=== PATIENT | female | born 1935 | race Caucasian/White ===

== ENCOUNTER 2017-10-28 10:57 | Emergency (ER) | payer MEDICARE, OTHER ==
--- OUTSIDE RECORDS SUMMARY | 2017-10-28 11:30 | XMS REPORT ---
:1935 External Reference #:[id number] Author Organization [facility] Address [address] [place] [address] Phone [phone] Care Team Providers Name Role Phone David Abraham MD Care Team Information Equalizer Operator Unavailable David Abraham MD Primary Care Physician Unavailable Payers Type Date Identification Numbers Payment Provider Subscriber Medicare Primary Policy Number: [id number] [place]akat PayID: [id number] [address] [place] [address] Medigap Part B Effective: 2000 Policy Number: [id number] [facility] Group Number: [id number] 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 Active extremities Onset: 12/23/2016 Type II diabetes mellitus uncontrolled David Abraham M.D. Active Onset: 10/03/2014 Peripheral vascular disease David Abraham M.D. Active Onset: 11/21/2007 Osteoporosis David Abraham M.D. Active Onset: 11/21/2007 Hyperlipidemia David Abraham M.D. Active Onset: 11/21/2007 Type 2 diabetes mellitus David Abraham M.D. Active Onset: 11/21/2007 Essential hypertension David Abraham M.D. Active Family History Date Family Member(s) Problem(s) Comments Father Neoplasm Of Brain Mother Coronary Artery Disease (CAD) First Sister Hypertension First Sister Diabetes Mellitus, II First Sister Acromegaly Social History Type Date Description Comments Marital Status Patient is Cigarette Use Nonsmoker ETOH Use Rarely consumes alcohol Smoking Patient is a former smoker Daily Caffeine Does not consume caffeine Exercise Type/Frequency Current Exercises sporadically. Walks Allergies, Adverse Reactions, Alerts Date Description Reaction Status Severity Comments 07/18/1997 Sulfa Drugs active Medications Medication Date Status Form Strength Qnty SIG Indications Ordering Provider Lasix 09/28/ Active Tablets 40mg 1tabs Take one R60.0 Marilu Yuliana 2018 tablet by hali Jeffries as DELI MANAGER soon as you get home - take BP before bed and write it down, ED if not feeling well. Silvadene 06/16/ Active Cream 1% 20gm apply Alyx 2018 small Jeanette, amount TUBE LASER OPERATOR over left foot ulcer once daily Sertraline HCL 06/14/ Active Tablets 25mg 90tab take one F06.34 Dania 2018 s by mouth Magda in the Afnp-C morning Silver Calcium 06/14/ Active 1Box size: 2x2 David Boles Alginate Pads 2018 apply up Jarad to 3x day M.DObdulia dx: i70.203 Glipizide ER 09/24/ Active Tablets ER 5mg 180ta Take 2 E11.9 David Boles 2016 24HR bs Tablets By Hali AbrahamDObdulia Once A Day Janumet 01/14/ Active Tablets 50-500mg 180ta take 1 E11.9 David Boles 2011 bs tablet by hali Abraham M.D. twice a day Aspir-Low / Active Tablets DR 81mg 1 by mouth Unknown 0000 every day Atorvastatin / Active Tablets 80mg 90tab 1 by mouth David Boles Calcium 0000 s every day Louisa Abraham Carvedilol / Active Tablets 3.125mg 60tab take 1 Alyx 0000 s tablet by Jeanette mouth TUBE LASER OPERATOR twice a day Lisinopril / Active Tablets 2.5mg 30tab 1 by mouth Alyx 0000 s every day Jeanette, TUBE LASER OPERATOR Folic Acid / Active Tablets 1mg 30tab 1 by mouth Alyx 0000 s every day Jeanette, TUBE LASER OPERATOR Raloxifene HCL / Active Tablets 60mg 1 by mouth Unknown 0000 every day No Active 06/14/ Hx Unknown Medications 2018 - 2017 Zostavax 10/03/ Hx Solution [id number]/ 1unit pt july V04.89 David Boles 2014 - Rec 0.65ML s receive Jarad 10/04/ the M.D. 2014 zostavax injection Onetouch Ultra 05/16/ Hx Strips 200un test twice David Boles Blue 2014 - a day Jarad, 10/09/ dx:250.00 M.D. 2015 Cephalexin 11/10/ Hx Tablets 500mg 14tab 1 by mouth 703.0 Beltran Pham 2013 - s twice a M.D. 10/03/ day for 2014 7days Raloxifene 09/19/ Hx Tablets 60mg 90tab Take 1 David Boles Hydrochloride 2013 - s Tablet Jarad 05/09/ Daily M.D. 2014 Raloxifene HCL 09/19/ Hx Tablets 60mg 90tab take 1 M81.0 David Boles 2013 - s tablet by Jarad, 06/13/ mouth M.D. 2017 daily Atorvastatin 09/14/ Hx Tablets 10mg 90tab take 1 E78.4 David Boles Calcium 2012 - s tablet by Jarad, 06/13/ mouth at M.D. 2018 bedtime Ramipril 04/19/ Hx Capsules 2.5mg 90cap Take 1 Kavitha2012 - Capsule Sven, 09/13/ Daily Afnp-C 2013 Janumet 12/29/ Hx Tablets 50-1000mg 180ta 1 po bid Kavitha 2011 - Sven, 01/14/ Afnp-C 2012 Januvia 12/02/ Hx Tablets 50mg 60tab 1 po bid 250.00 Kavitha 2011 - s Sven, 12/29/ Afnp-C 2011 Metformin HCL 10/21/ Hx Tablets 1000mg 60tab take 1 Kavitha2011 - s tablet by Sven, 12/29/ mouth Afnp-C 2011 twice a day Fluconazole 10/21/ Hx Tablets 150mg 2tabs 1 po ; july 616.10 Kavitha 2011 - repeat in Sven, 09/14/ 5-7 days Afnp-C 2012 Glipizide XL 09/10/ Hx Tablets ER 5mg 180ta 2 by mouth E11.9 David Boles 2011 - 24HR bs every day Jarad, 09/24/ M.D. 2016 Glyburide 08/27/ Hx Tablets 5mg 30tab 1 po qd in 250.00 Kavitha 2011 - s Am Sven, Afnp-C 2011 Fluconazole 08/27/ Hx Tablets 150mg 1tabs 1 po prn 250.00 Kavitha 2011 - Sven, Afnp-C 2011 Metformin HCL 12/28/ Hx Tablets 500mg 90tab 2 in Am Kavitha 2010 - s and one Sven, 10/21/ tab in [facility] 2011 Zithromax Z-Isidro 03/18/ Hx Tablets 250mg 1Pack as 466.0 David Boles 2009 - directed Jarad, 03/23/ M.D. 2009 Tessalon Perles 03/18/ Hx Capsules 100mg 20cap 1 bid prn 466.0 David Boles 2009 - s cough Jarad, 03/28/ M.D. 2009 Breeze 2 Testing 11/14/ Hx 3Mont test blood David Boles Disc 2008 - hs sugar Jarad, 12/23/ twice a M.D. 2016 day dx: 250.00 Zithromax 10/22/ Hx Tablets 250mg 6tabs 2 po qd 786.2 David Boles 2008 - today , Jarad, 10/27/ then 1 po M.D. 2008 qd times 4 Tessalon Perles 10/22/ Hx Capsules 100mg 21cap take 1 786.2 David Boles 2008 - capsule by Jarad, 10/29/ mouth M.D. 2008 three times a day as needed for cough Peridex Oral 11/20/ Hx Solution 0.12% 1Bott 1 capful 250.00 Advid A. Rinse 2007 - le bid Jarad, 11/14/ M.D. 2009 Glyburide 08/04/ Hx Tablets 5mg 180ta 2 po qd David Boles 2005 - bs Jarad, 08/13/ M.D. 2012 Altace 08/04/ Hx Capsules 2.5mg 90cap 1 po qd David AObdulia 2005 - s Jarad, 09/14/ M.D. 2013 Lipitor 08/04/ Hx 90 10mg 90uni 1 po qhs David Boles 2005 - ts Jarad, 09/14/ M.D. 2012 Macrobid 11/21/ Hx 100mg 14Tab 1 Irasema 2002 - s Ricki, 12/11/ TUBE LASER OPERATOR 2005 PO bid With Meals Calcium With Vit 11/03/ Hx 600mg 1 po qd Andrea Lily Calderon 2002 - Jhonny, 10/03/ M.D. 2014 Keflex 06/09/ Hx 5Oomg 14uni 1 PO bid Dania 2000 - ts Hilwilliamorf, 06/16/ Afnp-C 2000 Hydrocortisone 11/28/ Hx 2.5% 30gm Apply bid Dania Cream 1999 - Or tid prn Magda, 12/12/ To Afnp-C 1999 Affected Areas Evista 07/26/ Hx Tablets 60mg 90tab Take 1 Kavitha 1997 - Tablet Sven, 09/19/ Daily Afnp-C 2013 Prempro 07/24/ Hx 0.625/2.5 28uni 1 PO qd Nehemias Sanderson 1997 - Harjit, 05/28/ M.D. 1999 Calcium + D / Hx Tablets 1 po qd Unknown - 2017 Vitamin D3 / Hx 1 po qd Unknown - 2017 Vitamin B-6 / Hx Tablets 1 po qd Unknown - 2017 Vitamin B-12 / Hx Tablets 1 by mouth Unknown 0000 - every day 2017 Fish Oil / Hx Capsules 1000mg 1 po qd Unknown - 2017 Ramipril / Hx Capsules 5mg 180ca take 1 I10 David A. 0000 - ps capsule by Jarad, 06/13/ mouth M.D. 2017 twice a day Bumetanide / Hx Tablets 1mg 90tab 1 by mouth David A. 0000 - s every day Jarad, 09/20/ as needed M.D. 2017 for fluid retention in addtion to 2mg for total of 3mg Bumetanide / Hx Tablets 2mg 180ta take 1 David A. 0000 - bs tablet by Jarad, 09/20/ mouth once M.D. 2017 daily for fluid retention Spironolactone / Hx Tablets 25mg 30tab 1 by mouth Alyx 0000 - s every day Jeanette, TUBE LASER OPERATOR 2017 Immunizations CPT Code Status Date Vaccine Lot # [id number] Given 08/16/2015 Tdap Tetanus, W Pertussis [id number] 85622 Given 10/03/2014 Pneumococcal Conjugate Vacc-13 [id number] Given 11/03/2002 Pneumococcal Immunization 36189 Given 11/03/2002 Td Immunization, For Use In Individuals 7 Years Or Older 70548 Given 11/03/2002 DT Immunization Vital Signs Date Vital Result Comment 09/28/2017 BP Systolic 98 mmHg BP Diastolic 60 mmHg Heart Rate 78 /min Body Temperature 98.1 F Respiratory Rate 18 /min Weight 129.00 lb 06/16/2017 BP Systolic 100 mmHg BP Diastolic 62 mmHg Heart Rate 74 /min Body Temperature 97.5 F Respiratory Rate 15 /min 06/14/2017 BP Systolic 82 mmHg BP Diastolic 54 mmHg Heart Rate 84 /min Body Temperature 97.9 F Respiratory Rate 16 /min Height 57.75 inches 4'9.75" Weight 115.00 lb BMI (Body Mass Index) 24.2 kg/m2 12/23/2016 BP Systolic 118 mmHg BP Diastolic 80 mmHg Heart Rate 88 /min Body Temperature 98.3 F Respiratory Rate 16 /min Height 57.75 inches 4'9.75" Weight 130.00 lb BMI (Body Mass Index) 27.4 kg/m2 10/10/2015 BP Systolic 120 mmHg BP Diastolic 70 mmHg Heart Rate 76 /min Body Temperature 97.9 F Respiratory Rate 16 /min Height 57.75 inches 4'9.75" Weight 135.00 lb BMI (Body Mass Index) 28.5 kg/m2 08/16/2015 BP Systolic 136 mmHg BP Diastolic 74 mmHg Heart Rate 80 /min Body Temperature 97.7 F Respiratory Rate 16 /min Height 58.5 inches 4'10.50" Weight 136.00 lb BMI (Body Mass Index) 27.9 kg/m2 10/03/2014 BP Systolic 140 mmHg BP Diastolic 70 mmHg Heart Rate 76 /min Body Temperature 96.9 F Respiratory Rate 16 /min Height 58.5 inches 4'10.50" Weight 136.00 lb BMI (Body Mass Index) 27.9 kg/m2 11/10/2013 BP Systolic 130 mmHg BP Diastolic 70 mmHg Heart Rate 80 /min Body Temperature 98.0 F Respiratory Rate 16 /min Height 58 inches 4'10" Weight 137.00 lb BMI (Body Mass Index) 28.6 kg/m2 09/13/2013 BP Systolic 136 mmHg BP Diastolic 80 mmHg Heart Rate 68 /min Body Temperature 96.7 F Respiratory Rate 16 /min Height 58 inches 4'10" Weight 134.00 lb BMI (Body Mass Index) 28.0 kg/m2 09/14/2012 BP Systolic 130 mmHg BP Diastolic 74 mmHg Heart Rate 72 /min Body Temperature 97.3 F Height 58.75 inches 4'10.75" Weight 136.00 lb BMI (Body Mass Index) 27.7 kg/m2 12/30/2011 BP Systolic 110 mmHg BP Diastolic 80 mmHg Heart Rate 72 /min Body Temperature 98.4 F Height 58.75 inches 4'10.75" Weight 136.00 lb BMI (Body Mass Index) 27.7 kg/m2 12/03/2011 BP Systolic 134 mmHg BP Diastolic 88 mmHg Heart Rate 76 /min Height 58.75 inches 4'10.75" Weight 139.00 lb BMI (Body Mass Index) 28.3 kg/m2 10/22/2011 BP Systolic 120 mmHg BP Diastolic 76 mmHg Heart Rate 64 /min Height 58.75 inches 4'10.75" Weight 137.00 lb BMI (Body Mass Index) 27.9 kg/m2 09/25/2011 BP Systolic 118 mmHg BP Diastolic 60 mmHg Heart Rate 62 /min Body Temperature 97.4 F Respiratory Rate 20 /min Height 58.75 inches 4'10.75" Weight 140.00 lb BMI (Body Mass Index) 28.5 kg/m2 09/11/2011 BP Systolic 150 mmHg BP Diastolic 80 mmHg Heart Rate 76 /min Height 58.75 inches 4'10.75" Weight 137.00 lb BMI (Body Mass Index) 27.9 kg/m2 08/28/2011 BP Systolic 140 mmHg BP Diastolic 82 mmHg Heart Rate 60 /min Body Temperature 97.1 F Height 58.75 inches 4'10.75" Weight 137.00 lb BMI (Body Mass Index) 27.9 kg/m2 08/14/2011 BP Systolic 148 mmHg BP Diastolic 84 mmHg Heart Rate 66 /min Height 58.75 inches 4'10.75" measured Weight 137.00 lb BMI (Body Mass Index) 27.9 kg/m2 12/24/2010 BP Systolic 130 mmHg BP Diastolic 72 mmHg Heart Rate 66 /min Body Temperature 97.5 F Respiratory Rate 16 /min Height 58.75 inches 4'10.75" measured Weight 150.00 lb BMI (Body Mass Index) 30.6 kg/m2 Right Visual Acuity Distance 20/25 corrected Left Visual Acuity Distance 20/25 corrected 03/18/2009 BP Systolic 130 mmHg BP Diastolic 80 mmHg Heart Rate 76 /min Body Temperature 97.6 F Respiratory Rate 16 /min O2 % BldC Oximetry 96 % Weight 150.00 lb 03/04/2009 BP Systolic 120 mmHg BP Diastolic 80 mmHg Heart Rate 72 /min Body Temperature 97.8 F Respiratory Rate 16 /min Weight 147.00 lb 11/14/2008 BP Systolic 138 mmHg BP Diastolic 68 mmHg Heart Rate 78 /min Body Temperature 98.0 F Respiratory Rate 18 /min Weight 151.00 lb 10/22/2008 BP Systolic 138 mmHg BP Diastolic 72 mmHg Heart Rate 84 /min Body Temperature 98.6 F Respiratory Rate 16 /min O2 % BldC Oximetry 96 % Weight 153.00 lb 11/21/2007 BP Systolic 132 mmHg BP Diastolic 80 mmHg Heart Rate 72 /min Body Temperature 98.1 F Respiratory Rate 16 /min Height 59.25 inches 4'11.25" Weight 145.00 lb BMI (Body Mass Index) 29.0 kg/m2 03/16/2007 BP Systolic 130 mmHg BP Diastolic 80 mmHg Heart Rate 74 /min Height 59.25 inches 4'11.25" Weight 157.00 lb BMI (Body Mass Index) 31.4 kg/m2 03/10/2006 BP Systolic 140 mmHg BP Diastolic 70 mmHg Heart Rate 76 /min Body Temperature 98.1 F Height 59.25 inches 4'11.25" Weight 150.00 lb BMI (Body Mass Index) 30.0 kg/m2 08/04/2005 BP Systolic 134 mmHg BP Diastolic 74 mmHg Heart Rate 66 /min Body Temperature 98.6 F Height 59.5 inches 4'11.50" Weight 148.00 lb BMI (Body Mass Index) 29.4 kg/m2 12/11/2004 BP Systolic 132 mmHg BP Diastolic 84 mmHg Heart Rate 60 /min Body Temperature 97.9 F Height 59.5 inches 4'11.50" Weight 147.00 lb BMI (Body Mass Index) 29.2 kg/m2 11/21/2002 BP Systolic 122 mmHg BP Diastolic 72 mmHg Heart Rate 74 /min Body Temperature 97.9 F Height 59.5 inches 4'11.50" Weight 147.00 lb BMI (Body Mass Index) 29.2 kg/m2 11/03/2002 BP Systolic 148 mmHg BP Diastolic 80 mmHg Heart Rate 68 /min Height 59.5 inches 4'11.50" Weight 143.00 lb BMI (Body Mass Index) 28.4 kg/m2 02/07/2002 BP Systolic 110 mmHg BP Diastolic 78 mmHg Heart Rate 88 /min Height 59.5 inches 4'11.50" Weight 145.00 lb BMI (Body Mass Index) 29.3 kg/m2 09/28/2000 BP Systolic 132 mmHg BP Diastolic 80 mmHg Heart Rate 60 /min Height 59.5 inches 4'11.50" Weight 156.00 lb BMI (Body Mass Index) 31.5 kg/m2 06/29/2000 BP Systolic 132 mmHg BP Diastolic 72 mmHg Heart Rate 74 /min Height 59.5 inches 4'11.50" Weight 167.00 lb BMI (Body Mass Index) 33.7 kg/m2 06/29/2000 Height 59.5 inches 4'11.50" 06/09/2000 BP Systolic 130 mmHg BP Diastolic 76 mmHg Heart Rate 72 /min Body Temperature 97.1 F Height 59.5 inches 4'11.50" Weight 168.00 lb BMI (Body Mass Index) 33.9 kg/m2 11/29/1999 BP Systolic 120 mmHg BP Diastolic 70 mmHg Body Temperature 96.8 F Height 59.5 inches 4'11.50" Weight 163.00 lb BMI (Body Mass Index) 32.9 kg/m2 05/29/1999 BP Systolic 136 mmHg LA LG Cuff BP Diastolic 94 mmHg LA LG Cuff Heart Rate 80 /min Reg Body Temperature 97.3 F Height 59.5 inches 4'11.50" Weight 161.00 lb BMI (Body Mass Index) 32.5 kg/m2 11/21/1998 BP Systolic 156 mmHg BP Diastolic 88 mmHg Height 60 inches 5'0" Weight 155.00 lb 07/18/1997 BP Systolic 130 mmHg BP Diastolic 80 mmHg Heart Rate 64 /min Body Temperature 96.3 F Height 60 inches 5'0" Weight 147.00 lb Results Test Date Test Result H/L Range Note Laboratory test finding 09/28/2017 Hemoglobin A1c (Fma) 6.1 % High 4.1- 5.7 Ua - Micro (Fma) 09/28/2017 Appearance CLEAR Color YELLOW Glucose, Urine (Fma/CMC/CTX) NEG Bilirubin NEG Ketones TRACE SP Grav >=1.030 Blood NEG PH 5.0 Protein SSA:TRACE Urobil 0.2 Nitrite NEG Leukocytes (Fma/CMC/Centrex) NEG Hyaline - /Lpf Granular - /Lpf WBC (Fma,Centrex) 2-3 RBC 0-2 Mucus MODERATE AMOUNT /Lpf Epith FEW /Lpf Bacteria TRACE /Hpf Amorphous - /Lpf Crystals, Fluid (Fma/CMC/CTX) - Z#Comments - Laboratory test finding 09/28/2017 Free T4 <pending> 0.75-1.54 TSH <pending> 0.5-5.0 Comprehensive Metabolic Prof 06/14/2017 Sodium 130 mEq/L Low 134-149 1 Potassium 4.3 mEq/L 3.6-5.5 Chloride 91 mEq/L Low 94-112 2 Carbon Dioxide 27 mEq/L 21-32 Glucose 513 mg/dL High 70-105 3 BUN 25 mg/dL 6-26 Creatinine 0.9 mg/dL 0.6-1.4 BUN/Creat Ratio 27.8 CALC 8.0-36.0 Calcium 9.2 mg/dL 8.6-10.2 Total Protein 6.6 g/dL 6.4-8.3 Albumin 3.9 g/dL 3.8-5.5 Globulin 2.7 g/dL 2.0-4.8 A/G Ratio 1.4 CALC 0.6-2.3 Alk. Phosphatase 101 U/L 30-110 Alt (SGPT) 30 U/L 7-35 Ast (Sgot) 23 U/L 5-34 Total Bilirubin 0.8 mg/dL 0.2-1.3 GFR Non- >60 ml/min/1.73m^ >=60 GFR >60 ml/min/1.73m^ >=60 CBC Electronic [facility] 06/14/2017 WBC 6.7 x10^3/UL 4.0-10.0 RBC 3.93 x10^6/UL 3.93-6.00 HGB 12.0 g/dL 12.0-17.0 HCT 33 % Low 35-50 MCV 93.5 fL 80.0-95.0 MCH 31.7 pg 25.6-32.2 MCHC 33.9 g/dL 32.2-36.0 RDW-CV 13.8 % 11.6-14.4 PLT 272 x10^3/UL 163-400 MPV 10.2 fL 9.4-12.4 Eduardo# 4.18 x10^3/UL 1.56-6.13 Lymph# 1.76 x10^3/UL 1.18-3.74 [place]# 0.54 x10^3/UL 0.24-0.82 Eos # 0.2 x10^3/UL 0.0-0.5 Baso # 0.06 x10^3/UL 0.01-0.08 Eduardo% 62.4 % 34.0-70.0 Lymph % 26.2 % 20.0-52.0 [place]% 8.0 % 5.0-12.0 Eos% 2.2 % 0.7-7.0 Baso% 0.9 % 0.1-1.2 Laboratory test finding 06/14/2017 Hemoglobin A1c (Fma) 9.0 % High 4.1- 5.7 Lipid Profile 12/23/2016 Cholesterol 141 mg/dL 120-200 Triglycerides 150 mg/dL 30-200 HDL Cholesterol 46 mg/dL 30-85 LDL (Calculated) 65 CALC 0-129 VLDL Cholesterol 30 mg/dL 0-50 HDL Risk Factor 3.1 CALC 0.0-4.4 Comprehensive Metabolic Prof 12/23/2016 Sodium 135 mEq/L 134-149 Potassium 4.1 mEq/L 3.6-5.5 Chloride 98 mEq/L 94-112 Carbon Dioxide 28 mEq/L 21-32 Glucose 210 mg/dL High 70-105 4 BUN 12 mg/dL 6-26 Creatinine 0.7 mg/dL 0.6-1.4 BUN/Creat Ratio 17.1 CALC 8.0-36.0 Calcium 9.6 mg/dL 8.6-10.2 Total Protein 6.3 g/dL Low 6.4-8.3 5 Albumin 4.0 g/dL 3.8-5.5 Globulin 2.3 g/dL 2.0-4.8 A/G Ratio 1.7 CALC 0.6-2.3 Alk. Phosphatase 57 U/L 30-110 Alt (SGPT) 30 U/L 7-35 Ast (Sgot) 28 U/L 5-34 Total Bilirubin 0.8 mg/dL 0.2-1.3 GFR Non- >60 ml/min/1.73m^ >=60 GFR >60 ml/min/1.73m^ >=60 Complete Blood Count 12/23/2016 WBC 5.9 x10^3/UL 3.6-9.6 RBC 4.17 x10^6/UL 3.90-5.70 HGB 12.0 g/dL Low 12.1-17.2 HCT 37 % 36-50 MCV 89.0 fL 82.2-97.4 MCH 28.8 pg 27.6-33.3 MCHC 33.0 g/dL 33.0-35.5 RDW 13.9 % High 11.6-13.7 PLT 194 x10^3/UL 150-400 MPV 7.4 fL 7.4-10.4 Gran # 4.4 x10^3/UL 1.5-7.2 Lymph# 1.2 x10^3/UL 0.7-4.9 [place]# 0.3 x10^3/UL 0.1-0.9 Gran % 72.1 % 42.2-75.2 Lymph % 21.9 % 20.5-51.1 [place]% 6.0 % 1.7-9.3 Laboratory test finding 12/23/2016 Hemoglobin A1c (Fma) 9.1 % High 4.1- 5.7 Microalb, Random (Fma/CMC/CTX) 34.7 mg/L 0.5-37 Microalbumin 24 HR (Fma) 11/22/2015 Microalbumin 24 HR (Fma) 5.7 mg/dL 0- 92.1 Volume, Total 1000mls Laboratory test finding 08/16/2015 Hemoglobin A1c (Fma) 7.5 % High 4.1- 5.7 Comprehensive Metabolic Prof 08/16/2015 Sodium 142 mEq/L 134-149 Potassium 4.0 mEq/L 3.6-5.5 Chloride 102 mEq/L 94-112 Carbon Dioxide 24 mEq/L 21-32 Glucose 217 mg/dL High 70-105 6 BUN 16 mg/dL 6-26 Creatinine 0.6 mg/dL 0.6-1.4 BUN/Creat Ratio 26.7 CALC 8.0-36.0 Calcium 8.6 mg/dL 8.6-10.2 Total Protein 6.3 g/dL Low 6.4-8.3 7 Albumin 4.0 g/dL 3.8-5.5 Globulin 2.3 g/dL 2.0-4.8 A/G Ratio 1.7 CALC 0.6-2.3 Alk. Phosphatase 61 U/L 30-110 Alt (SGPT) 19 U/L 7-35 Ast (Sgot) 21 U/L 5-34 Total Bilirubin 0.5 mg/dL 0.2-1.3 GFR Non- >60 ml/min/1.73m^ >=60 GFR >60 ml/min/1.73m^ >=60 Lipid Profile 08/16/2015 Cholesterol 173 mg/dL 120-200 Triglycerides 158 mg/dL 30-200 HDL Cholesterol 56 mg/dL 30-85 LDL (Calculated) 85 CALC 0-129 VLDL Cholesterol 32 mg/dL 0-50 HDL Risk Factor 3.1 CALC 0.0-4.4 Microalbumin 24 HR (Fma) 10/24/2014 Microalbumin 24 HR (Fma) 6.0 mg/dL 0- 92.1 Volume, Total 825 Laboratory test finding 10/03/2014 Hemoglobin A1c 6.9 % High 4.1-5.7 (Fma/CMC,CX) Lipid Profile 10/03/2014 Cholesterol 152 mg/dL 120-200 Triglycerides 119 mg/dL 30-200 HDL Cholesterol 60 mg/dL 30-85 LDL (Calculated) 68 CALC 0-129 VLDL Cholesterol 24 mg/dL 0-50 HDL Risk Factor 2.5 CALC 0.0-4.4 Comprehensive Metabolic Prof 10/03/2014 Sodium 139 mEq/L 134-149 Potassium 4.3 mEq/L 3.6-5.5 Chloride 107 mEq/L 94-112 Carbon Dioxide 24 mEq/L 21-32 Glucose 204 mg/dL High 70-105 8 BUN 16 mg/dL 6-26 Creatinine 0.7 mg/dL 0.6-1.4 BUN/Creat Ratio 22.9 CALC 8.0-36.0 Calcium 8.9 mg/dL 8.6-10.2 Total Protein 6.4 g/dL 6.4-8.3 Albumin 3.9 g/dL 3.8-5.5 Globulin 2.5 g/dL 2.0-4.8 A/G Ratio 1.6 CALC 0.6-2.3 Alk. Phosphatase 57 U/L 30-110 Alt (SGPT) 22 U/L 7-35 Ast (Sgot) 22 U/L 5-34 Total Bilirubin 0.4 mg/dL 0.2-1.3 Microalbumin 24 HR (Fma) 09/25/2013 Microalbumin 24 HR (Fma) <5.0 mg/dL 0 -92.1 Volume, Total 1000 mls Laboratory test finding 09/13/2013 Hemoglobin A1c 6.5 % High 4.1-5.7 (a/[facility] [place] [place],CX) Laboratory test finding 09/13/2013 Vitamin D25 74 30-100 Lipid Profile 09/13/2013 Cholesterol 246 mg/dL High 120-200 Triglycerides 188 mg/dL 30-200 HDL Cholesterol 57 mg/dL 30-85 LDL (Calculated) 151 CALC High 0-129 VLDL Cholesterol 38 mg/dL 0-50 HDL Risk Factor 4.3 CALC 0.0-4.4 Comprehensive Metabolic Prof 09/13/2013 Sodium 138 mEq/L 134-149 Potassium 4.1 mEq/L 3.6-5.5 Chloride 105 mEq/L 94-112 Carbon Dioxide 25 mEq/L 21-32 Glucose 148 mg/dL High 70-105 9 BUN 20 mg/dL 6-26 Creatinine 0.8 mg/dL 0.6-1.4 BUN/Creat Ratio 25.0 CALC 8.0-36.0 Calcium 9.5 mg/dL 8.6-10.2 Total Protein 6.7 g/dL 6.3-8.1 Albumin 4.3 g/dL 3.8-5.5 Globulin 2.4 g/dL 2.0-4.8 A/G Ratio 1.8 CALC 0.6-2.3 Alk. Phosphatase 57 U/L 30-110 Alt (SGPT) 23 U/L 7-35 Ast (Sgot) 19 U/L 5-34 Total Bilirubin 0.5 mg/dL 0.2-1.3 Laboratory test 09/14/2012 Hemoglobin A1c 6.5 % High 4.1-5.7 finding (a/[facility] [place] [place],CX) Laboratory test 02/10/2012 [facility] Lab Test chol,lipid finding panel Laboratory test 12/30/2011 Hemoglobin A1c 6.6 % High 4.1-5.7 finding (a/CMC,CX) Laboratory test 08/14/2011 Hemoglobin A1c 11.6 % High 4.1-5.7 finding (a/[facility] [place] [place],CX) Surgical Pathology 01/23/2011 Surgical Pathology 10 - <SEE NOTE> Ict-Hemoccult 01/01/2011 Ict Hemoccult (1) NEG (MCR)Fma Screening Ict Hemoccult-(2) POSITIVE Ict-Hemoccult (3) Microalbumin 24 HR (Fma) 12/26/2010 Microalbumin 24 HR (Fma) 7.3 mg/dL 0- 92.1 Volume, Total 700ML Ua - Non Micro (Fma) 12/24/2010 Appearance CLEAR Color YELLOW Glucose, Urine (a/[facility] [place] [place]/CTX) NEG Bilirubin ICTO:NEG Ketones 40mg/dL SP Grav >=1.030 Blood NEG PH 5.0 Protein NEG Urobil 0.2 Nitrite NEG Leukocytes (a/[facility] [place] [place]/[facility]rex) NEG Lipid Profile 12/24/2010 Cholesterol 158 mg/dL 120-200 HDL 48 mg/dL 30-85 Triglycerides 93 mg/dL 30-200 HDL Risk Factor 3.3 CALC 0.0-4.0 LDL (Calculated) 91 CALC 0-129 VLDL (Calculated) 19 mg/dL 0-50 Comprehensive Metabolic Prof 12/24/2010 Albumin 4.4 g/dL 3.8-5.5 Alk. Phos. 71 U/L 30-110 Alt (SGPT) 37 U/L High 7-35 Ast (Sgot) 37 U/L High 5-34 BUN 17 mg/dL 6-26 Calcium 9.1 mg/dL 8.6-10.2 Chloride 100 mEq/L 94-112 Creatinine 0.8 mg/dL 0.6-1.4 Carbon Dioxide 26 mEq/L 21-32 Glucose 192 mg/dL High 70-105 11 Sodium 138 mEq/L 134-149 Total Bilirubin 0.7 mg/dL 0.2-1.3 Total Protein 6.5 g/dL 6.3-8.1 Potassium 4.0 mEq/L 3.6-5.5 Globulin 2.1 g/dL 2.0-4.8 A/G Ratio 2.0 Calc 0.6-2.2 BUN/Creat Ratio 21.2 Calc 8.0-36.0 Laboratory test finding 12/24/2010 Hemoglobin A1c 9.1 % High 4.1-5.7 ([facility] [place], [place]) Microalbumin 24 HR (a) 03/06/2009 Microalbumin 24 HR (a) <5.0 mg/dL 0 -92.1 Volume, Total 1200ml Vitamin D 25 Hydroxy 03/04/2009 Vitamin D, 34.3 ng/mL 32.0-100.0 12 25-Hydroxy Laboratory test finding 03/04/2009 Hemoglobin A1c 7.2 % High 4.1-5.7 ([facility] [place], [place]) Comprehensive Metabolic 10/31/2008 Albumin 3.8 g/dL 3.8-5.5 13 Prof Alk. Phos. 74 U/L 30-110 13 Alt (SGPT) 28 U/L 7-35 13 Ast (Sgot) 30 U/L 5-34 13 BUN 17 mg/dL 6-26 13 Calcium 9.1 mg/dL 8.6-10.2 13 Chloride 100 mEq/L 94-112 13 Creatinine 0.8 mg/dL 0.6-1.4 13 Carbon Dioxide 25 mEq/L 21-32 13 Glucose 193 mg/dL High 70-105 13 Sodium 146 mEq/L 134-149 13 Total Bilirubin 0.7 mg/dL 0.2-1.3 13 Total Protein 6.6 g/dL 6.3-8.1 13 Potassium 5.1 mEq/L 3.6-5.5 13 Globulin 2.8 g/dL 2.0-4.8 13 A/G Ratio 1.4 Calc 0.6-2.2 13 BUN/Creat Ratio 20.6 Calc 8.0-36.0 13 Lipid Profile 10/31/2008 Cholesterol 179 mg/dL 120-200 13 HDL 51 mg/dL 30-85 13 Triglycerides 200 mg/dL 30-200 13 HDL Risk Factor 3.5 CALC Low 4.2-7.0 13 LDL (Calculated) 89 CALC 0-129 13 VLDL (Calculated) 40 mg/dL 0-50 13 Laboratory test finding 10/31/2008 Hemoglobin A1c ([facility] [place], [place]) 7.9 % High 4.1-5.7 Ict-Hemoccult (MCR)a 01/17/2008 Ict Hemoccult (1) NEG Screeni Ict Hemoccult-(2) NEG Ict-Hemoccult (3) NEG Microalbumin 24 HR (Fma) 11/28/2007 Microalbumin 24 HR (Fma) A<5.0 mg/dL Volume, Total 1,500ML Comprehensive Metabolic Prof 11/21/2007 Albumin 4.0 g/dL 3.8-5.5 13 Alk. Phos. 64 U/L 30-110 13 Alt (SGPT) 23 U/L 7-35 13 Ast (Sgot) 25 U/L 5-34 13 BUN 17 mg/dL 6-26 13 Calcium 9.3 mg/dL 8.6-10.2 13 Chloride 100 mEq/L 94-112 13 Creatinine 0.9 mg/dL 0.6-1.4 13 Carbon Dioxide 27 mEq/L 21-32 13 Glucose 174 mg/dL High 70-105 13 Sodium 139 mEq/L 134-149 13 Total Bilirubin 0.4 mg/dL 0.2-1.3 13 Total Protein 6.4 g/dL 6.3-8.1 13 Potassium 4.8 mEq/L 3.6-5.5 13 Globulin 2.4 g/dL 2.0-4.8 13 A/G Ratio 1.7 Calc 0.6-2.2 13 BUN/Creat Ratio 18.0 Calc 8.0-36.0 13 Laboratory test finding 11/21/2007 TSH 2.93 mIU/L 0.50-6.00 13 Complete Blood Count 11/21/2007 WBC 5.5 x10^3/u 3.6-9.6 13 Gran# 3.6 x10^3/u 1.5-7.2 13 Gran% 66.0 % 42.2-75.2 13 HCT 38 % 36-50 13 HGB 12.7 g/dL 12.1-17.2 13 Lymph# 1.6 x10^3/u 0.7-4.9 13 Lymph% 28.4 % 20.5-51.1 13 MCH 28.8 pg 27.6-33.3 13 MCV 86.3 fL 82.2-97.4 13 MCHC 33.4 g/dL 33.0-35.5 13 Mo# 0.3 x10^3/u 0.1-0.9 13 Mo% 5.6 % 1.7-9.3 13 MPV 8.1 fL 7.4-10.4 13 PLT 258 x10^3/u 150-400 13 RBC 4.41 x10^6/u 3.90-5.70 13 RDW 12.6 % 11.6-13.7 13 Lipid Profile 11/21/2007 Cholesterol 138 mg/dL 120-200 13 HDL 42 mg/dL 30-85 13 Triglycerides 151 mg/dL 30-200 13 HDL Risk Factor 3.3 CALC Low 4.2-7.0 13 LDL (Calculated) 66 CALC 0-129 13 VLDL (Calculated) 30 mg/dL 0-50 13 Laboratory test finding 11/21/2007 Hemoglobin A1c (Fma/CMC,CX) 6.7 % High 4.1-5.7 Laboratory test finding 03/19/2007 Hemoglobin A1c 7.3 % High <6.0 14 Comp Metabolic Panel 03/19/2007 One Over Creatinine 1.00 Anion Gap 3.0 mmol/L 2-11 15 Albumin/Globulin Ratio 1.3 1-3 Albumin 3.9 GM/DL 3.2-5.2 Alkaline Phosphatase 86 U/L 30-110 Alt (SGPT) 26 U/L 14-54 Ast (Sgot) 27 U/L 12-42 BUN 14 mg/dL 6-24 Calcium 8.6 mg/dL Low 8.7-10.2 Chloride 104 mmol/L 101-111 Co2 (Carbon Dioxide) 29.0 mmol/L 22-32 Globulin 3.0 GM/DL 2-4 Glucose 176 mg/dL High 70-105 Potassium 4.1 mmol/L 3.5-5.0 Sodium 136 mmol/L 135-145 Bilirubin Total 0.9 mg/dL 0.4-1.5 Total Protein 6.9 GM/DL 6.2-8.1 BUN/Creatinine Ratio 14.0 8-20 Creatinine 1.0 mg/dL 0.5-1.4 Lipid Profile 03/19/2007 Cholesterol/HDL Ratio 3.27 AVERAGE 1-4.44 (Trig/Chol/HDL) Cholesterol 170 mg/dL Less Than 200 16 Triglyceride 157 mg/dL 40-200 High Density Lipoprotein 52 mg/dL 40-60 Low Density Lipoprotein 87 mg/dL Less Than 100 17 CBC With Electronic Diff 03/19/2007 White Blood Count 8.5 CUMM 4.8-10.8 Abs Basophils 0 0-0.2 Abs Eosinophils 0.2 0-0.6 Absolute Neutrophil Count 6.4 1.5-7.7 Abs Lymphs 1.3 1.0-4.8 Abs Mononuclear 0.6 0-0.8 Basophil % 0.5 % 0-2 Hematocrit 40 % 35-47 Hemoglobin 13.5 g/dL 12.0-16.0 Eosinophil % 1.9 % 0-6 Gran % 74.9 % 38-83 Lymph % 15.5 % Low 20-45 Mean Corpuscular HGB Cone 34 g/dL 32-36 Mean Corpuscular Hemoglob 30 pg 27-31 Mean Corpuscular Volume 88 um3 79-97 Mean Platelet Volume 8.8 um3 7.4-10.4 Mononuclear % 7.2 % 1-9 Platelet Count 279 CUMM 150-450 Red Cell Count 4.53 CUMM 4.2-5.4 Redcell Distribution WDTH 14 % 10.5-15 Ua - Non Micro (Fma) 03/19/2007 Appearance CLEAR Color LT YELLOW Glucose, Urine (Fma/CMC/CTX) NEG Bilirubin NEG Ketones NEG SP Grav 1.015 Blood NEG PH 6.5 Protein NEG Urobil 0.2 Nitrite NEG Leukocytes (Fma/CMC/[facility]rex) NEG Laboratory test 03/10/2006 Thin Prep W/HPV SEE IMAGE finding (Lsil/CANDIDO/Asc) Comp Metabolic-ALL 03/10/2006 Glucose, Serum 61 RESULT DAVID'D Low 70-105 Lab Compani (Fma/CMC/CTX) mg/dL BUN (Fma/CMC/Centrex) 23 mg/dL 6-26 Creatinine (Fma/CMC/CTX) 0.8 mg/dL 0.6-1.4 Sodium 145 134-149 Potassium 3.9 3.6-5.5 Chloride 102 mEq/L 94-112 Co2 30 21-32 Albumin (Fma/CMCC/Centrex) 4.2 3.8-5.5 Total Protein 6.9 g/dL 6.3-8.1 Calcium (Fma/CMC/Centrex) 9.5 mg/dL 8.6-10.2 Alkaline Phosphatase (F/C/CTX) 76 U/L 30-110 Ast (Sgot) (Fma/CMC/Centrex) 19 U/mL 5-34 Alt (SGPT) (CMC/Centrex) 22 10-40 Bilirubin, Total 0.4 mg/dL 0.2-1.3 #GFR, Calculated (CTX) - CBC Electronic-ALL Lab Compani 03/10/2006 WBC 6.1 3.6-9.6 RBC 4.28 3.90-5.70 Hemoglobin (Fma/CMC/CTX) 12.9 g/dL 12.1 - 17.2 Hematocrit (Fma/CMC/CTX) 38 % 36.1 - 50.3 Mean Corpuscular Vol 88.8 82.2-97.4 Mean Corpuscular Hemaglobin 30.1 27.6-33.3 Mean Corpuscular Hemo Concen 33.9 33.0-36.0 RDW 12.4 11.6-13.7 Platelets 271 10^3/ul 150-400 Mean Platelet Volume 7.8 7.4-10.4 Neutrophils - Lymphocytes 34.5 % 20.5 - 51.1 Monocytes 2.5 % 1.7-9.3 Eosinophil - Basophil% - Abs Neutrophils - Abs Lymphs - Abs Mononuclear - Abs Eosinophils - Abs Basophils - Ua - Non Micro (a) 03/10/2006 Appearance CLEAR Color YELLOW Glucose NEG Bilirubin NEG Ketones TRACE SP Grav 1.015 Blood NEG PH 7.0 Protein NEG Urobil 0.2 Nitrite NEG Leukocytes (Fma/CMC/Centrex) NEG Laboratory test finding 03/10/2006 Free T4 (Fma/CMC/[facility]rex) 0.85 ng/dL 0.75-1.54 TSH (Fma/CMC/Centrex) 3.26 uIU/ml 0.5-6.0 Free T3 (Fma,CX) 2.41 pg/mL 2.0-4.9 Hemoglobin A1c (Fma/CMC/CTX) 6.1% % High 4.1-5.7 Laboratory test finding 12/11/2004 Hemoglobin A1c (F/C/CTX) 7.2 % High 4.1 -5.7 Basic Metabolic ([facility]) 12/11/2004 Glucose, Serum 118 mg/dL High 70-105 (Fma/CMC/CTX) BUN (Fma/CMC/Centrex) 17 mg/dL 6-26 Creatinine (Fma/CMC/CTX) 0.7 mg/dL 0.6-1.4 BUN/Creatinin Ratio 23.5 8.0-36 Sodium 141 134-149 Potassium 4.1 3.6-5.5 Chloride 101 mEq/L 94-112 Co2 27 21-32 Calcium (Fma/CMC/Centrex) 9.4 mg/dL 8.6-10.2 Occult Blood (3) 11/22/2002 Occult Blood #1 NEGATIVE 11-16-02 Occult Blood #2 NEGATIVE 11-17-02 Occult Blood #3 NEGATIVE 11-18-02 Ua - Micro ([facility]) 11/21/2002 Appearance CLOUDY LT YELLOW Glucose NEGATIVE Bilirubin NEGATIVE Ketones NEGATIVE SP Grav 1.015 Blood TRACE-INTACT PH 6.5 Protein NEGATIVE Urobil 0.2 Nitrite NEGATIVE Leukocytes 3+ Hyaline - /Lpf Granular - /Lpf WBC'S 10-15 RBC'S 3-5 Mucus GROSS AMT /Lpf Epith FEW Bacteria 2+ Amorphous SLT /Lpf Crystals - /Lpf Comments - Laboratory test finding 11/03/2002 Hemoglobin A1c (F/C/CTX) 6.5 % High 4.1 -5.7 CBC Electronic ([facility]) 11/03/2002 WBC 4.7 3.6-9.6 Lymphocytes 36.8 % 20.5 - 51.1 Monocytes 3.7 % 1.7-9.3 Granulocytes 59.5 % 42.2 - 75.2 Lymphocytes 1.7 10^3/uL 0.7 - 4.9 Monocytes 0.2 10^3/uL 0.1 - 0.9 Granulocytes 2.8 10^3/uL 1.5 - 7.2 RBC 4.58 3.90-5.70 Hemoglobin (Fma/CMC/CTX) 13.5 g/dL 12.1 - 17.2 Hematocrit (Fma/CMC/CTX) 40.1 % 36.1 - 50.3 Mean Corpuscular Vol 87.5 82.2-97.4 Mean Corpuscular Hemaglobin 29.5 27.6-33.3 Mean Corpuscular Hemo Concen 33.8 33.0-34.8 RDW 12.9 11.6-13.7 Platelets 285. 10^3/ul 150-400 Mean Platelet Volume 8.1 7.4-10.4 Basic Metabolic ([facility]) 11/03/2002 Glucose, Serum (Fma/CMC/CTX) 130 mg/dL High 70-118 BUN (a/[facility] [place] [place]/[facility]rex) 13 mg/dL 7-26 Creatinine ([facility] [place] [place]/CTX) 0.6 mg/dL 0.6-1.4 BUN/Creatinin Ratio 21.7 8.0-36 Sodium 144 134-149 Potassium 4.0 3.6-5.5 Chloride 107 mEq/L 94-112 Co2 25 21-32 Calcium (a/[facility] [place] [place]/[facility]) 9.7 mg/dL 8.6-10.0 Lipid Profile ([facility]) 11/03/2002 Cholesterol 242 mg/dL High 120-200 Triglyceride 200 mg/dL 30-200 HDL-Chol 44 30-85 LDL-Calculated ([facility] [place] [place]) 158 CALC High 0-129 VLDL 40 0-50 HDL Risk Factor ([facility]) 5.5 CALC 4.2-7.0 Ua - Micro ([facility]) 11/03/2002 Appearance CLEAR LT YELLOW Glucose NEGATIVE Bilirubin NEGATIVE Ketones NEGATIVE SP Grav 1.015 Blood NEGATIVE PH 5.5 Protein NEGATIVE Urobil 0.2 Nitrite NEGATIVE Leukocytes SMALL Hyaline - /Lpf Granular - /Lpf WBC'S 2-4 RBC'S 0-2 Mucus LG AMT /Lpf Epith FEW Bacteria TR Amorphous - /Lpf Crystals - /Lpf Comments - Laboratory test 11/03/2002 Thin Prep Papsmear see image 18 finding Laboratory test 09/15/2002 Urine C&S NO GROWTH DAY 2 Final finding ([facility] [place] [place]/[facility]) Lipid Profile (a) 09/28/2000 Cholesterol 232 mg/dL High 140-200 Triglyceride 247 mg/dL High 30-150 VLDL 49 0-50 LDL-Calculated 140 0-160 HDL-Chol 43 35-85 Laboratory test finding 09/28/2000 Glucometer Education 149 High 70-118 Laboratory test finding 08/13/2000 Glucose 151 mg/dL High 70 - 118 Hemoglobin A1c 6.4 % High 4.1-5.7 Occult Blood (3) 08/02/2000 Occult Blood #1 NEG Occult Blood #2 POSITIVE Occult Blood #3 NEG Basic Metabolic (a) 08/02/2000 BUN 13 7-26 Calcium 9.4 mg/dL 7.4-9.2 Creatinine 0.8 mg/dL 0.6-1.4 Glucose 169 mg/dL High 70 - 118 Sodium 142 134-149 Potassium 4.4 3.6-5.5 Chloride 105 mEq/L 94-112 Co2 25 21-32 Lipid Profile ([facility]) 08/02/2000 Cholesterol 260 mg/dL High 140-200 Triglyceride 305 mg/dL High 30-150 VLDL 61 High 0-50 LDL-Calculated INVALID 0-160 HDL-Chol 51 35-85 Laboratory test finding 08/02/2000 LDL, Direct 180.1 mg/dL High 0-130 TSH 4.22 High 0.4-4.2 CBC With Diff ([facility]) 08/02/2000 WBC 6.0 3.6-9.6 Lymphocytes 28.9 % 20.5 - 51.1 Monocytes 4.7 % 1.7 - 9.3 Granulocytes 66.4 % 42.2 - 75.2 Lymphocytes 1.7 10^3/uL 0.7 - 4.9 Monocytes 0.3 10^3/uL 0.1 - 0.9 Granulocytes 4.0 10^3/uL 1.5 - 7.2 RBC 4.60 3.90-5.70 Hemoglobin 13.8 g/dL 12.1 - 17.2 Hematocrit 41.3 % 36.1 - 50.3 Mean Corpuscular Vol 89.7 82.2-97.4 Mean Corpuscular Hemaglobin 30.0 27.6-33.3 Mean Corpuscular Hemo Concen 33.4 33.0-34.8 RDW 12.7 11.6-13.7 Platelets 305 10^3/ul 150-400 Mean Platelet Volume 8.5 7.4-10.4 Ua - Micro ([facility]) 06/29/2000 Appearance CLEAR/YELLOW Glucose NEG Bilirubin NEG Ketones TRACE SP Grav >1.030 Blood NEG PH 5.0 Protein NEG Urobil 0.2 Nitrite NEG Leukocytes NEG Hyaline - /Lpf Granular - /Lpf WBC'S 8-10 RBC'S 0-1 Mucus - /Lpf Epith OCC Bacteria 1+ Amorphous SLT /Lpf Crystals - /Lpf Comments - Laboratory test finding 06/10/2000 Urine Culture FINAL 19 Ua - Micro ([facility]) 06/09/2000 Appearance CLOUDY LT YELLOW Glucose - Bilirubin - Ketones - SP Grav 1.020 Blood - PH 5.5 Protein - Urobil 0.2 Nitrite - Leukocytes TRACE Hyaline - /Lpf Granular - /Lpf WBC'S 5-10 RBC'S 0-3 Mucus - /Lpf Epith +2 Bacteria +1 Amorphous - /Lpf Crystals - /Lpf Comp Metabolic ([facility]) 06/09/1999 Albumin 4.1 GM/DL 3.80 - 5.50 Alkaline Phosphatase 57 U/L 39-130 Bilirubin, Total 0.6 mg/dL 0.2-1.3 BUN 13 mg/dL 10-26 Calcium 8.4 mg/dL 7.4-9.2 Creatinine 0.7 mg/dL 0.6-1.4 Glucose 133 mg/dL High 70 - 118 Ast Sgot 22 U/L 9-44 Alt (SGPT) 21 U/L 0-28 Total Protein 6.6 g/dL 6.3-8.1 Sodium 147 mEq/L 134-149 Potassium 4.6 mEq/L 3.6-5.5 Chloride 110 mEq/L 94-112 Co2 30 21-32 Globulin 2.5 2.0-4.8 Albumin / Globulin Ratio 1.6 0.6-2.2 BUN/Creatinin Ratio 18.6 8.0-36 Lipid Profile ([facility]) 06/09/1999 Cholesterol 251 mg/dL High 140-200 Triglyceride 312 mg/dL High 30-150 HDL-Chol 52.0 mg/dL 30-70 VLDL 62 mg/dL High 0-50 LDL-Calculated 137 0-160 Laboratory test finding 06/09/1999 LDL, Direct 150 mg/dL High 0-130 CBC With Diff ([facility]) 06/09/1999 WBC 5.2 /Hpf 3.6 - 9.6 Lymphocytes 36.3 % 20.5 - 51.1 Monocytes 5.1 % 1.7 - 9.3 Granulocytes 58.6 % 42.2 - 75.2 Lymphocytes 1.9 10^3/uL 0.7 - 4.9 Monocytes 0.3 10^3/uL 0.1 - 0.9 Granulocytes 3.0 10^3/uL 1.5 - 7.2 RBC 4.64 /Hpf 3.90 - 5.70 Hemoglobin 14.0 g/dL 12.1 - 17.2 Hematocrit 41.1 % 36.1 - 50.3 Mean Corpuscular Vol 88.6 fl 82.2 - 97.4 Mean Corpuscular Hemaglobin 30.3 pg 27.6 - 33.3 Mean Corpuscular Hemo Concen 34.2 g/dL 33.0 - 34.8 RDW 12.9 % 11.6 - 13.7 Platelets 279 10^3/ul 150-400 Mean Platelet Volume 7.7 fl 7.4 - 10.4 Laboratory test finding 06/09/1999 TSH 2.91 uIU/ML 0.3-4.5 1 RESULTS VERIFIED BY REPEAT ANALYSIS 2 RESULTS VERIFIED BY REPEAT ANALYSIS 3 RESULTS VERIFIED BY REPEAT ANALYSIS 4 consistent w/ previous results 5 consistent w/ previous results 6 RESULTS VERIFIED BY REPEAT ANALYSIS 7 RESULTS VERIFIED BY REPEAT ANALYSIS 8 consistent w/ previous results 9 consistent w/ previous results 10 ---- RUN DATE: 01/26/11 [facility] NMI LIVE PAGE 1 RUN TIME: 1315 Specimen Inquiry RUN USER: INTERFACE -- Name: IRVIN BARAKAT#: [id number] Status: REG REF Re01/23/11 Age/Sex: 75/F Unit#: [id number] Location: END : 33 -- Specimen: [id number] SOUT Spec Date: 01/23/[address] [facility] [address]: Rick love MD Spec Type: SURGICAL P Received: 01/23/11-1145 Copies to: David rouse MD SPECIMEN 1) BIOPSY CECAL POLYP 2) BIOPSY TRANSVERSE COLON POLYP HISTORY POST-OP DIAGNOSIS: Colonoscopy to cecum. Two small polyps removed. CLINICAL INFORMATION: Blood in stool. GROSS DESCRIPTION 1) The specimen is received in formalin labelled Irvin Barakat, Biopsy Cecal Polyp, and consists of one fragment of yellow tissue measuring 0.3 x 0.3 x 0.1 cm. Submitted entirely, one cassette labelled 1. 2) The specimen is received in formalin labelled Irvin Barakat, Biopsy Transverse Colon, and consists of one fragment of yellow tissue measuring 0.4 x 0.3 x 0.2 cm. Submitted entirely, one cassette labelled 2. DIAGNOSIS 1) Colon, cecum, biopsy: A. Acute colitis with crypt abscesses and bacterial crypt overgrowth (see comment). B. Minimal regenerative change. C. No specific features of pseudomembranous colitis identified. 2) Colon, transverse, biopsy: Hyperplastic polyp. COMMENT The biopsy in part 1 demonstrates three relatively large crypt abscesses (up to 0.6 mm.), forming an inflammatory polypoid mass. The crypts demonstrate broad dilatation with acute inflammatory exudate populated by polymorphonuclear cells as well as eosinophils with central niduses composed largely of bacterial colonies. This is somewhat unusual and may represent acute bacterial overgrowth or acute crypt bacterial abscesses rather than chronic inflammatory bowel disease. Correlation with clinical and colonoscopic findings is suggested. -- DEPARTMENT OF PATHOLOGY, [address] [place] [address] [facility] Permit #[id number] Bebeto Bhatia M.D. Director Rome Reyes M.D. Glass Inserter Dir caron -- -- RUN DATE: 01/26/11 [facility] NMI LIVE PAGE 2 RUN TIME: 1315 Specimen Inquiry RUN USER: INTERFACE -- Name: IRVIN BARAKAT Status: REG REF Re01/23/11 Age/Sex: 75/F Unit#: [id number] Location: [facility]DAY Goff. : 33 -- -- CONTINUED -- Signed Electronically by: BEBETO BHATIA MD 01/26/11 1314 -- -- DEPARTMENT OF PATHOLOGY, [address] [place] [address] [facility] Permit #[id number] Bebeto Bhatia M.D. Director Rome Reyes M.D. Glass Inserter Dir caron -- 11 RESULT DAVID'Yumiko 12 Recent studies consider the lower limit of 32.0 ng/mL to be a threshold for optimal health. Terry WAITE. J Nutr. 2004;135(2):317-22. 13 FASTING 14 THERAPEUTIC TARGET FOR THE TREATMENT OF DIABETES MELLITUS PATIENTS IS <7% HBA1C, AND IN SELECTIVE PATIENTS <6.0%. PLEASE REFER TO [employer] DIABETIC CARE GUIDELINES FOR FURTHER INFORMATION. 15 Anion gap measurement may be of limited value in the presence of any alkalosis, especially in a combined acid base disorder. . 16 Classification: Desirable . 17 CALCULATED LDL APPROXIMATES THE VALUE OF A DIRECT LDL MEASUREMENT. Classification: Optimal Level . 18 19 Source: URINE,VOIDED No significant growth. Procedures Date CPT Code Description Status Comment 12/23/2016 Diabetic Retinal Eye Exam Completed 09/12/2016 Diabetic Foot Exam Completed Dr Hauser 11/10/2013 67963 Wedge Excision Of Skin Nail Fold Completed 09/14/2012 84692 Finger Or Heel Stick Completed 03/15/2012 Bone Mineral Density Test Completed 08/14/2011 41958 Finger Or Heel Stick Completed 01/23/2011 Colonoscopy Completed 01/01/2011 Mammogram Completed 12/24/2010 58647 Vision Test- screening test of visual Completed acuity, quantitative, bila 03/18/2009 25756 Pulse Oximetry Completed 10/22/2008 83293 Pulse Oximetry Completed 11/24/2007 Mammogram Completed 03/12/2006 Mammogram Completed 05/29/1999 38910 Electrocardiogram Complete Completed 11/21/1998 41280 Remove Impacted Cerumen Completed 07/18/1997 32166 Electrocardiogram Complete Completed Encounters Type Date Location Provider CPT E/M Dx Office Visit 06/16/2017 3:30p [facility] Office WHIT Khalil 56013 I70.203 E11.65 I10 Office Visit 06/14/2017 3:00p [facility] Office David Abraham M.D. 06312 I25.10 I70.203 E11.65 I10 F06.34 Office Visit 08/16/2015 8:45a Main Office Izabella SIMBA Torres 00987 E11.9 E78.4 I10 M81.0 I73.9 Z23 Office Visit 11/10/2013 11:30a [facility] Office Beltran Pham M.D. 71324 703.0 Office Visit 09/14/2012 11:00a [facility] Office Greg Francois-C 85236 250.00 272.4 401.9 Office Visit 12/30/2011 9:30a [facility] Greg Francois-C 80594 250.00 Office Visit 12/03/2011 9:15a [facility] Velasqueznp-C 44940 250.00 Office Visit 10/22/2011 9:00a [facility] Greg Francois-C 30184 250.00 616.10 Office Visit 09/25/2011 9:00a [facility] Office Greg Francois-C 99839 250.00 Office Visit 09/11/2011 9:30a [facility] Greg Francois-C 27051 250.00 616.10 Office Visit 08/28/2011 8:00a [facility] Kavitha Machuca Scott 52325 250.00 Office Visit 08/14/2011 11:15a [facility] Kavitha MachucaScott 57643 250.00 Office Visit 03/18/2009 9:30a [facility] David Abraham M.D. 11419 466.0 Office Visit 03/04/2009 11:00a [facility] David Abraham M.D. 39697 250.00 272.4 401.9 733.00 709.9 V76.10 Office Visit 11/14/2008 9:30a [facility] David Abraham M.D. 96568 250.00 272.4 401.9 Office Visit 10/22/2008 11:40a [facility] David Abraham M.D. 26770 786.2 Office Visit 11/21/2007 9:30a [facility] Office David Abraham M.D. 08274 401.9 250.00 272.4 733.00 V76.51 V76.10 V76.46 Office Visit 03/16/2007 1:00p [facility] Office Scott Dickerson 02433 250.00 272.4 401.9 Office Visit 03/10/2006 2:20p [facility] Andrea Barry M.D. 85890 250.00 V76.49 272.4 Office Visit 08/04/2005 1:00p [facility] Scott Dickerson 09409 272.4 250.00 Office Visit 12/11/2004 1:00p [facility] Office Andrea Barry M.D. 47002 250.00 733.00 Office Visit 11/21/2002 3:15p Main Office WHIT Mercer 65902 599.0 Office Visit 11/03/2002 10:20a [facility] Andrea Barry M.D. 46401 V03.82 V70.0 V76.2 250.00 Office Visit 02/07/2002 6:00p Main Office FRANTZ Garrett 75371 627.2 Office Visit 09/28/2000 9:00a Main Office Greg Dickerson-Celeste 30706 Office Visit 06/29/2000 4:30p [facility] Scott Dickerson 78847 Office Visit 06/09/2000 4:30p [facility] Office Greg Dickerson-Celeste 64478 Office Visit 11/29/1999 9:30a Main Office Greg Dickerson-Celeste 58758 Plan of Care 09/28/2017 - Marilu Jeffries, NPR60.0 Localized edemaNew Medication:Lasix 40 mgComments:Supportive Care:- Elevate legs- Increase protein in diet - Take frequent breaks while on your feet -Compression stockings ED Precautions reviewed Instructed to take Lasix once when she gets home fromthe office - this will cause her to urinate frequently and hopefully take some of the fluid off of the legs. If she feels bad (dizziness, chest pain, weak, falls, etc) she should go to the ER so they can take the fluid off while also maintaining her blood pressure. Please take BP before bed as long aseverything is good and call if < 80/60Follow up with MD Jarad tomorrow (has an existing appointment) to discuss potentially switching BP meds to include a mild diuretic to prevent reoccurrence.I70.203 Unsp athscl [place] arteries of extremities, bilateral legsE11.65 Type 2 diabetes mellitus with hyperglycemiaComments:Recommend yearly diabetic eye and foot exams, and check on blood pressure periodically. Goal blood sugar is less than 140 in the morning or A1c less than 7.I10 Essential ( primary) hypertensionComments:The patient will continue to monitor blood pressure and let me know the blood pressure results if there are readings persistently above 140/80. Goal blood pressure is less than 140/80. Recommend low salt/cardiac diet and routine exercise.I73.9 Peripheral vascular disease, unspecifiedAllComments:~B_~U_Medication Management~b_~u_ Patient Understands medications she's taking? Yes No Are there Barriers to Adherence? Yes No Has the patient been asked about herbal supplements and therapies, and OTC meds? Yes No ~B_~U_Care Plan~b_~u_1. Patient has been queried about patient's goals/preferences and functional/lifestyle goals at relevant visits. If relevant, describe: na2. Treatment goals as explained to the patient: above3. Are there barriers to meeting treatment goals? Yes No If Yes, please describe: has good supportive family at home 4. Self- Management goals as described to the patient: Yes NoFollow up:As always, we strongly encourage a healthy diet and making physical activity a part of your every day life. If you have questions about how or where to start, please contact the office.
--- NOTE | 2017-10-28 13:03 | RAD ---
INDICATION: Fall. Intracranial injury COMPARISON: None TECHNIQUE: Noncontrast axial source images were acquired from the skull base to the vertex. FINDINGS: Ventricles/sulci: The ventricles and cisterns are normal in size and configuration for age. There are cortical involutional changes. Brain parenchyma: There is no acute focal parenchymal finding, evidence of intracranial mass, or intracranial mass effect. There are chronic microvascular ischemic changes. Intracranial hemorrhage:None. Extra-axial spaces: There is no extra-axial fluid collection in the right frontal region with associated mild chronic pressure erosion of the inner table. This most consistent with an arachnoid cyst. Calvarium: There is no calvarial fracture or additional calvarial abnormality. Scalp: There is a small left frontal hematoma. Paranasal sinuses/mastoid: The paranasal sinuses and mastoid air cells are clear. Other: None. IMPRESSION: NO ACUTE INTRACRANIAL FINDINGS. LEFT FRONTAL HEMATOMA CORTICAL INVOLUTIONAL CHANGE WITH CHRONIC MICROVASCULAR ISCHEMIA. INCIDENTAL RIGHT FRONTAL ARACHNOID CYST
--- NOTE | 2017-10-28 13:07 | RAD ---
INDICATION: Facial injury. COMPARISON: CT brain same date TECHNIQUE: Axial source images were acquired from the vertex of the mandible through the orbits. Coronal and sagittal reconstructed images were acquired. FINDINGS: Bones: There is no acute facial bone fracture. Orbits: The globes and intraconal structures appear intact. The optic nerves are symmetric. Extraocular muscles appear normal. There is no intraconal inflammatory change or retrobulbar mass.. Paranasal sinuses: The paranasal sinuses are clear. Brain: There are no acute abnormalities of the visualized brain parenchyma. Soft tissues: There is mild soft tissue prominence and edema about the left maxilla with a skin laceration. Is a small left frontal hematoma Other: None The visualized soft tissue elements about the neck appear normal. IMPRESSION: LEFT MAXILLARY SOFT TISSUE INJURY WITH LACERATION. LEFT FRONTAL HEMATOMA. NO FACIAL BONE FRACTURE
--- NOTE | 2017-10-28 13:08 | RAD ---
INDICATION: Fall with head injury. COMPARISON: No relevant prior exams available on the [facility] [place] PACS for comparison. TECHNIQUE: Multidetector CT images foramen magnum to lung apices without contrast. Multiplanar reformation. REPORT: 3 mm degenerative C7-T1 anterolisthesis. 4 mm degenerative C6-C7 anterolisthesis. 2 mm C3-C4 anterolisthesis. Negative for facet subluxation at any level. Negative for cervical vertebral body or posterior element fracture. Negative for paravertebral hematoma. 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 Disc space narrowing is severe at C5-C6 and C6-C7. Associated reactive endplate sclerosis and cystic change. Additionally there is a degenerative cyst at the RIGHT anterior base of the dens. At C5-C6 uncinate process spurring and facet joint osteoarthritis results in mild LEFT unilateral foraminal stenosis. IMPRESSION: #. Negative for cervical spine fracture or facet subluxation. #. Negative for paravertebral hematoma. #. Multilevel advanced degenerative spondylosis and facet joint osteoarthritis. Negative for central canal stenosis. Mild LEFT unilateral foraminal stenosis at C5-C6.
--- NOTE | 2017-10-28 14:34 | ED ---
Head Injury - HPI Summary HPI Summary: Pt presents w/ daughter and granddaughter after mechanical fall prior to arrival. Pt reports she tripped (no dizzines, no CP, no SOB, no weakness or fatigue). Fell forward and landed on face while glasses were on - laceration to Lt cheek from glasses cutting into face. Denies LOC, change in vision, pain w/ eye movements, SHANKAR, neck pain, dizziness, syncope, chest pain, arm pain, ab pain , back pain, LE pain. She does have minor abrasions on LE's - no pain and is able to ambulate w/o difficulty. No anti-coagulant therapy other than ASA daily. No other areas of injury as a result of fall. - History Of Current Complaint Chief Complaint: EDLacSutureRecheck Stated Complaint: FACIAL LAC Time Seen by Provider: 10/28/17 11:29 Hx Obtained From: Patient, Family/Hydrology Professor - daughter, Pain Intensity: 1 - Allergies/Home Medications Allergies/Adverse Reactions: Allergies Allergy/AdvReac Type Severity Reaction Status Date / Time Sulfa (Sulfonamide Allergy Rash Verified 10/28/17 11:08 Antibiotics) Home Medications: Home Medications Aspirin EC TAB* [Ecotrin EC Low Dose 81 MG*] 81 mg PO DAILY 10/28/17 [History Confirmed 10/28/17] Atorvastatin* [Lipitor*] 80 mg PO DAILY 10/28/17 [History Confirmed 10/28/17] Carvedilol TAB* [Coreg TAB*] 3.125 mg PO BID 10/28/17 [History Confirmed ] Folic Acid TAB* [Folvite TAB*] 1 mg PO DAILY 10/28/17 [History Confirmed ] Furosemide TAB* [Lasix TAB*] 40 mg PO DAILY 10/28/17 [History Confirmed 10/28/17 ] Lisinopril TAB* [Prinivil TAB*] 2.5 mg PO DAILY 10/28/17 [History Confirmed ] Raloxifene (NF) [Evista(NF)] 60 mg PO DAILY 10/28/17 [History Confirmed 10/28/17 ] Sertraline* [Zoloft*] 25 mg PO QAM 10/28/17 [History Confirmed 10/28/17] Silver Sulfadiazine 1%* [SILVadine 1%*] 1 applic TOPICAL DAILY PRN 10/28/17 [ History Confirmed 10/28/17] Silver/Calcium Alginate [Restore Silver Dressing 2] 1 pad TOPICAL TID 10/28/17 [ History Confirmed 10/28/17] Sitaglip/Metform XR 50/500(NR) [Janumet XR 50/500 (NF)] 1 tab PO BID 10/28/17 [ History Confirmed 10/28/17] glipiZIDE [Glipizide ER] 10 mg PO DAILY 10/28/17 [History Confirmed 10/28/17] PMH/Surg Hx/FS Hx/Imm Hx Previously Healthy: Yes Endocrine/Hematology History: Reports: Hx Diabetes Denies: Hx Anticoagulant Therapy, Hx Blood Disorders Cardiovascular History: Reports: Hx Hypertension Denies: Hx Hypotension, Hx Pacemaker/ICD History: Denies: Hx Renal Disease Sensory History: Reports: Hx Contacts or Glasses Denies: Hx Hearing Aid Opthamlomology History: Reports: Hx Contacts or Glasses Psychiatric History: Denies: Hx Panic Disorder - Surgical History Surgery Procedure, Year, and Place: 2014 VASCULAR PROCEDURE - NO IMPLANTS - OP REPORT SCANNED IN;. 2018 [facility] 2018 LEG STENTS PLACED. INFORMATION SCANNED INTO [employer]. 4X COOK ZILVER DRUG ELUTING STENTS LEFT LEG (CONDITIONAL 8 - OVERPLAPPING). SUPERA PERIPHERAL STENTING SYSTEM LEFT LEG. (CONDITIONAL - PER DR. FARRELL: OKAY TO SCAN UNDER CONDITIONS. MUST BE DONE AT HOSPITAL. NEEDS TWO TIME SLOTS. WILL BE AN ATTEMPT HEATING MAY JUMP QUICKLY. LEGS CAN NOT BE TOUCHING. MATHIEU CAN NOT GO ABOVE 0.5 W/KG NORMAL MODE ONLY.) - Immunization History Immunizations Up to Date: Yes Infectious Disease History: No Infectious Disease History: Denies: Hx of Known/Suspected MRSA, Traveled Outside the [place] in Last 30 Days - Social History Occupation: Retired Alcohol Use: Rare Hx Substance Use: No Substance Use Type: Reports: None Hx Tobacco Use: No Smoking Status (MU): Never Smoked Tobacco Review of Systems Constitutional: Negative Negative: Fatigue Eyes: Negative Negative: Photophobia, Blurred Vision, Diplopia ENT: Negative Negative: Epistaxis, Dental Pain Cardiovascular: Negative Negative: Palpitations, Chest Pain Respiratory: Negative Negative: Shortness Of Breath Gastrointestinal: Negative Negative: Abdominal Pain, Vomiting, Nausea Positive: no symptoms reported Musculoskeletal: Negative Skin: Other - lac, abrasions Neurological: Negative Psychological: Normal All Other Systems Reviewed And Are Negative: Yes Physical Exam Triage Information Reviewed: Yes Vital Signs On Initial Exam: Initial Vitals Temp Pulse Resp BP Pulse Ox 97.3 F 62 18 115/58 98 10/28/17 11:02 10/28/17 11:02 10/28/17 11:02 10/28/17 11:02 10/28/17 11:02 Vital Signs Reviewed: Yes Appearance: Positive: Well-Appearing, No Pain Distress, Well-Nourished Skin: Positive: Warm - c-shaped lac over Lt maxillary region - was actively bleeding - dressing in place; no active bleeding w/ removal but is still moist; superficial abrasions over B/L knees - no bleeding, no scabbing (just skin), Skin Color Reflects Adequate Perfusion Head/Face: Positive: Normal Head/Face Inspection - other than cheek, atraumatic - no battlesign, no crepitus Eyes: Positive: Normal, EOMI, MAIDA, Conjunctiva Clear. Negative: Conjunctiva Inflammed, Discharge ENT: Positive: Normal ENT inspection, Hearing grossly normal, Pharynx normal, TMs normal - no hemotympanum Dental: Negative: Dental Fracture @ Neck: Positive: Supple, Nontender Respiratory/Lung Sounds: Positive: Clear to Auscultation, Breath Sounds Present Cardiovascular: Positive: Normal, Pulses are Symmetrical in both Upper and Lower Extremities Abdomen Description: Positive: Nontender, Soft Musculoskeletal: Positive: Normal, Strength/ROM Intact Neurological: Positive: Normal, Sensory/Motor Intact, Alert, Oriented to Person Place, Time, CN Intact II-III Psychiatric: Positive: Normal Procedures - Laceration/Wound Repair 1 Location: face - LT CHEEK Description: Linear - C-shaped - well approximated Length, Depth and Shape: 4cm Betadine Prep?: No - antiseptic Laceration/Wound Explored: clean Closure: Skin Adhesive, SteriStrips Layer Closure?: No Sterile Dressing Applied?: Yes - sterile strip adhesive Diagnostics - Vital Signs Vital Signs Temp Pulse Resp BP Pulse Ox 10/28/17 11:02 97.3 F 62 18 115/58 98 - Laboratory Lab Statement: Any lab studies that have been ordered have been reviewed, and results considered in the medical decision making process. Head Injury Course/Dx Course Of Treatment: Given pt's age, daily ASA use and mechanism of injury, CT' d brain, face and neck. Other than soft tissue swelling that correlates w/ clinical injury, no acute trauma. Wound repaired (offered sutures vs. steristrips - pt and granddaughter chose steristrips. Advised close f/u s/p fall (ie. monitor for neuro deficits) and wound care f/u. Danger s/sx of when to return to ED reviewed - pt and granddaughter and daughter agree w/ plan. - Diagnoses Provider Diagnoses: Fall from standing, Facial contusion, Facial laceration Discharge - Sign-Out/Discharge Documenting (check all that apply): Patient Departure - Discharge Plan Condition: Stable Disposition: HOME Patient Education Materials: Fall Prevention for Older Adults (ED), Skin Adhesive Care (ED), Steristrips (ED), Hematoma (ED), Facial Laceration (ED) Referrals: David Abraham MD [Primary Care Provider] - Additional Instructions: Keep Dressing clean and dry and in place for the next 5 days. Follow-up with PCP on the 5th day for assessment of wound. In the meantime, you may ice and take ibuprofen with food alternating with acetaminophen as needed for pain. * If you develop redness, swelling, streaking, purulent drainage, fevers or chills, seek medical attention sooner or return to the emergency department. Additionally, monitor for sign or symptoms of evolving head injury (ie. concussion, etc). *If you develop change in vision, vomiting, dizziness, numbness, weakness, syncope or slurred speech, return to ED - Billing Disposition and Condition Condition: STABLE Disposition: Home
[2017-10-28 15:17] VITALS: BP 97/48
== END 2017-10-28 15:16 | disposition home or self-care (01) ==
LOC: ED 10:57
DX: S01.412A Laceration without foreign body of left cheek and temporomandibular area, initial encounter (principal); S80.212A Abrasion, left knee, initial encounter; S80.211A Abrasion, right knee, initial encounter; W01.0XXA Fall on same level from slipping, tripping and stumbling without subsequent striking against object, initial encounter; Y93.9 Activity, unspecified; Y92.9 Unspecified place or not applicable; Z88.2 Allergy status to sulfonamides; E11.9 Type 2 diabetes mellitus without complications; Z79.84 Long term (current) use of oral hypoglycemic drugs; I10 Essential (primary) hypertension; Z79.82 Long term (current) use of aspirin
CPT/HCPCS: 12013; 70450; 70486; 72125; 99282

== ENCOUNTER 2018-09-15 10:26 | Inpatient (IN) | payer MEDICARE, OTHER ==
--- NOTE | 2018-09-15 10:50 | ED ---
Shortness of Breath - HPI Summary HPI Summary: The patient is an 83 y/o F arriving by ambulance to [facility] accompanied by family with a chief complaint of sudden onset SOB and CP starting at 0500 this morning. She reports that the CP woke her up this morning but has since resolved , and the SOB has persisted with dyspnea at rest, causing her to call EMS. When EMS arrived, she had O2 sat of 88%, and upon arrival to the ED, her sat decreased to 77% with improvement since arrival with O2 administration. She additionally c/o nonproductive cough and erythema of the LLE near the foot. She denies fever. Hx of DM, HTN, CHF, CAD, valvular heart disease, HLD. Medications include Lasix, Coreg, Lipitor, Janumet, Glipizide, Lisinopril, ASA (none taken today). No hx of COPD or asthma. Surgical hx of vascular procedures with stent placement in legs. Nonsmoker, no EtOH, no substance use. - History of Current Complaint Time Seen by Provider: 09/15/18 10:35 Hx Obtained From: Patient Onset/Duration: Sudden Onset, Lasting Hours - starting at 0500, Other - CP has resolved but SOB is still present Timing: Constant Current Severity: Moderate Dyspnea At: Rest Alleviating Factors: Oxygen Associated Signs & Symptoms: Cough (Nonproductive), Chest Pain Unrelated to Cough - resolved - Allergy/Home Medications Allergies/Adverse Reactions: Allergies Allergy/AdvReac Type Severity Reaction Status Date / Time Sulfa (Sulfonamide Allergy Rash Verified 10/28/17 11:08 Antibiotics) PMH/Surg Hx/FS Hx/Imm Hx Endocrine/Hematology History: Reports: Hx Diabetes Denies: Hx Anticoagulant Therapy, Hx Blood Disorders Cardiovascular History: Reports: Hx Congestive Heart Failure, Hx Coronary Artery Disease, Hx Hypercholesterolemia, Hx Hypertension, Hx Valvular Heart Disease Denies: Hx Hypotension, Hx Pacemaker/ICD Respiratory History: Denies: Hx Asthma, Hx Chronic Obstructive Pulmonary Disease (COPD) History: Denies: Hx Renal Disease Sensory History: Reports: Hx Contacts or Glasses Denies: Hx Hearing Aid Opthamlomology History: Reports: Hx Contacts or Glasses Psychiatric History: Denies: Hx Panic Disorder - Surgical History Surgery Procedure, Year, and Place: 2014 VASCULAR PROCEDURE - NO IMPLANTS - OP REPORT SCANNED IN;. 2018 [facility] 2018 LEG STENTS PLACED. INFORMATION SCANNED INTO [employer]. 4X COOK ZILVER DRUG ELUTING STENTS LEFT LEG (CONDITIONAL 8 - OVERPLAPPING). SUPERA PERIPHERAL STENTING SYSTEM LEFT LEG. (CONDITIONAL - PER DR. FARRELL: OKAY TO SCAN UNDER CONDITIONS. MUST BE DONE AT HOSPITAL. NEEDS TWO TIME SLOTS. WILL BE AN ATTEMPT HEATING MAY JUMP QUICKLY. LEGS CAN NOT BE TOUCHING. MATHIEU CAN NOT GO ABOVE 0.5 W/KG NORMAL MODE ONLY.) Infectious Disease History: Denies: Hx of Known/Suspected MRSA, Traveled Outside the [place] in Last 30 Days - Family History Known Family History: Positive: Hypertension - Social History Alcohol Use: Rare Hx Substance Use: No Substance Use Type: Reports: None Hx Tobacco Use: No Smoking Status (MU): Never Smoked Tobacco Do You Chew or Dip Tobacco: No Have You Chewed or Dipped Tobacco in the LAST YEAR: No Have You Smoked in the Last Year: No Review of Systems Negative: Fever Positive: Chest Pain - resolved Positive: Shortness Of Breath, Cough - nonproductive Positive: Other - erythema on LLE near foot All Other Systems Reviewed And Are Negative: Yes Physical Exam - Summary Physical Exam Summary: VITAL SIGNS: Reviewed. GENERAL: Patient is a well-developed and nourished female who is lying comfortable in the stretcher. Patient is not in any acute respiratory distress. HEAD AND FACE: No signs of trauma. No ecchymosis, hematomas or skull depressions. No sinus tenderness. EYES: PERRLA, EOMI x 2, No injected conjunctiva, no nystagmus. EARS: Hearing grossly intact. Ear canals and tympanic membranes are within normal limits. MOUTH: Oropharynx within normal limits. NECK: Supple, trachea is midline, no adenopathy, no JVD, no carotid bruit, no c- spine tenderness, neck with full ROM. CHEST: Symmetric, no tenderness at palpation LUNGS: Decreased breath sounds bilaterally. Crackles in both lungs. No wheezing. CVS: Regular rate and rhythm, S1 and S2 present, no murmurs or gallops appreciated. ABDOMEN: Soft, non-tender. No signs of distention. No rebound, no guarding, and no masses palpated. Bowel sounds are normal. EXTREMITIES: FROM in all major joints, no edema, no cyanosis or clubbing. NEURO: Alert and oriented x 3. No acute neurological deficits. Speech is normal and follows commands. SKIN: Clammy and warm. Triage Information Reviewed: Yes Vital Signs Reviewed: Yes Diagnostics - Laboratory Result Diagrams: 09/16/18 05:30 09/16/18 12:50 Lab Statement: Any lab studies that have been ordered have been reviewed, and results considered in the medical decision making process. - Radiology CXR Radiology Interpretation Completed By: Radiologist Summary of Radiographic Findings: Pulmonary interstitial edema with multifocal consolidation. ED physician has reviewed this report. - EKG 1053 Cardiac Rate: NL - 99 BPM EKG Rhythm: Sinus Rhythm EKG Comparison: Other - No previous EKG for comparison. Summary of EKG Findings: LVH and LBBB. Re-Evaluation - Re-Evaluation First Eval Re-Evaluation Time: 12:20 Change: Improved Comment: The patient's breathing has improved. I discussed lab and imaging results and the need for admission with the patient and her family. Course/Dx - Course Assessment/Plan: The patient is an 83 y/o F arriving by ambulance to [facility] accompanied by family with a chief complaint of sudden onset SOB and CP starting at 0500 this morning. She reports that the CP woke her up this morning but has since resolved, and the SOB has persisted with dyspnea at rest, causing her to call EMS. When EMS arrived, she had O2 sat of 88%, and upon arrival to the ED, her sat decreased to 77% with improvement since arrival with O2 administration. She additionally c/o nonproductive cough and erythema of the LLE near the foot. She denies fever. Hx of DM, HTN, CHF, CAD, valvular heart disease, HLD. Medications include Lasix, Coreg, Lipitor, Janumet, Glipizide, Lisinopril, ASA (none taken today). No hx of COPD or asthma. Surgical hx of vascular procedures with stent placement in legs. Nonsmoker, no EtOH, no substance use. PMH: Insulin-dependent diabetes, Hypertension, CHF, and dyslipidemia. In the ED course, the patient was placed on a electronic device monitor and IV access was obtained. Blood work and chest x-ray were ordered. EKG shows a normal sinus rhythm with positive LVH and left bundle branch block. I discussed the findings with Dr. Wright from cardiology and he thinks that the patient has LVH and left bundle branch block but no STEMI. Therefore, he recommends a workup for this patient. Chest x-ray impression: Pulmonary interstitial edema with multifocal consolidation. The patient seems to be in CHF exacerbation, therefore she was given Lasix, and she was placed on a BiPAP machine. The patient should be non-ambulatory, therefore well place a Paul catheter for this patient. ABG shows a pH of 7.37, PCO2 of 35, PO2 of 76, and O2 sat of 96.8 on 3 liters of oxygen. Blood work without any significant abnormality except for WBCs of 11.3, creatinine of 1.06, glucose of 361, lactic acid of 2.7, CK-MB of 7.7, troponin of 0.18, and BNP of 727. The patient had received aspirin by EMS, she was given insulin for hyperglycemia, and I did give heparin since the troponin is elevated so the patient may be having a NSTEMI. At this point, I discussed my physical exam and findings with Dr. Scales from the hospitalist services, and she accepted the patient for admission. Patient and her family are agreeable with this plan. Critical Care Time of 90 minutes. - Diagnoses Provider Diagnoses: CHF exacerbation, NSTEMI (non-ST elevated myocardial infarction), Hyperglycemia - Physician Notifications Discussed Care of Patient With: Ramiro Wright - cardiology Time Discussed With Above Provider: 10:58 Instructed by Provider To: Other - I discussed the patient's EKG with Dr. Wright because there is not a previous EKG for comparison; he reports that the EKG does not show an acute KS, but rather LVH and LBBB. At 1210, I discussed the patient's case with Dr. Scales, hospitalist, and she accepts the patient for admission. - Critical Care Time Critical Care Time: 75-104 min Discharge - Sign-Out/Discharge Documenting (check all that apply): Patient Departure - Patient is accepted for admission by Dr. Scales. Patient Received Moderate/Deep Sedation with Procedure: No - Discharge Plan Condition: Stable Disposition: ADMITTED TO [facility] - Billing Disposition and Condition Condition: STABLE Disposition: Admitted to [facility] - Attestation Statements Document Initiated by Scribe: Yes Documenting Scribe: Donna Johnson Provider For Whom Scribe is Documenting (Include Credential): Dr. Gibson Asif MD Scribe Attestation: IDonna, scribed for Dr. Gibson Asif MD on 09/16/18 at 2050. Scribe Documentation Reviewed: Yes Provider Attestation: The documentation as recorded by the scribe, Donna Johnson accurately reflects the service I personally performed and the decisions made by me, Dr. Gibson Asif MD Status of Scribe Document: Viewed
[2018-09-15] MEDS ORDERED: Furosemide IV* 10 MG/ML VIAL (40 MG) IV ONE (10:54)
[2018-09-15 11:24] LABS: ABS Basophils 0.1 10^3/ul (0-0.2); ABS Lymphocytes 1.2 10^3/ul (1.0-4.8); ABS Monocytes 0.4 10^3/ul (0-0.8); ABS Neutrophils 9.7 10^3/ul (1.5-7.7); Eosinophil % 0.3 %; Hematocrit 42 % (35-47); Hemoglobin 13.5 g/dL (12.0-16.0); Lymphocyte % 10.5 %; Mean Corpuscular HGB Conc 33 g/dL (31-36); Mean Corpuscular Hemoglobin 30 pg (27-31); Mean Corpuscular Volume 94 fL (80-97); Mean Platelet Volume 8.9 fL (7.4-10.4); Platelet Count 229 10^3/uL (150-450); Red Blood Count 4.45 10^6 /uL (3.70-4.87); Red Cell Distribution Width 14 % (10-15); White Blood Count 11.3 10^3/uL (3.5-10.8)
[2018-09-15 11:39] LABS: ALT 39 U/L (7-52); AST 39 U/L (13-39); Albumin/Globulin Ratio 1.3 (1-3); Alkaline Phosphatase 90 U/L (34-104); Anion Gap 10 mmol/L (2-11); BUN/Creatinine Ratio 18.9 (8-20); Blood Urea Nitrogen 20 mg/dL (6-24); C Reactive Protein < 1.00 mg/L (<8.01); CO2 Carbon Dioxide 25 mmol/L (22-32); Calcium 9.4 mg/dL (8.6-10.3); Chloride 105 mmol/L (101-111); Creatine Kinase 83 U/L (10-223); EGFR African American 59.6 (>60); EGFR Non-African American 49.3 (>60); Glucose 361 mg/dL (70-100); Potassium 4.6 mmol/L (3.5-5.0); Sodium 140 mmol/L (135-145)
[2018-09-15 11:44] LABS: CKMB ng/mL 7.7 ng/mL (0.6-6.3)
[2018-09-15 11:46] LABS: Urine Appearance Clear; Urine Bilirubin Negative (Negative); Urine Blood Negative (Negative); Urine Color Yellow; Urine Glucose 1+(50 mg/dL) (Negative); Urine Ketones Trace (Negative); Urine Nitrite Negative (Negative); Urine Protein Negative (Negative); Urine Urobilinogen Negative (Negative)
[2018-09-15 11:55] LABS: Troponin I 0.18 ng/mL (<0.04)
[2018-09-15] MEDS ORDERED: Insulin REGULAR(*) 1 UNITS UNIT IV PUSH ONE (12:08)
[2018-09-15] MEDS ORDERED: Heparin for STEMI(*) 5,000 UNITS/ML 1 ML VIAL IV ONE (12:12)
[2018-09-15] MEDS ORDERED: Furosemide IV* 10 MG/ML 2 ML VIAL (20 MG) IV SLOW PU ONE (13:25)
[2018-09-15] MEDS ORDERED: Dextrose 50% Syringe 50 ML* 25 GM/50 ML SYRINGE IV PUSH PRN (13:49)
[2018-09-15 14:15] LABS: Cholesterol 149 mg/dL; LDL Cholesterol 71 mg/dL; Magnesium 1.8 mg/dL (1.9-2.7); Triglycerides 87 mg/dL
[2018-09-15] MEDS ORDERED: Magnesium Sulfate 2 GM IV* 2 GM/50 ML BAG IVPB ONE (15:02)
--- NOTE | 2018-09-15 15:23 | CONSULT ---
Subjective Date of Service: 09/15/18 Interval History: Admission Date: 09/15/18 Consult date 09/15/18 Provider: Tawanna Guerra MONUMENT MASON PCP Dr. David Abraham CC: CP, dyspnea Reason for consult: CHF, NSTEMI HISTORY OF PRESENT ILLNESS: Ms. Cornejo is an 83-year-old woman with a PMhx as below. She does have memory loss with good days and bad days. Her daughter and granddaughter helped with the history. Daughter helps with ADL's at home, some days can do a lot on own. Was living in [place] until increasing health and memory issues up until 2 years ago. The patients hairdresser contacted her daughter and that is when patient moved in permanently with her daughter who is a caregiver. Patient has had 1 week edema, abdominal distension. Had been taking daily lasix PRN but daughter started giving it daily for this a week ago. She had been having episodes of orthopnea and PND over the last week but no real BAL. This AM she was awoken with chest pain, left arm pain, sweating, nausea that resolved She had severe dyspnea after this. She was found with hypoxia to 77% and pulmonary edema. She was gven BIPAP and IV lasix. She is having good UOP, on high flow nasal canula and is currently asymptomatic. Spironolactone stopped about 1 year ago PAST MEDICAL HISTORY: Includes: 1. Hypertension. 2. Type 2 diabetes. 3. Hypercholesterolemia. 4. Peripheral arterial disease with stent placement in both legs with more stents in the left leg compared to the right. About 2 years ago at time presented with left foot wound 5. Congestive heart failure. 6. Coronary artery disease. Radial cath complicated by severe right arm edema/ complication. Transferred to [place], declined for CABG due to risk, details uncertain 7. Mitral regurgitation. PAST SURGICAL HISTORY: Includes stent placement bilaterally to lower extremities for peripheral arterial disease. ALLERGIES: SULFA DRUGS, tolerates lasix wwell FAMILY HISTORY: Her grandmother [place], AFib, angina . One daughter sees Dr. Regalado, another just started seeing Dr. Longoria had seen Dr. To. SOCIAL HISTORY: + secondhand tobacco exposure, rare alcohol, no drugs Lives in her daughter's apartment, which is attached to the house. Her daughter, Jeannette Rajput, is her surrogate decision maker in the event of emergency. Secondary contact and decision maker is Александр Cornejo, who can be reached at [phone] Medications Active Medications: Aspirin (Aspirin Ec Tab*) 81 mg PO DAILY [facility] Atorvastatin Calcium (Lipitor*) 80 mg PO 1700 [facility] Carvedilol (Coreg Tab*) 3.125 mg PO BID [facility] Dextrose (D50w Syringe 50 Ml*) 12.5 gm IV PUSH .FOR FS < 60 - SS PRN PRN Reason: FS < 60 Folic Acid (Folvite Tab*) 1 mg PO DAILY [facility] Heparin Sodium (Porcine) (Heparin Vial(*)) 0 - 3,250 units IV .PER PROTOCOL PRN PRN Reason: SEE COMMENTS Heparin Sodium/Dextrose (Heparin Drip 25,000 Units(*)) 25,000 units in 500 mls @ 0 mls/hr IV PER RATE [facility]; Protocol Magnesium Sulfate (Magnesium Sulfate 2 Gm Iv*) 2 gm in 50 mls @ 50 mls/hr IVPB ONCE ONE Stop: 09/15/18 16:01 Insulin Human Lispro (Humalog*) 0 units SUBCUT AC [facility]; Protocol Lisinopril (Prinivil Tab*) 2.5 mg PO DAILY [facility] Sertraline HCl (Zoloft*) 25 mg PO QAM [facility] Spironolactone (Aldactone Tab*) 25 mg PO DAILY [facility] Torsemide (Demadex*) 20 mg PO DAILY [facility] Home Medications: Aspirin EC TAB* [Ecotrin EC Low Dose 81 MG*] 81 mg PO DAILY 10/28/17 [History Confirmed 09/15/18] Atorvastatin* [Lipitor*] 80 mg PO DAILY 10/28/17 [History Confirmed 09/15/18] Carvedilol TAB* [Coreg TAB*] 3.125 mg PO BID 10/28/17 [History Confirmed ] Folic Acid TAB* [Folvite TAB*] 1 mg PO DAILY 10/28/17 [History Confirmed ] Furosemide TAB* [Lasix TAB*] 40 mg PO prn DAILY 10/28/17 [History Confirmed 07/01] Lisinopril TAB* [Prinivil TAB*] 2.5 mg PO DAILY 10/28/17 [History Confirmed 07/01] Raloxifene (NF) [Evista(NF)] 60 mg PO DAILY 10/28/17 [History Confirmed 09/15/18 ] Sertraline* [Zoloft*] 25 mg PO QAM 10/28/17 [History Confirmed 09/15/18] Sitaglip/Metform XR 50/500(NR) [Janumet XR 50/500 (NF)] 1 tab PO BID 10/28/17 [ History Confirmed 09/15/18] glipiZIDE [Glipizide ER] 10 mg PO DAILY 10/28/17 [History Confirmed 09/15/18] Review of Systems - Measurements Intake and Output: Intake and Output Last 24 Hours 09/13/18 09/14/18 09/15/18 09/16/18 06:59 06:59 06:59 06:59 Weight 120 lb - Review of Systems Constitutional Symptoms: Negative: Weight Gain, Weight Loss Dermatology: Negative: Rash, Skin Lesions HEENT: Negative: Change in Hearing, Vertigo Eyes: Negative: Change in Vision, Double Vision Thyroid: Negative: Cold Intolerance, Heat Intolerance, Palpitations, Weight Loss, Weight Gain Pulmonary: Positive: Respiratory Distress, Shortness of Breath Cardiology: Positive: Chest Pain, Shortness of Breath, Swelling of Ankles, Peripheral Vascular Dis, Edema, Paroxysmal Nocturnal Dyspnea, Orthopnea Negative: Palpitations, Syncope, Other Gastroenterology: Negative: Abdominal Pain, Vomiting, Constipation, Diarrhea, Haematemesis, Melena Genital - Urinary: Negative: Dysuria, Hematuria, Polyuria Musculoskeletal: Negative: Joint Deformities, Kyphoscoliosis Endocrinology: Positive: Diabetes Negative: Obesity, Polydipsia, Polyuria Hematologic/Lymphatic: Positive: Use of Antiplatelet Drugs Negative: Hx Leukemia, Hx Lymphoma, Use of Anticoagulant Neurology: Negative: Diplopia, Dizziness, Change in Speech, Hx of Stroke\TIA, Hx Seizures Psychiatry: Negative: Unusual Anxiety, Suicidal Ideation Allergic/Immunologic: Negative: Hx HIV, Immunocompromise Review of Systems Statement: All other review of systems negative, unless stated above. Objective Vital Signs: Temp Pulse Resp BP Pulse Ox 98.5 F 77 21 112/70 97 09/15/18 13:46 09/15/18 14:30 09/15/18 14:30 09/15/18 14:30 09/15/18 14:30 Oxygen Devices in Use Now: High Flow Heated Nasal Cannula Appearance: pleasant, not distressed at time of examination, conversant Ears/Nose/Mouth/Throat: Clear Oropharnyx Neck: Trachea Midline, - - uncertain jvp Respiratory: Symmetrical Chest Expansion and Respiratory Effort, - - diffuse rales lower to mid lung zones Cardiovascular: - - mild edema, RRR, no significant murmur Abdominal: NL Sounds; No Tenderness; No Distention Extremities: No Clubbing, Cyanosis, - - pedal pulses by RN not able to be well obtained Skin: No Rash or Ulcers Neurological: Alert and Oriented x 3 Laboratory Results: 09/15/18 11:13 09/15/18 11:13 APTT 136.3 seconds (26.0-38.0) H* 09/15/18 14:20 Total Bilirubin 0.80 mg/dL (0.2-1.0) 09/15/18 11:13 AST 39 U/L (13-39) 09/15/18 11:13 ALT 39 U/L (7-52) 09/15/18 11:13 Alkaline Phosphatase 90 U/L (34-104) 09/15/18 11:13 CK-MB (CK-2) 7.7 ng/mL (0.6-6.3) H 09/15/18 11:13 B-Natriuretic Peptide 727 pg/mL (<=100) H 09/15/18 11:13 Total Protein 7.0 g/dL (6.4-8.9) 09/15/18 11:13 Albumin 4.0 g/dL (3.2-5.2) 09/15/18 11:13 Globulin 3.0 g/dL (2-4) 09/15/18 11:13 Albumin/Globulin Ratio 1.3 (1-3) 09/15/18 11:13 Triglycerides 87 mg/dL 09/15/18 11:13 Cholesterol 149 mg/dL 09/15/18 11:13 LDL Cholesterol 71 mg/dL 09/15/18 11:13 HDL Cholesterol 61.0 mg/dL 09/15/18 11:13 mg 1.8 replacing iv 09/15/18 09/15/18 11:13 14:50 Troponin I 0.18 H* 12.27 H* Diagnostic Imaging: Exam Date: 09/15/18 CXR: Bilateral pulmonary edema EKG Data: ekg on admission: NSR, IVCD/LBBB-morphology QRS ~ 150 ms Assessment/Plan 1. Acute on chronic congestive heart failure 2. NSTEMI - Uncertain mechanism, suspect type 2 by history from CHF related hypoxia. - By history, details uncertain, known severe obstructive CAD? - Currently asymptomatic 3. DM 4. PAD 5. Memory loss, intermittent Agree with another dose of IV lasix today as ordered Start spironolactone 25 mg po daily (ordered) Start torsemide 20 mg po daily tomorrow to evaluate effectiveness, suspect with abdominal distension she was not absorbing lasix over last week, adjust dose as needed. trend i/o, weights, bmp/g Continue rfp writer aspirin and statin Continue rfp writer coreg 3.25 mg po bid Continue lisinopril 2.5 mg po daily Heparin gtt x 48 hours trend cTnI to peak Please try to obtain cardiac catheterization report from [place] or Dr. Abraham' s office, hold off on medical DAPT/clopidogrel treatment until then. Check echo Repeat EKG tomorrow Long conversation with patient and family regarding code status. She is DNR, MOLST signed and order placed She would be ok for NIV/BIPAP, no intubation Thank you for allowing me to participate in the cardiovascular care of this patient. Please do not hesitate to contact me with questions or concerns.
[2018-09-15 15:54] LABS: Troponin I 12.27 ng/mL (<0.04)
--- NOTE | 2018-09-15 16:02 | HP ---
CC: Dr. David Abraham * MEDICINE HISTORY AND PHYSICAL: DATE OF ADMISSION: 09/15/18 PROVIDER: Caroline Maxwell NP. ATTENDING PHYSICIAN: Dr. Tamy Scales * (dictated by Caroline Maxwell NP). PRIMARY CARE PROVIDER: Dr. David Abraham. CONSULTING MANAGER OF PROJECT MANAGEMENT: Dr. Ramiro Wright. CHIEF COMPLAINT: Chest pain with shortness of breath. HISTORY OF PRESENT ILLNESS: Ms. Cornejo is an 83-year-old female who was brought in by EMS services this morning due to chest pain with accompanying dyspnea. Ms. Cornejo reports that she woke up this morning around 5 a.m. and had left- sided chest pain. There was accompanying diaphoresis and nausea. She lives in her daughter's apartment and reportedly had the chest pain, but did not tell anyone. She did not notify her family until around 9 a.m. and at that point, they recommended calling 911, which was done. At that time, the family said that they noted that she was dyspneic with both exertion and while at rest and with speech. This progressively worsened even after EMS arrived. She was given aspirin 324 mg by EMS and taken to the hospital. The chest pain resolved, but she persists with shortness of breath. Reportedly, in the ER, she was on oxygen and continued to desaturate from the 80s down into the 70s. She was placed on BiPAP and given diuresis, which did improve her respiratory status. An EKG was done and showed concern for acute WI with inferior changes in leads II, III, and aVF. The EKG was apparently reviewed with the intake clerk, who felt that this represented a left bundle-branch block. Ms. Cornejo recently moved back to the [facility] approximately 2 years ago. She had previously lived in [place] and had followed with cardiology down there. Her family reports that she has a known history of mitral regurgitation as well as coronary artery disease and CHF, although they do not know what type. They do state that she had stents placed last year to the bilateral lower extremities for peripheral arterial disease. She also had an attempt at cardiac catheterization while she was in [place] with a radial access on the right arm, but during the procedure, her right arm swelled tremendously, and the procecdure was aborted without full catheterization being completed. They state that she was also told by her intake clerk in [place] that she had concern for blockage and bypass was discussed, but it was felt that she was not optimized for surgery. Both family and the patient declined to pursue any surgical intervention, and she has been treated medically. PAST MEDICAL HISTORY: Includes: 1. Hypertension. 2. Type 2 diabetes. 3. Hypercholesterolemia. 4. Peripheral arterial disease with stent placement in both legs with more stents in the left leg compared to the right. 5. Congestive heart failure. 6. Coronary artery disease. 7. Mitral regurgitation. PAST SURGICAL HISTORY: Includes stent placement bilaterally to lower extremities for peripheral arterial disease. ALLERGIES: SULFA DRUGS. FAMILY HISTORY: She reports strong family history of cardiac disease. Her grandmother had an WI and also had history of atrial fibrillation and angina. Diabetes runs on both sides of her family and also in her daughter. She reports a history of brain tumor in her father, but he of a ruptured ulcer. SOCIAL HISTORY: She reports smoking for a short period of time when she was 15 years old, was also exposed to a lot of secondhand smoke from her . She is a rare alcohol drinker. She does not use illicit drugs. She lives in her daughter's apartment, which is attached to the house. Her daughter, Jeannette Rajput, is her surrogate decision maker in the event of emergency. Secondary contact and decision maker is Александр Cornejo, who can be reached at [phone]. REVIEW OF SYSTEMS: Constitutional: Denies fevers, chills, malaise until this morning. HEENT: Denies visual changes. Reports chronic decrease in hearing. Denies sore throat, sinus congestion, oral abnormalities, tooth pain. Cardiac: Chest pain this morning. Endorses history of hypertension and congestive heart failure with occasional leg swelling and abdominal swelling and did take Lasix for this, this week. Does not daily weigh herself. Denies orthopnea or paroxysmal nocturnal dyspnea. No known history of sleep apnea. Respiratory: No history of cough, hemoptysis, or shortness of breath prior to today. GI: Denies abdominal pain, nausea, vomiting, or diarrhea. : Denies hematuria, dysuria, increased frequency, or urgency. Neuro: Denies any focal weakness or sensory loss. Has neuropathy at baseline to bilateral lower extremities. Musculoskeletal: No new joint or muscle pains. She is ambulatory. Skin: Within normal limits. Denies any rashes, lesions. Psych: Denies history of anxiety, depression. She does report sleep disturbances where she goes a couple of nights without sleeping well and then will have other nights where she sleeps fine. She was told that this is a side effect from her peripheral arterial disease. PHYSICAL EXAMINATION GENERAL: This is a well-developed and well-nourished elderly female who is sitting up on the ED stretcher with BiPAP mask on. She is not in any acute respiratory distress. VITAL SIGNS: Temperature 98.2, heart rate 89, respiratory rate 24, blood pressure 118/64, and O2 saturation is 97% on BiPAP. HEENT: Head is atraumatic, normocephalic. Face is symmetrical. Pupils are equal and round. Extraocular movements are intact. Oral mucosa is moist. No oropharyngeal erythema or exudates. NECK: Supple. No lymphadenopathy appreciated. No JVD appreciated. No carotid bruits noted. Neck with full range of motion. LUNGS: Mildly decreased throughout with expiratory rales bilaterally in the middle and lower lobes. No wheezing appreciated. CHEST AND CARDIAC: Normal S1, S2 heart sounds with regular rate and rhythm. No murmurs, rubs, or gallops. ABDOMEN: Soft, nontender, nondistended with normoactive bowel sounds. EXTREMITIES: With full range of motion. No edema noted to bilateral lower extremities. There is no clubbing or cyanosis, though the left lower extremity is emily in appearance. Distal pulses palpated at the posterior tibialis site at 1+. MUSCULOSKELETAL: Again with full range of motion. No clubbing or cyanosis. She is kyphotic. NEURO: Alert and oriented x3. Answers appropriately. Speech is clear. No focal deficits. She follows commands. PSYCH: Affect is appropriate with no displayed anxiety or depression. SKIN: Warm, dry. Appears grossly intact. DIAGNOSTIC STUDIES/LAB DATA: CBC: WBC 11.3, hemoglobin 13.5, hematocrit 42, platelet count 229. PTT 27.3. ABG shows a pO2 of 76 with a pH of 7.37, pCO2 of 35, bicarb 21.4. CMP: Sodium 140, potassium 4.6, chloride 105, carbon dioxide 25, BUN 20, creatinine 1.06, glucose 361, lactic acid 2.7, calcium 9.4. Total bilirubin 0.8, AST 39, ALT 39, alk phos 90. Troponin 0.18, CRP less than 1, BNP 727. Albumin 4.0. Urinalysis shows trace ketones and positive glucose. Chest x-ray shows pulmonary interstitial edema with multifocal consolidation. EKG with concern for ST changes in the inferior leads and left bundle-branch block. I did attempt to review old medical records. There are no EKGs here on file. Also, there is no echocardiogram here on file. ASSESSMENT AND PLAN: This is an 83-year-old female who presents today with concern for chest pain and shortness of breath. She will be admitted as an inpatient to the ICU. Plan is as follows: 1. [id number] myocardial infarction with decompensated heart failure. The ER did run the EKG by Dr. Wright from cardiology and put a note that he feels that the patient has left ventricular hypertrophy with left bundle-branch block, but no ST-elevation myocardial infarction. Presentation is consistent with NSTEMI and we have initiated heparin drip, which we will continue given that she had a sudden onset of chest pain with evidence of decompensated heart failure upon arrival. Additionally, she has received aspirin already and we will continue her home dose of 81 mg. She has been given 40 mg of furosemide and there was evidence for diuresis in the catheter bag. We will give her additional 20 mg of Lasix and continue to monitor her output. She is on BiPAP support and improving her respiratory status. We will try to wean her down to high-flow oxygen via Vapotherm and she will be monitored in the ICU. We will continue to trend her troponins to peak, with the first troponin being at 0.18 and her BNP of 727. Continue home medications of carvedilol, maximum dose atorvastatin and lisinopril, and we appreciate any further cardiology recommendations. We will also try to obtain records from her previous intake clerk in [place] as well as Dr. Abraham's office, who apparently has all records on file. We will check a transthoracic echocardiogram. 2. Lactic acidosis. I suspect that this may be due to decreased tissue perfusion and lack of oxygenation secondary to decompensated heart failure. We will repeat lactic acid per protocol 4 hours from the initial draw and continue to trend this. Should the lactic acid remain elevated, we will continue to evaluate this and treat appropriately. 3. Type 2 diabetes. She is hyperglycemic at this point in time. She has not taken her medications yet today and in order to treat her acute stress, she will be started on fingersticks with lispro sliding scale insulin. She is normally on glipizide and Janumet at home, which will be held. Doses will be adjusted as indicated. 4. Acute kidney injury. Previous creatinine 0.94 from 2018. We will recheck tomorrow. This is likely secondary to acute heart failure and [id number] myocardial infarction. 5. Hypertension. She is currently normotensive. Continue home regimen. 6. Hypercholesterolemia. Continue atorvastatin. 7. Peripheral arterial disease. Continue aspirin. She is not anticoagulated. I have asked that the nursing staff ivone pulses and check the pedal pulses with Doppler as they are weak and this is likely secondary to her chronic peripheral arterial disease. There is warmth to the extremities and evidence of blood flow, but we will continue to check this to ensure that we do not have worsening decompensation secondary to her heart failure. 8. FEN. She is ordered a heart-healthy diet with consistent carbohydrate. 9. DVT prophylaxis. She is on heparin drip. 10. Code status. I did discuss this with the patient and her family. At this time, she would like to remain a full code. Her family will continue discussions about this with her in the future, but feel that she is active and in good health prior to this and would like to continue respecting her wishes to be a full code. 11. Disposition. Anticipate that she may be able to be discharged to home as she does have supportive family members who live very nearby. TIME SPENT: Approximately 75 minutes were spent on this admission with greater than half that time spent [id number] with the patient and family obtaining history and physical, performing physical examination, and reviewing the plan of care. Plan of care was also reviewed with my attending, Dr. Scales, who is in agreement. CAROLINE MAXWELL, SWIM INSTRUCTOR [id number]/CPS #: [id number] JOSÉ ANTONIO
[2018-09-15] MEDS: Atorvastatin* 80 MG TAB PO SCH (16:53)
[2018-09-15] MEDS: Spironolactone TAB* 25 MG PO SCH (16:53)
[2018-09-15] MEDS: Heparin DRIP 25,000 UNITS(*) 25,000 UNITS/500 ML BAG IV SCH ×2 (16:54→23:56)
[2018-09-15] MEDS: Insulin LISPRO* 1 UNITS UNIT SUBCUT SCH (17:20)
[2018-09-15 18:17] LABS: Troponin I 18.53 ng/mL (<0.04)
[2018-09-15] MEDS ORDERED: Heparin VIAL(*) 5000 UNITS/ML VIAL (FIVE THOUSAND) IV PRN (18:30)
[2018-09-15] MEDS: Carvedilol TAB* 3.125 MG PO SCH (21:25)
[2018-09-15] MEDS ORDERED: Insulin LISPRO* 1 UNITS UNIT SUBCUT ONE (22:00)
[2018-09-15 23:52] LABS: Troponin I 15.24 ng/mL (<0.04)
[2018-09-16 06:18] LABS: ABS Eosinophils 0.1 10^3/ul (0-0.6); ABS Lymphocytes 1.6 10^3/ul (1.0-4.8); ABS Monocytes 0.7 10^3/ul (0-0.8); ABS Neutrophils 6.9 10^3/ul (1.5-7.7); Eosinophil % 0.6 %; Hematocrit 31 % (35-47); Lymphocyte % 17.4 %; Mean Corpuscular HGB Conc 36 g/dL (31-36); Mean Corpuscular Hemoglobin 32 pg (27-31); Mean Corpuscular Volume 90 fL (80-97); Platelet Count 181 10^3/uL (150-450); Red Blood Count 3.43 10^6 /uL (3.70-4.87); Red Cell Distribution Width 14 % (10-15); White Blood Count 9.2 10^3/uL (3.5-10.8)
[2018-09-16 06:35] LABS: BUN/Creatinine Ratio 20.2 (8-20); Calcium 8.5 mg/dL (8.6-10.3); EGFR Non-African American 64.4 (>60); Potassium 3.5 mmol/L (3.5-5.0)
[2018-09-16] MEDS: Lisinopril TAB* 5 MG PO SCH (07:30)
[2018-09-16] MEDS: Aspirin EC TAB* 81 MG TAB.EC PO SCH (07:30)
[2018-09-16] MEDS: Folic Acid TAB* 1 MG PO SCH (07:30)
[2018-09-16] MEDS: Insulin LISPRO* 1 UNITS UNIT SUBCUT SCH ×3 (07:30→18:25)
[2018-09-16] MEDS: Spironolactone TAB* 25 MG PO SCH (07:30)
[2018-09-16] MEDS: Carvedilol TAB* 3.125 MG PO SCH ×2 (07:30→20:39)
[2018-09-16] MEDS: Sertraline* 25 MG TAB PO SCH (07:30)
[2018-09-16] MEDS ORDERED: Furosemide IV* 10 MG/ML VIAL (40 MG) IV SLOW PU ONE (08:00)
[2018-09-16] MEDS ORDERED: Clopidogrel TAB* 300 MG PO ONE (08:41)
--- NOTE | 2018-09-16 08:47 | PN ---
Subjective Date of Service: 09/16/18 Interval History: f/u chf, mi patient resting comfortably no chest pain or dyspnea Medications Active Medications: Aspirin (Aspirin Ec Tab*) 81 mg PO DAILY [facility] Atorvastatin Calcium (Lipitor*) 80 mg PO 1700 [facility] Last Admin: 09/15/18 16:53 Dose: 80 mg Carvedilol (Coreg Tab*) 3.125 mg PO BID [facility] Last Admin: 09/15/18 21:25 Dose: 3.125 mg Clopidogrel Bisulfate (Plavix Tab*) 300 mg PO ONCE ONE Stop: 09/16/18 08:42 Clopidogrel Bisulfate (Plavix Tab*) 75 mg PO DAILY [facility] Dextrose (D50w Syringe 50 Ml*) 12.5 gm IV PUSH .FOR FS < 60 - SS PRN PRN Reason: FS < 60 Folic Acid (Folvite Tab*) 1 mg PO DAILY [facility] Heparin Sodium (Porcine) (Heparin Vial(*)) 0 - 3,250 units IV .PER PROTOCOL PRN PRN Reason: SEE COMMENTS Heparin Sodium/Dextrose (Heparin Drip 25,000 Units(*)) 25,000 units in 500 mls @ 0 mls/hr IV PER RATE [facility]; Protocol Last Admin: 09/15/18 23:56 Dose: 13 mls/hr Insulin Human Lispro (Humalog*) 0 units SUBCUT AC [facility]; Protocol Last Admin: 09/15/18 17:20 Dose: 3 units Lisinopril (Prinivil Tab*) 2.5 mg PO DAILY [facility] Sertraline HCl (Zoloft*) 25 mg PO QAM [facility] Spironolactone (Aldactone Tab*) 25 mg PO DAILY [facility] Last Admin: 09/15/18 16:53 Dose: 25 mg Torsemide (Torsemide) 20 mg PO DAILY [facility] Objective Vital Signs: Temp Pulse Resp BP Pulse Ox 99 F 65 13 97/45 99 09/16/18 05:00 09/16/18 07:00 09/16/18 07:00 09/16/18 07:00 09/16/18 07:00 Oxygen Devices in Use Now: Nasal Cannula Appearance: nad, very pleasant Ears/Nose/Mouth/Throat: Clear Oropharnyx Neck: Trachea Midline, - - uncertain jvp Respiratory: Symmetrical Chest Expansion and Respiratory Effort, - - mild rales right base Cardiovascular: - - RRR, more than than 1/6 systolic murmur Abdominal: NL Sounds; No Tenderness; No Distention Extremities: No Clubbing, Cyanosis, - - no edema Skin: No Rash or Ulcers Neurological: - - awake and alert Laboratory Results: 09/16/18 05:30 09/16/18 05:30 APTT 71.4 seconds (26.0-38.0) H 09/16/18 05:30 Total Bilirubin 0.80 mg/dL (0.2-1.0) 09/15/18 11:13 AST 39 U/L (13-39) 09/15/18 11:13 ALT 39 U/L (7-52) 09/15/18 11:13 Alkaline Phosphatase 90 U/L (34-104) 09/15/18 11:13 CK-MB (CK-2) 7.7 ng/mL (0.6-6.3) H 09/15/18 11:13 B-Natriuretic Peptide 727 pg/mL (<=100) H 09/15/18 11:13 Total Protein 7.0 g/dL (6.4-8.9) 09/15/18 11:13 Albumin 4.0 g/dL (3.2-5.2) 09/15/18 11:13 Globulin 3.0 g/dL (2-4) 09/15/18 11:13 Albumin/Globulin Ratio 1.3 (1-3) 09/15/18 11:13 Triglycerides 87 mg/dL 09/15/18 11:13 Cholesterol 149 mg/dL 09/15/18 11:13 LDL Cholesterol 71 mg/dL 09/15/18 11:13 HDL Cholesterol 61.0 mg/dL 09/15/18 11:13 09/15/18 09/15/18 09/15/18 11:13 14:50 17:32 Troponin I 0.18 H* 12.27 H* 18.53 H* 09/15/18 23:15 Troponin I 15.24 H* Diagnostic Imaging: Exam Date: 09/15/18 CXR: Bilateral pulmonary edema Cardiac catheterization 04/26/2017 Dr. 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 Left ventricle: The cavity size is normal. Wall thickness is mildly increased. Systolic function is moderately to severely reduced. The estimated ejection fraction is 30-35% with wall motion abnormalities as described within report 2. Right ventricle: The cavity size is normal. Systolic function is normal. 3. Left atrium: The atrium is moderately dilated. 4. Mitral valve: There is moderate to severe mitral regurgitation best appreciated on image 100 that is posteriorly directed. Mechanism not well appreciated. 5. Aortic valve: The findings are consistent with mild stenosis. 6. Tricuspid valve: There is mild regurgitation. mild-moderate pulmonary hypertension EKG Data: ekg on admission: NSR, IVCD/LBBB-morphology QRS ~ 150 ms ekg repeat NSR, old inferior/posterior, diffuse non-specific st/t changes, minimal IVCD significantly improved from admission Assessment/Plan 1. Acute on chronic congestive heart failure - LVEF 30% - Significant MR 2. NSTEMI - Uncertain mechanism, suspect type 2 by history from CHF related hypoxia with secondary "flash" pulmonary edema - Peak cTnI 18 - Known very severe unrevascularized CAD as above 3. DM 4. PAD 5. Memory loss, intermittent Continue captain fishing vessel aspirin 81 mg po daily Continue lipitor 80 mg po daily Given heparin gtt x 48 hours Give plavix 300 mg po x 1 now then 75 mg po daily (ordered) Continue captain fishing vessel coreg 3.25 mg po bid Continue captain fishing vessel lisinopril 2.5 mg po daily Continue spironolactone 25 mg po daily Decrease torsemide to 10 mg po daily (ordered), would use this instead of lasix standing at discharge Ok to give medications as long as asymptomatic and sbp >90 mmHg Would repeat a CXR tomorrow 09/17/18 Patient is DNR, would be ok for NIV/BIPAP, no intubation I discussed with daughter and patient her prior cardiac catheterization report. They place strong emphasis on quality of life and avoid invasive procedures/ surgeries. Will adjust medical therapy as above. Prognosis poor although she has survived (against odds) unrevascularized with relatively ok quality of life for the past 18 months. Tentative plan for discharge late Wednesday or more likely Wednesday. Needs d/c SIGRID chavez Thank you for allowing me to participate in the cardiovascular care of this patient. Please do not hesitate to contact me with questions or concerns.
[2018-09-16] MEDS ORDERED: Torsemide TAB 10 MG PO SCH (09:00)
--- NOTE | 2018-09-16 10:35 | ECHO ---
*[facility]* [place] [address] Fax #: [phone] Transthoracic Echocardiogram Patient: Mercedes Cornejo : 1935 Study Date: 09/16/2018 Age: 83 Gender: F HR: 69 bpm Height: 60 in /152.4 cm BSA: 1.5 m^2 Weight: 119.8 lb /54.4 kg BMI: 23.4 kg/m^2 *Asbestos Microscopist: * Talisha Amos RDCS RN *Referring Physician: * Tawanna Guerra *Reading Physician: * Ramiro Wright MD Indications: Congestive Heart Failure. History: Coronary artery disease. Congestive heart failure. Mitral regurgitation. PAD. Risk factors: Hypertension. Diabetes mellitus. Dyslipidemia. Conclusions Summary: 1. Left ventricle: The cavity size is normal. Wall thickness is mildly increased. Systolic function is moderately to severely reduced. The estimated ejection fraction is 30-35% with wall motion abnormalities as described within report 2. Right ventricle: The cavity size is normal. Systolic function is normal. 3. Left atrium: The atrium is moderately dilated. 4. Mitral valve: There is moderate to severe mitral regurgitation best appreciated on image 100 that is posteriorly directed. Mechanism not well appreciated. 5. Aortic valve: The findings are consistent with mild stenosis. 6. Tricuspid valve: There is mild regurgitation. Recommendations: None prior for comparison at time of interpretation Study data: Transthoracic echocardiogram. Procedure: Transthoracic echocardiography was performed. Image quality was fair. Complete 2D, spectral Doppler, and color flow Doppler. Patient status: Inpatient. Patient room number: ICU 5. Rhythm: Normal sinus rhythm. Findings Left ventricle: The cavity size is normal. Wall thickness is mildly increased. Systolic function is moderately to severely reduced. The estimated ejection fraction is 30-35% with wall motion abnormalities as described within report Regional wall motion abnormalities: Akinesis of the inferolateral myocardium. Severe hypokinesis and scarring of the basal inferolateral myocardium; moderate hypokinesis and scarring of the mid inferior myocardium; scarring of the mid inferolateral myocardium; akinesis of the basal inferior myocardium; severe hypokinesis of the apical inferior myocardium; moderate hypokinesis of the basal-mid anterolateral and apical lateral myocardium; mild hypokinesis of the entire anterior myocardium. Doppler parameters are consistent with abnormal left ventricular relaxation (grade 1 diastolic dysfunction). Right ventricle: The cavity size is normal. Systolic function is normal. Left atrium: The atrium is moderately dilated. Right atrium: The atrium is normal in size. Mitral valve: The annulus is moderately calcified. The leaflets are mildly thickened. There is no evidence of stenosis. There is moderate to severe mitral regurgitation best appreciated on image 100 that is posteriorly directed. Mechanism not well appreciated. Aortic valve: The leaflets are moderately thickened. The findings are consistent with mild stenosis. There is mild regurgitation. Tricuspid valve: The valve is structurally normal. There is no evidence of stenosis. There is mild regurgitation. Pulmonic valve: The valve is structurally normal. There is no evidence of stenosis. There is no regurgitation. Aorta: Aortic root: The aortic root is not dilated. Ascending aorta: The ascending aorta is not dilated. Aortic arch: The aortic arch is not visualized. Pericardium: There is no pericardial effusion. Pulmonary arteries: Not well visualized. Systolic pressure is mildly to moderately increased, estimated to be 49 mm Hg. Systemic veins: Inferior vena cava: The vessel is normal in size. The respirophasic diameter changes are blunted (< 50%). Measurements Left ventricle Value Ref Aortic valve Value Ref JUNIOR, LAX 5.1 cm 3.8 - 5.2 Juan Miguel diam, ED 1.8 cm ---- ESD, LAX (H) 4.4 cm 2.2 - 3.5 Peak v, S 1.7 m/sec ---- FS, LAX (L) 15 % 27 - 45 VTI, S 29.2 cm ---- Mid-wall FS 9 % Mean grad, S 6.0 mm Hg ---- PW, ED 0.6 cm 0.6 - 0.9 Peak grad, S 11.0 mm Hg ---- PW/ID, ED 0.12 LVOT/AV, VTI ratio 0.5 ---- E', lat juan miguel, TDI (L) 7.7 cm/sec >=10.0 BLAIRE, VTI 1.60 cm^2 --- - E/e', lat juan miguel, 8 BLAIRE, Vmax 1.60 cm^2 ---- TDI AR peak v 3.02 m/sec ---- E', med juan miguel, TDI (L) 2.9 cm/sec >=7.0 AR PHT 530 ms --- - E/e', med juan miguel, 22 AR peak grad 36 mm Hg ---- TDI E', avg, TDI 5.3 cm/sec Mitral valve Value Ref E/e', avg, TDI 12 <=14 Peak E 0.65 m/sec --- - Peak A 0.91 m/sec ---- LVOT Value Ref Decel time 208 ms ---- Diam, S 2.00 cm Peak E/A ratio 0.7 ---- Area 3.1 cm^2 MR PISA radius 0.9 cm ---- Peak hoda, S 0.84 m/sec Max MR v 4.9 m/sec ---- VTI, S 14.5 cm Regurg VTI 149.0 cm ---- Mean grad, S 2 mm Hg ERO, PISA 0.31 cm^2 ---- SV 47 ml Pulmonic valve Value Ref Ventricular septum Value Ref Peak v, S 0.74 m/sec ---- IVS, ED (H) 1.0 cm 0.6 - 0.9 Peak grad, S 2.0 mm Hg ---- Right ventricle Value Ref Tricuspid valve Value Ref JUNIOR, LAX 2.3 cm Peak RV-RA grad, S 41 mm Hg ---- JUNIOR minor ax, A4C 2.9 cm 1.9 - 3.5 Max TR hoda 3.2 m/sec ---- mid Pressure, S 49 mm Hg Aortic root Value Ref Root diam 2.9 cm <3.8 Left atrium Value Ref AP dim, ES 3.70 cm 2.70 - Ascending aorta Value Ref 3.80 AAo AP diam, S 3.3 cm ---- ML dim, A4C 4.3 cm SI dim, A4C 5.5 cm Pulmonary artery Value Ref Vol/bsa, ES, 1-p 38 ml/m^2 11 - 40 Pressure, S 47.0 mm Hg ---- A4C Vol/bsa, ES, A/L (H) 43 ml/m^2 16 - 34 Inferior vena cava Value Ref Diam 1.2 cm ---- Right atrium Value Ref ML dim, ES, A4C 4.0 cm 2.6 - 4.4 SI dim, ES, A4C 3.8 cm 3.4 - 5.3 Estimated RAP 8 mm Hg Legend: (L) and (H) ivone values outside specified reference range. Prepared and electronically signed by Ramiro Wright MD 09/16/2018 10:34
--- NOTE | 2018-09-16 12:17 | PN ---
Subjective Date of Service: 09/16/18 Interval History: Pt feels well, denies CP, still requiring 02 at 2l Objective Active Medications: Aspirin (Aspirin Ec Tab*) 81 mg PO DAILY [facility] Last Admin: 09/16/18 07:30 Dose: 81 mg Atorvastatin Calcium (Lipitor*) 80 mg PO 1700 [facility] Last Admin: 09/15/18 16:53 Dose: 80 mg Carvedilol (Coreg Tab*) 3.125 mg PO BID [facility] Last Admin: 09/16/18 07:30 Dose: 3.125 mg Clopidogrel Bisulfate (Plavix Tab*) 75 mg PO DAILY [facility] Dextrose (D50w Syringe 50 Ml*) 12.5 gm IV PUSH .FOR FS < 60 - SS PRN PRN Reason: FS < 60 Folic Acid (Folvite Tab*) 1 mg PO DAILY [facility] Last Admin: 09/16/18 07:30 Dose: 1 mg Heparin Sodium (Porcine) (Heparin Vial(*)) 0 - 3,250 units IV .PER PROTOCOL PRN PRN Reason: SEE COMMENTS Heparin Sodium/Dextrose (Heparin Drip 25,000 Units(*)) 25,000 units in 500 mls @ 0 mls/hr IV PER RATE [facility]; Protocol Last Admin: 09/15/18 23:56 Dose: 13 mls/hr Insulin Human Lispro (Humalog*) 0 units SUBCUT [facility]; Protocol Last Admin: 09/16/18 07:30 Dose: 1 units Lisinopril (Prinivil Tab*) 2.5 mg PO DAILY [facility] Last Admin: 09/16/18 07:30 Dose: 2.5 mg Sertraline HCl (Zoloft*) 25 mg PO QAM [facility] Last Admin: 09/16/18 07:30 Dose: 25 mg Spironolactone (Aldactone Tab*) 25 mg PO DAILY [facility] Last Admin: 09/16/18 07:30 Dose: 25 mg Torsemide (Torsemide) 10 mg PO DAILY [facility] Vital Signs - 8 hr 09/16/18 09/16/18 09/16/18 04:30 05:00 05:31 Temperature 99 F Pulse Rate 64 65 68 Respiratory 21 19 16 Rate Blood Pressure 98/56 100/55 111/68 (mmHg) O2 Sat by Pulse 99 100 100 Oximetry 09/16/18 09/16/18 09/16/18 06:00 06:30 07:00 Temperature Pulse Rate 71 65 65 Respiratory 26 21 25 Rate Blood Pressure 111/62 96/52 97/45 (mmHg) O2 Sat by Pulse 100 100 99 Oximetry 09/16/18 09/16/18 09/16/18 07:30 08:00 08:01 Temperature 98.5 F Pulse Rate 66 68 70 Respiratory 17 16 25 Rate Blood Pressure 102/54 109/60 (mmHg) O2 Sat by Pulse 100 99 100 Oximetry 09/16/18 09/16/18 09/16/18 08:30 09:00 09:31 Temperature Pulse Rate 67 74 71 Respiratory 24 26 16 Rate Blood Pressure 102/55 108/74 118/54 (mmHg) O2 Sat by Pulse 100 99 98 Oximetry 09/16/18 09/16/18 09/16/18 10:00 10:01 10:30 Temperature Pulse Rate 69 77 67 Respiratory 16 19 16 Rate Blood Pressure 94/53 86/56 (mmHg) O2 Sat by Pulse 97 97 99 Oximetry 09/16/18 09/16/18 09/16/18 11:00 11:30 11:32 Temperature Pulse Rate 59 53 55 Respiratory 20 16 28 Rate Blood Pressure 87/42 72/40 80/44 (mmHg) O2 Sat by Pulse 97 99 98 Oximetry 09/16/18 11:34 Temperature Pulse Rate 59 Respiratory 22 Rate Blood Pressure 82/37 (mmHg) O2 Sat by Pulse 97 Oximetry Oxygen Devices in Use Now: Nasal Cannula Appearance: 83 yo F in nAD, AAOx3, poor historian Eyes: No Scleral Icterus, PERRLA Ears/Nose/Mouth/Throat: NL Teeth, Lips, Gums, Mucous Membranes Moist Neck: NL Appearance and Movements; NL JVP, Trachea Midline Respiratory: Symmetrical Chest Expansion and Respiratory Effort, - - crackles at b/l bases Cardiovascular: NL Sounds; No Murmurs; No JVD, RRR Abdominal: NL Sounds; No Tenderness; No Distention, No Hepatosplenomegaly Lymphatic: No Cervical Adenopathy Extremities: No Edema, - - unable to palpate left pedal pulses, no clubbing or cyanosis Skin: No Rash or Ulcers, No Nodules or Sclerosis Neurological: Alert and Oriented x 3, NL Muscle Strength and Tone Result Diagrams: 09/16/18 05:30 09/16/18 05:30 Microbiology and Other Data: Microbiology 09/15/18 11:12 Aerobic Blood Culture - Preliminary Blood Venous No Growth Day 1 Anaerobic Blood Culture - Preliminary No Growth Day 1 09/15/18 11:02 Aerobic Blood Culture - Preliminary Blood Venous No Growth Day 1 Anaerobic Blood Culture - Preliminary No Growth Day 1 09/15/18 14:15 Nasal Screen MRSA (PCR) - Final Nasal Mrsa Not Detected Assess/Plan/Problems-Billing Assessment: 83 yo F with h/o dementia, CAD, PAD, chronic systolic CHF Cardiac catheterization 04/26/2017 Dr. 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 Family agreed with medical management (2) Acute on chronic systolic (congestive) heart failure Comment: EF approx 30% CHF resulted in acute ypoxemic rep failure -improving cont aldactone, torsemide-dose lowered as per DR. Wright (3) DM2 (diabetes mellitus, type 2) Comment: holding Janumet Cont ISS HbA1C 7.7 (4) DVT prophylaxis Comment: heparin gtt Status and Disposition: inpatient
[2018-09-16 13:15] LABS: BUN/Creatinine Ratio 21.8 (8-20); Calcium 8.4 mg/dL (8.6-10.3); EGFR African American 84.9 (>60); EGFR Non-African American 70.2 (>60); Potassium 3.7 mmol/L (3.5-5.0)
[2018-09-16] MEDS ORDERED: Temazepam CAP* 15 MG PO PRN (15:35)
[2018-09-16] MEDS: Atorvastatin* 80 MG TAB PO SCH (18:26)
[2018-09-16] MEDS: Melatonin 3 MG TAB PO SCH (20:39)
[2018-09-16] MEDS ORDERED: Insulin LISPRO* 1 UNITS UNIT SUBCUT ONE (23:00)
[2018-09-17 05:30] LABS: ABS Basophils 0.1 10^3/ul (0-0.2); ABS Eosinophils 0.2 10^3/ul (0-0.6); ABS Lymphocytes 1.6 10^3/ul (1.0-4.8); ABS Monocytes 0.8 10^3/ul (0-0.8); ABS Neutrophils 5.5 10^3/ul (1.5-7.7); Eosinophil % 1.9 %; Hematocrit 30 % (35-47); Hemoglobin 10.4 g/dL (12.0-16.0); Lymphocyte % 19.2 %; Mean Corpuscular HGB Conc 34 g/dL (31-36); Mean Corpuscular Hemoglobin 31 pg (27-31); Mean Corpuscular Volume 91 fL (80-97); Mean Platelet Volume 8.9 fL (7.4-10.4); Platelet Count 180 10^3/uL (150-450); Red Blood Count 3.33 10^6 /uL (3.70-4.87); Red Cell Distribution Width 13 % (10-15); White Blood Count 8.1 10^3/uL (3.5-10.8)
[2018-09-17 05:46] LABS: BUN/Creatinine Ratio 23.9 (8-20); Calcium 8.5 mg/dL (8.6-10.3); EGFR African American 73.9 (>60); EGFR Non-African American 61.1 (>60); Magnesium 1.8 mg/dL (1.9-2.7); Phosphorus 3.9 mg/dL (2.5-5.0); Potassium 3.9 mmol/L (3.5-5.0)
[2018-09-17] MEDS ORDERED: Phenazopyridine TAB* 100 MG PO PRN (06:19)
[2018-09-17] MEDS: Heparin DRIP 25,000 UNITS(*) 25,000 UNITS/500 ML BAG IV SCH (06:32)
[2018-09-17 08:16] LABS: Urine Appearance Turbid
[2018-09-17 08:17] LABS: Urine Color Red
[2018-09-17 08:35] LABS: Urine Red Blood Cell 3+(>10/hpf) (Absent)
[2018-09-17 08:36] LABS: Urine White Blood Cell 1+(6-10/hpf) (Absent)
[2018-09-17] MEDS: Clopidogrel TAB* 75 MG PO SCH (08:40)
[2018-09-17] MEDS: Folic Acid TAB* 1 MG PO SCH (08:40)
[2018-09-17] MEDS: Spironolactone TAB* 25 MG PO SCH (08:40)
[2018-09-17] MEDS: Carvedilol TAB* 3.125 MG PO SCH ×2 (08:40→22:56)
[2018-09-17] MEDS: Aspirin EC TAB* 81 MG TAB.EC PO SCH (08:40)
[2018-09-17] MEDS: Sertraline* 25 MG TAB PO SCH (08:41)
[2018-09-17] MEDS: Insulin LISPRO* 1 UNITS UNIT SUBCUT SCH ×3 (08:41→18:17)
[2018-09-17] MEDS: Torsemide TAB 10 MG PO SCH (08:41)
[2018-09-17] MEDS: Lisinopril TAB* 5 MG PO SCH (12:30)
--- NOTE | 2018-09-17 16:41 | PN ---
Subjective Date of Service: 09/17/18 Interval History: Sleepy during exam but oriented,answering all questions appropriately. reports feeling tired.didnt sleep much last night Objective Active Medications: Aspirin (Aspirin Ec Tab*) 81 mg PO DAILY [facility] Last Admin: 09/17/18 08:40 Dose: 81 mg Atorvastatin Calcium (Lipitor*) 80 mg PO 1700 [facility] Last Admin: 09/16/18 18:26 Dose: 80 mg Carvedilol (Coreg Tab*) 3.125 mg PO BID [facility] Last Admin: 09/17/18 08:40 Dose: 3.125 mg Clopidogrel Bisulfate (Plavix Tab*) 75 mg PO DAILY [facility] Last Admin: 09/17/18 08:40 Dose: 75 mg Dextrose (D50w Syringe 50 Ml*) 12.5 gm IV PUSH .FOR FS < 60 - SS PRN PRN Reason: FS < 60 Folic Acid (Folvite Tab*) 1 mg PO DAILY [facility] Last Admin: 09/17/18 08:40 Dose: 1 mg Heparin Sodium (Porcine) (Heparin Vial(*)) 0 - 3,250 units IV .PER PROTOCOL PRN PRN Reason: SEE COMMENTS Heparin Sodium/Dextrose (Heparin Drip 25,000 Units(*)) 25,000 units in 500 mls @ 0 mls/hr IV PER RATE [facility]; Protocol Stop: 09/17/18 23:00 Last Admin: 09/17/18 06:32 Dose: 13 mls/hr Insulin Human Lispro (Humalog*) 0 units SUBCUT AC [facility]; Protocol Last Admin: 09/17/18 12:48 Dose: 2 units Lisinopril (Prinivil Tab*) 2.5 mg PO DAILY [facility] Last Admin: 09/17/18 12:30 Dose: Not Given Melatonin (Melatonin) 3 mg PO BEDTIME [facility] Last Admin: 09/16/18 20:39 Dose: 3 mg Phenazopyridine HCl (Pyridium Tab*) 200 mg PO TID PRN PRN Reason: PAIN Last Admin: 09/17/18 06:32 Dose: 200 mg Sertraline HCl (Zoloft*) 25 mg PO QAM [facility] Last Admin: 09/17/18 08:41 Dose: 25 mg Spironolactone (Aldactone Tab*) 25 mg PO DAILY [facility] Last Admin: 09/17/18 08:40 Dose: 25 mg Temazepam (Restoril Cap*) 15 mg PO BEDTIME PRN PRN Reason: INSOMNIA Torsemide (Torsemide) 10 mg PO DAILY [facility] Last Admin: 09/17/18 08:41 Dose: 10 mg Vital Signs - 8 hr 09/17/18 09/17/18 09/17/18 09:00 10:00 10:32 Pulse Rate 97 72 75 Respiratory 20 23 24 Rate Blood Pressure 112/71 85/46 100/55 (mmHg) O2 Sat by Pulse 94 90 95 Oximetry 09/17/18 09/17/18 09/17/18 11:00 12:00 13:00 Pulse Rate 66 64 96 Respiratory 20 23 20 Rate Blood Pressure 103/55 (mmHg) O2 Sat by Pulse 97 95 94 Oximetry 09/17/18 09/17/18 13:01 14:00 Pulse Rate 95 66 Respiratory 27 35 Rate Blood Pressure 107/68 (mmHg) O2 Sat by Pulse 95 96 Oximetry Oxygen Devices in Use Now: Nasal Cannula Ears/Nose/Mouth/Throat: NL Teeth, Lips, Gums Neck: NL Appearance and Movements; NL JVP Respiratory: Symmetrical Chest Expansion and Respiratory Effort, Clear to Auscultation Cardiovascular: NL Sounds; No Murmurs; No JVD Abdominal: NL Sounds; No Tenderness; No Distention Extremities: No Edema Neurological: Alert and Oriented x 3 Result Diagrams: 09/17/18 05:15 09/17/18 05:15 Microbiology and Other Data: Microbiology 09/15/18 11:12 Aerobic Blood Culture - Preliminary Blood Venous No Growth Day 1 Anaerobic Blood Culture - Preliminary No Growth Day 1 09/15/18 11:02 Aerobic Blood Culture - Preliminary Blood Venous No Growth Day 1 Anaerobic Blood Culture - Preliminary No Growth Day 1 09/15/18 14:15 Nasal Screen MRSA (PCR) - Final Nasal Mrsa Not Detected Assess/Plan/Problems-Billing Assessment: 83 yo F with h/o dementia, CAD, PAD, chronic systolic CHF Cardiac catheterization 04/26/2017 Dr. 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 To be held later tonight ASA/Plavix/Lipitor/coreg,hiwot Cardiology following Pt was a poor candidate for CABG and was noted to have severe, diffuse CAD(see cath report above). Family agreed with medical management (2) Acute on chronic systolic (congestive) heart failure Current Visit: Yes Status: Acute Code(s): I50.23 - ACUTE ON CHRONIC SYSTOLIC (CONGESTIVE) HEART FAILURE SNOMED Code(s): 534784885 Comment: EF approx 30% CHF resulted in acute ypoxemic rep failure -improving cont aldactone, torsemide-dose lowered as per DR. Wright (3) DM2 (diabetes mellitus, type 2) Current Visit: Yes Status: Acute Comment: holding Janumet Cont ISS HbA1C 7.7 (4) DVT prophylaxis Current Visit: Yes Status: Acute Code(s): Z29.9 - ENCOUNTER FOR PROPHYLACTIC MEASURES, UNSPECIFIED SNOMED Code(s): 987153365 Comment: heparin gtt Status and Disposition: inpatient.will transfer to [facility] floor
[2018-09-17] MEDS: Atorvastatin* 80 MG TAB PO SCH (18:16)
[2018-09-17] MEDS: Melatonin 3 MG TAB PO SCH (22:56)
[2018-09-18 05:51] LABS: ABS Eosinophils 0.1 10^3/ul (0-0.6); ABS Lymphocytes 1.4 10^3/ul (1.0-4.8); ABS Monocytes 0.5 10^3/ul (0-0.8); Hematocrit 27 % (35-47); Hemoglobin 9.4 g/dL (12.0-16.0); Lymphocyte % 23.4 %; Mean Corpuscular HGB Conc 34 g/dL (31-36); Mean Corpuscular Hemoglobin 31 pg (27-31); Mean Corpuscular Volume 91 fL (80-97); Mean Platelet Volume 9.1 fL (7.4-10.4); Platelet Count 162 10^3/uL (150-450); Red Blood Count 2.99 10^6 /uL (3.70-4.87); Red Cell Distribution Width 14 % (10-15); White Blood Count 6.1 10^3/uL (3.5-10.8)
[2018-09-18 06:00] LABS: BUN/Creatinine Ratio 21.3 (8-20); Calcium 8.3 mg/dL (8.6-10.3); EGFR African American 82.5 (>60); EGFR Non-African American 68.2 (>60); Potassium 3.6 mmol/L (3.5-5.0)
[2018-09-18] MEDS: Insulin LISPRO* 1 UNITS UNIT SUBCUT SCH ×3 (09:37→17:25)
[2018-09-18] MEDS: Lisinopril TAB* 5 MG PO SCH (09:38)
[2018-09-18] MEDS: Spironolactone TAB* 25 MG PO SCH (09:39)
[2018-09-18] MEDS: Aspirin EC TAB* 81 MG TAB.EC PO SCH (09:39)
[2018-09-18] MEDS: Torsemide TAB 10 MG PO SCH (09:39)
[2018-09-18] MEDS: Clopidogrel TAB* 75 MG PO SCH (09:40)
[2018-09-18] MEDS: Folic Acid TAB* 1 MG PO SCH (09:40)
[2018-09-18] MEDS: Sertraline* 25 MG TAB PO SCH (09:40)
[2018-09-18] MEDS: Carvedilol TAB* 3.125 MG PO SCH ×3 (09:40→20:38)
--- NOTE | 2018-09-18 14:53 | PN ---
Subjective Date of Service: 09/18/18 Interval History: Denies any complaints.More awake today.Denies CP,SOB.Reports feeling well. Objective Active Medications: Aspirin (Aspirin Ec Tab*) 81 mg PO DAILY [facility] Last Admin: 09/18/18 09:39 Dose: 81 mg Atorvastatin Calcium (Lipitor*) 80 mg PO 1700 [facility] Last Admin: 09/17/18 18:16 Dose: 80 mg Carvedilol (Coreg Tab*) 3.125 mg PO BID [facility] Last Admin: 09/18/18 09:40 Dose: 3.125 mg Clopidogrel Bisulfate (Plavix Tab*) 75 mg PO DAILY [facility] Last Admin: 09/18/18 09:40 Dose: 75 mg Dextrose (D50w Syringe 50 Ml*) 12.5 gm IV PUSH .FOR FS < 60 - SS PRN PRN Reason: FS < 60 Folic Acid (Folvite Tab*) 1 mg PO DAILY [facility] Last Admin: 09/18/18 09:40 Dose: 1 mg Heparin Sodium (Porcine) (Heparin Vial(*)) 0 - 3,250 units IV .PER PROTOCOL PRN PRN Reason: SEE COMMENTS Insulin Human Lispro (Humalog*) 0 units SUBCUT [facility]; Protocol Last Admin: 09/18/18 12:20 Dose: 4 units Lisinopril (Prinivil Tab*) 2.5 mg PO DAILY [facility] Last Admin: 09/18/18 09:38 Dose: 2.5 mg Melatonin (Melatonin) 3 mg PO BEDTIME [facility] Last Admin: 09/17/18 22:56 Dose: 3 mg Phenazopyridine HCl (Pyridium Tab*) 200 mg PO TID PRN PRN Reason: PAIN Last Admin: 09/17/18 06:32 Dose: 200 mg Sertraline HCl (Zoloft*) 25 mg PO QAM [facility] Last Admin: 09/18/18 09:40 Dose: 25 mg Spironolactone (Aldactone Tab*) 25 mg PO DAILY [facility] Last Admin: 09/18/18 09:39 Dose: 25 mg Temazepam (Restoril Cap*) 15 mg PO BEDTIME PRN PRN Reason: INSOMNIA Torsemide (Torsemide) 10 mg PO DAILY [facility] Last Admin: 09/18/18 09:39 Dose: 10 mg Vital Signs - 8 hr 09/18/18 09/18/18 09/18/18 07:40 08:00 11:20 Temperature 97.6 F 97.7 F Pulse Rate 62 78 Respiratory 14 18 18 Rate Blood Pressure 97/47 96/59 (mmHg) O2 Sat by Pulse 100 93 Oximetry Oxygen Devices in Use Now: Nasal Cannula Eyes: No Scleral Icterus Ears/Nose/Mouth/Throat: NL Teeth, Lips, Gums Respiratory: Symmetrical Chest Expansion and Respiratory Effort, Clear to Auscultation Cardiovascular: NL Sounds; No Murmurs; No JVD, RRR Abdominal: NL Sounds; No Tenderness; No Distention Extremities: No Edema Neurological: Alert and Oriented x 3 Result Diagrams: 09/18/18 05:21 09/18/18 05:21 Microbiology and Other Data: Microbiology 09/15/18 11:12 Aerobic Blood Culture - Preliminary Blood Venous No Growth Day 1 Anaerobic Blood Culture - Preliminary No Growth Day 1 09/15/18 11:02 Aerobic Blood Culture - Preliminary Blood Venous No Growth Day 1 Anaerobic Blood Culture - Preliminary No Growth Day 1 09/15/18 14:15 Nasal Screen MRSA (PCR) - Final Nasal Mrsa Not Detected Assess/Plan/Problems-Billing Assessment: 83 yo F with h/o dementia, CAD, PAD, chronic systolic CHF Cardiac catheterization 04/26/2017 Dr. 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 Family agreed with medical management (2) Acute on chronic systolic (congestive) heart failure Current Visit: Yes Status: Acute Code(s): I50.23 - ACUTE ON CHRONIC SYSTOLIC (CONGESTIVE) HEART FAILURE SNOMED Code(s): 738287219 Comment: EF approx 30% CHF resulted in acute hypoxemic rep failure -improving cont aldactone, torsemide-dose lowered as per DR. Wright (3) DM2 (diabetes mellitus, type 2) Current Visit: Yes Status: Acute Comment: holding Janumet Cont ISS HbA1C 7.7 (4) DVT prophylaxis Current Visit: Yes Status: Acute Code(s): Z29.9 - ENCOUNTER FOR PROPHYLACTIC MEASURES, UNSPECIFIED SNOMED Code(s): 771932007 Comment: heparin sq Status and Disposition: inpatient.pt/ot. rehab vs home
[2018-09-18] MEDS: Atorvastatin* 80 MG TAB PO SCH (17:26)
[2018-09-18 18:49] LABS: ABS Eosinophils 0.2 10^3/ul (0-0.6); ABS Lymphocytes 0.9 10^3/ul (1.0-4.8); ABS Monocytes 0.5 10^3/ul (0-0.8); ABS Neutrophils 3.6 10^3/ul (1.5-7.7); Eosinophil % 3.7 %; Hematocrit 27 % (35-47); Hemoglobin 9.2 g/dL (12.0-16.0); Lymphocyte % 17.6 %; Mean Corpuscular HGB Conc 34 g/dL (31-36); Mean Corpuscular Hemoglobin 31 pg (27-31); Mean Corpuscular Volume 92 fL (80-97); Mean Platelet Volume 8.7 fL (7.4-10.4); Nucleated Red Blood Cells % 0.1; Platelet Count 163 10^3/uL (150-450); Red Blood Count 2.97 10^6 /uL (3.70-4.87); Red Cell Distribution Width 14 % (10-15); White Blood Count 5.3 10^3/uL (3.5-10.8)
[2018-09-18 19:03] LABS: Activated Partial Thrombo Time 28.5 seconds (26.0-38.0); INR 0.96 (0.82-1.09)
[2018-09-18 19:05] LABS: EGFR African American 74.9 (>60); EGFR Non-African American 61.9 (>60)
[2018-09-18] MEDS: Heparin VIAL(*) 5000 UNITS/ML VIAL (FIVE THOUSAND) SUBCUT SCH (20:35)
[2018-09-18] MEDS: Melatonin 3 MG TAB PO SCH (20:36)
[2018-09-18] MEDS ORDERED: Insulin LISPRO* 1 UNITS UNIT SUBCUT ONE (23:00)
[2018-09-19 06:34] LABS: ABS Eosinophils 0.2 10^3/ul (0-0.6); ABS Lymphocytes 1.3 10^3/ul (1.0-4.8); ABS Monocytes 0.5 10^3/ul (0-0.8); ABS Neutrophils 3.4 10^3/ul (1.5-7.7); Eosinophil % 4.4 %; Hematocrit 27 % (35-47); Hemoglobin 9.4 g/dL (12.0-16.0); Lymphocyte % 23.4 %; Mean Corpuscular HGB Conc 35 g/dL (31-36); Mean Corpuscular Hemoglobin 32 pg (27-31); Mean Corpuscular Volume 92 fL (80-97); Mean Platelet Volume 9.4 fL (7.4-10.4); Platelet Count 167 10^3/uL (150-450); Red Blood Count 2.96 10^6 /uL (3.70-4.87); Red Cell Distribution Width 14 % (10-15); White Blood Count 5.4 10^3/uL (3.5-10.8)
[2018-09-19 06:49] LABS: BUN/Creatinine Ratio 23.1 (8-20); Calcium 8.3 mg/dL (8.6-10.3); EGFR African American 84.9 (>60); EGFR Non-African American 70.2 (>60)
--- NOTE | 2018-09-19 09:36 | PN ---
Subjective Date of Service: 09/19/18 Interval History: No acute issues overnight, no chest pain currently, no shortness of breath, currently on 2 Liters Nasal canula, at home not on oxygen. Objective Active Medications: Aspirin (Aspirin Ec Tab*) 81 mg PO DAILY [facility] Last Admin: 09/18/18 09:39 Dose: 81 mg Atorvastatin Calcium (Lipitor*) 80 mg PO 1700 [facility] Last Admin: 09/18/18 17:26 Dose: 80 mg Carvedilol (Coreg Tab*) 3.125 mg PO BID [facility] Last Admin: 09/18/18 20:38 Dose: Not Given Clopidogrel Bisulfate (Plavix Tab*) 75 mg PO DAILY [facility] Last Admin: 09/18/18 09:40 Dose: 75 mg Dextrose (D50w Syringe 50 Ml*) 12.5 gm IV PUSH .FOR FS < 60 - SS PRN PRN Reason: FS < 60 Folic Acid (Folvite Tab*) 1 mg PO DAILY [facility] Last Admin: 09/18/18 09:40 Dose: 1 mg Heparin Sodium (Porcine) (Heparin Vial(*)) 5,000 units SUBCUT Q12HR [facility] Last Admin: 09/18/18 20:35 Dose: 5,000 units Insulin Human Lispro (Humalog*) 0 units SUBCUT AC [facility]; Protocol Last Admin: 09/18/18 17:25 Dose: 2 units Lisinopril (Prinivil Tab*) 2.5 mg PO DAILY [facility] Last Admin: 09/18/18 09:38 Dose: 2.5 mg Melatonin (Melatonin) 3 mg PO BEDTIME [facility] Last Admin: 09/18/18 20:36 Dose: 3 mg Phenazopyridine HCl (Pyridium Tab*) 200 mg PO TID PRN PRN Reason: PAIN Last Admin: 09/17/18 06:32 Dose: 200 mg Sertraline HCl (Zoloft*) 25 mg PO QAM [facility] Last Admin: 09/18/18 09:40 Dose: 25 mg Spironolactone (Aldactone Tab*) 25 mg PO DAILY [facility] Last Admin: 09/18/18 09:39 Dose: 25 mg Temazepam (Restoril Cap*) 15 mg PO BEDTIME PRN PRN Reason: INSOMNIA Torsemide (Torsemide) 10 mg PO DAILY [facility] Last Admin: 09/18/18 09:39 Dose: 10 mg Vital Signs - 8 hr 09/19/18 09/19/18 09/19/18 03:52 03:55 06:50 Temperature 97.8 F Pulse Rate 65 Respiratory 16 14 Rate Blood Pressure 86/40 97/48 (mmHg) O2 Sat by Pulse 100 Oximetry 09/19/18 07:53 Temperature Pulse Rate Respiratory Rate Blood Pressure (mmHg) O2 Sat by Pulse 96 Oximetry Oxygen Devices in Use Now: Nasal Cannula Appearance: Elderly female in bed, not in distress Neck: No Thyroid Enlargement, Masses Respiratory: - - no tahcypnea, no use of accessory mucles, minimal crackles at lung base Cardiovascular: RRR, - - soft systolic murmur at apex Abdominal: No Hepatosplenomegaly Skin: No Rash or Ulcers Neurological: Alert and Oriented x 3 Result Diagrams: 09/19/18 05:19 09/19/18 05:19 Microbiology and Other Data: Microbiology 09/15/18 11:12 Aerobic Blood Culture - Preliminary Blood Venous No Growth Day 1 Anaerobic Blood Culture - Preliminary No Growth Day 1 09/15/18 11:02 Aerobic Blood Culture - Preliminary Blood Venous No Growth Day 1 Anaerobic Blood Culture - Preliminary No Growth Day 1 09/15/18 14:15 Nasal Screen MRSA (PCR) - Final Nasal Mrsa Not Detected Assess/Plan/Problems-Billing Assessment: 83 yo F with h/o dementia, CAD, PAD, chronic systolic CHF Cardiac catheterization 04/26/2017 Dr. 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 from LAD collaterals Extensive aortic arch calcification, left subclavian artery origin not really identified "Known severe valvular heart disease" Extensive PAD - Patient Problems (1) Acute on chronic systolic (congestive) heart failure Current Visit: Yes Status: Acute Code(s): I50.23 - ACUTE ON CHRONIC SYSTOLIC (CONGESTIVE) HEART FAILURE SNOMED Code(s): 805349796 Comment: EF approx 30% cont aldactone, torsemide (2) DM2 (diabetes mellitus, type 2) Current Visit: Yes Status: Acute Comment: holding Janumet Continue sliding scale insulin HbA1C 7.7 (3) DVT prophylaxis Current Visit: Yes Status: Acute Code(s): Z29.9 - ENCOUNTER FOR PROPHYLACTIC MEASURES, UNSPECIFIED SNOMED Code(s): 095666826 Comment: heparin sq (4) NSTEMI (non-ST elevated myocardial infarction) Current Visit: Yes Status: Acute Code(s): I21.4 - NON-ST ELEVATION (NSTEMI) MYOCARDIAL INFARCTION SNOMED Code(s): 21145975 Comment: no more CP, LBBB at admission, now back to narrow QRS completed heparin gtt x 48H ASA/Plavix/Lipitor/coreg,hiwot Cardiology following Pt was a poor candidate for CABG and was noted to have severe, diffuse CAD(see cath report above). Family agreed with medical management (5) Acute respiratory failure with hypoxia Current Visit: Yes Status: Acute Code(s): J96.01 - ACUTE RESPIRATORY FAILURE WITH HYPOXIA SNOMED Code(s): 25656306 Comment: improved, was due to CHF exacerbation Status and Disposition: Will attempt to wean of oxygen, physical therapy, and anticipate discharge in 1- 2 days.
[2018-09-19] MEDS: Insulin LISPRO* 1 UNITS UNIT SUBCUT SCH ×4 (09:56→23:15)
[2018-09-19] MEDS: Spironolactone TAB* 25 MG PO SCH (09:57)
[2018-09-19] MEDS: Torsemide TAB 10 MG PO SCH (09:58)
[2018-09-19] MEDS: Lisinopril TAB* 5 MG PO SCH (09:58)
[2018-09-19] MEDS: Clopidogrel TAB* 75 MG PO SCH (09:58)
[2018-09-19] MEDS: Folic Acid TAB* 1 MG PO SCH (09:58)
[2018-09-19] MEDS: Sertraline* 25 MG TAB PO SCH (09:59)
[2018-09-19] MEDS: Aspirin EC TAB* 81 MG TAB.EC PO SCH (09:59)
[2018-09-19] MEDS: Carvedilol TAB* 3.125 MG PO SCH ×2 (09:59→22:39)
[2018-09-19] MEDS: Heparin VIAL(*) 5000 UNITS/ML VIAL (FIVE THOUSAND) SUBCUT SCH ×2 (10:00→22:41)
[2018-09-19] MEDS: Atorvastatin* 80 MG TAB PO SCH (16:59)
[2018-09-19] MEDS ORDERED: Senna TAB PO PRN (21:58)
[2018-09-19] MEDS ORDERED: Magnesium Hydroxide LIQ* 30 ML UDC PO PRN (21:58)
[2018-09-19] MEDS: Melatonin 3 MG TAB PO SCH (22:40)
[2018-09-20 06:17] LABS: ABS Eosinophils 0.2 10^3/ul (0-0.6); ABS Lymphocytes 1.2 10^3/ul (1.0-4.8); ABS Monocytes 0.6 10^3/ul (0-0.8); ABS Neutrophils 3.5 10^3/ul (1.5-7.7); Eosinophil % 3.1 %; Hematocrit 28 % (35-47); Hemoglobin 9.7 g/dL (12.0-16.0); Lymphocyte % 22.1 %; Mean Corpuscular HGB Conc 34 g/dL (31-36); Mean Corpuscular Hemoglobin 31 pg (27-31); Mean Corpuscular Volume 92 fL (80-97); Mean Platelet Volume 8.8 fL (7.4-10.4); Platelet Count 178 10^3/uL (150-450); Red Cell Distribution Width 14 % (10-15); White Blood Count 5.6 10^3/uL (3.5-10.8)
[2018-09-20] MEDS: Insulin LISPRO* 1 UNITS UNIT SUBCUT SCH ×2 (09:11→13:02)
[2018-09-20] MEDS: Folic Acid TAB* 1 MG PO SCH (09:12)
[2018-09-20] MEDS: Lisinopril TAB* 5 MG PO SCH (09:13)
[2018-09-20] MEDS: Carvedilol TAB* 3.125 MG PO SCH (09:13)
[2018-09-20] MEDS: Sertraline* 25 MG TAB PO SCH (09:14)
[2018-09-20] MEDS: Aspirin EC TAB* 81 MG TAB.EC PO SCH (09:14)
[2018-09-20] MEDS: Torsemide TAB 10 MG PO SCH (09:14)
[2018-09-20] MEDS: Clopidogrel TAB* 75 MG PO SCH (09:14)
[2018-09-20] MEDS: Heparin VIAL(*) 5000 UNITS/ML VIAL (FIVE THOUSAND) SUBCUT SCH (09:15)
[2018-09-20] MEDS: Spironolactone TAB* 25 MG PO SCH (09:15)
--- NOTE | 2018-09-20 10:50 | PN ---
Subjective Date of Service: 09/20/18 Interval History: Developed hematuria, no abdominal pain, no urinary urgency. No fever, no chills. Objective Active Medications: Aspirin (Aspirin Ec Tab*) 81 mg PO DAILY [facility] Last Admin: 09/20/18 09:14 Dose: 81 mg Atorvastatin Calcium (Lipitor*) 80 mg PO 1700 [facility] Last Admin: 09/19/18 16:59 Dose: 80 mg Carvedilol (Coreg Tab*) 3.125 mg PO BID [facility] Last Admin: 09/20/18 09:13 Dose: 3.125 mg Cefdinir (Cefdinir Cap*) 300 mg PO BID [facility] Clopidogrel Bisulfate (Plavix Tab*) 75 mg PO DAILY [facility] Last Admin: 09/20/18 09:14 Dose: 75 mg Dextrose (D50w Syringe 50 Ml*) 12.5 gm IV PUSH .FOR FS < 60 - SS PRN PRN Reason: FS < 60 Folic Acid (Folvite Tab*) 1 mg PO DAILY [facility] Last Admin: 09/20/18 09:12 Dose: 1 mg Insulin Human Lispro (Humalog*) 0 units SUBCUT [facility]; Protocol Last Admin: 09/20/18 09:11 Dose: 2 units Lisinopril (Prinivil Tab*) 2.5 mg PO DAILY [facility] Last Admin: 09/20/18 09:13 Dose: 2.5 mg Magnesium Hydroxide (Milk Of Magnesia Liq*) 30 ml PO Q4H PRN PRN Reason: CONSTIPATION Melatonin (Melatonin) 3 mg PO BEDTIME [facility] Last Admin: 09/19/18 22:40 Dose: 3 mg Phenazopyridine HCl (Pyridium Tab*) 200 mg PO TID PRN PRN Reason: PAIN Last Admin: 09/17/18 06:32 Dose: 200 mg Senna (Senokot Tab*) 1 tab PO DAILY PRN PRN Reason: CONSTIPATION Last Admin: 09/19/18 22:40 Dose: 1 tab Sertraline HCl (Zoloft*) 25 mg PO QAM [facility] Last Admin: 09/20/18 09:14 Dose: 25 mg Spironolactone (Aldactone Tab*) 25 mg PO DAILY [facility] Last Admin: 09/20/18 09:15 Dose: 25 mg Temazepam (Restoril Cap*) 15 mg PO BEDTIME PRN PRN Reason: INSOMNIA Torsemide (Torsemide) 10 mg PO DAILY [facility] Last Admin: 09/20/18 09:14 Dose: 10 mg Vital Signs - 8 hr 09/20/18 09/20/18 09/20/18 03:21 08:00 08:17 Temperature 97.9 F 99.3 F Pulse Rate 72 89 Respiratory 16 16 Rate Blood Pressure 103/63 117/71 (mmHg) O2 Sat by Pulse 97 96 95 Oximetry Appearance: Lying in bed, not in distress. Respiratory: Symmetrical Chest Expansion and Respiratory Effort, Clear to Auscultation Cardiovascular: NL Sounds; No Murmurs; No JVD, RRR Abdominal: No Hepatosplenomegaly Extremities: No Edema Neurological: Alert and Oriented x 3 Result Diagrams: 09/20/18 05:29 09/19/18 05:19 Microbiology and Other Data: Microbiology Microbiology 09/15/18 11:02 Aerobic Blood Culture - Preliminary Blood Venous No Growth Day 4 Anaerobic Blood Culture - Preliminary No Growth Day 4 09/15/18 11:12 Aerobic Blood Culture - Preliminary Blood Venous No Growth Day 4 Anaerobic Blood Culture - Preliminary No Growth Day 4 09/17/18 05:45 Urine Culture - Final Urine Citrobacter Braakii 09/15/18 14:15 Nasal Screen MRSA (PCR) - Final Nasal Mrsa Not Detected Assess/Plan/Problems-Billing Assessment: 83 yo F with h/o dementia, CAD, PAD, chronic systolic CHF Cardiac catheterization 04/26/2017 Dr. 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 Family agreed with medical management (2) Acute on chronic systolic (congestive) heart failure Current Visit: Yes Status: Acute Code(s): I50.23 - ACUTE ON CHRONIC SYSTOLIC (CONGESTIVE) HEART FAILURE SNOMED Code(s): 517631421 Comment: EF approx 30% cont aldactone, torsemide (3) DM2 (diabetes mellitus, type 2) Current Visit: Yes Status: Acute Comment: holding Janumet Continue sliding scale insulin HbA1C 7.7 (4) DVT prophylaxis Current Visit: Yes Status: Acute Code(s): Z29.9 - ENCOUNTER FOR PROPHYLACTIC MEASURES, UNSPECIFIED SNOMED Code(s): 120773032 Comment: heparin sq (5) Acute respiratory failure with hypoxia Current Visit: Yes Status: Acute Code(s): J96.01 - ACUTE RESPIRATORY FAILURE WITH HYPOXIA SNOMED Code(s): 90737876 Comment: improved, was due to CHF exacerbation (6) Hematuria Current Visit: Yes Status: Acute Code(s): R31.9 - HEMATURIA, UNSPECIFIED SNOMED Code(s): 81853950 Comment: could be due to UTI- hemorrhagic cystitis. start cefdinir discussed with urology- Dr. Allan, regarding the case, at this point d/c heparin subQ. c/w aspirin, plavix given NSTEMI. Urology recommendations: kidney u/s, post void residuals. at this point cystocopy will need to be held due to infection. carlos outpatient work up in the coming week.
[2018-09-20] MEDS ORDERED: Cefdinir cap* 300 MG CAP PO SCH (11:00)
[2018-09-20 14:40] VITALS: BP 99/55
--- NOTE | 2018-09-20 16:03 | DS ---
CC: Dr. Ramiro Wright; Dr. New King; Dr. David Abraham DATE OF ADMISSION: 09/15/2018. DATE OF DISCHARGE: 09/20/2018. REASON FOR ADMISSION: Chest pain and shortness of breath. ADMISSION DIAGNOSES: 1. [id number] MO. 2. Acute on chronic congestive heart failure. DISCHARGE DIAGNOSES: 1. Zjr-BS-ryysibuff MO. 2. Acute on chronic congestive heart failure, diastolic. 3. Lactic acidosis. 4. Type 2 diabetes. 5. Hematuria.- with Urinary Tract infection: hemorrhagic cystitis. 6. Acute kidney injury. 7. Hypertension. 8. Hypercholesterolemia. 9. Peripheral artery disease. HOSPITAL CONSULTANTS: Dr. Ramiro Wright, [employer] Police Officer. HOSPITAL COURSE: This is an 83-year-old female with a past medical history of congestive heart failure and hypertension who was admitted to the hospital because of shortness of breath. The patient was found to have [id number]-rillkdjzz MO, as well as an acute on chronic congestive heart failure episode. The patient was started on diuresis and BiPAP support. The patient was evaluated by the repairer engine production. The patient was started on a Heparin drip for 48 hours. An echocardiogram was obtained. The echocardiogram revealed an ejection fraction of 30 to 35 percent. Also found mild aortic stenosis, mitral valve regurgitation, and left atrium dilated. Was eventually transitioned from a Heparin drip to an aspirin and Plavix combination. Her home statins were continued. Her diuretic regimen was optimized. Spironolactone was added. Through the course, the patient had a Paul catheter and when removed the patient developed hematuria. That eventually resolved on its own; however, a urine culture and urine analysis were sent at time. Urine culture grew urinary tract infection with Citrobacter braakii. Today, on September 20, the patient developed hematuria. At this point, I discussed the case with Dr. King, urologist. He recommended getting a renal ultrasound as well as postvoid bladder scan. Renal ultrasound was done which found a complex cystic mass with a solid mass about 5.5 x 4.6 x 5.2 cm complex lesion at the left kidney for which a CAT scan was recommended. Postvoid residual was zero. The patient subsequently was able to urinate without having any hematuria. I discussed the findings of the ultrasound with the family members, as well as the patient. They would like to take the patient home and try and arrange for a CAT scan as an outpatient. I discussed with the family members that despite the fact that she is having hematuria, we are continuing her on aspirin and Plavix as she needs it for her recent myocardial infarction. This was also discussed with the urologist. Additional discharge diagnosis includes a urinary tract infection and hemorrhagic cystitis. This morning, the patient did not have any complaints. She was eager to go home , however was having hematuria as informed by the nurse. For my physical exam, please see my progress note from today. DISPOSITION: To home. CONDITION ON DISCHARGE: Fair/stable. DIET: Heart-healthy diet. DISCHARGE MEDICATIONS: 1. Aspirin 81 mg daily. 2. Atorvastatin 80 mg daily. 3. Carvedilol 3.125 mg daily. 4. Cefdinir 300 mg twice a day for the next 9 days. 5. Plavix 75 mg daily. 6. Folic acid 1 mg daily. 7. Carvedilol 3.125 mg twice a day. 8. Lisinopril 2.5 mg daily. 9. Sertraline 25 mg in the morning. 10. Spironolactone 25 mg daily. 11. Glipizide 10 mg daily. 12. Raloxifene 60 mg daily. 13. Furosemide 40 mg daily. DISCHARGE INSTRUCTIONS: 1. To get a CT of the abdomen and pelvis without contrast within a week with results being forwarded to Dr. Abraham. The order has been given to the patient. 2. The patient is to follow-up with Dr. Ramiro Wright, repairer engine production, on October 06 at 10:00 a.m. 3. Follow-up with Dr. David Abraham, primary care provider, on September 29 at 6: 40 p.m. 4. Follow-up with Dr. New King on October 10. ACTIVITY: As tolerated. The patient was advised to return to the emergency room should she have any chest pain, shortness of breath, palpitations, bleeding or if new issues arrive. [id number]/CPS #: [id number] MTDD
== END 2018-09-20 16:00 | disposition home or self-care (01) | DRG 280 ==
LOC: ED 10:26 → ICU 13:05 → MEDTELE 09-17 16:43
PROVIDERS: ADMIT Internal Medicine; ATTEND Internal Medicine
DX: I21.4 Non-ST elevation (NSTEMI) myocardial infarction (principal); J96.01 Acute respiratory failure with hypoxia; I50.23 Acute on chronic systolic (congestive) heart failure; E87.2 Acidosis; N17.9 Acute kidney failure, unspecified; I11.0 Hypertensive heart disease with heart failure; E11.65 Type 2 diabetes mellitus with hyperglycemia; N30.91 Cystitis, unspecified with hematuria; B96.89 Other specified bacterial agents as the cause of diseases classified elsewhere; Z66 Do not resuscitate; E78.00 Pure hypercholesterolemia, unspecified; I73.9 Peripheral vascular disease, unspecified; N28.89 Other specified disorders of kidney and ureter; N32.9 Bladder disorder, unspecified; R41.3 Other amnesia; I44.7 Left bundle-branch block, unspecified; I25.10 Atherosclerotic heart disease of native coronary artery without angina pectoris; I34.0 Nonrheumatic mitral (valve) insufficiency; Z95.820 Peripheral vascular angioplasty status with implants and grafts; Z88.2 Allergy status to sulfonamides; Z82.49 Family history of ischemic heart disease and other diseases of the circulatory system; Z83.3 Family history of diabetes mellitus; Z57.31 Occupational exposure to environmental tobacco smoke; Z79.02 Long term (current) use of antithrombotics/antiplatelets
CPT/HCPCS: 36415; 71045; 76770; 80048; 80053; 80061; 81003; 82550; 82553; 82565; 82803; 82947; 83036; 83605; 83735; 83880; 84100; 84484; 84520; 85025; 85610; 85730; 86140; 87040; 87077; 87086; 87186; 87641; 93005; 93306; 99285; A9270-GY; G8978-GP-CI; G8978-GP-CJ; G8979-GP-CH; G8979-GP-CI; G8980-GP-CI; G8987-GO-CI; G8988-GO-CI; G8989-GO-CI; J1644; J1940; J3475

== ENCOUNTER 2018-10-20 11:53 | Inpatient (IN) | payer MEDICARE, OTHER ==
--- OUTSIDE RECORDS SUMMARY | 2018-10-20 12:13 | XMS REPORT | Continuity of Care Document ---
:1935 External Reference #:[id number] Author Name Cindy Lopes Care Team Providers Name Role Phone David Abraham MD Primary Care Physician Unavailable Payers Date Identification Numbers Payment Provider Subscriber Policy Number: [id number] Medicare Mercedes Cornejo PayID: [id number] [address] [place] [address] Policy Number: [id number] [employer] Insurance Mercedes Cornejo Group Number: [id number] [address] Group Name: [place] [address] PayID: [id number] Social History Type Date Description Comments Sex Unknown Marital Status Lives With Daughter Occupation Retired ETOH Use Denies alcohol use Tobacco Use Start: Unknown Patient has never smoked Recreational Drug Use Denies Drug Use Smoking Status Reviewed: 10/06/18 Patient has never smoked Exercise Type/Frequency Exercises regularly Exercise Type/Frequency Home PT 2 x week Allergies, Adverse Reactions, Alerts Active Allergies Reaction Severity Comments Date Sulfa Antibiotics Hives 10/06/2018 Medications Active Medications SIG Qnty Indications Ordering Provider Date Aspirin 1 by mouth Unknown 81mg Tablets DR every day Atorvastatin Calcium 1 by mouth Unknown 80mg every day Tablets Carvedilol 1 by mouth bid Unknown 3.125mg Tablets Plavix 1 by mouth Unknown 75mg Tablets every day Folic Acid 1 po daily Unknown 1mg Tablets Lisinopril 1 by mouth Unknown 2.5mg Tablets every day Sertraline HCL 1 by mouth Unknown 25mg Tablets every day Spironolactone 1 by mouth Unknown 25mg Tablets every day Glipizide 1 by mouth Unknown 10mg Tablets every day Raloxifene HCL 1 by mouth Unknown 60mg Tablets every day Furosemide 1 by mouth Unknown 40mg Tablets every day Janumet 1 pill twice Unknown 50-500mg Tablets daily History Medications Cefdinir twice daily for the Unknown - 10/05/2018 300mg Capsules next 9 days Vital Signs Date Vital Result Comment 10/06/2018 10:08am Height 60 inches 5'0" Weight 124.00 lb Clothes/shoes Heart Rate 58 /min Radial BP Systolic Sitting 108 mmHg Rue reg cuff BP Diastolic Sitting 60 mmHg Rue reg cuff BMI (Body Mass Index) 24.2 kg/m2 Results Test Date Facility Test Result H/L Range Note Laboratory test 09/15/2018 [facility] Point of Care 279 mg/dL High 70-100 [address] [place] [address] [phone] CBC Auto Diff 06/30/2017 [facility] White Blood 5.7 10^3/uL N 3.5-10.[address] [place] [address] [phone] Red Blood Count 3.92 10^6/uL Low 4.0-5.4 Hemoglobin 12.5 g/dL N 12.0-16.0 Hematocrit 36 % N 35-47 Mean Corpuscular Volume 92 fL N 80-97 Mean Corpuscular Hemoglobin 32 pg High 27-31 Mean Corpuscular HGB Conc 34 g/dL N 31-36 Red Cell Distribution Width 14 % N 10.5-15 Platelet Count 238 10^3/uL N 150-450 Mean Platelet Volume 8.6 um3 N 7.4-10.4 Abs Neutrophils 3.3 10^3/uL N 1.5-7.7 Abs Lymphocytes 1.8 10^3/uL N 1.0-4.8 Abs Monocytes 0.4 10^3/uL N 0-0.8 Abs Eosinophils 0.1 10^3/uL N 0-0.6 Abs Basophils 0.1 10^3/uL N 0-0.2 Abs Nucleated RBC 0 10^3/uL Granulocyte % 58.3 % N 38-83 Lymphocyte % 31.7 % N 25-47 Monocyte % 6.9 % N 0-7 Eosinophil % 2.0 % N 0-6 Basophil % 1.1 % N 0-2 Nucleated Red Blood Cells % 0.1 Comp Metabolic Panel 06/30/2017 [facility] Sodium 133 mmol/L Low 139-145 [address] [place] [address] [phone] Potassium 4.5 mmol/L N 3.5-5.0 Chloride 94 mmol/L Low 101-111 Co2 Carbon Dioxide 28 mmol/L N 22-32 Anion Gap 11 mmol/L N 2-11 Glucose 270 mg/dL High 70-100 Blood Urea Nitrogen 22 mg/dL N 6-24 Creatinine 0.94 mg/dL N 0.51-0.95 BUN/Creatinine Ratio 23.4 High 8-20 Calcium 9.5 mg/dL N 8.6-10.3 Total Protein 6.7 g/dL N 6.4-8.9 Albumin 4.1 g/dL N 3.2-5.2 Globulin 2.6 g/dL N 2-4 Albumin/Globulin Ratio 1.6 N 1-3 Total Bilirubin 0.80 mg/dL N 0.2-1.0 Alkaline Phosphatase 64 U/L N 34-104 Alt 26 U/L N 7-52 Ast 27 U/L N 13-39 Egfr Non- 56.7 >60 Egfr 73.0 >60 2 Laboratory test 06/30/2017 [facility] Prealbumin 26 mg/dL N 18 -38 finding [address] [place] [address] [phone] C Reactive Protein < 1.00 mg/L N < 5.00 3 Hemoglobin A1c (Glyco HGB) 9.5 % High 4.0-5.6 4 Erythrocyte Sed Rate 18 mm/Hr N 0-40 1 Advertising Vice President: [id number] 2 Because ethnic data is not always readily available, this report includes an eGFR for both -Americans and non- Americans. The National Kidney Disease Education Program (NKDEP) does not endorse the use of the MDRD equation for patients that are not between the ages of 18 and 70, are , have extremes of body size, muscle mass, or nutritional status, or are non- or non-. According to the National Kidney Foundation, irrespective of diagnosis, the stage of the disease is based on the level of kidney function: Stage Description GFR(mL/min/1.73 m(2)) 1 Kidney damage with normal or decreased GFR 90 2 Kidney damage with mild decrease in GFR 60-89 3 Moderate decrease in GFR 30-59 4 Severe decrease in GFR 15-29 5 Kidney failure <15 (or dialysis) 3 Acute inflammation: >10.00 4 Therapeutic target for the treatment of diabetes mellitus patients is <7% HBA1C, and in selective patients <6.0%. Please refer to [place] Diabetes Association diabetic care guidelines for further information. Procedures Date Code Description Status 10/06/2018 30732 EKG Tracing & Interpretation Completed 09/16/2018 62671 ECHO Transthorasic Realtime 2D W Doppler & Color Flow Hosp Completed Encounters Type Date Location Provider Dx Diagnosis Office Visit 09/20/2018 [facility] Anselmo, I21.4 Non-St elevation 9:48a spencer Garcia MD ([facility]) Hospitalists myocardial infarction I50.23 Acute on chronic systolic (congestive) heart failure E87.2 Acidosis E11.9 Type 2 diabetes mellitus without complications R31.9 Hematuria, unspecified N17.9 Acute kidney failure, unspecified I10 Essential (primary) hypertension E78.00 Pure hypercholesterolemia, unspecified I73.9 Peripheral vascular disease, unspecified Office Visit 09/19/2018 [facility] I50.23 Acute on chronic 9:48a spencer Garcia MD systolic Hospitalists (congestive) heart failure E11.9 Type 2 diabetes mellitus without complications I21.4 Non-St elevation ([facility]) myocardial infarction J96.01 Acute respiratory failure with hypoxia Office Visit 09/18/2018 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 I50.9 Heart failure, Of [facility] Wright, DO unspecified FACC I21.4 Non-St elevation ([facility]) myocardial infarction E11.9 Type 2 diabetes mellitus without complications I73.9 Peripheral vascular disease, unspecified Office Visit 09/16/2018 9:47a [facility] Effie Montiel, I21.4 Non- St elevation Assspencer gutierrez M.D. ([facility]) Hospitalists myocardial infarction I50.23 Acute on chronic systolic (congestive) heart failure E11.9 Type 2 diabetes mellitus without complications Office Visit 09/15/2018 9:46a [facility] Tawanna I21.4 Non-St elevation Assspencer gutierrez NP ([facility]) Hospitalists myocardial infarction E87.2 Acidosis E11.9 Type 2 diabetes mellitus without complications N17.9 Acute kidney failure, unspecified I10 Essential (primary) hypertension E78.00 Pure hypercholesterolemia, unspecified I73.9 Peripheral vascular disease, unspecified Office Visit 09/15/2018 2:08p [facility] Ramiro SObdulia I50.9 Heart failure, Of [facility] Wright, DO unspecified FACC I21.4 Non-St elevation ([facility]) myocardial infarction E11.9 Type 2 diabetes mellitus without complications I73.9 Peripheral vascular disease, unspecified Office Visit 09/29/2017 2:45p [facility] Kailyn Cooper I70.245 [facility] [place] [facility] Wells MD arteries of left leg w ulceration oth prt foot E11.621 Type 2 diabetes mellitus with foot ulcer Office Visit 09/22/2017 12:45p Wound Care Kailyn Cooper E11.621 Type 2 diabetes Center AT [facility] Wells MD mellitus with foot ulcer Office Visit 09/01/2017 12:45p Wound Care Kailyn Cooper I70.245 [facility] [place] [facility] Wells MD arteries of left leg w ulceration oth prt foot E11.621 Type 2 diabetes mellitus with foot ulcer Office Visit 08/18/2017 1:00p Wound Care Kailyn Gamboa E11.621 Type 2 diabetes Center AT [facility] MD Russell mellitus with foot ulcer I70.245 Ath[facility]cl [place] arteries of left leg w ulceration oth prt foot Office Visit 08/04/2017 1:30p Wound Care Kailyn Gamboa E11.621 Type 2 diabetes Center AT [facility] MD Russell mellitus with foot ulcer Office Visit 07/21/2017 11:00a Wound Care Oc Sanderson E11.621 Type 2 diabetes Center AT [facility] MD Shari mellitus with foot ulcer Office Visit 07/07/2017 2:45p Wound Care Kailyn Gamboa I70.245 [facility] [place] [facility] AT [facility] MD Russell arteries of left leg w ulceration oth prt foot E11.621 Type 2 diabetes mellitus with foot ulcer Office Visit 06/30/2017 1:00p Wound Care Kailyn Gamboa I70.245 [place] Center AT [facility] MD Russell arteries of left leg w ulceration oth prt foot E11.621 Type 2 diabetes mellitus with foot ulcer Plan of Treatment 10/06/2018 - Ramiro Wright DO FACCI50.22 Chronic systolic (congestive) heart failureFollow up:6 mkewcvB08.2 Old myocardial liapbfkdjeX31.0 Nonrheumatic mitral (valve) qolepydpdvczuE61.10 Atherosclerotic heart disease of [place] coronary artery with
--- OUTSIDE RECORDS SUMMARY | 2018-10-20 12:13 | XMS REPORT | Continuity of Care Document ---
:1935 External Reference #:[id number] Author Name Cynthia Navarrete Care Team Providers Name Role Phone Kailyn Wells MD Care Team Information [employer] Unavailable Payers Date Identification Numbers Payment Provider Subscriber Policy Number: [id number] Medicare Mercedes Cornejo PayID: [id number] [address] [place] [address] Policy Number: [id number] [employer] Insurance Mercedes Cornejo Group Number: [id number] [address] Group [place]: [place] [address] PayID: [id number] Social History Type Date Description Comments Sex Unknown Medications Active Medications SIG Qnty Indications Ordering Provider Date Aspirin 1 by mouth every Unknown 81mg Tablets DR day Atorvastatin Calcium 1 by mouth every Unknown 80mg day Tablets Carvedilol 1 by mouth daily Unknown 3.125mg Tablets or 1 tablet bid ??? Cefdinir twice daily for Unknown 300mg Capsules the next 9 days Plavix 1 by mouth every Unknown 75mg Tablets day Folic Acid 1 po daily Unknown 1mg Tablets Lisinopril 1 by mouth every Unknown 2.5mg Tablets day Sertraline HCL 1 by mouth every Unknown 25mg Tablets day Spironolactone 1 by mouth every Unknown 25mg Tablets day Glipizide 1 by mouth every Unknown 10mg Tablets day Raloxifene HCL 1 by mouth every Unknown 60mg Tablets day Furosemide 1 by mouth every Unknown 40mg Tablets day Results Test Date Facility Test Result H/L Range Note Laboratory test 09/15/2018 [facility] Point of Care 279 mg/dL High 70-100 [address] [place] [address] [phone] CBC Auto Diff 06/30/2017 [facility] White Blood 5.7 10^3/uL N 3.5-10.[address] [place] [address] [phone] Red Blood Count 3.92 10^6/uL Low 4.0-5.4 [...] Cells % 0.1 Comp Metabolic Panel 06/30/2017 [facility] Sodium 133 mmol/L Low 139-[address] [place] [address] [phone] Potassium 4.5 mmol/L N 3.5-5.0 Chloride 94 [...] Egfr 73.0 >60 2 Laboratory test 06/30/2017 [facility] Prealbumin 26 mg/dL N 18 -[address] [place] [address] [phone] C Reactive Protein < 1.00 mg/L N < 5.00 3 Hemoglobin A1c (Glyco HGB) 9.5 % High 4.0-5.6 4 Erythrocyte Sed Rate 18 mm/Hr N 0-40 1 Area Field Person: [id number] 2 Because ethnic data is not always [...] in selective patients <6.0%. Please refer to [place] [employer] diabetic care guidelines for further information. Procedures Date Code Description Status 09/16/2018 28164 ECHO Transthorasic Realtime 2D W Doppler & Color Flow Hosp Completed Encounters Type Date Location Provider Dx Diagnosis Office Visit 09/20/2018 [facility] Seda Movva, I21.4 Non-St elevation 9:48a spencer Garcia MD ([facility]) Hospitalists myocardial infarction I50.23 Acute on chronic systolic (congestive) heart failure E87.2 Acidosis E11.9 Type 2 diabetes mellitus without complications R31.9 Hematuria, unspecified N17.9 Acute kidney failure, unspecified I10 Essential (primary) hypertension E78.00 Pure hypercholesterolemia, unspecified I73.9 Peripheral vascular disease, unspecified [facility] Acute on chronic 9:48a spencer Garcia MD systolic Hospitalists (congestive) heart failure E11.9 Type 2 diabetes mellitus without complications I21.4 Non-St elevation (Nstemi) myocardial infarction J96.01 Acute respiratory failure with hypoxia Office Visit 09/18/2018 [facility] I21.4 Non-St elevation 9:48a spencer Garcia MD ([facility]) Hospitalists myocardial infarction I50.23 Acute on chronic systolic (congestive) heart failure E11.9 Type 2 diabetes mellitus without complications Office Visit 09/17/2018 4:22p [facility] Franklin Hobson 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 I21.4 Non-St elevation ([facility]) myocardial infarction I50.9 Heart failure, unspecified Office Visit 09/17/2018 [facility] I21.4 Non-St elevation 9:47a spencer Garcia MD ([facility]) Hospitalists myocardial infarction I50.23 Acute on chronic systolic (congestive) heart failure E11.9 Type 2 diabetes mellitus without complications Office Visit 09/16/2018 2:17p [facility] Ramiro Sanderson I50.9 Heart failure, Of [facility] DO Kyle unspecified FACC I21.4 Non-St elevation ([facility]stemi) myocardial infarction E11.9 Type 2 diabetes mellitus without complications I73.9 Peripheral vascular disease, unspecified Office Visit 09/16/2018 9:47a [facility] Effie Montiel I21.4 Non- St elevation spencer Garcia M.D. ([facility]) Hospitalists myocardial infarction I50.23 Acute on chronic systolic (congestive) heart failure E11.9 Type 2 diabetes mellitus without complications [facility] Assoc,pc Mari, FILING OR REGISTRY CLERK ([facility]) Hospitalists myocardial infarction E87.2 Acidosis E11.9 Type 2 diabetes mellitus without complications N17.9 Acute kidney failure, unspecified I10 Essential (primary) hypertension E78.00 Pure hypercholesterolemia, unspecified I73.9 Peripheral vascular disease, unspecified Office Visit 09/15/2018 2:08p [facility] Ramiro SObdulia I50.9 Heart failure, Of [facility] Wright, DO unspecified FACC I21.4 Non-St elevation ([facility]stem[facility]) myocardial infarction E11.9 Type 2 diabetes mellitus without complications I73.9 Peripheral vascular disease, unspecified Office Visit 09/29/2017 2:45p [facility]ound [facility] Kailyn Gamboa I70.245 [facility] [facility] Wells MD arteries of left leg w ulceration oth prt foot E11.621 Type 2 diabetes mellitus with foot ulcer Office Visit 09/22/2017 12:45p Wound [facility] Kailyn Gamboa E11.621 Type 2 diabetes Center AT [facility] Wells MD mellitus with foot ulcer Office Visit 09/01/2017 12:45p [facility]ound [facility] Kailyn Gamboa I70.245 [facility] [place] [facility] Wells MD arteries of left leg w ulceration oth prt foot E11.621 Type 2 diabetes mellitus with foot ulcer Office Visit 08/18/2017 1:00p Wound Care Kailyn Gamboa E11.621 Type 2 diabetes Center AT [facility] Wells MD mellitus with foot ulcer I70.245 [place] arteries of left leg w ulceration oth prt foot Office Visit 08/04/2017 1:30p Wound Care Kailyn Gamboa E11.621 Type 2 diabetes Center AT [facility] Wells MD mellitus with foot ulcer Office Visit 07/21/2017 11:00a Wound [facility] Oc Sanderson E11.621 Type 2 diabetes [facility] [place] Shari mellitus with foot ulcer Office Visit 07/07/2017 2:45p [facility]ound [facility] Kailyn Gamboa I70.245 [place] [facility] Wells MD arteries of left leg w ulceration oth prt foot E11.621 Type 2 diabetes mellitus with foot ulcer Office Visit 06/30/2017 1:00p Wound [facility] Kailyn Gamboa I70.245 [place] [facility] Wells MD arteries of left leg w ulceration oth prt foot E11.621 Type 2 diabetes mellitus with foot ulcer Plan of Treatment Future Appointment(s):10/06/2018 10:20 am - Ramiro Wright DO FACC at [facility]
[2018-10-20 12:20] LABS: ABS Basophils 0.1 10^3/ul (0-0.2); ABS Eosinophils 0.2 10^3/ul (0-0.6); ABS Lymphocytes 1.8 10^3/ul (1.0-4.8); ABS Monocytes 0.7 10^3/ul (0-0.8); ABS Neutrophils 11.8 10^3/ul (1.5-7.7); Eosinophil % 1.6 %; Hematocrit 34 % (35-47); Hemoglobin 11.4 g/dL (12.0-16.0); Lymphocyte % 12.6 %; Mean Corpuscular HGB Conc 34 g/dL (31-36); Mean Corpuscular Hemoglobin 31 pg (27-31); Mean Corpuscular Volume 93 fL (80-97); Mean Platelet Volume 8.3 fL (7.4-10.4); Platelet Count 237 10^3/uL (150-450); Red Blood Count 3.68 10^6 /uL (3.70-4.87); Red Cell Distribution Width 14 % (10-15); White Blood Count 14.6 10^3/uL (3.5-10.8)
[2018-10-20 12:25] LABS: INR 0.96 (0.82-1.09)
[2018-10-20 12:40] LABS: Albumin 4.3 g/dL (3.2-5.2); Albumin/Globulin Ratio 1.7 (1-3); BUN/Creatinine Ratio 19.5 (8-20); EGFR Non-African American 39.6 (>60); Globulin 2.6 g/dL (2-4); Total Bilirubin 0.8 mg/dL (0.2-1.0); Total Protein 6.9 g/dL (6.4-8.9)
[2018-10-20 12:45] LABS: Troponin I 0.2 ng/mL (<0.04)
[2018-10-20 12:59] LABS: Urine Appearance Clear; Urine Bilirubin Negative (Negative); Urine Blood Negative (Negative); Urine Color Straw; Urine Glucose Negative (Negative); Urine Ketones Negative (Negative); Urine Nitrite Negative (Negative); Urine Protein Negative (Negative); Urine Specific Gravity 1.008 (1.010-1.030); Urine Urobilinogen Negative (Negative)
--- NOTE | 2018-10-20 13:24 | ED ---
Complex/Multi-Sys Presentation - HPI Summary HPI Summary: 83 year old F patient presenting to [facility] accompanied by sister, daughter, and son with a chief complaint of altered mental status with sudden onset since yesterday afternoon, 10/19/18, per triage. Daughter reports patient has been out of it and not acting right and this morning has had shortness of breath, high blood pressure which for the patient is usually low, and a pulse of 93 which is very high for her. Patient reports the year is [birth year] which is actually when she was born which patient realizes later. Daughter reports patient does not complain but has been diaphoretic, burping, short of breath, and generally uncomfortable. Per triage, patient is wincing in pain, discomfort to left leg with history of PAD, unknown last BM, confusion. Patient reports chest and breathing are normal. Daughter reports this morning patient was sitting in her chair very uncomfortable when the shortness of breath occurred and she later was in the bathroom trying to urinate but could not do so. Daughter reports patient is eating normally but drinking less than usual. Patient denies back pain, abdominal pain, chest pain, fever, chills, erythema of eyes, sore throat, cough, N/V, dysuria, hematuria, myalgia, edema, rash, or dizziness. Patient was in ED a month ago for a urinary tract infection. Daughter is concerned of cardiac issues and urinary tract infection. Daughter reports a mass on patient s left kidney. Symptoms aggravated by nothing. Symptoms alleviated by nothing. FHx kidney stone. - History Of Current Complaint Chief Complaint: EDAltMentalStatus Time Seen by Provider: 10/20/18 12:20 Hx Obtained From: Patient, Family/Pressroom Supervisor - daughter Hx From Patient Unobtainable Due To: Altered Mental Status Onset/Duration: Still Present Aggravating Factor(s): nothing Alleviating Factor(s): nothing Associated Signs And Symptoms: Positive: Confusion, SOB, Diaphoresis, Other - reports burping, generally uncomfortable, discomfort to left leg, drinking less than usual. Patient denies chills, erythema of eyes, sore throat, hematuria, myalgia, or rash.. Negative: Dizziness, Cough, Chest Pain, Edema, Nausea, Vomiting, Abdominal Pain, Back Pain, Dysuria, Fever - Allergies/Home Medications Allergies/Adverse Reactions: Allergies Allergy/AdvReac Type Severity Reaction Status Date / Time Sulfa (Sulfonamide Allergy Rash Verified 10/20/18 12:44 Antibiotics) PMH/Surg Hx/FS Hx/Imm Hx Endocrine/Hematology History: Reports: Hx Diabetes, Hx Anemia Denies: Hx Anticoagulant Therapy, Hx Blood Disorders, Hx Blood Transfusions, Hx Bone Marrow Disease, Hx Systemic Lupus Erythematosus, Hx Sickle Cell Disease , Hx Thyroid Disease, Hx Unexplained Bleeding, Other Endocrine/Hematological Disorders Cardiovascular History: Reports: Hx Angina, Hx Angioplasty, Hx Congestive Heart Failure, Hx Coronary Artery Disease, Hx Hypercholesterolemia, Hx Hypertension, Hx Peripheral Vascular Disease, Hx Valvular Heart Disease Denies: Hx Aneurysm, Hx Auto Implanted Cardiovert Defib, Hx Cardiac Arrest, Hx Cardiomegaly, Hx Congenital Heart Disease, Hx Deep Vein Thrombosis, Hx Embolism, Hx Hypotension, Hx Pacemaker/ICD, Hx Rheumatic Fever, Hx Syncope, Other Cardiovascular Problems/Disorders Respiratory History: Denies: Hx Asthma, Hx Chronic Bronchitis, Hx Chronic Obstructive Pulmonary Disease (COPD), Hx Cystic Fibrosis, Hx Lung Cancer, Hx Pleural Effusion, Hx Pneumonia, Hx Pulmonary Edema, Hx Pulmonary Embolism, Hx Seasonal Allergies, Hx Sleep Apnea, Other Respiratory Problems/Disorders GI History: Denies: Hx Cirrhosis, Hx Crohn's Disease, Hx Diverticulosis, Hx Gall Bladder Disease, Hx Gastroesophageal Reflux Disease, Hx Gastrointestinal Bleed, Hx Hiatal Hernia, Hx Irritable Bowel, Hx Jaundice, Hx Obstructive Bowel, Hx Ileostomy, Hx Pyloric Stenosis, Hx Ulcer, Other GI Disorders History: Denies: Hx Acute Renal Failure, Hx Benign Prostatic Hyperplasia, Hx Chronic Renal Failure, Hx Dialysis, Hx Kidney Infection, Hx Kidney Stones, Hx Renal Disease, Other Problems/Disorders Musculoskeletal History: Reports: Hx Arthritis, Hx Osteoporosis Denies: Hx Back Problems, Hx Bursitis, Hx Congenital Bone Abnormalities, Hx Fibromyalgia, Hx Gout, Hx Orthopedic Injury, Hx Scoliosis, Hx Tendonitis, Other Musculoskeletal History Sensory History: Reports: Hx Contacts or Glasses Denies: Hx Cataracts, Hx Eye Injury, Hx Eye Prosthesis, Hx Glaucoma, Hx Legally Blind, Hx Macular Degeneration, Hx Vision Problem, Hx Deafness, Hx Hearing Aid, Hx Hearing Problem, Other Sensory Impairments Opthamlomology History: Reports: Hx Contacts or Glasses Denies: Hx Cataracts, Hx Eye Injury, Hx Eye Prosthesis, Hx Glaucoma, Hx Legally Blind, Hx Macular Degeneration, Hx Vision Problem, Other Sensory Impairments Neurological History: Reports: Hx Dementia Denies: Hx Developmental Delay, Hx Headaches, Hx Migraine, Hx Nerve Disease, Hx Seizures, Hx Spinal Cord Injury, Hx Transient Ischemic Attacks (TIA), Other Neuro Impairments/Disorders Psychiatric History: Reports: Hx Depression Denies: Hx Anxiety, Hx Attention Deficit Hyperactivity Disorder, Hx Eating Disorder, Hx Panic Disorder, Hx Post Traumatic Stress Disorder, Hx Inpatient Treatment, Hx Community Mental Health Tx, Hx Schizophrenia, Hx Bipolar Disorder , Hx Suicide Attempt, Hx of Violent Episodes Against Others, Hx Substance Abuse , Other Psychiatric Issues/Disorders - Cancer History Hx Chemotherapy: No Hx Radiation Therapy: No Hx Palliative Cancer Treatment: No - Surgical History Surgery Procedure, Year, and Place: 2014 VASCULAR PROCEDURE - NO IMPLANTS - OP REPORT SCANNED IN;. 2018 MULTIPLE VASCULAR LEG SURGERIES [facility] 2018 LEG STENTS PLACED. INFORMATION SCANNED INTO [employer]. 4X COOK ZILVER DRUG ELUTING STENTS LEFT LEG (CONDITIONAL 8 - OVERPLAPPING). SUPERA PERIPHERAL STENTING SYSTEM LEFT LEG. (CONDITIONAL - PER DR. FARRELL: OKAY TO SCAN UNDER CONDITIONS. MUST BE DONE AT HOSPITAL. NEEDS TWO TIME SLOTS. WILL BE AN ATTEMPT HEATING MAY JUMP QUICKLY. LEGS CAN NOT BE TOUCHING. MATHIEU CAN NOT GO ABOVE 0.5 W/KG NORMAL MODE ONLY.) Hx Anesthesia Reactions: No Infectious Disease History: No Infectious Disease History: Denies: Hx Clostridium Difficile, Hx Hepatitis, Hx of Known/Suspected MRSA, Hx Shingles, Hx Tuberculosis, History Other Infectious Disease, Traveled Outside the [place] in Last 30 Days - Family History Known Family History: Positive: Hypertension - Social History Alcohol Use: Rare Hx Substance Use: No Substance Use Type: Reports: None Hx Tobacco Use: No Smoking Status (MU): Never Smoked Tobacco Have You Smoked in the Last Year: No Review of Systems Positive: Skin Diaphoresis, Other - eating normal, drinking less. Negative: Fever, Chills Negative: Erythema Negative: Sore Throat Negative: Chest Pain Positive: Shortness Of Breath. Negative: Cough Negative: Abdominal Pain, Vomiting, Nausea Negative: dysuria, hematuria Positive: Other - denies back pain, . Negative: Myalgia, Edema Negative: Rash Neurological: Other - lizbet dizziness Positive: Other - altered mental status, confusion All Other Systems Reviewed And Are Negative: Yes Physical Exam - Summary Physical Exam Summary: Constitutional: Well-developed, Well-nourished, Alert. (-) Distressed Skin: Warm, Dry HENT: Normocephalic; Atraumatic Eyes: Conjunctiva normal Neck: Musculoskeletal ROM normal neck. (-) JVD, (-) Stridor, (-) Tracheal deviation Cardio: Rhythm regular, rate normal, Heart sounds normal; Intact distal pulses; The pedal pulses are 2+ and symmetric. Radial pulses are 2+ and symmetric. (-) Murmur Pulmonary/Chest wall: Crackles in lung bases Abd: Soft, (-) tenderness, (-) Distension, (-) Guarding, (-) Rebound Musculoskeletal: (-) Edema Lymph: (-) Cervical adenopathy Neuro: Alert, Oriented x3 Psych: Mood and affect Normal Triage Information Reviewed: Yes Vital Signs On Initial Exam: Initial Vitals Temp Pulse Resp BP Pulse Ox 97.1 F 103 20 116/64 100 10/20/18 12:08 10/20/18 12:08 10/20/18 12:08 10/20/18 12:08 10/20/18 12:08 Vital Signs Reviewed: Yes Diagnostics - Vital Signs Vital Signs Temp Pulse Resp BP Pulse Ox 10/20/18 12:08 97.1 F 103 20 116/64 100 - Laboratory Lab Results: Lab Results 10/20/18 10/20/18 10/20/18 Range/Units 12:12 12:12 12:12 WBC 14.6 H (3.5-10.8) 10^3/uL RBC 3.68 L (3.70-4.87) 10^6 /uL Hgb 11.4 L (12.0-16.0) g/dL Hct 34 L (35-47) % MCV 93 (80-97) fL MCH 31 (27-31) pg MCHC 34 (31-36) g/dL RDW 14 (10-15) % Plt Count 237 (150-450) 10^3/uL MPV 8.3 (7.4-10.4) fL Neut % (Auto) 80.7 % Lymph % (Auto) 12.6 % [place] % (Auto) 4.5 % Eos % (Auto) 1.6 % Baso % (Auto) 0.6 % Absolute Neuts (auto) 11.8 H (1.5-7.7) 10^3/ul Absolute Lymphs (auto) 1.8 (1.0-4.8) 10^3/ul Absolute Monos (auto) 0.7 (0-0.8) 10^3/ul Absolute Eos (auto) 0.2 (0-0.6) 10^3/ul Absolute Basos (auto) 0.1 (0-0.2) 10^3/ul Absolute Nucleated RBC 0.0 10^3/ul Nucleated RBC % 0.0 INR (Anticoag Therapy) 0.96 (0.82-1.09) Sodium 136 (135-145) mmol/L Potassium 5.0 (3.5-5.0) mmol/L Chloride 101 (101-111) mmol/L Carbon Dioxide 24 (22-32) mmol/L Anion Gap 11 (2-11) mmol/L BUN 25 H (6-24) mg/dL Creatinine 1.28 H (0.51-0.95) mg/dL Est GFR ( Amer) 48.0 (>60) Est GFR (Non-Af Amer) 39.6 (>60) BUN/Creatinine Ratio 19.5 (8-20) Glucose 313 H (70-100) mg/dL Calcium 10.0 (8.6-10.3) mg/dL Total Bilirubin 0.80 (0.2-1.0) mg/dL AST 39 (13-39) U/L ALT 38 (7-52) U/L Alkaline Phosphatase 76 (34-104) U/L Troponin I Pending Total Protein 6.9 (6.4-8.9) g/dL Albumin 4.3 (3.2-5.2) g/dL Globulin 2.6 (2-4) g/dL Albumin/Globulin Ratio 1.7 (1-3) Result Diagrams: 10/20/18 17:36 10/20/18 17:36 Lab Statement: Any lab studies that have been ordered have been reviewed, and results considered in the medical decision making process. - Radiology Chest X-Ray Radiology Interpretation Completed By: Radiologist Summary of Radiographic Findings: Per radiologist,. NO EVIDENCE FOR ACTIVE CARDIOPULMONARY DISEASE. ED physician has reviewed this imaging report. - CT Abdomen/Pelvis CT CT Interpretation Completed By: Radiologist Summary of CT Findings: Per radiologist,. Again noted is a large likely minimally complex cystic mass with chunky. calcifications in the left renal cystic lesion. This is unchanged from previous exam. No. hydronephrosis is noted. Hepatic lesions are unchanged. No hydronephrosis or hydroureter is noted. ED physician has reviewed this imaging report. - EKG 1727 Cardiac Rate: NL - 60 BPM EKG Rhythm: Sinus Rhythm Summary of EKG Findings: Sinus rhythm at 60 BPM. No STEMI. Re-Evaluation - Re-Evaluation First Eval Re-Evaluation Time: 13:54 Comment: Physician checking up on patient and discusses results of tests. Second Eval Re-Evaluation Time: 15:20 Comment: Physician discusses results of urine tests with patient. BP is 84 systolic, fluids are infusing. Complex Multi-Symp Course/Dx Course Of Treatment: 83 year old F patient presenting to [facility] accompanied by sister, daughter, and son with a chief complaint of altered mental status with sudden onset since yesterday afternoon, 10/19/18, per triage. Daughter reports patient has been out of it and not acting right and this morning has had shortness of breath, high blood pressure which for the patient is usually low, and a pulse of 93 which is very high for her. Daughter reports patient has been diaphoretic, burping, short of breath, and generally uncomfortable. Per triage, patient is wincing in pain, discomfort to left leg with history of PAD, unknown last BM, confusion. Patient reports chest and breathing are normal. Daughter reports this morning patient was sitting in her chair very uncomfortable when the shortness of breath occurred and she later was in the bathroom trying to urinate but could not do so. Daughter reports patient is eating normally but drinking less than usual. Patient denies back pain, abdominal pain, chest pain, fever, chills, erythema of eyes, sore throat, cough , N/V, dysuria, hematuria, myalgia, edema, rash, or dizziness. Patient was in ED a month ago for a urinary tract infection. FHx kidney stone. Physical exam reveals no abnormalities except for crackles in lung bases. Blood work reveals no abnormalities except for RBC 3.08 L, Hgb 9.8 L, Hct 28 L, MCH 32 H, APTT > 240.0H, Creatinine 1.04 H, POC Glucose 101 H, and Troponin I 1.40 H (at 1517), 2.78 H (at 1736), 3.44 H (2100). Urinalysis shows no abnormalities except for Ur Specific [place] 1.008 L. Patient was given 3250 units heparin sodium IV, saline, and 13 mls/hr heparin sodium/dextrose in the ED. Total 2200 ml and post residual 150 ml drawn out of bladder with another 40 ml later. Abdomen/ Pelvis CT reveals Again noted is a large likely minimally complex cystic mass with chunky calcifications in the left renal cystic lesion. This is unchanged from previous exam. No hydronephrosis is noted. Hepatic lesions are unchanged. No hydronephrosis or hydroureter is noted. Chest X-Ray reveals no evidence for active cardiopulmonary disease. EKG reveals Sinus rhythm at 60 BPM and no STEMI. Physician discusses admission with hospitalist, Dr. Bean, who accepts patient for admission. Patient is admitted. - Diagnoses Provider Diagnoses: NSTEMI (non-ST elevated myocardial infarction) - Physician Notifications Discussed Care Of Patient With: Jayson Lucas - cardiology Time Discussed With Above Provider: 16:21 Instructed by Provider To: Other - Dr. Lucas recommends heparin drip. Physician talked to Dr. Bean, hospitalist, at 1518. - Critical Care Time Critical Care Time: 30-74 min - 60 min Discharge - Sign-Out/Discharge Documenting (check all that apply): Patient Departure - admit Patient Received Moderate/Deep Sedation with Procedure: No - Discharge Plan Disposition: ADMITTED TO [facility] - Attestation Statements Document Initiated by Scribe: Yes Documenting Scribe: Summer Mcneal Provider For Whom Scribe is Documenting (Include Credential): Dr. Guillermo Tran MD Scribe Attestation: Summer Pratt, scribed for Dr. Guillermo Tran MD on 10/20/18 at 2325. Status of Scribe Document: Ready
[2018-10-20] MEDS: NS 0.9% 500 ML* 500 ML IV ONE ×2 (15:16→16:49)
[2018-10-20] MEDS ORDERED: Heparin DRIP 25,000 UNITS(*) 25,000 UNITS/500 ML BAG IV SCH (16:30)
[2018-10-20] MEDS: Heparin VIAL(*) 5000 UNITS/ML VIAL (FIVE THOUSAND) IV SCH (17:07)
[2018-10-20] MEDS ORDERED: Acetaminophen TAB* 325 MG PO PRN (17:25)
[2018-10-20] MEDS ORDERED: Ondansetron INJ* 2 MG/ML VIAL IV PRN (17:25)
[2018-10-20] MEDS ORDERED: Nitroglycerin TAB 0.4 MG* 0.4 MG TAB SL PRN (17:25)
[2018-10-20] MEDS ORDERED: Dextrose 50% Syringe 50 ML* 25 GM/50 ML SYRINGE IV PUSH PRN (17:34)
[2018-10-20 17:57] LABS: ABS Basophils 0.1 10^3/ul (0-0.2); ABS Eosinophils 0.1 10^3/ul (0-0.6); ABS Lymphocytes 1.1 10^3/ul (1.0-4.8); ABS Monocytes 0.5 10^3/ul (0-0.8); ABS Neutrophils 5.8 10^3/ul (1.5-7.7); Eosinophil % 0.7 %; Hematocrit 28 % (35-47); Hemoglobin 9.8 g/dL (12.0-16.0); Lymphocyte % 14.5 %; Mean Corpuscular HGB Conc 35 g/dL (31-36); Mean Corpuscular Hemoglobin 32 pg (27-31); Mean Corpuscular Volume 92 fL (80-97); Mean Platelet Volume 8.4 fL (7.4-10.4); Platelet Count 199 10^3/uL (150-450); Red Blood Count 3.08 10^6 /uL (3.70-4.87); Red Cell Distribution Width 14 % (10-15); White Blood Count 7.4 10^3/uL (3.5-10.8)
[2018-10-20 18:14] LABS: EGFR African American 60.9 (>60); EGFR Non-African American 50.4 (>60)
[2018-10-20 18:35] LABS: Troponin I 2.78 ng/mL (<0.04)
--- NOTE | 2018-10-20 18:46 | CONS ---
CC: Dr. Wright; Dr. Abraham; Dr. Jayson Lucas CARDIOLOGY CONSULTATION: DATE OF CONSULT: 10/20/18 PATIENT OF: Dr. Wright's and Dr. Abraham's. REASON FOR EVALUATION: Shortness of breath, troponin elevation. HISTORY OF PRESENT ILLNESS: This is a very pleasant 83-year-old woman. The history is obtained from the chart for September admission 09/15/18, as well as the daughter and son who are at the bedside and the patient. She is 83 and has a history of coronary disease, MR, cardiomyopathy, heart failure, and peripheral vascular disease. She is limited by dyspnea on exertion after climbing a flight of steps. She was here in early September with shortness of breath, arm pain , and had non- ST-elevation MT. Her peak troponin was 18.53 on 09/15/18. It was decided that she did not want any aggressive interventions and was treated medically. She has been at home and her daughter says she has had somewhat more shortness of breath with exertion, but no chest pain. This morning, she found her sitting in a chair more short of breath. The patient denied any complaints, but the daughter was concerned about her change in status. She also was noted to have a blood pressure of 118/69 with heart rates in the 90s. Usually, she is in the low 100s/50s with heart rate in the 60s. Because of those symptoms, she came to the emergency room. Here, she was found to have an elevated troponin of 0.20 initially at noon and then climbing to 1.4 at 1517. She also had a heart rate of 103 initially and an EKG that showed what is read as a sinus tachycardia with left bundle, but I cannot exclude an atrial arrhythmia. She subsequently converted to sinus rhythm in the 60s with a more narrow QRS. The daughter says that her shortness of breath resolved about an hour after being in the emergency room. She denies any chest pain. No diaphoresis. No orthopnea. No peripheral edema. Last admission, she was noted to have a cystic mass of her kidney, which is being followed by Dr. King. PAST MEDICAL HISTORY: Includes hypertension, diabetes type 2, hyperlipidemia, peripheral vascular disease. She had stents placed in the left leg about 2 years ago. She has also had stenting in the right leg. She has moderate-to- severe MR and has LV dysfunction of a moderate degree. She has a history of coronary disease. According to 09/15/18 record, she apparently had a cardiac catheterization complicated by severe right arm edema and was found to have mitral regurgitation, coronary disease, but was felt to be too high risk for surgery and it was decided to manage her medically. She also has memory impairment, which waxes and wanes according to the patient. She says it can be clear for a few days and then have more confusion, fatigue, and sleepiness. She has a history of hyperlipidemia. PAST SURGICAL HISTORY: Includes the peripheral vascular disease and stenting of both legs. MEDICATIONS: Include: 1. Raloxifene 60 mg daily. 2. Folic acid 1 mg daily. 3. Cefdinir 300 mg b.i.d. 4. Lisinopril 2.5 mg daily. 5. Carvedilol 3.125 b.i.d. 6. Atorvastatin 80 mg a day. 7. Janumet 1 tab p.o. b.i.d. 8. Aspirin 81 mg a day. 9. Glipizide 10 mg a day. 10. Spironolactone 25 mg a day. 11. Sertraline 25 mg a day. 12. Furosemide 40 mg daily. 13. Clopidogrel 75 mg a day. ALLERGIES: Include SULFA. FAMILY HISTORY: Her grandmother had an MT, AFib, and angina. SOCIAL HISTORY: She has a history of remote tobacco use when she was a teenager. She smoked a pack at age 15. She is and has 3 children. Son and daughter are accompanying her. They both had coronary artery stenting at age 53. She denies alcohol use. She drinks an occasional cola. She has 3 children, 2 of whom are at the bedside. She had 2 sisters and a brother. PHYSICAL EXAM: She is a well-developed, well-nourished female, in no apparent distress. Pulse of 62, blood pressure 98/60. No significant JVD. Carotids 2+ and no bruits. No cervical adenopathy. No thyromegaly. Extraocular movements intact. Sclerae anicteric. Atraumatic, normocephalic. Cardiac Exam: S1, S2 with a 3/6 holosystolic murmur at the apex radiating to the left axilla and the left lower sternal border. PMI displaced laterally. Chest: Soft rales at the extreme bases. Kyphosis. No CVAT. Abdomen: Bowel sounds present. Nontender. Femoral pulses intact. No bruits. Distal pulses were not palpable. No edema. Negative Homans sign. Motor strength 5/5 bilaterally. Deep tendon reflexes 2/4. Alert and oriented to year, to place and to person. She hesitates to answer questions and looks to her children for help with the questions. DIAGNOSTIC STUDIES/LAB DATA: Her labs include sodium 136, potassium of 5, BUN of 25, creatinine of 1.28, GFR of 40. Troponin 0.2 and 1.4. BNP 539. Lactic acid elevated at 3.1. White count elevated at 14.6; hematocrit of 34, up from 28 last visit, but down from 42 on 09/15/18. Abdominal CT: Complex cystic mass with chunky calcification and left renal cystic lesion, unchanged from the prior exam. Her EKG from 11:55 this date reveals what appears to be sinus tachycardia with left bundle-branch block. Her EKG from 09/16/18 revealed sinus rhythm with minor nonspecific IVCD, an old inferoposterior MT, nonspecific ST-T changes. Her EKG from 09/15/18 at 10:53 again revealed sinus tach at 99 with a left bundle branch block. IMPRESSION AND PLAN: My impression is that Ms. Cornejo has a history of coronary artery disease, mitral regurgitation, probable ischemic cardiomyopathy, hypertension, hyperlipidemia, peripheral vascular disease, mild memory impairment, and now presents with episode of shortness of breath associated with tachycardia. Her prognosis is guarded given her advanced age, recent myocardial infarction, and congestive heart failure. The etiology of her current exacerbation is unclear, could be due to ischemia or to tachyarrhythmia or infection given her leukocytosis. She also has worsening anemia. For the time being, I would recommend the followin. We would continue her heart failure medicines as you are doing. 2. We would consider adding a low dose of nitrates perhaps 0.1 mg an hour, on in the morning, off in the evening nitroglycerin. 3. We would consider transfusing her to correct her anemia given her heart failure. 4. We would follow her serial EKGs and troponins. 5. We would consider stopping her spironolactone given her elevated potassium of 5. 6. If she is documented to have paroxysmal atrial arrhythmias, we could consider a trial of amiodarone, although so far we have not documented an atrial arrhythmia. 7. Her prognosis is guarded, and the family and the patient do not want any aggressive interventions including resuscitation or consideration of catheterization. We would rule out a concurrent infection given her leukocytosis. 8. We would consider using supplemental oxygen given the fact that daughter documented an O2 of 90% at the time of her shortness of breath. Currently, she is 95%. [id number]/[facility] #: [id number] [facility]ALTH[facility]umiko
--- NOTE | 2018-10-20 19:52 | HP ---
CC: Dr. David Abraham, Dr. Thelma Bean; Dr. Jayson Lucas* ADMISSION HISTORY AND PHYSICAL: DATE OF ADMISSION: 10/20/18 PRIMARY CARE PROVIDER: Dr. David Abraham. MY ATTENDING WHILE IN THE HOSPITAL: Dr. Thelma Bean* (dictated by JUANCHO Rawls). CONSULTING BULLET ASSEMBLY PRESS SETTER OPERATOR: Dr. Jayson Lucas. CHIEF COMPLAINT: Shortness of breath starting at 10:30 this morning. HISTORY OF PRESENT ILLNESS: Ms. Cornejo is an 83-year-old female with past medical history significant for CHF, EF most recently 30% to 35%; hypertension; coronary artery disease; peripheral arterial disease; mitral regurgitation; diabetes mellitus type 2, who was recently admitted to this hospital for an NSTEMI in early September 2018. The patient was discharged on 09/20/18. During that hospitalization, the patient was medically managed and was not interested in catheterization. The patient was discharged on diuretics and optimal management for her heart failure with preserved ejection fraction. The patient since then has been feeling well. Her family feels like she has decreased exercise tolerance since then, but has had no other changes to her medications, no other illnesses. No one around her has been sick. She has had no changes in her appetite. No increase or decrease in her weight greater than 2 pounds up or down. The patient has appetite at her baseline. No difficulty swallowing. No rashes. No pain with urination. No fevers or chills. The patient this morning at 10:30 had sudden onset of difficulty breathing when her daughter discovered her. It was unknown what duration this had been. The patient has mild cognitive impairment and does not remember how long it had been going on. The patient denied chest pain with this and states she did have chest pain with her last episode of NSTEMI. EMS was activated. The patient came to the emergency department and was found to be tachycardic, unclear rhythm. The patient then converted to normal sinus rhythm. She is unclear whether the decrease in her heart rate corresponded to the decrease in her shortness of breath. In the emergency department, the patient was found to have initially elevated troponin that then elevated significantly more. The patient had a chest x-ray, which was not consistent with CHF exacerbation. The patient was started on a heparin drip. The patient was given no nitroglycerin. The patient was seen in consultation by Dr. Jayson Lucas of Cardiology who recommended admission. Family opted again for medical management of the patient 's possible acute coronary syndrome. In the emergency department, the patient continued to be afebrile, had no hypoxia. Her blood pressure was slightly low, though the patient is asymptomatic from this. The patient denies orthopnea, increased swelling in her legs. The patient has not gone on any recent long car trips, long plane rides. The patient is generally relatively inactive, but has not had any significant recent decrease in her activity. The patient has not had any low salt meals. No blood in her urine, no blood in her stool. No dizziness on standing, no presyncope. Due to concern for acute coronary syndrome versus tachyarrhythmia, we were asked to evaluate the patient for admission to the hospital. PAST MEDICAL HISTORY: CHF, most recent EF 30% to 35%; hypertension; PAD; coronary artery disease, status post NSTEMI in September 2018; mitral regurgitation; diabetes mellitus type 2, [id number]; hyperlipidemia; mild cognitive impairment. PAST SURGICAL HISTORY: Multiple leg stents. MEDICATIONS: Per the patient's family not having changed since most recent discharge: 1. Lisinopril 2.5 mg p.o. daily. 2. Folic acid 1 mg p.o. daily. 3. Carvedilol 3.125 mg p.o. b.i.d. 4. Lipitor 80 mg p.o. daily. 5. Aspirin 81 mg p.o. daily. 6. Glipizide 10 mg p.o. daily. 7. Janumet 50/500 one tab p.o. b.i.d. 8. Sertraline 25 mg p.o. daily. 9. Furosemide 40 mg p.o. daily. 10. Raloxifene 60 mg p.o. daily. 11. Clopidogrel 75 mg p.o. daily. 12. Spironolactone 25 mg p.o. daily. ALLERGIES: SULFA medications. FAMILY HISTORY: The patient's mother had heart attack and atrial fibrillation. The patient's father had brain tumor and of a bleeding ulcer. The patient' s daughter has diabetes. She has a strong family history of diabetes on both sides of her family. SOCIAL HISTORY: The patient remotely smoked for a short period of time. The patient drinks alcohol rarely and she cannot remember the last time. The patient denies illicit drug use. 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 The patient lives with her daughter. The patient is and has 3 children. The patient's surrogate decision maker will be her daughter, Aysha Brower. The patient would like to be a DNR and would like no heroic measures done. REVIEW OF SYSTEMS: A 14-point review of systems was reviewed with the patient and is negative except as above in the HPI. PHYSICAL EXAMINATION GENERAL: The patient is an 83-year-old female, who is pale, appears stated age and is sitting comfortably in bed, in no acute distress. VITAL SIGNS: At the time of evaluation, temperature 97.1, pulse rate 77, respiratory rate 33, oxygen saturation 99% on room air, blood pressure 95/68. HEENT: Head: Normocephalic, atraumatic. Sclerae anicteric. No conjunctival injection. Nasal mucosa moist. Oral mucosa moist. No pharyngeal erythema, discharge, or exudate. NECK: Supple, nontender. No lymphadenopathy. No carotid bruits auscultated. No JVD. RESPIRATORY: Clear to auscultation bilaterally. No wheezes, rales, or rhonchi. Good air exchange bilaterally. CARDIAC: Regular rate and rhythm. No clicks, murmurs, gallops, or rubs. Pulses are 2+ in the bilateral dorsalis pedis, posterior tibialis, and radial areas. ABDOMEN: Soft, nontender, nondistended. Bowel sounds present and normoactive in all 4 quadrants. No hepatosplenomegaly. No abdominal bruits auscultated. No hepatojugular reflux. GENITOURINARY: No suprapubic or CVA tenderness. NEURO: Cranial nerves II through XII intact. No focal deficits. Alert and oriented x3. PSYCHIATRIC: Pleasant and cooperative. SKIN: Clean, dry, and intact. No rash. DIAGNOSTIC STUDIES/LAB DATA: White blood cell count 14.6, hemoglobin 11.4, platelet count 237. INR of 0.96. Sodium 136, potassium 5.0, chloride 101, carbon dioxide 24, anion gap 11, BUN 25, creatinine 1.28, glucose 313, lactic acid 3.1, calcium 10.0. Bilirubin 0.8, AST 39, ALT 38, alkaline phosphatase 76. Troponin I initially 0.20, repeat 1.40. BNP 539. Protein 6.9, albumin 4.3 , globulin 2.6. Urine: Clear, low specific gravity, otherwise unremarkable. Studies: EKG shows tachycardia, P waves present, type 1 AV block, ST segment depression and T-wave inversion in V6, worsened left bundle-branch block from previous exam, rate of 103, QTc of 482. Repeat EKG shows left bundle-branch block, resolution of ST segment depression in V6, T-wave flattening in V5 and V6. Since exam from last hospitalization, the patient's left bundle-branch block is approximately the same and no other significant changes. Chest x-ray read as no acute cardiopulmonary disease. Abdomen and pelvis CT read as large, mainly complex cystic mass with chunky calcifications and left renal cystic lesion. This is unchanged from previous exam. Hepatic lesions are unchanged. No hydronephrosis or hydroureter. ASSESSMENT AND PLAN: Impression: Ms. Cornejo is an 83-year-old female with past medical history significant for heart failure with reduced ejection fraction and recent rwy-HN-bptikkagm myocardial infarction, diabetes mellitus type 2, hypertension, and coronary artery disease, who presents to the emergency department with a sudden onset of shortness of breath this morning in association with tachycardia and elevated troponin. The patient will be admitted to the hospital with concern for acute coronary syndrome versus tachyarrhythmia. 1. Shortness of breath, elevated troponin. There is concern that the patient had recurrent acute coronary syndrome, though this is unclear. The patient does not have diagnostic ST segment changes on EKG. The patient does have nonspecific changes. The patient's troponin is elevated, but she is currently chest pain-free and generally asymptomatic. The patient per recommendations from Cardiology was started on a heparin drip. The patient will also be started on nitro patch to see if this can aid in cardiac perfusion. The blood pressure is borderline low. The patient appears dehydrated. The patient was received 500 mL of fluids while in the emergency department. We will recheck her lactic acid and give more fluids if needed to allow for blood pressure management. Fluids will be used judiciously due to the patient's heart failure. The patient will be continued on aspirin and Plavix per her home dosing. The patient is on high-intensity statin therapy and this will be continued. The patient will be monitored on telemetry for the consideration of tachyarrhythmia causing her elevated troponin from type 2 myocardial infarction. The patient has no obvious provoking factor for her shortness of breath or chest pain. The patient is not overtly in congestive heart failure. 2. Chronic heart failure with reduced ejection fraction, EF 30% to 35%. We will repeat the patient's echocardiogram for signs of worsening ischemia or worsening valvular disease and EF. This could also give a clue to us if the patient had a pulmonary embolism, though this is less likely. The patient will be continued on her optimized medical regimen, which includes lisinopril, carvedilol, spironolactone. She is on 40 mg of Lasix, she appears dehydrated, this is likely too much. Given her poor oral intake, the patient's Lasix will be decreased at this time and her fluid status will be monitored with strict I' s and O's and daily weights. The patient has not gained weight recently per her family. 3. Diabetes mellitus type 2. The patient is currently hyperglycemic. She states that her blood sugar is usually very well controlled at home, though she was hyperglycemic frequently while she was in the hospital last time. The patient's Janumet will be continued. The patient will be treated with insulin via sliding scale while in the hospital. The patient's increased glucose could be related to the stress of being in the hospital. An A1c will be checked. 4. Hypertension. The patient is hypotensive as above. Continue the patient's blood pressure medications for her heart failure as above. 5. Leukocytosis, elevated lactic acid. This appears to be respectively reactive and related to the patient's dehydration. Lactic acid will be rechecked. White blood cell count will be checked in the morning. The patient has no other signs of infection. The patient is not in septic shock. The patient will not be started on antibiotics at this time and will not be given fluids given her heart failure status. 6. Acute kidney injury. The patient has an elevated creatinine from her baseline. This is again likely due to dehydration. Further urine studies will be undertaken if the patient's creatinine continues to be elevated despite the fluids she was given and decreasing her Lasix. 7. DVT prophylaxis: The patient will be on a heparin drip at least until troponin peak. 8. Hyperlipidemia. Continue statin. 9. FEN: The patient will have a heart-healthy diet without caffeine. No fluids are indicated. 10. Code status: The patient would like to be a DNR. TIME SPENT: Approximately 60 minutes was spent on the admission of this patient , 30 of which was spent [id number] with the patient obtaining history and physical and discussing treatment plan. This plan was discussed with my attending, Dr. Thelma Bean, and she is in agreement. JUANCHO RAWLS [id number]/[facility] #: [id number] JOSÉ ANTONIO
[2018-10-20] MEDS ORDERED: Nitroglycerin 0.1 mg/Hr PATCH* (2.5 MG) TRANSDERM SCH (20:00)
[2018-10-20] MEDS: Carvedilol TAB* 3.125 MG PO SCH (21:13)
[2018-10-20] MEDS: SITAGLIP PO SCH (21:18)
[2018-10-20] MEDS: METFORM PO SCH (21:18)
[2018-10-20] MEDS: Insulin LISPRO* 1 UNITS UNIT SUBCUT SCH (21:19)
[2018-10-20 21:44] LABS: Troponin I 3.44 ng/mL (<0.04)
[2018-10-21 01:02] LABS: Troponin I 3.06 ng/mL (<0.04)
[2018-10-21 04:01] LABS: Anion Gap 9 mmol/L (2-11); Blood Urea Nitrogen 23 mg/dL (6-24); CO2 Carbon Dioxide 24 mmol/L (22-32); Calcium 8.9 mg/dL (8.6-10.3); Chloride 102 mmol/L (101-111); Cholesterol 89 mg/dL; EGFR African American 66.8 (>60); EGFR Non-African American 55.2 (>60); Glucose 132 mg/dL (70-100); HDL Cholesterol 35.3 mg/dL; LDL Cholesterol 42 mg/dL; Magnesium 1.5 mg/dL (1.9-2.7); Potassium 3.8 mmol/L (3.5-5.0); Sodium 135 mmol/L (135-145); Triglycerides 60 mg/dL
[2018-10-21 05:52] LABS: ABS Eosinophils 0.1 10^3/ul (0-0.6); ABS Lymphocytes 1.7 10^3/ul (1.0-4.8); ABS Monocytes 0.6 10^3/ul (0-0.8); ABS Neutrophils 3.6 10^3/ul (1.5-7.7); Eosinophil % 2.2 %; Hematocrit 28 % (35-47); Hemoglobin 9.5 g/dL (12.0-16.0); Lymphocyte % 27.7 %; Mean Corpuscular HGB Conc 34 g/dL (31-36); Mean Corpuscular Hemoglobin 31 pg (27-31); Mean Corpuscular Volume 92 fL (80-97); Mean Platelet Volume 8.8 fL (7.4-10.4); Platelet Count 196 10^3/uL (150-450); Red Blood Count 3.01 10^6 /uL (3.70-4.87); Red Cell Distribution Width 14 % (10-15)
[2018-10-21 06:09] LABS: Troponin I 3.12 ng/mL (<0.04)
[2018-10-21 07:26] LABS: Troponin I 2.35 ng/mL (<0.04)
[2018-10-21] MEDS: Insulin LISPRO* 1 UNITS UNIT SUBCUT SCH ×2 (07:43→12:07)
[2018-10-21] MEDS ORDERED: Nitro Patch/OINT Remove PATCH OFF SCH (08:00)
[2018-10-21] MEDS ORDERED: Perflutren Lipid Microsphere* 3 ML VIAL ONE (08:25)
[2018-10-21] MEDS ORDERED: Furosemide TAB* 20 MG PO SCH (09:00)
[2018-10-21] MEDS ORDERED: Spironolactone TAB* 25 MG PO SCH (09:00)
[2018-10-21] MEDS ORDERED: Aspirin EC TAB* 81 MG TAB.EC PO SCH (09:00)
[2018-10-21] MEDS ORDERED: RALOXIFENE 60 MG PO SCH (09:00)
[2018-10-21] MEDS ORDERED: Folic Acid TAB* 1 MG PO SCH (09:00)
[2018-10-21] MEDS ORDERED: Atorvastatin* 80 MG TAB PO SCH (09:00)
[2018-10-21] MEDS ORDERED: Clopidogrel TAB* 75 MG PO SCH (09:00)
[2018-10-21] MEDS ORDERED: Sertraline* 25 MG TAB PO SCH (09:00)
[2018-10-21] MEDS ORDERED: Lisinopril TAB* 5 MG PO SCH (09:00)
[2018-10-21] MEDS: SITAGLIP PO SCH (09:07)
[2018-10-21] MEDS: METFORM PO SCH (09:07)
[2018-10-21] MEDS: Carvedilol TAB* 3.125 MG PO SCH (09:19)
[2018-10-21 10:03] LABS: Potassium Redraw 4.2 mmol/L (3.5-5.0)
[2018-10-21 10:14] LABS: Troponin I 1.82 ng/mL (<0.04)
[2018-10-21] MEDS ORDERED: Magnesium Sulfate IV* 3 GM in NS 0.9% 100 ML* 100 ML IVPB ONE (10:31)
[2018-10-21] MEDS: Heparin VIAL(*) 5000 UNITS/ML VIAL (FIVE THOUSAND) IV SCH (11:58)
--- NOTE | 2018-10-21 14:52 | ECHO ---
*[facility]* [place] [address] Fax #: [phone] Transthoracic Echocardiogram Patient: Mercedes Cornejo : 1935 Study Date: 10/21/2018 Age: 83 Gender: F HR: 79 bpm Height: 59 in /149.9 cm BSA: 1.48 m^2 Weight: 119.8 lb /54.4 kg BMI: 24.2 kg/m^2 *Glass Forming Engineer: * Talisha Amos RDCS RN *Referring Physician: * Wesly Rosales *Reading Physician: * Jayson Lucas MD Indications: Congestive Heart Failure. History: Coronary artery disease. Congestive heart failure. Mitral regurgitation. PAD. Risk factors: Hypertension. Diabetes mellitus. Dyslipidemia. Conclusions Summary: - Study data: Comparison is made to the study of September 2018. The left ventricle function is similar perhaps slightly better. The is similar but graded as moderate this time. - Left ventricle: Systolic function is moderately reduced. The estimated ejection fraction is 30-35%. - Left atrium: The atrium is moderately to severely dilated. - Mitral valve: There is moderate to severe regurgitation, with multiple jets, directed eccentrically, toward the septum, toward the free wall, and along the left atrial wall. - Aortic valve: The findings are consistent with moderate stenosis. The peak systolic velocity is 1.78 m/sec. The mean systolic gradient is 8.0 mm Hg. The peak systolic gradient is 13.0 mm Hg. The LVOT to aortic valve VTI ratio is 0.42. The valve area by the velocity-time integral method is 1.18 cm^2. The valve area by the peak velocity method is 1.21 cm^2. - Tricuspid valve: There is moderate regurgitation. - Pulmonary arteries: Systolic pressure is moderately increased, estimated to be 55 mm Hg. Study data: Transthoracic echocardiogram. Procedure: Transthoracic echocardiography was performed. Image quality was fair. Intravenous Definity 3 ml was administered for image enhancement. Complete 2D, spectral Doppler, and color flow Doppler. Location: Bedside. Patient status: Inpatient. Patient room number: 442-01. Comparison is made to the study of September 2018. The left ventricle function is similar perhaps slightly better. The is similar but graded as moderate this time. Rhythm: Normal sinus rhythm with PAC's. Findings Left ventricle: The cavity size is normal. The septal wall thickness is mildly increased. Systolic function is moderately reduced. The estimated ejection fraction is 30-35%. Regional wall motion abnormalities: Dyskinesis of the basal inferoseptal myocardium; akinesis of the basal-mid inferior and basal inferolateral myocardium; hypokinesis of the mid inferoseptal, apical inferior, basal anterolateral, apical lateral, and apical myocardium; moderate hypokinesis of the mid anteroseptal, mid inferolateral, and mid anterolateral myocardium. Doppler parameters are consistent with abnormal left ventricular relaxation (grade 1 diastolic dysfunction). Right ventricle: The cavity size is normal. Systolic function is normal. Left atrium: The atrium is moderately to severely dilated. Right atrium: The atrium is normal in size. Mitral valve: The Mitral valve annulus appears calcified. The leaflets are mildly thickened. The Chordae and Papillary muscle tips are calcified. Mobility is restricted. There is no evidence of stenosis. There is moderate to severe regurgitation, with multiple jets, directed eccentrically, toward the septum, toward the free wall, and along the left atrial wall. Aortic valve: The leaflets are moderately thickened. The findings are consistent with moderate stenosis. There is trace to mild regurgitation. Tricuspid valve: The valve is structurally normal. There is no evidence of stenosis. There is moderate regurgitation. Pulmonic valve: Not well visualized. There is no evidence of stenosis. There is no significant regurgitation. Aorta: Aortic root: The aortic root is not dilated. Ascending aorta: The ascending aorta is not dilated. Aortic arch: The aortic arch is not dilated. Pericardium: There is no pericardial effusion. Pulmonary arteries: Not well visualized. Systolic pressure is moderately increased, estimated to be 55 mm Hg. Systemic veins: Inferior vena cava: The vessel is normal in size. There is (>= 50%) respiratory change in the IVC dimension. Measurements Left ventricle Value Ref Aortic valve continued Value Ref JUNIOR, LAX 4.4 cm 3.8 - Peak v, S 1.78 m/sec ---- 5.2 VTI, S 40.0 cm ---- ESD, LAX (H) 4.0 cm 2.2 - Mean grad, S 8.0 mm Hg ---- 3.5 Peak grad, S 13.0 mm Hg ---- FS, LAX (L) 10 % 27 - 45 LVOT/AV, VTI ratio 0.42 ---- PW, ED 0.8 cm 0.6 - BLAIRE, VTI 1.18 cm^2 ---- 0.9 BLAIRE, Vmax 1.21 cm^2 ---- IVS/PW, ED 1.45 -------- E', lat juan miguel, TDI (L) 7.7 cm/sec >=10.0 Mitral valve Value R ef E/e', lat juan miguel, TDI 10 -------- Peak E 0.75 m/sec ---- E', med juan miguel, TDI (L) 2.9 cm/sec >=7.0 Peak A 0.96 m/sec - --- E/e', med juan miguel, TDI 26 -------- Decel time 254 ms ---- E', avg, TDI 5.3 cm/sec -------- Peak grad, D 2.3 mm Hg ---- E/e', avg, TDI 14 <=14 Peak E/A ratio 0.8 - --- ERO, PISA 0.26 cm^2 ---- LVOT Value Ref MR vol, PISA 41 ml ---- Diam, S 1.90 cm -------- MR fraction, PISA 47 % ---- Area 2.8 cm^2 -------- Peak hoda, S 0.76 m/sec -------- Pulmonic valve Value Ref VTI, S 16.6 cm -------- Peak v, S 0.41 m/sec ---- Mean grad, S 1 mm Hg -------- Peak grad, S 1.0 mm Hg ---- SV 47 ml -------- SV/bsa 32 ml/m^2 -------- Tricuspid valve Value Ref Peak RV-RA grad, S 52 mm Hg ---- Ventricular septum Value Ref Max TR hoda 3.6 m/sec ---- IVS, ED (H) 1.2 cm 0.6 - 0.9 Aortic root Value Ref Root diam 3.1 cm <3.8 Right ventricle Value Ref JUNIOR minor ax, A4C 3.1 cm 1.9 - Ascending aorta Value Ref mid 3.5 AAo AP diam, S 3.1 cm ---- Pressure, S 55 mm Hg -------- Aortic arch Value Ref Left atrium Value Ref Arch diam 2.8 cm ---- ML dim, A4C 4.9 cm -------- SI dim, A4C 6.1 cm -------- Decending aorta Value Ref Vol/bsa, ES, 1-p (H) 50 ml/m^2 11 - 40 Bernie peak hoda 0.35 m/sec ---- A4C Vol/bsa, ES, A/L (H) 57 ml/m^2 16 - 34 Pulmonary artery Value Ref Pressure, S 54.0 mm Hg ---- Right atrium Value Ref SI dim, ES 4.7 cm 3.4 - Inferior vena cava Value Ref 5.3 Diam 1.0 cm ---- ML dim, ES, A4C 3.9 cm 2.6 - 4.4 SI dim, ES, A4C 4.7 cm 3.4 - 5.3 Estimated RAP 3 mm Hg -------- Aortic valve Value Ref Juan Miguel diam, ED 2.0 cm -------- Juan Miguel diam/bsa, ED 1.3 cm/m^2 -------- Legend: (L) and (H) ivone values outside specified reference range. Prepared and electronically signed by Jayson Lucas MD 10/21/2018 14:49
[2018-10-21 15:45] VITALS: BP 111/58
--- NOTE | 2018-10-21 23:40 | DS ---
CC: Dr. David Abraham; Dr. Ramiro Wright * DISCHARGE SUMMARY: DATE OF ADMISSION: 10/20/18 DATE OF DISCHARGE: 10/21/18 PRIMARY CARE PROVIDER: Dr. David Abraham. MY ATTENDING WHILE IN THE HOSPITAL: Dr. Tamy Scales.* (DICTATED BY JUANCHO RAWLS) OUTPATIENT WAX COATING MACHINE TENDER: Dr. Ramiro Wright. PRIMARY DISCHARGE DIAGNOSES: 1. Elevated troponin. 2. Possible non-ST elevation myocardial infarction. 3. Possible tachyarrhythmia. 4. Dehydration. SECONDARY DISCHARGE DIAGNOSES: 1. Heart failure with reduced ejection fraction with EF 30% to 35%. 2. Hypertension. 3. Coronary artery disease. 4. Peripheral arterial disease. 5. Mitral regurgitation. 6. Diabetes mellitus, type 2. 7. Hyperlipidemia. 8. Mild cognitive impairment. STUDIES DONE WHILE IN THE HOSPITAL: EKG from 10/20/18 shows left bundle branch block pattern, poor R-wave progression, rate of 103, QTc of 482, ST segment depression in I, V6, aVL, possibly left bundle branch block related. Repeat EKG shows ST segment depression and T-wave flattening in I, aVL and V6. Repeat EKG shows improvement in ST segment depression and T-wave flattening. Repeat EKG from 10/21/18 shows no significant changes from previous exam. Chest x-ray from 10/20/18 read as no evidence of active cardiopulmonary disease. Abdomen and pelvis CT from 10/20/18 read as, again there is large, minimally complex cystic mass with chunky calcification and the right renal cystic lesion , unchanged from previous exam. Hepatic lesions are unchanged. No hydronephrosis or hydroureter. Transthoracic echocardiogram from 10/20/18 read as the systolic function moderately reduced, estimated ejection fraction 30% to 35%, left atrium is moderately to severely dilated, aortic valve consistent with moderate stenosis. Compared to previous exam, left ventricular function is possibly slightly better, similar. MEDICATIONS AT DISCHARGE: 1. Lisinopril 2.5 mg p.o. daily. 2. Folic acid 1 mg p.o. daily. 3. Carvedilol 3.125 mg p.o. b.i.d. 4. Lipitor 80 mg p.o. daily. 5. Aspirin 81 mg p.o. daily. 6. Glipizide 10 mg p.o. daily. 7. Janumet 50/500 one tab p.o. b.i.d. 8. Sertraline 25 mg p.o. daily. 9. Furosemide 20 mg p.o. daily. 10. Raloxifene 60 mg p.o. daily. 11. Clopidogrel 75 mg p.o. daily. 12. Spironolactone 25 mg p.o. daily. 13. Tylenol 650 mg p.o. q.6 hours as needed. 14. Nitroglycerin patch 1 mg per hour patch daily. Medication discontinued at discharge: 1. Furosemide 40 mg p.o. daily. HOSPITAL COURSE: This is a brief summary of the patient's presentation. For more details, please see the history and physical from this author on 10/20/18. In brief, the patient is an 83-year-old female with a past medical history significant for above, who presented to the emergency department at approximately 10:30 this morning. The patient was found to be suddenly dyspneic without chest pain, but with sweating and nausea. The patient was found to be tachycardic at that time. There is no known history of tachyarrhythmia. The patient came into the emergency department. The patient was tachycardic, but her heart rate decreased slowly throughout her time in the ED. The patient was found to be borderline hypotensive. She had an elevated lactic acid, increased creatinine. Her initial troponin was 0.20 and then increased to 1.4 on recheck. The patient's EKG was nondiagnostic for ischemia. The patient's BNP was less than when she was previously in the hospital. The patient had an elevated white blood cell count. The patient's shortness of breath resolved entirely while she was in the emergency department. The patient was seen in consultation by Dr. Jayson Lucas of Cardiology, who recommended admission to the hospital, heparin drip. The patient was previously admitted for an NSTEMI in September of this year and was medically managed and discharged. Dr. Lucas also recommended nitro patch daily. The patient in the hospital continued to be asymptomatic. The patient's potassium was initially 5, improved to 3.8. The patient's troponin peaked at 3.44. The patient had a HDL of 42, hemoglobin A1c of 7.3. The patient's white blood cell count quickly normalized without intervention. The patient was not started on antibiotics. The patient's heparin drip was able to be stopped as she had been chest pain free and the patient was able to ambulate around the unit without significant shortness of breath nor any provoked chest pain. The patient's case was discussed with Dr. Lucas and he agreed the patient was stable enough to discharge on 10/21/18. PHYSICAL EXAM ON THE DAY OF DISCHARGE: General: The patient is an 83-year-old female who appears stated age and sitting comfortably in bed, in no acute distress. Vital Signs: At the time of evaluation, temperature 98.3, pulse rate 75, respiratory rate 16, oxygen saturation 99% on room air, blood pressure 111/ 58. HEENT: Head: Normocephalic, atraumatic. Sclerae anicteric. No conjunctival injection. Nasal mucosa moist. Oral mucosa moist. No pharyngeal erythema, discharge, or exudate. Neck: Supple, nontender. No lymphadenopathy. No carotid bruits auscultated. No JVD. Cardiac: Regular rate and rhythm. No clicks, murmurs, gallops, or rubs. Pulses are 2+ in the bilateral dorsalis pedis, posterior tibialis, and radial areas. Trace bilateral lower extremity edema noted. Respiratory: Clear to auscultation bilaterally. No wheezes, rales, or rhonchi. Good air exchange bilaterally. Abdomen: Soft, nontender, nondistended. Bowel sounds present and normoactive in all 4 quadrants. No hepatosplenomegaly. No abdominal bruits auscultated. No hepatojugular reflux. Genitourinary: No suprapubic or CVA tenderness. Skin : Clean, dry, and intact. No rash. Neuro: Cranial nerves II through XII grossly intact. No focal deficits. Alert and oriented x3, somewhat forgetful. Psychiatric: Very pleasant and cooperative. DISCHARGE PLAN: The patient will be discharged to home. The patient's only change in her medication was a decrease in furosemide and the addition of a low dose nitro patch to help with coronary ischemia. It is still unclear what caused the patient's troponin rise. The differential includes NSTEMI or tachyarrhythmia, which is most consistent with the patient's presentation, PE is less likely at this time. There is no evidence of right ventricular strain on echo. The patient had no clinical signs of DVT. The patient again refused catheterization. The patient is on optimal medical therapy for both her heart for secondary prevention of HI as well as for treatment of her heart failure. The patient should be considered for Entresto, but her blood pressure would likely not tolerate it. The patient should follow up with her primary care provider within 1 week for general medical management and for repeat chemistry profile. The patient should follow up with her demurrage clerk within 1 month and at that time discuss the possible benefits versus risks of a long-term monitor to assess for tachyarrhythmia. The patient should be monitored for low blood pressure, weight gain, or dehydration. The patient should return to hospital for alarming symptoms such recurrent chest pain, severe shortness of breath, passing out. The patient should have a heart healthy diet without caffeine and engage in activity as tolerated. The patient's hemoglobin A1c was 7.3, which is acceptable for her age and is improving since recent hospitalization. TIME SPENT: Approximately 60 minutes was spent on the discharge of this patient , 30 of which was spent [id number] with the patient obtaining history and physical and discussing treatment plan. JUANCHO RAWLS [id number]/[facility] #: [id number] JOSÉ ANTONIO
== END 2018-10-21 16:47 | disposition home health service (06) | DRG 281 ==
LOC: ED 11:53 → MEDTELE 17:25
PROVIDERS: ADMIT Internal Medicine; ATTEND Internal Medicine
DX: I21.4 Non-ST elevation (NSTEMI) myocardial infarction (principal); I50.22 Chronic systolic (congestive) heart failure; N17.9 Acute kidney failure, unspecified; I42.9 Cardiomyopathy, unspecified; Q61.9 Cystic kidney disease, unspecified; E11.51 Type 2 diabetes mellitus with diabetic peripheral angiopathy without gangrene; I25.10 Atherosclerotic heart disease of native coronary artery without angina pectoris; I11.0 Hypertensive heart disease with heart failure; E78.00 Pure hypercholesterolemia, unspecified; M19.90 Unspecified osteoarthritis, unspecified site; M81.0 Age-related osteoporosis without current pathological fracture; F03.90 Unspecified dementia, unspecified severity, without behavioral disturbance, psychotic disturbance, mood disturbance, and anxiety; F32.9 Major depressive disorder, single episode, unspecified; Z66 Do not resuscitate; I44.7 Left bundle-branch block, unspecified; E11.65 Type 2 diabetes mellitus with hyperglycemia; I08.0 Rheumatic disorders of both mitral and aortic valves; E86.0 Dehydration; D72.829 Elevated white blood cell count, unspecified; E78.5 Hyperlipidemia, unspecified; I95.9 Hypotension, unspecified; Z88.2 Allergy status to sulfonamides; Z82.49 Family history of ischemic heart disease and other diseases of the circulatory system; Z83.3 Family history of diabetes mellitus; Z95.828 Presence of other vascular implants and grafts; Z87.891 Personal history of nicotine dependence; Z79.82 Long term (current) use of aspirin; Z79.02 Long term (current) use of antithrombotics/antiplatelets; Z79.84 Long term (current) use of oral hypoglycemic drugs
CPT/HCPCS: 36415; 71045; 74176; 80048; 80053; 80061; 81003; 82565; 83036; 83605; 83735; 83880; 84484; 85025; 85610; 85730; 87040; 93005; 93306; 99284; A9270-GY; C8929; J1644; J3475

== ENCOUNTER 2018-11-08 20:47 | Inpatient (IN) | payer MEDICARE, OTHER ==
--- OUTSIDE RECORDS SUMMARY | 2018-11-08 20:55 | XMS REPORT | Continuity of Care Document ---
:1935 External Reference #:[id number] Author Name JUANCHO Olvera Address [address] [place] [address] Problems Active Problems Provider Date Essential hypertension David Abraham M.D. Onset: 11/21/2007 Type 2 diabetes mellitus David Abraham M.D. Onset: 11/21/2007 Hyperlipidemia David Abraham M.D. Onset: 11/21/2007 Osteoporosis David Abraham M.D. Onset: 11/21/2007 Peripheral vascular disease David Abraham M.D. Onset: 10/03/2014 Type II diabetes mellitus uncontrolled David Abraham M.D. Onset: 2016 Atherosclerosis of arteries of the David Abraham M.D. 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 75mg Tablets Spironolactone 1 by mouth 90tabs David Abraham, 09/29/2018 25mg every day M.D. Tablets Freestyle System test blood 1units David Abraham, 05/12/2018 Kit sugar twice a M.D. day Freestyle Test test blood 100units David Abraham, 05/12/2018 Strips glucose twice M.D. daily dx: e11.9 last office visit 11/03/17 Lancets Ultra Thin 30G test twice a 100units David ReynaldoObdulia Abraham, 05/12/2018 day dx: e11.9 M.D. Thin 30G Misc last Ov 11/03/17 Sertraline HCL take one by 30tabs F06.34 David Abraham, 06/14/2017 25mg mouth in the M.D. Tablets morning Glipizide ER Take 2 Tablets 180tabs E11.9 David Abraham, 09/24/2016 5mg Tablets By Mouth Once M.D. ER 24HR A Day Janumet Take 1 Tablet 180tabs E11.9 David Abraham, 01/15/2012 50-500mg Tablets By Mouth Twice M.D. A Day Furosemide 1 by mouth Unknown 20mg Tablets every day Nitroglycerin Patch 1 mg per hour Unknown 1MG patch daily Tylenol 8 Hour Q6H as needed Unknown 650mg Tablets ER Raloxifene HCL take 1 tablet 90tabs David Abraham, 60mg by mouth daily M.D. Tablets Folic Acid Take 1 Tablet 90tabs Ponce F. 1mg Tablets By Mouth Every Shallish, M.D. Day Lisinopril Take 1 Tablet 90tabs Ponce F. 2.5mg Tablets By Mouth Every Shallish, M.D. Day Carvedilol Take 1 Tablet 180tabs Ponce F. 3.125mg By Mouth Twice Shallish, M.D. Tablets A Day Atorvastatin Calcium Take 1 Tablet 90tabs David Abraham, 80mg By Mouth Every M.D. Tablets Day Aspir-Low 1 by mouth Unknown 81mg Tablets DR every day History Medications Clopidogrel Bisulfate 1 by mouth every 30tabs David Abraham, 2018 - day M.D. 11/01/2018 75mg Tablets Immunizations CPT Code Status Date Vaccine Lot # [id number] Given 08/16/2015 Tdap Tetanus, W Pertussis [id number] Given 10/03/2014 Pneumococcal Conjugate Vacc-13 [id number] Given 11/03/2002 Pneumococcal Immunization 03129 Given 11/03/2002 Td Immunization, For Use In Individuals 7 Years Or Older 95084 Given 11/03/2002 DT Immunization Vital Signs Date Vital Result Comment 11/01/2018 1:28pm BP Systolic 72 mmHg 76/44 left arm BP Diastolic 42 mmHg 76/44 left arm BP Systolic Recheck 86 mmHg BP Diastolic Recheck 66 mmHg Heart Rate 72 /min Body Temperature 97.7 F Respiratory Rate 12 /min Height 57.5 inches 4'9.50" Weight 120.00 lb BMI (Body Mass Index) 25.5 kg/m2 09/29/2018 6:58pm BP Systolic 90 mmHg 84/48 right arm BP Diastolic 52 mmHg 84/48 right arm Heart Rate 53 /min Body Temperature 97.5 F Respiratory Rate 12 /min O2 % BldC Oximetry 98 % Height 57.5 inches 4'9.50" Weight 122.00 lb BMI (Body Mass Index) 25.9 kg/m2 Results Test Date Facility Test Result H/L Range Note CBC Electronic [facility] 11/01/2018 [facility] WBC 5.5 x10^3/UL 4.0- 10.0 RBC 3.63 x10^6/UL Low 3.93-6.00 HGB 11.5 g/dL Low 12.0-17.0 HCT 35 % 35-50 MCV 95.0 fL 80.0-95.0 MCH 31.7 pg 25.6-32.2 MCHC 33.3 g/dL 32.2-36.0 RDW-CV 13.5 % 11.6-14.4 PLT 294 x10^3/UL 163-400 MPV 9.7 fL 9.4-12.4 Eduardo# 3.32 x10^3/UL 1.56-6.13 Lymph# 1.38 x10^3/UL 1.18-3.74 Desoto# 0.55 x10^3/UL 0.24-0.82 Eos # 0.1 x10^3/UL 0.0-0.5 Baso # 0.03 x10^3/UL 0.01-0.08 Eduardo% 60.9 % 34.0-70.0 Lymph % 25.3 % 20.0-52.0 [place]% 10.1 % 5.0-12.0 Eos% 2.4 % 0.7-7.0 Baso% 0.6 % 0.1-1.2 Comprehensive Metabolic 11/01/2018 [facility]) Sodium 136 mEq/L 134-149 Prof Potassium 4.1 mEq/L 3.6-5.5 Chloride 101 mEq/L 94-112 Carbon Dioxide 25 mEq/L 21-32 Glucose 154 mg/dL High 70-105 BUN 28 mg/dL High 6-26 Creatinine 1.0 mg/dL 0.6-1.4 BUN/Creat Ratio 28.0 CALC 8.0-36.0 Calcium 9.4 mg/dL 8.6-10.2 Total Protein 7.0 g/dL 6.4-8.3 Albumin 4.5 g/dL 3.8-5.5 Globulin 2.5 g/dL 2.0-4.8 A/G Ratio 1.8 CALC 0.6-2.3 Alk. Phosphatase 68 U/L 30-110 Alt (SGPT) 40 U/L High 7-35 Ast (Sgot) 37 U/L High 5-34 Total Bilirubin 1.0 mg/dL 0.2-1.3 GFR Non- 56 ml/min/1.73m^ Low >=60 GFR >60 ml/min/1.73m^ >=60 CBC Auto Diff 10/20/2018 [facility] [facility] White Blood Count 7.4 10^3/uL Normal 3.5- 10.8 Red Blood Count 3.08 10^6/uL Low 3.70-4.87 Hemoglobin 9.8 g/dL Low 12.0-16.0 Hematocrit 28 % Low 35-47 Mean Corpuscular Volume 92 fL Normal 80-97 Mean Corpuscular Hemoglobin 32 pg High 27-31 Mean Corpuscular HGB Conc 35 g/dL Normal 31-36 Red Cell Distribution Width 14 % Normal 10-15 Platelet Count 199 10^3/uL Normal 150-450 Mean Platelet Volume 8.4 fL Normal 7.4-10.4 Abs Neutrophils 5.8 10^3/uL Normal 1.5-7.7 Abs Lymphocytes 1.1 10^3/uL Normal 1.0-4.8 Abs Monocytes 0.5 10^3/uL Normal 0-0.8 Abs Eosinophils 0.1 10^3/uL Normal 0-0.6 Abs Basophils 0.1 10^3/uL Normal 0-0.2 Abs Nucleated RBC 0.0 10^3/uL Granulocyte % 77.6 % Lymphocyte % 14.5 % Monocyte % 6.2 % Eosinophil % 0.7 % Basophil % 1.0 % Nucleated Red Blood Cells % 0.0 Creatinine 10/20/2018 [facility] Creatinine 1.04 mg/dL High 0.51-0.95 Egfr Non- 50.4 >60 Egfr 60.9 >60 1 Laboratory test finding 10/20/2018 [facility] Troponin I 2.78 ng/mL Critical high <0.04 2 Laboratory test finding 10/20/2018 [facility] Troponin I 1.40 ng/mL Critical high <0.04 3 Urinalysis Profile 10/20/2018 [facility] [place] Urine Color Straw Urine Appearance Clear Urine Specific Dearing 1.008 Low 1.010-1.030 Urine pH 6.0 Normal 5-9 Urine Urobilinogen Negative Negative Urine Ketones Negative Negative Urine Protein Negative Negative Urine Leukocytes Negative Negative Urine Blood Negative Negative Urine Nitrite Negative Negative Urine Bilirubin Negative Negative Urine Glucose Negative Negative Laboratory test 10/20/2018 [facility] Blood Culture SEE RESULT BELOW 4 finding CBC Auto Diff 10/20/2018 [facility] White Blood Count 14.6 10^3/uL High 3.5- 10.8 Red Blood Count 3.68 10^6/uL Low 3.70-4.87 Hemoglobin 11.4 g/dL Low 12.0-16.0 Hematocrit 34 % Low 35-47 Mean Corpuscular Volume 93 fL Normal 80-97 Mean Corpuscular Hemoglobin 31 pg Normal 27-31 Mean Corpuscular HGB Conc 34 g/dL Normal 31-36 Red Cell Distribution Width 14 % Normal 10-15 Platelet Count 237 10^3/uL Normal 150-450 Mean Platelet Volume 8.3 fL Normal 7.4-10.4 Abs Neutrophils 11.8 10^3/uL High 1.5-7.7 Abs Lymphocytes 1.8 10^3/uL Normal 1.0-4.8 Abs Monocytes 0.7 10^3/uL Normal 0-0.8 Abs Eosinophils 0.2 10^3/uL Normal 0-0.6 Abs Basophils 0.1 10^3/uL Normal 0-0.2 Abs Nucleated RBC 0.0 10^3/uL Granulocyte % 80.7 % Lymphocyte % 12.6 % Monocyte % 4.5 % Eosinophil % 1.6 % Basophil % 0.6 % Nucleated Red Blood Cells % 0.0 Inr/Protime 10/20/2018 [facility] Inr 0.96 Normal 0.82-1.09 5 Comp Metabolic Panel 10/20/2018 [facility] [place] Sodium 136 mmol/L Normal 135-145 Potassium 5.0 mmol/L Normal 3.5-5.0 Chloride 101 mmol/L Normal 101-111 Co2 Carbon Dioxide 24 mmol/L Normal 22-32 Anion Gap 11 mmol/L Normal 2-11 Glucose 313 mg/dL High 70-100 Blood Urea Nitrogen 25 mg/dL High 6-24 Creatinine 1.28 mg/dL High 0.51-0.95 BUN/Creatinine Ratio 19.5 Normal 8-20 Calcium 10.0 mg/dL Normal 8.6-10.3 Total Protein 6.9 g/dL Normal 6.4-8.9 Albumin 4.3 g/dL Normal 3.2-5.2 Globulin 2.6 g/dL Normal 2-4 Albumin/Globulin Ratio 1.7 Normal 1-3 Total Bilirubin 0.80 mg/dL Normal 0.2-1.0 Alkaline Phosphatase 76 U/L Normal 34-104 Alt 38 U/L Normal 7-52 Ast 39 U/L Normal 13-39 Egfr Non- 39.6 >60 Egfr 48.0 >60 6 Laboratory test finding 10/20/2018 [facility] [place] Troponin I 0.20 ng/mL Critical high <0.04 7 B-Type Natriuretic Peptide BNP 539 pg/mL High <=100 Lactic Acid 3.1 mmol/L Critical high 0.5-2.0 8 CBC Auto Diff 09/15/2018 [facility] White Blood Count 11.3 10^3/uL High 3.5- 10.8 Red Blood Count 4.45 10^6/uL Normal 3.70-4.87 Hemoglobin 13.5 g/dL Normal 12.0-16.0 Hematocrit 42 % Normal 35-47 Mean Corpuscular Volume 94 fL Normal 80-97 Mean Corpuscular Hemoglobin 30 pg Normal 27-31 Mean Corpuscular HGB Conc 33 g/dL Normal 31-36 Red Cell Distribution Width 14 % Normal 10-15 Platelet Count 229 10^3/uL Normal 150-450 Mean Platelet Volume 8.9 fL Normal 7.4-10.4 Abs Neutrophils 9.7 10^3/uL High 1.5-7.7 Abs Lymphocytes 1.2 10^3/uL Normal 1.0-4.8 Abs Monocytes 0.4 10^3/uL Normal 0-0.8 Abs Eosinophils 0.0 10^3/uL Normal 0-0.6 Abs Basophils 0.1 10^3/uL Normal 0-0.2 Abs Nucleated RBC 0.0 10^3/uL Granulocyte % 85.3 % Lymphocyte % 10.5 % Monocyte % 3.5 % Eosinophil % 0.3 % Basophil % 0.4 % Nucleated Red Blood Cells % 0.0 Comp Metabolic Panel 09/15/2018 [facility] [place] Sodium 140 mmol/L Normal 135-145 Potassium 4.6 mmol/L Normal 3.5-5.0 Chloride 105 mmol/L Normal 101-111 Co2 Carbon Dioxide 25 mmol/L Normal 22-32 Anion Gap 10 mmol/L Normal 2-11 Glucose 361 mg/dL High 70-100 Blood Urea Nitrogen 20 mg/dL Normal 6-24 Creatinine 1.06 mg/dL High 0.51-0.95 BUN/Creatinine Ratio 18.9 Normal 8-20 Calcium 9.4 mg/dL Normal 8.6-10.3 Total Protein 7.0 g/dL Normal 6.4-8.9 Albumin 4.0 g/dL Normal 3.2-5.2 Globulin 3.0 g/dL Normal 2-4 Albumin/Globulin Ratio 1.3 Normal 1-3 Total Bilirubin 0.80 mg/dL Normal 0.2-1.0 Alkaline Phosphatase 90 U/L Normal 34-104 Alt 39 U/L Normal 7-52 Ast 39 U/L Normal 13-39 Egfr Non- 49.3 >60 Egfr 59.6 >60 9 Laboratory test finding 09/15/2018 [facility] Creatine Kinase(CK) 83 U/L Normal 10-223 C Reactive Protein < 1.00 mg/L Normal <8.01 CKMB 09/15/2018 [facility] CKMB ng/mL 7.7 ng/mL High 0.6-6.3 Laboratory test 09/15/2018 [facility] Troponin I 0.18 ng/mL Critical high <0.04 10 finding Lactic Acid 2.7 mmol/L Critical high 0.5-2.0 11 Lipid Profile (Trig/Chol/HDL) 09/15/2018 [facility] Triglycerides 87 mg/dL 12 Cholesterol 149 mg/dL 13 HDL Cholesterol 61.0 mg/dL 14 LDL Cholesterol 71 mg/dL 15 Laboratory test finding 09/15/2018 [facility] Magnesium 1.8 mg/dL Low 1.9-2.7 Hemoglobin A1c (Glyco HGB) 7.7 % High 4.0-5.6 16 Blood Culture SEE RESULT BELOW 17 Laboratory test 09/15/2018 [facility] Partial Thrombo 27.3 seconds Normal 26.0- 38.0 finding Time PTT B-Type Natriuretic Peptide BNP 727 pg/mL High <=100 Arterial Blood Gas 09/15/2018 [facility] PH Arterial 7.37 Normal 7.35-7.45 Pco2 Arterial 35 mmHg Normal 35-45 Po2 Arterial 76 mmHg Low 80-100 O2 Saturation Arterial 96.8 % Normal 94.0-98.0 Base Excess Arterial -4.4 mmol/L Low -2.0-2.0 18 Hco3 Arterial 21.4 mmol/L Normal 19-31 Urinalysis Profile 09/15/2018 [facility] Urine Color Yellow Urine Appearance Clear Urine Specific Dearing 1.020 Normal 1.010-1.030 Urine pH 5.0 Normal 5-9 Urine Urobilinogen Negative Negative Urine Ketones Trace Abnormal Negative Urine Protein Negative Negative Urine Leukocytes Negative Negative Urine Blood Negative Negative Urine Nitrite Negative Negative Urine Bilirubin Negative Negative Urine Glucose 1+(50 mg/dL) Abnormal Negative Laboratory test finding 09/15/2018 [facility] Point of Care Glucose 279 mg/dL High 70-100 19 1 Because ethnic data is not always readily [...] 15-29 5 Kidney failure <15 (or dialysis) 2 Result TnIDx:2.78 Called to [id number] at: 18:17:51 by:[id number] Read back by: [id number] Troponin-I testing on Plasma Separator Tubes (PST) has a known false positive rate of 0.20-0.40%. All positive troponins reflex immediately to secondary confirmatory testing. Using the [employer] DxI 800 Access Immunoassay systems, the 99th percentile upper reference limit was demonstrated to be < 0.03 ng/mL. 3 Result TnIDx:1.40 Called to [id number] at: 15:49:41 by:[id number] Read back by: [id number] Troponin-I testing on Plasma Separator Tubes (PST) has a known false positive rate of 0.20-0.40%. All positive troponins reflex immediately to secondary confirmatory testing. Using the [employer] DxI 800 Access Immunoassay systems, the 99th percentile upper reference limit was demonstrated to be < 0.03 ng/mL. 4 SEE RESULT BELOW Name: MERCEDES CORNEJO : [address]: Tamy Scales DO Acct: [id number] Unit: [id number] AGE: 83 Location: [place] [address] Re10/20/18 Dis: 10/21/18 SEX: F Status: DIS IN SPEC: [id number] VERA: 10/20/18-[address] [facility] [address]: Guillermo Tran MD REQ: [id number] RECD: 10/20/18 STATUS: DON WHITT DR: David Abraham MD _ SOURCE: BLOOD,VENO [facility]: ORDERED: Blood Cult Procedure Result Reported Site Aerobic Culture Bottle Final 10/25/18- 1301 ML No Growth Day 5 Anaerobic Culture Bottle Final 10/25/18- 1301 ML No Growth Day 5 * ML - Main Lab . END OF REPORT DEPARTMENT OF PATHOLOGY, [address] [place] [address] Bebeto Bhatia M.D. Director [facility] # [id number] 5 Standard intensity warfarin therapeutic range: 2.0-3.0 High intensity warfarin therapeutic range: 2.5-3.5 6 Because ethnic data is not always readily [...] 15-29 5 Kidney failure <15 (or dialysis) 7 Result TnIDx:0.20 Called to [id number] at: 12:44:04 by:[id number] Read back by: [id number] Troponin-I testing on Plasma Separator Tubes (PST) has a known false positive rate of 0.20-0.40%. All positive troponins reflex immediately to secondary confirmatory testing. Using the [employer] DxI 800 Access Immunoassay systems, the 99th percentile upper reference limit was demonstrated to be < 0.03 ng/mL. 8 Critical Result LACT:3.1 Called to [id number] at: 13:02:25 by:[id number] Read back by:[id number] [place] Severe Sepsis and Septic Shock Management Bundle Measure requires all lactic acids initially measuring >2.0 mmol/L be repeated. 9 Because ethnic data is not always readily [...] 15-29 5 Kidney failure <15 (or dialysis) 10 Result TnIDx:0.18 Called to [id number] at: 11:55:07 by:[id number] Read back by: [id number] Troponin-I testing on Plasma Separator Tubes (PST) has a known false positive rate of 0.20-0.40%. All positive troponins reflex immediately to secondary confirmatory testing. Using the Sp[employer] DxI 800 Access Immunoassay systems, the 99th percentile upper reference limit was demonstrated to be < 0.03 ng/mL. 11 Critical Result LACT:2.7 Called to [id number] at: 11:56:25 by:[id number] Read back by:[id number] [facility] Severe Sepsis and Septic Shock Management Bundle Measure requires all lactic acids initially measuring >2.0 mmol/L be repeated. 12 Desirable: <150 Borderline High: 150-199 High: 200-499 Very High: >500 13 Desirable: <200 Borderline High: 200-239 High: >239 14 Low: <40 Desirable: 40-60 High: >60 15 Desirable: <100 Near Optimal: 100-129 Borderline High: 130-159 High: 160-189 Very High: >189 16 Therapeutic target for the treatment of diabetes mellitus patients is <7% HBA1C, and in selective patients <6.0%. Please refer to [place] [employer] diabetic care guidelines for further information. 17 SEE RESULT BELOW Name: MERCEDES CORNEJO : [address]: Geeta Sinha MD Acct: [id number] Unit: [id number] AGE: 83 Location: [place] [address] Re09/15/18 SEX: F Status: ADM IN SPEC: [id number] VERA: 09/15/[address] [facility] [address]: Gibson Asif MD REQ: [id number] RECD: 09/15/18 STATUS: DON WHITT DR: David Abraham MD _ SOURCE: BLOOD,VENO [facility]: ORDERED: Blood Cult Procedure Result Reported Site Aerobic Culture Bottle Final 09/20/18- 1 ML No Growth Day 5 Anaerobic Culture Bottle Final 09/20/18- 1121 ML No Growth Day 5 * ML - Main Lab . END OF REPORT DEPARTMENT OF PATHOLOGY, [address] [place] [address] Bebeto Bhatia M.D. Director [facility] # [id number] 18 Reference ranges based on room air. 19 Radiographer Mammographer: [id number] Procedures Date Code Description Status 12/23/2016 [id number] Diabetic Retinal Eye Exam Completed 09/12/2016 [id number] Diabetic Foot Exam Completed 03/16/2012 [id number] Bone Mineral Density Test Completed 01/23/2011 [id number] Colonoscopy Completed 01/01/2011 [id number] Mammogram Completed 11/24/2007 [id number] Mammogram Completed 03/12/2006 [id number] Mammogram Completed Medical Devices Description No Information Available Encounters Type Date Location Provider Dx Diagnosis Office Visit 09/29/2018 Main Office David Abraham, I21.4 Non-St elevation 6:40p M.D. ([facility]) myocardial infarction I50.23 Acute on chronic systolic (congestive) heart failure E11.65 Type 2 diabetes mellitus with hyperglycemia N28.89 Other specified disorders of kidney and ureter Assessments Date Code Description Provider 11/01/2018 I21.4 Non-St elevation ([facility]) myocardial JUANCHO Olvera infarction 11/01/2018 I50.23 Acute on chronic systolic (congestive) heart JUANCHO Olvera failure 11/01/2018 E86.0 Dehydration JUANCHO Olvera 09/29/2018 I21.4 Non-St elevation ([facility]) myocardial David Abraham M.D. infarction 09/29/2018 I50.23 Acute on chronic systolic (congestive) heart David Abraham M.D. failure 09/29/2018 E11.65 Type 2 diabetes mellitus with hyperglycemia David Abraham M.D. 09/29/2018 N28.89 Other specified disorders of kidney and David Abraham M.D. ureter Plan of Treatment Future Appointment(s):01/04/2019 4:30 pm - David Abraham M.D. at [facility]11/01/2018 - Roxana Mistry, PAI21.4 Non-St elevation ([facility]stem[facility]) myocardial infarctionComments:Continue all medications. See Dr. Wright as scheduled in early November. Call with any concerns or questions. Emergency Room for any chest pain, SOB, altered mental status.I50.23 Acute on chronic systolic ( congestive) heart srehcjdJ31.0 DehydrationComments:Continue to drink water and eat regular meals. receives meals on wheels.AllComments:PCMHMedication Management Patient Understands medications he's taking? Yes Are there Barriers to Adherence? No Has the patient been asked about herbal supplements and therapies, and OTC meds? Yes Care Plan1. Patient has been queried about patient's goals/preferences and functional/lifestyle goals at relevant visits. Yes If relevant, describe: N/A2. Treatment goals as explained to the patient: above3. Are there barriers to meeting treatment goals ? No If Yes, please describe:4. Self-Management goals as described to the patient: Yes As always, we strongly encourage a healthy diet and making physical activity a part of your every day life. If you have questions about how or where to start, please contact the office. Functional Status Description No Information Available Mental Status Description No Information Available Referrals Description No Information Available
--- OUTSIDE RECORDS SUMMARY | 2018-11-08 20:55 | XMS REPORT | Continuity of Care Document ---
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 [phone] Medicine Problems Description No Information Available Social History Type Date Description Comments Sex Unknown ETOH Use Denies alcohol use Tobacco Use [...] 1 pill twice Unknown 50-500mg Tablets daily Immunizations Description No Information Available Vital Signs Date Vital Result Comment 10/06/2018 10:08am Height 60 inches 5'0" Weight 124.00 lb Clothes/shoes Heart Rate 58 /min Radial BP Systolic Sitting 108 mmHg Rue reg cuff BP Diastolic Sitting 60 mmHg Rue reg cuff BMI (Body Mass Index) 24.2 kg/m2 Results Test Date Facility Test Result H/L Range Note Laboratory test 09/15/2018 [facility] Point of Care 279 mg/dL High 70-100 [address] [place] [address] [phone] Branch Sales And Service Representative: [id number] Procedures Date Code Description Status 10/06/2018 50693 EKG Tracing & Interpretation Completed 09/16/2018 06328 ECHO Transthorasic Realtime 2D W Doppler & Color Flow Hosp Completed Medical Devices Description No Information Available Encounters Type Date Location Provider Dx Diagnosis Office Visit 10/06/2018 [facility] Ramiro Wright, I50.22 Chronic systolic 10:20a Of 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 DO FACC (congestive) heart failure I25.2 Old myocardial infarction I34.0 Nonrheumatic mitral (valve) insufficiency I25.10 Athscl heart disease of [place] coronary artery w/o ang pctrs I73.9 Peripheral vascular disease, unspecified E11.69 Type 2 diabetes mellitus with other specified complication 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 D64.9 Anemia, unspecified Office Visit 09/20/2018 9:48a [facility] I21.4 Non-St elevation spencer Garcia MD (Nstemi) Hospitalists myocardial infarction I50.23 Acute on chronic systolic (congestive) heart failure E87.2 Acidosis E11.9 Type 2 diabetes mellitus without complications R31.9 Hematuria, unspecified N17.9 Acute kidney failure, unspecified I10 Essential (primary) hypertension E78.00 Pure hypercholesterolemia, unspecified I73.9 Peripheral vascular disease, unspecified Office Visit 09/19/2018 [facility] I50.23 Acute on chronic 9:48a spencer Garcia MD systolic Hospitalists (congestive) heart failure E11.9 Type 2 diabetes mellitus without complications I21.4 Non-St elevation (Nstemi) myocardial infarction J96.01 Acute respiratory failure with hypoxia Office Visit 09/18/2018 [facility] I21.4 Non-St elevation 9:48a spencer Garcia MD (Nstemi) Hospitalists myocardial infarction I50.23 Acute on chronic systolic (congestive) heart failure E11.9 Type 2 diabetes mellitus without complications Office Visit 09/17/2018 4:22p [facility] Franklin Hobson I25.10 Athscl heart Of Claire Almanza M.D. disease of [place] coronary artery w/o ang pctrs I21.4 Non-St elevation (Nstemi) myocardial infarction I50.9 Heart failure, unspecified Office Visit 09/17/2018 [facility] I21.4 Non-St elevation 9:47a spencer Garcia MD (Nstemi) Hospitalists myocardial infarction I50.23 Acute on chronic systolic (congestive) heart failure E11.9 Type 2 diabetes mellitus without complications Office Visit 09/16/2018 2:17p [facility] Ramiro Sanderson I50.9 Heart failure, Of [facility] Kyle, DO unspecified FACC I21.4 Non-St elevation (Nstemi) myocardial infarction E11.9 Type 2 diabetes mellitus without complications I73.9 Peripheral vascular disease, unspecified Office Visit 09/16/2018 9:47a [facility] Effie Montiel I21.4 Non- St elevation spencer Garcia M.D. (Nstemi) Hospitalists myocardial infarction I50.23 Acute on chronic systolic (congestive) heart failure E11.9 Type 2 diabetes mellitus without complications Office Visit 09/15/2018 2:08p [facility] Ramiro Sanderson I50.9 Heart failure, Of [facility] Wright, DO unspecified FACC I21.4 Non-St elevation (Nstemi) myocardial infarction E11.9 Type 2 diabetes mellitus without complications I73.9 Peripheral vascular disease, unspecified Office Visit 09/15/2018 9:46a [facility] Tawanna I21.4 Non-St elevation Assspencer gutierrez NP (Nstemi) Hospitalists myocardial infarction E87.2 Acidosis E11.9 Type 2 diabetes mellitus without complications N17.9 Acute kidney failure, unspecified I10 Essential (primary) hypertension E78.00 Pure hypercholesterolemia, unspecified I73.9 Peripheral vascular disease, unspecified Assessments Date Code Description Provider 10/06/2018 I50.22 Chronic systolic (congestive) heart Ramiro Wright, DO [facility] failure 10/06/2018 I25.2 Old myocardial infarction Ramiro Wright, DO [facility] 10/06/2018 I34.0 Nonrheumatic mitral (valve) insufficiency Ramiro Wright, DO FAC 10/06/2018 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, 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 with 10/06/2018 I73.9 Peripheral vascular disease, unspecified Ramiro Wright, DO FAC 10/06/2018 E11.69 Type 2 diabetes mellitus with other Ramiro Wright, DO [facility] specified complication 10/06/2018 F02.80 Dementia in other diseases classified Ramiro Wright DO [facility] elsewhere without beha 10/06/2018 D64.9 Anemia, unspecified Ramiro SObdulia Wright, DO [facility] 09/20/2018 I21.4 Non-St elevation (Nstemi) myocardial Seda Briones MD infarction 09/20/2018 I50.23 Acute on chronic systolic (congestive) Seda Briones MD heart failure 09/20/2018 E87.2 Acidosis Seda Briones MD 09/20/2018 E11.9 Type 2 diabetes mellitus without Seda Briones MD complications 09/20/2018 R31.9 Hematuria, gretaified Seda Briones MD 09/20/2018 N17.9 Acute kidney failure, unspecified Seda Briones MD 09/20/2018 I10 Essential (primary) hypertension Seda Briones MD 09/20/2018 E78.00 Pure hypercholesterolemia, unspecified Seda Briones MD 09/20/2018 I73.9 Peripheral vascular disease, unspecified Seda Briones MD 09/19/2018 I50.23 Acute on chronic systolic (congestive) Seda Briones MD heart failure 09/19/2018 E11.9 Type 2 diabetes mellitus without Seda Briones MD complications 09/19/2018 I21.4 Non-St elevation (Nstemi) myocardial Seda Briones MD infarction 09/19/2018 J96.01 Acute respiratory failure with hypoxia Seda Briones MD 09/18/2018 I21.4 Non-St elevation (Nstemi) myocardial Geeta Sinha MD infarction 09/18/2018 I50.23 Acute on chronic systolic (congestive) Geeta Sinha MD heart failure 09/18/2018 E11.9 Type 2 diabetes mellitus without Geeta Sinha MD complications 09/17/2018 I25.10 Atherosclerotic heart disease [place] Franklin Almanza M.D. coronary artery with 09/17/2018 I21.4 Non-St elevation (Nstemi) myocardial Franklin Almanza M.D. infarction 09/17/2018 I50.9 Heart failure, unspecified Franklin Almanza M.D. 09/17/2018 I21.4 Non-St elevation (Nstemi) myocardial Geeta Sinha MD infarction 09/17/2018 I50.23 Acute on chronic systolic (congestive) Geeta Sinha MD heart failure 09/17/2018 E11.9 Type 2 diabetes mellitus without Geeta Sinha MD complications 09/16/2018 I50.9 Heart failure, unspecified Ramiro Wright, DO FACC 09/16/2018 I21.4 Non-St elevation (Nstemi) myocardial Ramiro Wright, DO FACC infarction 09/16/2018 E11.9 Type 2 diabetes mellitus without Ramiro Wright, DO FACC complications 09/16/2018 I73.9 Peripheral vascular disease, unspecified Ramiro Wright, DO FACC 09/16/2018 I21.4 Non-St elevation (Nstemi) myocardial Effie Montiel M.D. infarction 09/16/2018 I50.23 Acute on chronic systolic (congestive) Effie Montiel M.D. heart failure 09/16/2018 E11.9 Type 2 diabetes mellitus without Effie Montiel M.D. complications 09/15/2018 I50.9 Heart failure, unspecified Ramiro Wright, DO FACC 09/15/2018 I21.4 Non-St elevation (Nstemi) myocardial Ramiro Wright, DO FACC infarction 09/15/2018 E11.9 Type 2 diabetes mellitus without Ramiro Wright, DO FACC complications 09/15/2018 I73.9 Peripheral vascular disease, unspecified Ramiro Wright, DO FACC 09/15/2018 I21.4 Non-St elevation (Nstemi) myocardial Tawanna Guerra NP infarction 09/15/2018 E87.2 Acidosis Tawanna Guerra, LICENSE ISSUER 09/15/2018 E11.9 Type 2 diabetes mellitus without Tawanna Guerra NP complications 09/15/2018 N17.9 Acute kidney failure, unspecified Tawanna Guerra, LICENSE ISSUER 09/15/2018 I10 Essential (primary) hypertension Tawanna Guerra, LICENSE ISSUER 09/15/2018 E78.00 Pure hypercholesterolemia, unspecified Tawanna Guerra, LICENSE ISSUER 09/15/2018 I73.9 Peripheral vascular disease, unspecified Tawanna Guerra NP Plan of Treatment 10/06/2018 - Ramiro Wright DO FACCI50.22 Chronic systolic (congestive) heart failureFollow up:6 algkeyP74.2 Old myocardial lytkxkyazyG85.0 Nonrheumatic mitral (valve) fynvdinmvpyfqI10.10 Atherosclerotic heart disease of [place] coronary artery withI73.9 Peripheral vascular disease, adhpeyuqewqL93.69 Type 2 diabetes mellitus with other specified ocwrpfmjyhtzJ54.80 Dementia in other diseases classified elsewhere without behaD64.9 Anemia, unspecified Functional Status Description No Information Available Mental Status Description No Information Available Referrals Description No Information Available
--- OUTSIDE RECORDS SUMMARY | 2018-11-08 20:55 | XMS REPORT | Continuity of Care Document ---
:1935 External Reference #:[id number] Author Name Corina Garza MD, [facility], [facility] (transmitted by agent of provider Cynthia Navarrete) Address [address] [place] [id number] Care Team Providers Name Role Phone aDvid Abraham MD - Family Care Team Information Pad Hand [phone] Medicine Problems Description No Information Available Social [...] Result H/L Range Note Laboratory test 09/15/2018 [facility] Point of Care 279 mg/dL High 70-100 [address] [place] [address] [phone] Hat And Cap Opener: [id number] Procedures Date Code Description Status 10/06/2018 67814 EKG Tracing & Interpretation Completed 09/16/2018 96307 ECHO Transthorasic Realtime 2D W Doppler & Color Flow Hosp Completed Medical Devices Description No Information Available Encounters Type Date Location Provider Dx Diagnosis Office Visit 10/06/2018 [facility] Ramiro Wright, I50.22 Chronic systolic 10:20a Of 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 Director DO FACC (congestive) heart failure I25.2 Old myocardial infarction I34.0 Nonrheumatic mitral (valve) insufficiency I25.10 Athscl heart disease of [place] coronary artery w/o ang pctrs I73.9 Peripheral vascular disease, unspecified E11.69 Type 2 diabetes mellitus with other specified complication 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 D64.9 Anemia, unspecified Office Visit 09/20/2018 9:48a [facility] I21.4 Non-St elevation spencer Garcia MD (Nstemi) Hospitalists myocardial infarction I50.23 Acute on chronic systolic (congestive) heart failure E87.2 Acidosis E11.9 Type 2 diabetes mellitus without complications R31.9 Hematuria, unspecified N17.9 Acute kidney failure, unspecified I10 Essential (primary) hypertension E78.00 Pure hypercholesterolemia, unspecified I73.9 Peripheral vascular disease, unspecified Office Visit 09/19/2018 [facility] I50.23 Acute on chronic 9:48a spnecer Garcia MD systolic Hospitalists (congestive) heart failure E11.9 Type 2 diabetes mellitus without complications I21.4 Non-St elevation (Nstemi) myocardial infarction J96.01 Acute respiratory failure with hypoxia Office Visit 09/18/2018 [facility] I21.4 Non-St elevation 9:48a spencer Garcia MD (Nstemi) Hospitalists myocardial infarction I50.23 Acute on chronic systolic (congestive) heart failure E11.9 Type 2 diabetes mellitus without complications Office Visit 09/17/2018 4:22p [facility] Franklin Hobson I25.10 Athscl heart Of Claire Almanza M.D. disease of [place] coronary artery w/o ang pctrs I21.4 Non-St elevation (Nstemi) myocardial infarction I50.9 Heart failure, unspecified Office Visit 09/17/2018 [facility] I21.4 Non-St elevation 9:47a spencer Garcia MD (Nstemi) Hospitalists myocardial infarction I50.23 Acute on chronic systolic (congestive) heart failure E11.9 Type 2 diabetes mellitus without complications Office Visit 09/16/2018 2:17p [facility] Ramiro Sanderson I50.9 Heart failure, Of [facility] Kyle, DO unspecified FACC I21.4 Non-St elevation (Nstemi) myocardial infarction E11.9 Type 2 diabetes mellitus without complications I73.9 Peripheral vascular disease, unspecified Office Visit 09/16/2018 9:47a [facility] Effie Montiel I21.4 Non- St elevation spencer Garcia M.D. (Nstemi) Hospitalists myocardial infarction I50.23 Acute on chronic systolic (congestive) heart failure E11.9 Type 2 diabetes mellitus without complications Office Visit 09/15/2018 2:08p [facility] Ramiro Sanderson I50.9 Heart failure, Of [facility] Wright, DO unspecified FACC I21.4 Non-St elevation (Nstemi) myocardial infarction E11.9 Type 2 diabetes mellitus without complications I73.9 Peripheral vascular disease, unspecified Office Visit 09/15/2018 9:46a [facility] Tawanna I21.4 Non-St elevation Assspencer gutierrez NP (Nstemi) Hospitalists myocardial infarction E87.2 Acidosis E11.9 Type 2 diabetes mellitus without complications N17.9 Acute kidney failure, unspecified I10 Essential (primary) hypertension E78.00 Pure hypercholesterolemia, unspecified I73.9 Peripheral vascular disease, unspecified Assessments Date Code Description Provider 10/06/2018 I50.22 Chronic systolic (congestive) heart Ramiro Wright, DO [facility] failure 10/06/2018 I25.2 Old myocardial infarction Ramiro Wright, DO [facility] 10/06/2018 I34.0 Nonrheumatic mitral (valve) insufficiency Ramiro Wright, DO FAC 10/06/2018 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, DO [facility]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 coronary artery with 09/17/2018 [...] 09/16/2018 I50.23 Acute on chronic systolic (congestive) fEfie Montiel M.D. heart failure 09/16/2018 E11.9 Type [...] NP infarction 09/15/2018 E87.2 Acidosis Tawanna Guerra, [employer]UCK [employer]OOK 09/15/2018 E11.9 Type 2 diabetes mellitus without Tawanna Guerra NP complications 09/15/2018 N17.9 Acute kidney failure, unspecified Tawanna Guerra, [employer]UCK [employer]OOK 09/15/2018 I10 Essential (primary) hypertension Tawanna Guerra, CHUCK [employer]AG[employer]OOK 09/15/2018 E78.00 Pure hypercholesterolemia, unspecified Tawanna Guerra, CHUCK WAGON COOK 09/15/2018 I73.9 Peripheral vascular disease, unspecified Tawanna Guerra NP Plan of Treatment 10/06/2018 - Ramiro Wright DO FACCI50.22 Chronic systolic (congestive) heart failureFollow up:6 bkgcgaD49.2 Old myocardial gjseoqoofnC03.0 Nonrheumatic mitral (valve) qfyolqwbvtjqcI68.10 Atherosclerotic heart disease of [place] coronary artery withI73.9 Peripheral vascular disease, yoytqnxeiosI38.69 Type 2 diabetes mellitus with other specified vgfwjiwdprpzI10.80 Dementia in other diseases classified elsewhere without behaD64.9 Anemia, unspecified Functional Status Description No Information Available Mental Status Description No Information Available Referrals Description No Information Available
[2018-11-08 21:22] LABS: ABS Basophils 0.1 10^3/ul (0-0.2); ABS Eosinophils 0.1 10^3/ul (0-0.6); ABS Lymphocytes 1.2 10^3/ul (1.0-4.8); ABS Monocytes 0.5 10^3/ul (0-0.8); ABS Neutrophils 5.1 10^3/ul (1.5-7.7); Eosinophil % 1.6 %; Hematocrit 32 % (35-47); Hemoglobin 10.8 g/dL (12.0-16.0); Lymphocyte % 17.8 %; Mean Corpuscular HGB Conc 34 g/dL (31-36); Mean Corpuscular Hemoglobin 32 pg (27-31); Mean Corpuscular Volume 93 fL (80-97); Mean Platelet Volume 8.2 fL (7.4-10.4); Platelet Count 231 10^3/uL (150-450); Red Cell Distribution Width 14 % (10-15)
[2018-11-08 21:29] LABS: INR 0.9 (0.82-1.09)
[2018-11-08 21:41] LABS: ALT 36 U/L (7-52); AST 34 U/L (13-39); Albumin 3.9 g/dL (3.2-5.2); Albumin/Globulin Ratio 1.7 (1-3); Alkaline Phosphatase 97 U/L (34-104); Anion Gap 6 mmol/L (2-11); BUN/Creatinine Ratio 22.9 (8-20); Blood Urea Nitrogen 24 mg/dL (6-24); CO2 Carbon Dioxide 26 mmol/L (22-32); Calcium 9.1 mg/dL (8.6-10.3); Chloride 102 mmol/L (101-111); EGFR African American 60.3 (>60); EGFR Non-African American 49.8 (>60); Globulin 2.3 g/dL (2-4); Glucose 240 mg/dL (70-100); Potassium 4.6 mmol/L (3.5-5.0); Sodium 134 mmol/L (135-145); Total Protein 6.2 g/dL (6.4-8.9)
[2018-11-08 21:52] LABS: Troponin I 0.08 ng/mL (<0.04)
--- NOTE | 2018-11-08 21:55 | ED ---
Upper Extremity Pain - HPI Summary HPI Summary: This pt is an 83 Y/O F presenting to [facility] with a CC of L sided arm pain that is currently rated a 3/10 in severity. Her jwaruhdu-vf-eoa stated that she was sitting in her chair at home leaning to one side and began sweating at 1830 11/08. Her pjhnivap-el-uin stated that she had 98 % oxygen on room air and her blood pressure was at 120, which is high for her. THIS PT IS A LEVEL 5 CAVEAT DUE TO HER BASELINE MENTAL STATUS A RESULT OF DEMENTIA. She has a pertinent PMHx of CHF, CAD, hypercholesterolemia, HTN, and anemia. - History of Current Complaint Chief Complaint: EDChestPainROMI Stated Complaint: POSSIBLE HEART ATTACK PER DAUGHTER Time Seen by Provider: 11/08/18 21:39 Hx Obtained From: Family/Private Branch Exchange Service Advisor - [email or web address], Medical Records Hx From Patient Unobtainable Due To: Dementia - level 5 caveat Mechanism Of Injury: Unknown Onset/Duration: Started Hours Ago - 1829, Still Present, Resolved Timing: Constant Severity Initially: Moderate Severity Currently: Mild Pain Location: Arm - L - Allergies/Home Medications Allergies/Adverse Reactions: Allergies Allergy/AdvReac Type Severity Reaction Status Date / Time Sulfa (Sulfonamide Allergy Rash Verified 10/20/18 12:44 Antibiotics) PMH/Surg Hx/FS Hx/Imm Hx Previously Healthy: Yes Endocrine/Hematology History: Reports: Hx Diabetes, Hx Anemia Denies: Hx Anticoagulant Therapy, Hx Blood Disorders, Hx Blood Transfusions, Hx Bone Marrow Disease, Hx Systemic Lupus Erythematosus, Hx Sickle Cell Disease , Hx Thyroid Disease, Hx Unexplained Bleeding, Other Endocrine/Hematological Disorders Cardiovascular History: Reports: Hx Angina, Hx Angioplasty, Hx Congestive Heart Failure, Hx Coronary Artery Disease, Hx Hypercholesterolemia, Hx Hypertension, Hx Peripheral Vascular Disease, Hx Valvular Heart Disease Denies: Hx Aneurysm, Hx Auto Implanted Cardiovert Defib, Hx Cardiac Arrest, Hx Cardiomegaly, Hx Congenital Heart Disease, Hx Deep Vein Thrombosis, Hx Embolism, Hx Hypotension, Hx Pacemaker/ICD, Hx Rheumatic Fever, Hx Syncope, Other Cardiovascular Problems/Disorders Respiratory History: Denies: Hx Asthma, Hx Chronic Bronchitis, Hx Chronic Obstructive Pulmonary Disease (COPD), Hx Cystic Fibrosis, Hx Lung Cancer, Hx Pleural Effusion, Hx Pneumonia, Hx Pulmonary Edema, Hx Pulmonary Embolism, Hx Seasonal Allergies, Hx Sleep Apnea, Other Respiratory Problems/Disorders GI History: Denies: Hx Cirrhosis, Hx Crohn's Disease, Hx Diverticulosis, Hx Gall Bladder Disease, Hx Gastroesophageal Reflux Disease, Hx Gastrointestinal Bleed, Hx Hiatal Hernia, Hx Irritable Bowel, Hx Jaundice, Hx Obstructive Bowel, Hx Ileostomy, Hx Pyloric Stenosis, Hx Ulcer, Other GI Disorders History: Denies: Hx Acute Renal Failure, Hx Benign Prostatic Hyperplasia, Hx Chronic Renal Failure, Hx Dialysis, Hx Kidney Infection, Hx Kidney Stones, Hx Renal Disease, Other Problems/Disorders Musculoskeletal History: Reports: Hx Arthritis, Hx Osteoporosis Denies: Hx Back Problems, Hx Bursitis, Hx Congenital Bone Abnormalities, Hx Fibromyalgia, Hx Gout, Hx Orthopedic Injury, Hx Scoliosis, Hx Tendonitis, Other Musculoskeletal History Sensory History: Reports: Hx Contacts or Glasses Denies: Hx Cataracts, Hx Eye Injury, Hx Eye Prosthesis, Hx Glaucoma, Hx Legally Blind, Hx Macular Degeneration, Hx Vision Problem, Hx Deafness, Hx Hearing Aid, Hx Hearing Problem, Other Sensory Impairments Opthamlomology History: Reports: Hx Contacts or Glasses Denies: Hx Cataracts, Hx Eye Injury, Hx Eye Prosthesis, Hx Glaucoma, Hx Legally Blind, Hx Macular Degeneration, Hx Vision Problem, Other Sensory Impairments Neurological History: Reports: Hx Dementia Denies: Hx Developmental Delay, Hx Headaches, Hx Migraine, Hx Nerve Disease, Hx Seizures, Hx Spinal Cord Injury, Hx Transient Ischemic Attacks (TIA), Other Neuro Impairments/Disorders Psychiatric History: Reports: Hx Depression Denies: Hx Anxiety, Hx Attention Deficit Hyperactivity Disorder, Hx Eating Disorder, Hx Panic Disorder, Hx Post Traumatic Stress Disorder, Hx Inpatient Treatment, Hx Community Mental Health Tx, Hx Schizophrenia, Hx Bipolar Disorder , Hx Suicide Attempt, Hx of Violent Episodes Against Others, Hx Substance Abuse , Other Psychiatric Issues/Disorders - Cancer History Hx Chemotherapy: No Hx Radiation Therapy: No Hx Palliative Cancer Treatment: No - Surgical History Surgery Procedure, Year, and Place: 2014 VASCULAR PROCEDURE - NO IMPLANTS - OP REPORT SCANNED IN;. 2018 MULTIPLE VASCULAR LEG SURGERIES AT [facility] 2018 LEG STENTS PLACED. INFORMATION SCANNED INTO [place]. 4X COOK ZILVER DRUG ELUTING STENTS LEFT LEG (CONDITIONAL 8 - OVERPLAPPING). SUPERA PERIPHERAL STENTING SYSTEM LEFT LEG. (CONDITIONAL - PER DR. FARRELL: OKAY TO SCAN UNDER CONDITIONS. MUST BE DONE AT HOSPITAL. NEEDS TWO TIME SLOTS. WILL BE AN ATTEMPT HEATING MAY JUMP QUICKLY. LEGS CAN NOT BE TOUCHING. MATHIEU CAN NOT GO ABOVE 0.5 W/KG NORMAL MODE ONLY.) Hx Anesthesia Reactions: No Infectious Disease History: No Infectious Disease History: Denies: Hx Clostridium Difficile, Hx Hepatitis, Hx of Known/Suspected MRSA, Hx Shingles, Hx Tuberculosis, History Other Infectious Disease, Traveled Outside the [place] in Last 30 Days - Family History Known Family History: Positive: Hypertension - Social History Alcohol Use: Rare Hx Substance Use: No Substance Use Type: Reports: None Hx Tobacco Use: No Smoking Status (MU): Never Smoked Tobacco Have You Smoked in the Last Year: No Review of Systems - ROS Summary Review of Systems Summary: A FULL ROS IS UNOBTAINABLE DUE TO THE PT BEING A LEVEL 5 CAVEAT BECAUSE OF HER BASELINE MENTAL STATUS A RESULT OF HER DEMENTIA. Positive: Other - L sided arm pain All Other Systems Reviewed And Are Negative: No Physical Exam - Summary Physical Exam Summary: VITAL SIGNS: Reviewed. GENERAL: Patient is a well-developed and elderly FEMALE who is lying comfortable in the stretcher. Patient is not in any acute respiratory distress. HEAD AND FACE: No signs of trauma. No ecchymosis, hematomas or skull depressions. No sinus tenderness. EYES: PERRLA, EOMI x 2, No injected conjunctiva, no nystagmus. EARS: Hearing grossly intact. Ear canals and tympanic membranes are within normal limits. MOUTH: Oropharynx within normal limits. NECK: Supple, trachea is midline, no adenopathy, no JVD, no carotid bruit, no c- spine tenderness, neck with full ROM CHEST: Symmetric, no tenderness at palpation LUNGS: Clear to auscultation bilaterally. No wheezing or crackles. CVS: Regular rate and rhythm, S1 and S2 present, no murmurs or gallops appreciated. ABDOMEN: Soft, non-tender. No signs of distention. No rebound no guarding, and no masses palpated. Bowel sounds are normal. EXTREMITIES: FROM in all major joints, no edema, no cyanosis or clubbing. NEURO: Alert and oriented x 3. No acute neurological deficits. Speech is normal and follows commands. SKIN: Dry and warm Triage Information Reviewed: Yes Vital Signs On Initial Exam: Initial Vitals Temp Pulse Resp BP Pulse Ox 97.8 F 71 16 104/56 93 11/08/18 20:51 11/08/18 20:51 11/08/18 20:51 11/08/18 20:51 11/08/18 20:51 Vital Signs Reviewed: Yes Diagnostics - Vital Signs Vital Signs Temp Pulse Resp BP Pulse Ox 11/08/18 21:20 64 26 96/50 95 11/08/18 21:11 74 25 95 11/08/18 20:51 97.8 F 71 16 104/56 93 - Laboratory Lab Results: Lab Results 11/08/18 11/08/18 11/08/18 Range/Units 21:14 21:14 21:14 WBC 7.0 (3.5-10.8) 10^3/uL RBC 3.40 L (3.70-4.87) 10^6 /uL Hgb 10.8 L (12.0-16.0) g/dL Hct 32 L (35-47) % MCV 93 (80-97) fL MCH 32 H (27-31) pg MCHC 34 (31-36) g/dL RDW 14 (10-15) % Plt Count 231 (150-450) 10^3/uL MPV 8.2 (7.4-10.4) fL Neut % (Auto) 72.8 % Lymph % (Auto) 17.8 % Beadle % (Auto) 6.7 % Eos % (Auto) 1.6 % Baso % (Auto) 1.1 % Absolute Neuts (auto) 5.1 (1.5-7.7) 10^3/ul Absolute Lymphs (auto) 1.2 (1.0-4.8) 10^3/ul Absolute Monos (auto) 0.5 (0-0.8) 10^3/ul Absolute Eos (auto) 0.1 (0-0.6) 10^3/ul Absolute Basos (auto) 0.1 (0-0.2) 10^3/ul Absolute Nucleated RBC 0.0 10^3/ul Nucleated RBC % 0.0 INR (Anticoag Therapy) 0.90 (0.82-1.09) Sodium 134 L (135-145) mmol/L Potassium 4.6 (3.5-5.0) mmol/L Chloride 102 (101-111) mmol/L Carbon Dioxide 26 (22-32) mmol/L Anion Gap 6 (2-11) mmol/L BUN 24 (6-24) mg/dL Creatinine 1.05 H (0.51-0.95) mg/dL Est GFR ( Amer) 60.3 (>60) Est GFR (Non-Af Amer) 49.8 (>60) BUN/Creatinine Ratio 22.9 H (8-20) Glucose 240 H (70-100) mg/dL Calcium 9.1 (8.6-10.3) mg/dL Total Bilirubin 0.50 (0.2-1.0) mg/dL AST 34 (13-39) U/L ALT 36 (7-52) U/L Alkaline Phosphatase 97 (34-104) U/L Troponin I Pending Total Protein 6.2 L (6.4-8.9) g/dL Albumin 3.9 (3.2-5.2) g/dL Globulin 2.3 (2-4) g/dL Albumin/Globulin Ratio 1.7 (1-3) Result Diagrams: 11/08/18 21:14 11/08/18 21:14 Lab Statement: Any lab studies that have been ordered have been reviewed, and results considered in the medical decision making process. - Radiology CXR Radiology Interpretation Completed By: ED Physician Summary of Radiographic Findings: No acute processes. Pending offical review. - EKG 2144 Cardiac Rate: NL - 91 BPM EKG Rhythm: Sinus Rhythm Summary of EKG Findings: NSR at 91 BPM and Q waves in the inferior leads. Normal axis, No STEMI. Interpreted by Dr. Mancuso at 214411/08/18. 2049 Cardiac Rate: NL - 66 BPM EKG Rhythm: Sinus Rhythm Summary of EKG Findings: NSR at 66 BPM with nonspecific IVCD with LAD. Interpreted by Dr. Bella at 205211/08/18. Course/Dx - Course Course Of Treatment: This pt is an 83 Y/O F presenting to [facility] with a CC of L sided arm pain that is currently rated a 3/10 in severity. Her afthvyev-gr-pki stated that she was sitting in her chair at home leaning to one side and began sweating at 1830 11/08/18. THIS PT IS A LEVEL 5 CAVEAT DUE TO HER BASELINE MENTAL STATUS A RESULT OF DEMENTIA. She has a pertinent PMHx of CHF, CAD, hypercholesterolemia, HTN, and anemia. Her PE found that she is elderly but no other acute abnormalities. Her laboratory results have abnormal values in RBC 3.40, Hgb 10.8, Hct 32, MCH 32, Sodium 134, Creatinine 1.05, BUN/Creatinine Ratio 22.9, Glucose 240, Troponin .08, and Total [place] at 6.2. Her EKG taken at 2049 shows that she has a NSR at 66 BPM with nonspecific IVCD with LAD. Her CXR found no acute processes. Dr. Dickson was consulted at 0123 and agreed to admit the pt for further investigation with a Dx of acute coronary syndrome. - Diagnoses Provider Diagnoses: Acute coronary syndrome - Physician Notifications Discussed Care of Patient With: Marissa Dickson Time Discussed With Above Provider: 01:24 Instructed by Provider To: Admit As Inpatient Admit/Transition Orders Completed By ED Provider: Yes Discharge ED - Sign-Out/Discharge Documenting (check all that apply): Patient Departure - admitted Patient Received Moderate/Deep Sedation with Procedure: No - Discharge Plan Condition: Stable Disposition: ADMITTED TO [facility] Referrals: David Abraham MD [Primary Care Provider] - - Attestation Statements Document Initiated by Scribe: Yes Documenting Scribe: Reinaldo Padgett Provider For Whom Scribe is Documenting (Include Credential): Ada Mancuso MD Scribe Attestation: Reinaldo Pratt, scribed for Ada Mancuso MD on 11/09/18 at 0123. Status of Scribe Document: Ready
[2018-11-08 22:16] LABS: Activated Partial Thrombo Time 28.2 seconds (26.0-38.0)
[2018-11-09 00:42] LABS: Troponin I 0.11 ng/mL (<0.04)
[2018-11-09] MEDS ORDERED: Enoxaparin(*) 60 MG/0.6 ML SYR SUBCUT ONE (01:21)
[2018-11-09] MEDS ORDERED: Acetaminophen TAB* 325 MG PO PRN (03:22)
[2018-11-09 03:26] LABS: Troponin I 0.13 ng/mL (<0.04)
[2018-11-09 06:02] LABS: Troponin I 0.11 ng/mL (<0.04)
[2018-11-09 06:29] LABS: Troponin I 0.1 ng/mL (<0.04)
[2018-11-09] MEDS: Nitroglycerin 0.1 mg/Hr PATCH* (2.5 MG) TRANSDERM SCH (08:29)
[2018-11-09] MEDS: Furosemide TAB* 20 MG PO SCH (08:30)
[2018-11-09] MEDS: Atorvastatin* 80 MG TAB PO SCH (08:30)
[2018-11-09] MEDS: Aspirin EC TAB* 81 MG TAB.EC PO SCH (08:30)
[2018-11-09] MEDS: Folic Acid TAB* 1 MG PO SCH (08:30)
[2018-11-09] MEDS: Clopidogrel TAB* 75 MG PO SCH (08:30)
[2018-11-09] MEDS: Sertraline* 25 MG TAB PO SCH (08:31)
[2018-11-09] MEDS: Lisinopril TAB* 5 MG PO SCH (08:31)
[2018-11-09] MEDS ORDERED: SITAGLIPTIN PO SCH (09:00)
[2018-11-09] MEDS ORDERED: METFORMIN PO SCH (09:00)
[2018-11-09] MEDS ORDERED: Carvedilol TAB* 3.125 MG PO SCH (09:00)
[2018-11-09] MEDS ORDERED: Dextrose 50% VIAL 50 ml IV PUSH PRN (09:09)
[2018-11-09 09:32] LABS: Troponin I 0.12 ng/mL (<0.04)
--- NOTE | 2018-11-09 10:12 | CONSULT ---
Subjective Date of Service: 11/09/18 - CC: LA pain, diaphoresis, elevated troponins. Interval History: The patient states she feels fine now. She ambulates to the BR w/o trouble here. Pt states her daughter brought her in, she can't relate presenting c/o. The patient's daughter states her mother was sitting, color didn't look good. On questioning her mother said she felt sweaty and later c/o L. arm aching/pain. The patient and her daughter deny associated SOB. The recent medication changes included lowering her lasix on September admission and adding NTG patch (days). No missed medications. Family History: Unchanged from Admission - Mother angina age 80 yo. Social History: Unchanged from Admission - Distanst smoking age 15, no EtOH or recreational drug abuse, retired [email or web address]. Past Medical History: Unchanged from Admission - CAD, deemed high interventional or sx risk in the past, PVD, stents to both LE, DM II, HTN, Lipids, Dementia, MR, , TR, pulmonary HTN. Anemia since September 2018. Medications Active Medications: Acetaminophen (Tylenol Tab*) 650 mg PO Q6H PRN PRN Reason: MILD PAIN or TEMP > 100.4 Aspirin (Aspirin Ec Tab*) 81 mg PO DAILY [facility] Last Admin: 11/09/18 08:30 Dose: 81 mg Atorvastatin Calcium (Lipitor*) 80 mg PO DAILY [facility] Last Admin: 11/09/18 08:30 Dose: 80 mg Carvedilol (Coreg Tab*) 3.125 mg PO BID [facility] Last Admin: 11/09/18 08:32 Dose: 3.125 mg Clopidogrel Bisulfate (Plavix Tab*) 75 mg PO DAILY [facility] Last Admin: 11/09/18 08:30 Dose: 75 mg Dextrose (Dextrose 50% Vial 50 Ml*) 25 ml IV PUSH .FOR FS < 60 - SS PRN PRN Reason: FS < 60 Folic Acid (Folvite Tab*) 1 mg PO DAILY [facility] Last Admin: 11/09/18 08:30 Dose: 1 mg Furosemide (Lasix Tab*) 20 mg PO DAILY [facility] Last Admin: 11/09/18 08:30 Dose: 20 mg Insulin Human Lispro (Humalog*) 0 units [facility]BC[facility]; Protocol Lisinopril (Prinivil Tab*) 2.5 mg PO DAILY [facility] Last Admin: 11/09/18 08:31 Dose: 2.5 mg Nitroglycerin (Nitroglycerin 2.5 Mg Patch*) 1 patch TRANSDERM DAILY [facility] Last Admin: 11/09/18 08:29 Dose: 1 patch Pharmacy Profile Note (Nitro Patch/Oint Remove*) 1 note PATCH OFF 2100 [facility] Sertraline HCl (Zoloft*) 25 mg PO QAM [facility] Last Admin: 11/09/18 08:31 Dose: 25 mg Home Medications: Aspirin EC TAB* [Ecotrin EC Low Dose 81 MG*] 81 mg PO DAILY 10/28/17 [History Confirmed 11/08/18] Atorvastatin* [Lipitor 80 MG*] 80 mg PO DAILY 10/28/17 [History Confirmed ] Carvedilol TAB* [Coreg TAB*] 3.125 mg PO BID 10/28/17 [History Confirmed ] Folic Acid TAB* [Folvite TAB*] 1 mg PO DAILY 10/28/17 [History Confirmed ] Lisinopril TAB* [Prinivil TAB 5 MG*] 2.5 mg PO DAILY 10/28/17 [History Confirmed 11/08/18] Raloxifene (NF) [Evista(NF)] 60 mg PO DAILY 10/28/17 [History Confirmed 11/08/18 ] Sertraline* [Zoloft*] 25 mg PO QAM 10/28/17 [History Confirmed 11/08/18] Sitaglip/Metform XR 50/500(NR) [Janumet Xr 50/500 (NF)] 1 tab PO BID 10/28/17 [ History Confirmed 11/08/18] glipiZIDE [Glipizide ER] 10 mg PO DAILY 10/28/17 [History Confirmed 11/08/18] Clopidogrel TAB* [Plavix TAB*] 75 mg PO DAILY #30 tab 09/20/18 [Rx Confirmed ] Spironolactone TAB* [Aldactone TAB 25 MG*] 25 mg PO DAILY #30 tab 09/20/18 [Rx Confirmed 11/08/18] Acetaminophen TAB* [Tylenol TAB*] 650 mg PO Q6H PRN tab 10/21/18 [Rx Confirmed 11/08/18] Furosemide TAB* [Lasix TAB*] 20 mg PO DAILY #30 tab 10/21/18 [Rx Confirmed 11/08] Nitroglycerin 0.1 mg/Hr PATCH* [Nitroglycerin 2.5 MG PATCH*] 1 patch TRANSDERM DAILY #30 patch 10/21/18 [Rx Confirmed 11/08/18] Review of Systems - Measurements Intake and Output: Intake and Output Last 24 Hours 11/07/18 11/08/18 11/09/18 11/10/18 04:59 04:59 04:59 04:59 Intake Total 120 Balance 120 Weight 124 lb 12.8 oz Intake: Oral 120 Other: Estimated Void Medium # Voids 1 - Review of Systems General Comments: Denies fever, chills, coughing, SOB, dysuria, change in appetite. Denies orthopnea or PND. Review of Systems Statement: All other review of systems negative, unless stated above. Objective Vital Signs: Temp Pulse Resp BP Pulse Ox 97.3 F 54 20 103/51 100 11/09/18 07:53 11/09/18 07:53 11/09/18 07:53 11/09/18 07:53 11/09/18 07:53 Oxygen Devices in Use Now: None Appearance: Petite elderly female, NAD, lying in bed 30 degrees. Eyes: No Scleral Icterus, PERRLA Ears/Nose/Mouth/Throat: Clear Oropharnyx, Mucous Membranes Moist Neck: NL Appearance and Movements; NL JVP, Trachea Midline, No Thyroid Enlargement, Masses Respiratory: Symmetrical Chest Expansion and Respiratory Effort - Mildly diminished R base, no wheezes, rales, rhonchi. Cardiovascular: RRR - Trace murmur LLSB. Abdominal: NL Sounds; No Tenderness; No Distention, No Hepatosplenomegaly Lymphatic: No Cervical Adenopathy Extremities: No Edema, No Clubbing, Cyanosis Skin: No Rash or Ulcers Neurological: - - vague, oriented to person and place. Lines/Tubes/Other Access: Clean, Dry and Intact Peripheral IV Laboratory Results: 11/08/18 21:14 11/08/18 21:14 INR (Anticoag Therapy) 0.90 (0.82-1.09) 11/08/18 21:14 APTT 28.2 seconds (26.0-38.0) 11/08/18 21:14 Total Bilirubin 0.50 mg/dL (0.2-1.0) 11/08/18 21:14 AST 34 U/L (13-39) 11/08/18 21:14 ALT 36 U/L (7-52) 11/08/18 21:14 Alkaline Phosphatase 97 U/L (34-104) 11/08/18 21:14 Total Protein 6.2 g/dL (6.4-8.9) L 11/08/18 21:14 Albumin 3.9 g/dL (3.2-5.2) 11/08/18 21:14 Globulin 2.3 g/dL (2-4) 11/08/18 21:14 Albumin/Globulin Ratio 1.7 (1-3) 11/08/18 21:14 11/08/18 11/09/18 11/09/18 21:14 00:09 02:47 Troponin I 0.08 H* 0.11 H* 0.13 H* 11/09/18 11/09/18 11/09/18 05:08 05:46 08:07 Troponin I 0.11 H* 0.10 H* 0.12 H* Diagnostic Imaging: *[facility]* Transthoracic Echocardiogram 10/21/18 Patient: Mercedes Cornejo *Reading Physician: * Jayson Lucas MD Indications: Congestive Heart Failure. Conclusions Summary: - Study data: Comparison is made to the study of September 2018. The left ventricle function is similar perhaps slightly better. The is similar but graded as moderate this time. - Left ventricle: Systolic function is moderately reduced. The estimated ejection fraction is 30-35%. - Left atrium: The atrium is moderately to severely dilated. - Mitral valve: There is moderate to severe regurgitation, with multiple jets, directed eccentrically, toward the septum, toward the free wall, and along the left atrial wall. - Aortic valve: The findings are consistent with moderate stenosis. The peak systolic velocity is 1.78 m/sec. The mean systolic gradient is 8.0 mm Hg. The peak systolic gradient is 13.0 mm Hg. The LVOT to aortic valve VTI ratio is 0.42. - Moderate tricuspid insufficiency - PA pressure 55 mmHg. CXR 11/08/18: No infiltrates. EKG Data: NSR, NS IVD, no significant/acute ST changes. Assessment/Plan 83 yo with CAD, PVD, DM, HTN, Chol as well as , MR, TR and pulmonay HTN admitted with anginal symptoms at rest and small bump in troponins. Anemia is new Starting September 2018. ANGINA/ISCHEMIA and medications: On Coreg. On NTG patch Low BP limits additional managment. CM+ valvular heart disease are factors as well with medications. Ischemia appears to be the patients most acute problem, not CHF. Recommend: -STOP COREG, REPLACE with Toprol xl 25 mg for ischemia/CM and higher BP. -ADD amlodipine 2.5 mg for ischemia/vasodilation. -Consider adding Ranaxa as an outpatient. -Look into anemia-on Plavix. HCT > 40 September 15, 2018. Anemia can contribute to demand ischemia/large vessel CAD.
--- NOTE | 2018-11-09 10:26 | HP ---
HISTORY AND PHYSICAL: DATE OF ADMISSION: 11/09/18 PRIMARY CARE PROVIDER: David Abraham MD. OUTPATIENT SYSTEMS SUPPORT OFFICER: Ramiro Wright DO. ACTIVITIES OFFICER: Emilee Brower, the patient's ymxfxtem-nb-sef. CODE STATUS: DNR. CHIEF COMPLAINT: Acute shortness of breath. REASON FOR ADMISSION: Elevated troponin. SOURCE OF INFORMATION: HPI is obtained from review of chart and interview with the patient. She is a poor historian secondary to her underlying cognitive impairment. HISTORY OF PRESENT ILLNESS: An 83-year-old female with past medical history of cognitive impairment, heart failure with reduced ejection fraction of 30% to 35 % with last echo on 10/20/18, hypertension, hyperlipidemia, CAD, PAD status post stenting peripherally, qhd-fsykwhz-arzyaojrt diabetes well controlled, hyperlipidemia, with 2 recent admissions for cardiac complaints in the last 2 months, the first in September with a presumed NSTEMI, treated medically without intervention or cath at that time and optimized with dual-antiplatelet therapy and enhanced secondary prevention in the setting of heart failure, and the second admission recently in October with again presumed elevated troponin from possible NSTEMI versus underlying tachyarrhythmia not captured during her 24- hour stay from 10/20/18 to 10/21/18. Medication changes on last hospitalization included the addition of low-dose nitro patch and increasing the patient's diuretic. She returned to home where she lives with her daughter- in-law and jkkdhruz-vy-mxl reports that at acutely 6:30 p.m. this evening, the patient leaned over in chair, became acutely dyspneic for several minutes with sweating, diaphoretic, and complained of nausea and thus she decided to present to the emergency room. She was otherwise in her usual state of health, although they declined subacutely in the last 3 months with a decrease in the patient's functional status. Of note, the patient on interview herself is a poor historian oriented to herself only and unable to provide details to the event. Her cqioubpt-hv-kib gave report to the emergency room physician, although she is not present during my history. Adequate review of systems is not able to be obtained secondary to the patient's status. Nonetheless, the patient is without complaints at the time of my interview and has had no chest pain, shortness of breath, or dyspnea on exertion while here in the ER. EMERGENCY ROOM COURSE: Blood pressure is 104/56, heart rate is 71 on admission , respiratory rate is 28, satting 96% on room air. A chest x-ray was done, which showed cardiomegaly but no other acute process. An EKG was done, which showed normal sinus rhythm with nonspecific intraventricular conduction delay, which was similar to prior EKGs. Troponin was elevated at 0.08 and subsequent troponin was elevated at 0.11. Because of this elevation in troponin, she was therapeutically anticoagulated with Lovenox, and hospitalist team was asked to admit for troponinemia. PAST MEDICAL HISTORY: Cognitive impairment/dementia, heart failure with reduced ejection fraction 30% to 35% with last echocardiogram on 10/20/18 showing also aortic stenosis, mfju-ij-oxghhrdd at that time; hypertension; hyperlipidemia; CAD with no known interventions; PAD, status post peripheral stenting; non-insulin- dependent diabetes, well controlled with A1c less than 8. PAST SURGICAL HISTORY: Peripheral stenting. MEDICATIONS: 1. Glipizide 10 mg p.o. daily. 2. Raloxifene 60 mg p.o. daily. 3. Spironolactone 25 mg p.o. daily. 4. Acetaminophen 650 mg p.o. q.6 hours p.r.n. 5. Aspirin 81 mg p.o. daily. 6. Atorvastatin 80 mg p.o. daily. 7. Carvedilol 3.125 mg p.o. b.i.d. 8. Clopidogrel 75 mg p.o. daily. 9. Folic acid 1 mg p.o. daily. 10. Furosemide 20 mg p.o. daily. 11. Lisinopril 2.5 mg p.o. daily. 12. Nitroglycerin patch 2.5 mg apply once daily. 13. Sertraline 25 mg p.o. q.a.m. 14. Sitagliptin/metformin 50/500 one tab p.o. b.i.d. ALLERGIES: SULFA medications. 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 She currently lives with her lrbuxuqh-dc-kbn and son. She has a 5- pack-year tobacco history, quit greater than 20 years ago. She is a very scant social drinker, 1 to 2 drinks per year. Lifetime non-illicit user. At baseline , she is independent in her ADLs, although it seems she needs assistance in all IADLs. She reports that she walks unassisted at baseline. REVIEW OF SYSTEMS: Unable to be obtained secondary to cognitive impairment of the patient. PHYSICAL EXAMINATION GENERAL: This is a very pleasant well-appearing woman, in no acute distress, forgetful and oriented to herself at baseline. VITAL SIGNS: At the time of physical exam, blood pressure is 97/44, heart rate is 59, respiratory rate is 20, oxygen saturation is 97% on room air. HEENT: Pupils are equal and reactive. Extraocular muscles are intact. Sclerae are anicteric. Oropharynx is clear. Moist mucous membranes. NECK: Supple with no supraclavicular or cervical lymphadenopathy. RESPIRATORY: Lungs are clear to auscultation bilaterally. CARDIAC: She has regular rate and rhythm. She has 2/6 systolic ejection murmur. ABDOMEN: Belly is soft, nontender, and nondistended with normoactive bowel sounds. EXTREMITIES: Without edema. Warm and well-perfused. 2+ pulses bilaterally. NEUROLOGIC: Cranial nerves II through XII are intact. No focal neurologic deficits. She is A and O x1, and pleasant and cooperative with the exam. SKIN: Without rashes or lesions. DIAGNOSTIC STUDIES/LAB DATA: White blood cell count 7, hemoglobin 10.8, hematocrit 32, platelets 231. Sodium 134, potassium 4.6, chloride 102, carbon dioxide 26, anion gap 6, BUN 24, creatinine 1.05, glucose 240. Troponin 0.08. AST 34, ALT 36, alk phos 97. Chest x-ray shows cardiomegaly with no acute cardiopulmonary process. An EKG shows normal sinus rhythm with nonspecific intraventricular conduction delay but no signs of acute ischemia. Imaging and labs reviewed by myself. ASSESSMENT AND PLAN: This is an 83-year-old female with past medical history of cognitive impairment, heart failure with reduced ejection fraction of 30% to 35% with no catheterization on file but last echo from 10/20/18 also showing mild valvular disease, hypertension, hyperlipidemia, coronary artery disease with no prior interventions noted, peripheral artery disease status post peripheral stenting, eor-pabolnq-jgbayolpr diabetes, and hyperlipidemia with admission in September 2018 for egy-ET-ayqexvpqi myocardial infarction and the second admission in October for tef-NO-ekhvldueg myocardial infarction versus possible tachyarrhythmia. She is presenting tonight with episodic shortness of breath, nausea that has since resolved and was found to have elevated troponin. This presentation is very similar with her 10/20/18 presentation and differential includes underlying acute coronary syndrome. Of note, in the past , the patient and her family have declined catheterization, although I think it is worth discussing pros and cons if there is truly underlying acute coronary syndrome driving these presentations, otherwise exploring tachyarrhythmias considering this episodic shortness of breath accompanied with nausea that resolved quickly that is not captured, also noncardiac causes of shortness of breath and diaphoresis including hypoglycemia although the patient is hyperglycemic, so this is less likely, could also consider pulmonary embolism, though no persistent tachycardia, so this makes this much less likely. Again, I think consultation with Cardiology and discussion of pros and cons of further advanced cardiologic diagnostics may be warranted given her third presentation in 2 months for similar symptoms. Alternatively, goals of care and discussion with the patient and her family about expectant management could be helpful in this case. She will be admitted to cardiac unit for management of the following : 1. Episodic shortness of breath with diaphoresis. Differential as above. Consult Cardiology in the morning, who can look at her data from the last 2 months. Monitor on telemetry. Trend troponins. 2. Heart failure with reduced ejection fraction, last echocardiogram on , already on secondary prevention and volume management with furosemide, which is continued. 3. Cau-spsqhhf-pkmcswhpg diabetes. Continue home medications. Last A1c was in goal. Start point of care glucose monitoring a.c. and h.s. to rule out hypoglycemic events. Continue home medications for now. We will hold on sliding scale lispro until demonstrated need. 4. Cognitive impairment at baseline. We need to involve sjvdantx-qm-mtw with cares. The patient at baseline oriented to herself. Home sertraline continued. 5. Hypertension. Her baseline systolic blood pressure is actually in the 90s, and she is on medical management secondary to her . 6. Coronary artery disease. No known interventions that I can discern from limited review of her medical chart. On aspirin, Plavix, nitroglycerin patch, statin, and beta-alicia. 7. Peripheral artery disease. Stent in the past. Continue already optimized and secondary prevention. 8. Osteoporosis. Hold the patient's home medications. 9. Anemia. The patient has a stable normocytic anemia that is unchanged from prior hospitalizations and most likely associated with anemia of chronic disease. Continue to monitor. 10. Hyperlipidemia. Continue statin. 11. DVT prophylaxis: The patient received therapeutic anticoagulation with Lovenox treatment dose in the ER. We will need to make decision on DVT prophylaxis 11/09/18 in the afternoon to determine if further therapeutic anticoagulation in the setting of non-ST elevation myocardial infarction is warranted or can move to prophylaxis if she is high risk based on need alone. 12. Code status is DNR. Reviewed MOLST form at bedside. 13. Disposition: . 14. FEN: The patient is stable for consistent carbohydrate diet, can be made n.p.o. if interventions are planned, although significant discussions with family will need to be held given their prior declining of intervention in the past. TIME SPENT: Forty five minutes was spent in the planning of this admission, over half of that spent directly at the bedside of the patient providing direct patient care. Plan of care was discussed with the patient who agrees. The nkxjutwd-lp-ruy should be contacted in the morning with further update to plan of care. [id number]/[facility] #: [id number] JOSÉ ANTONIO
[2018-11-09] MEDS: Insulin LISPRO* 1 UNITS UNIT SUBCUT SCH ×2 (12:41→17:26)
--- NOTE | 2018-11-09 15:03 | PN ---
Subjective Date of Service: 11/09/18 Interval History: patient seen, denies any chest or arm pain during my assessment. Appreciate Cardiology input. no acute events. medications adjustment implemented as recommended by cardiology Past Medical History: Unchanged from Admission Objective Active Medications: Acetaminophen (Tylenol Tab*) 650 mg PO Q6H PRN PRN Reason: MILD PAIN or TEMP > 100.4 Amlodipine Besylate (Norvasc Tab*) 2.5 mg PO 2000 [facility] Aspirin (Aspirin Ec Tab*) 81 mg PO DAILY [facility] Last Admin: 11/09/18 08:30 Dose: 81 mg Atorvastatin Calcium (Lipitor*) 80 mg PO DAILY [facility] Last Admin: 11/09/18 08:30 Dose: 80 mg Clopidogrel Bisulfate (Plavix Tab*) 75 mg PO DAILY [facility] Last Admin: 11/09/18 08:30 Dose: 75 mg Dextrose (Dextrose 50% Vial 50 Ml*) 25 ml IV PUSH .FOR FS < 60 - SS PRN PRN Reason: FS < 60 Folic Acid (Folvite Tab*) 1 mg PO DAILY [facility] Last Admin: 11/09/18 08:30 Dose: 1 mg Furosemide (Lasix Tab*) 20 mg PO DAILY [facility] Last Admin: 11/09/18 08:30 Dose: 20 mg Insulin Human Lispro (Humalog*) 0 units [facility]BC[facility]; Protocol Last Admin: 11/09/18 12:41 Dose: 6 units Lisinopril (Prinivil Tab*) 2.5 mg PO DAILY [facility] Last Admin: 11/09/18 08:31 Dose: 2.5 mg Metoprolol Succinate (Toprol Xl Tab*) 25 mg PO DAILY [facility] Nitroglycerin (Nitroglycerin 2.5 Mg Patch*) 1 patch TRANSDERM DAILY [facility] Last Admin: 11/09/18 08:29 Dose: 1 patch Pharmacy Profile Note (Nitro Patch/Oint Remove*) 1 note PATCH OFF 2100 [facility] Sertraline HCl (Zoloft*) 25 mg PO QAM [facility] Last Admin: 11/09/18 08:31 Dose: 25 mg Vital Signs - 8 hr 11/09/18 11/09/18 11/09/18 07:53 08:00 12:46 Temperature 97.3 F 97.1 F Pulse Rate 54 80 Respiratory 20 18 20 Rate Blood Pressure 103/51 121/70 (mmHg) O2 Sat by Pulse 100 98 Oximetry Oxygen Devices in Use Now: None Appearance: awake, alert. no distress Eyes: No Scleral Icterus Ears/Nose/Mouth/Throat: NL Teeth, Lips, Gums, Mucous Membranes Moist Neck: NL Appearance and Movements; NL JVP, Trachea Midline Respiratory: Symmetrical Chest Expansion and Respiratory Effort, Clear to Auscultation Cardiovascular: NL Sounds; No Murmurs; No JVD, No Edema Abdominal: NL Sounds; No Tenderness; No Distention Extremities: No Edema Skin: No Rash or Ulcers Result Diagrams: 11/08/18 21:14 11/08/18 21:14 Additional Lab and Data: Lab Results 11/08/18 11/08/18 11/08/18 Range/Units 21:14 21:14 21:14 WBC 7.0 (3.5-10.8) 10^3/uL RBC 3.40 L (3.70-4.87) 10^6 /uL Hgb 10.8 L (12.0-16.0) g/dL Hct 32 L (35-47) % MCV 93 (80-97) fL MCH 32 H (27-31) pg MCHC 34 (31-36) g/dL RDW 14 (10-15) % Plt Count 231 (150-450) 10^3/uL MPV 8.2 (7.4-10.4) fL Neut % (Auto) 72.8 % Lymph % (Auto) 17.8 % Schuyler % (Auto) 6.7 % Eos % (Auto) 1.6 % Baso % (Auto) 1.1 % Absolute Neuts (auto) 5.1 (1.5-7.7) 10^3/ul Absolute Lymphs (auto) 1.2 (1.0-4.8) 10^3/ul Absolute Monos (auto) 0.5 (0-0.8) 10^3/ul Absolute Eos (auto) 0.1 (0-0.6) 10^3/ul Absolute Basos (auto) 0.1 (0-0.2) 10^3/ul Absolute Nucleated RBC 0.0 10^3/ul Nucleated RBC % 0.0 INR (Anticoag Therapy) 0.90 (0.82-1.09) Sodium 134 L (135-145) mmol/L Potassium 4.6 (3.5-5.0) mmol/L Chloride 102 (101-111) mmol/L Carbon Dioxide 26 (22-32) mmol/L Anion Gap 6 (2-11) mmol/L BUN 24 (6-24) mg/dL Creatinine 1.05 H (0.51-0.95) mg/dL Est GFR ( Amer) 60.3 (>60) Est GFR (Non-Af Amer) 49.8 (>60) BUN/Creatinine Ratio 22.9 H (8-20) Glucose 240 H (70-100) mg/dL Calcium 9.1 (8.6-10.3) mg/dL Total Bilirubin 0.50 (0.2-1.0) mg/dL AST 34 (13-39) U/L ALT 36 (7-52) U/L Alkaline Phosphatase 97 (34-104) U/L Troponin I Pending Total Protein 6.2 L (6.4-8.9) g/dL Albumin 3.9 (3.2-5.2) g/dL Globulin 2.3 (2-4) g/dL Albumin/Globulin Ratio 1.7 (1-3) Assess/Plan/Problems-Billing Assessment: 83 y/o female admitted for recurrent chest pain with non - STEMI. Cardiology input appreciated. - Patient Problems (1) Chronic systolic (congestive) heart failure Current Visit: Yes Status: Acute Code(s): I50.22 - CHRONIC SYSTOLIC ( CONGESTIVE) HEART FAILURE SNOMED Code(s): 339305454 Comment: - Continue lasix 20 mg daily (2) Severe mitral regurgitation Current Visit: Yes Status: Acute Code(s): I34.0 - NONRHEUMATIC MITRAL (VALVE ) INSUFFICIENCY SNOMED Code(s): 78643775 Comment: - I/O, lasix - not candidate for surgical interventions (3) Aortic stenosis, moderate Current Visit: Yes Status: Acute Code(s): I35.0 - NONRHEUMATIC AORTIC (VALVE ) STENOSIS SNOMED Code(s): 75124684 Comment: - I/O, lasix - not candidate for surgical interventions (4) DM2 (diabetes mellitus, type 2) Current Visit: No Status: Acute Comment: - holding Janumet - Continue sliding scale insulin (5) NSTEMI (non-ST elevated myocardial infarction) Current Visit: No Status: Acute Code(s): I21.4 - NON-ST ELEVATION (NSTEMI) MYOCARDIAL INFARCTION SNOMED Code(s): 82192776 Comment: - no active CP, - appreicate cardiology input. Family previously did not want any cardiac inteventions medical therapy alone. - continue ASA/Plavix/Lipitor. will change coreg to toprol XL as recommended by cardiology and will add amlodipine 2.5 gm daily. I agree with ranexa regimen when deemed appropirate as outpatient - Cardiology following. Pt was a poor candidate for CABG and was noted to have severe, diffuse CAD(see cath report above). Family agreed with medical management (6) DVT prophylaxis Current Visit: No Status: Acute Code(s): Z29.9 - ENCOUNTER FOR PROPHYLACTIC MEASURES, UNSPECIFIED SNOMED Code(s): 252691624 Comment: - lovenox 40 mg SQ daily
[2018-11-09] MEDS: Metoprolol Succinate XL TAB* 25 MG PO SCH (15:55)
[2018-11-09] MEDS: Nitro Patch/OINT Remove PATCH OFF SCH ×2 (16:00→21:07)
[2018-11-09] MEDS ORDERED: Enoxaparin(*) 30 MG/0.3 ML SYR SUBCUT SCH (16:00)
[2018-11-09 16:10] LABS: Troponin I 0.09 ng/mL (<0.04)
[2018-11-09] MEDS ORDERED: amLODIPine TAB* 5 MG PO SCH (20:00)
[2018-11-10 06:38] LABS: ABS Eosinophils 0.1 10^3/ul (0-0.6); ABS Lymphocytes 1.5 10^3/ul (1.0-4.8); ABS Monocytes 0.5 10^3/ul (0-0.8); ABS Neutrophils 3.1 10^3/ul (1.5-7.7); Eosinophil % 1.3 %; Hematocrit 30 % (35-47); Hemoglobin 10.5 g/dL (12.0-16.0); Lymphocyte % 28.9 %; Mean Corpuscular HGB Conc 35 g/dL (31-36); Mean Corpuscular Hemoglobin 33 pg (27-31); Mean Corpuscular Volume 93 fL (80-97); Mean Platelet Volume 8.6 fL (7.4-10.4); Platelet Count 212 10^3/uL (150-450); Red Blood Count 3.23 10^6 /uL (3.70-4.87); Red Cell Distribution Width 14 % (10-15); White Blood Count 5.2 10^3/uL (3.5-10.8)
[2018-11-10 06:58] LABS: BUN/Creatinine Ratio 21.9 (8-20); Calcium 9.1 mg/dL (8.6-10.3); EGFR African American 66.8 (>60); EGFR Non-African American 55.2 (>60); Magnesium 1.6 mg/dL (1.9-2.7); Phosphorus 3.1 mg/dL (2.5-5.0); Potassium 4.2 mmol/L (3.5-5.0)
[2018-11-10 07:11] LABS: TSH (Thyroid Stimulating Horm) 2.91 mcIU/mL (0.34-5.60)
[2018-11-10] MEDS: Insulin LISPRO* 1 UNITS UNIT SUBCUT SCH ×2 (08:59→14:21)
[2018-11-10] MEDS: Metoprolol Succinate XL TAB* 25 MG PO SCH (09:00)
[2018-11-10] MEDS: Atorvastatin* 80 MG TAB PO SCH (09:00)
[2018-11-10] MEDS: Folic Acid TAB* 1 MG PO SCH (09:00)
[2018-11-10] MEDS: Aspirin EC TAB* 81 MG TAB.EC PO SCH (09:00)
[2018-11-10] MEDS: Furosemide TAB* 20 MG PO SCH (09:00)
[2018-11-10] MEDS: Lisinopril TAB* 5 MG PO SCH (09:01)
[2018-11-10] MEDS: Sertraline* 25 MG TAB PO SCH (09:01)
[2018-11-10] MEDS: Clopidogrel TAB* 75 MG PO SCH (09:01)
[2018-11-10] MEDS: Nitroglycerin 0.1 mg/Hr PATCH* (2.5 MG) TRANSDERM SCH (09:02)
[2018-11-10 12:09] VITALS: BP 110/48
--- NOTE | 2018-11-10 19:01 | DS ---
CC: Dr. Regalado; Dr. Wright; Dr. Abraham DISCHARGE SUMMARY: DATE OF ADMISSION: 11/09/18 DATE OF DISCHARGE: 11/10/18 PRIMARY CARE PROVIDER: Dr. Abraham. FINAL DISCHARGE DIAGNOSES: 1. Ydp-KO-suxfcacss myocardial infarction. 2. Chronic systolic heart failure. 3. Severe mitral regurgitation. 4. Aortic stenosis, moderate. 5. Diabetes mellitus. 6. Coronary artery disease. 7. Hyperlipidemia. HOSPITAL COURSE: The patient presented to [facility] on 11/09/18 after she had some diffi culty breathing at home witnessed by her family, daughter, while sitting in the chair. Around 6:30 i n the evening, she started leaning over in the chair, became very acutely dyspneic for several minute s associated with diaphoresis, nausea and they decided to bring her to the emergency room. The patie nt was recently hospitalized. She had positive cardiac event, at which time the patient and the fami ly elected not to pursue any intervention. They declined cardiac catheterization or referral for cor onary artery bypass. They did stay in the hospital. She was admitted to the tele floor and Cardiolo gy was consulted and she was seen by Dr. Regalado. Her labs revealed positive troponin with troponin level of 0.08 on admission. It peaked up to 0.13 and trended down to 0.09. She has been chest pain- free since her admission. Cardiology did see the patient and I appreciate Dr. Regalado's input, who r ecommended to initiate amlodipine 2.5 mg daily for antispasm, discontinue the carvedilol and place he r on the Toprol 25 mg daily and recommended to consider Ranexa as an outpatient. The patient remaine d stable in condition today. I had a meeting with the family, her son and daughter, reiterated her c ondition, her prognosis and the severity of her coronary artery disease. Again, they were aga inst any intervention. They were happy with the current treatment and I did offer them palliative ca re consult which being referred as aim via visiting nurse service and this referral has been requeste d and presented to the visiting nurse service and followup should be arranged. Therefore, she was see n and evaluated today and she deemed stable for discharge. PHYSICAL EXAMINATION: Temperature 98, pulse 59, respiratory rate 20, satting 100%, blood pressure 11 0/48. General: She is awake, alert, ambulating, in no distress. Head and Neck: Normocephalic, atra umatic, supple. Lungs: Clear to auscultation bilaterally. Cardiovascular: S1, S2. Regular rate a nd rhythm. Abdomen: Positive bowel sounds. Soft, nontender, nondistended. Extremities: No pedal e rafi. DIAGNOSTIC STUDIES/LAB DATA: CBC multiple significant for chronic anemia with hemoglobin 10.5, hemat ocrit 30. Chemistry fairly unremarkable with only significant finding is a troponin at presentation of 0.08, pe aked at 0.13 and down to 0.09 on 11/09/18 at 3:30 p.m. Imaging studies: Chest x-ray on presentation 11/08/18: No evidence for active cardiopulmonary disea se. EKGs on 11/09/18 revealed sinus rhythm, rate 66, DE is 145, QTc 449 ms, QRS 137, left axis deviation. DISCHARGE MEDICATIONS: She is released home on the following medications: 1. Resume Tylenol p.r.n. for pain. 2. Amlodipine 2.5 mg daily, prescription provided. 3. Resume Ecotrin 81 mg daily. 4. Resume Lipitor 80. 5. Resume Plavix 75 daily. 6. Resume folic acid 1 mg daily. 7. Resume Lasix 20 mg daily. 8. Resume lisinopril 2.5 daily. 9. New medication, metoprolol XL 25 mg daily. 10. Nitroglycerin patch 12 hours on, 12 hours off. 11. Zoloft 25 daily. 12. Discontinue Coreg. 13. Resume glipizide 10 mg daily. 14. Resume Evista 60 mg daily. 15. Resume Janumet 50/500 daily. 16. Resume spironolactone 25 mg daily. DISCHARGE INSTRUCTIONS: 1. Follow up with primary care in 1 to 2 weeks. Follow up with Dr. Wright, her wood block artist, in 1 t o 2 weeks. Take all medications as prescribed. 2. Referral to visiting nurse service with aim of "p alliative care" has been referred via watch case polisher. DISCHARGE DISPOSITION: Home. DISCHARGE CONDITION: Stable. [id number]/[facility] #: [id number]
== END 2018-11-10 16:35 | disposition home health service (06) | DRG 281 ==
LOC: ED 20:47 → MEDTELE 11-09 03:19
PROVIDERS: ADMIT Internal Medicine; ATTEND Internal Medicine
DX: I21.4 Non-ST elevation (NSTEMI) myocardial infarction (principal); I42.9 Cardiomyopathy, unspecified; I50.22 Chronic systolic (congestive) heart failure; I73.9 Peripheral vascular disease, unspecified; E11.51 Type 2 diabetes mellitus with diabetic peripheral angiopathy without gangrene; F03.90 Unspecified dementia, unspecified severity, without behavioral disturbance, psychotic disturbance, mood disturbance, and anxiety; I08.3 Combined rheumatic disorders of mitral, aortic and tricuspid valves; I27.20 Pulmonary hypertension, unspecified; D64.9 Anemia, unspecified; I25.118 Atherosclerotic heart disease of native coronary artery with other forms of angina pectoris; I95.9 Hypotension, unspecified; E78.00 Pure hypercholesterolemia, unspecified; I11.0 Hypertensive heart disease with heart failure; M81.0 Age-related osteoporosis without current pathological fracture; M19.90 Unspecified osteoarthritis, unspecified site; F32.9 Major depressive disorder, single episode, unspecified; E78.5 Hyperlipidemia, unspecified; Z66 Do not resuscitate; Z82.49 Family history of ischemic heart disease and other diseases of the circulatory system; Z87.891 Personal history of nicotine dependence; Z95.820 Peripheral vascular angioplasty status with implants and grafts; Z88.2 Allergy status to sulfonamides; Z79.82 Long term (current) use of aspirin; Z79.02 Long term (current) use of antithrombotics/antiplatelets; Z79.84 Long term (current) use of oral hypoglycemic drugs
CPT/HCPCS: 36415; 71045; 80048; 80053; 83735; 84100; 84443; 84484; 85025; 85610; 85730; 93005; 99284; A9270-GY; G8978-GP-CI; G8979-GP-CI; G8980-GP-CI; G8987-GO-CI; G8988-GO-CI; J1650

== ENCOUNTER 2018-12-01 11:02 | Inpatient (IN) | payer MEDICARE, OTHER ==
[2018-12-01] MEDS ORDERED: Furosemide IV* 10 MG/ML VIAL (40 MG) IV SLOW PU ONE (11:25)
[2018-12-01 11:43] LABS: ABS Basophils 0.1 10^3/ul (0-0.2); ABS Eosinophils 0.1 10^3/ul (0-0.6); ABS Monocytes 0.4 10^3/ul (0-0.8); ABS Neutrophils 7.6 10^3/ul (1.5-7.7); Eosinophil % 0.6 %; Hematocrit 35 % (35-47); Hemoglobin 11.5 g/dL (12.0-16.0); Lymphocyte % 11.3 %; Mean Corpuscular HGB Conc 33 g/dL (31-36); Mean Corpuscular Hemoglobin 32 pg (27-31); Mean Corpuscular Volume 96 fL (80-97); Mean Platelet Volume 8.4 fL (7.4-10.4); Platelet Count 309 10^3/uL (150-450); Red Blood Count 3.63 10^6 /uL (3.70-4.87); Red Cell Distribution Width 14 % (10-15); White Blood Count 9.2 10^3/uL (3.5-10.8)
[2018-12-01 11:50] LABS: INR 0.92 (0.82-1.09)
[2018-12-01 12:00] LABS: Troponin I 0.03 ng/mL (<0.04)
--- OUTSIDE RECORDS SUMMARY | 2018-12-01 12:03 | XMS REPORT | Continuity of Care Document ---
:1935 External Reference #:[id number] Author Name Ramiro Wright, DO FACC (transmitted by agent of provider Kayla Lai) Address 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 [phone] Medicine Problems Description No Information Available Social History Type Date Description Comments Sex Unknown ETOH Use Denies alcohol use Tobacco Use Start: Unknown Patient has never smoked Recreational Drug Use Denies Drug Use Smoking Status Reviewed: 11/24/18 Patient has never smoked Exercise Type/Frequency Exercises regularly Exercise Type/Frequency Home PT 2 x week Allergies, Adverse Reactions, Alerts Active Allergies Reaction Severity Comments Date Sulfa Antibiotics Hives 10/06/2018 Medications Active Medications SIG Qnty Indications Ordering Provider Date Nitroglycerin apply to chest 90units Ramiro Wright, 11/24/2018 0.1mg/HR wall each am DO FACC Patches 24HR and off each pm. Furosemide 1 by mouth Ramiro Wright, 11/23/2018 20mg Tablets every day DO FACC Metoprolol Succinate ER 1 by mouth 90tabs Ramiro Wright, 11/22/2018 every day DO FACC 25mg Tablets ER 24HR Amlodipine Besylate 1 by mouth 90tabs Ramiro Wright, 11/22/2018 2.5mg every day DO FACC Tablets Aspirin 1 by mouth Unknown 81mg Tablets DR every day Atorvastatin Calcium 1 by mouth Unknown 80mg every day Tablets Plavix 1 by mouth 90tabs Ramiro Wright, 75mg Tablets every day DO FACC Folic Acid 1 po daily Unknown 1mg Tablets Lisinopril 1 by mouth Unknown 2.5mg Tablets every day Sertraline HCL 1 by mouth Unknown 25mg Tablets every day Spironolactone 1 by mouth Unknown 25mg Tablets every day Glipizide 1 by mouth Unknown 10mg Tablets every day Raloxifene HCL 1 by mouth Unknown 60mg Tablets every day Janumet 1 pill twice Unknown 50-500mg Tablets daily Immunizations Description No Information Available Vital Signs Date Vital Result Comment 11/24/2018 4:37pm Height 60 inches 5'0" Weight 124.00 lb with shoes Heart Rate 76 /min BP Systolic Sitting 110 mmHg Lue reg cuff BP Diastolic Sitting 70 mmHg Lue reg cuff BP Systolic Standing 110 mmHg Lue reg cuff BP Diastolic Standing 66 mmHg Lue reg cuff Respiratory Rate 16 /min BMI (Body Mass Index) 24.2 kg/m2 Ejection Fraction 30-35% date 10/21/18 ECHO 10/06/2018 10:08am Height 60 inches 5'0" Weight 124.00 lb Clothes/shoes Heart Rate 58 /min Radial BP Systolic Sitting 108 mmHg Rue reg cuff BP Diastolic Sitting 60 mmHg Rue reg cuff BMI (Body Mass Index) 24.2 kg/m2 Results Test Date Facility Test Result H/L Range Note Laboratory test 09/15/2018 [facility] Point of Care 279 mg/dL High 70-[address] [place] [address] [phone] Workers Compensation Coordinator: [id number] Procedures Date Code Description Status 11/24/2018 40308 EKG Tracing & Interpretation Completed 10/21/2018 51739 ECHO Transthorasic Realtime 2D W Doppler & Color Flow Hosp Completed 10/06/2018 05312 EKG Tracing & Interpretation Completed 09/16/2018 16025 ECHO Transthorasic Realtime 2D W Doppler & Color Flow Hosp Completed Medical Devices Description No Information Available Encounters Type Date Location Provider Dx Diagnosis Office Visit 11/10/2018 [facility] Effie Montiel, I21.4 Non-St elevation 11:44a spencer Garcia M.D. 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 E78.5 Hyperlipidemia, unspecified Office Visit 11/09/2018 11:43a [facility] Marissa Dickson, R61 Generalized Assoc,pc hyperhidrosis Hospitalists I50.30 Unspecified diastolic (congestive) heart failure E11.9 Type 2 diabetes mellitus without complications G31.84 Mild cognitive impairment, so stated I10 Essential (primary) hypertension 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 I50.9 Heart failure, unspecified I34.0 Nonrheumatic mitral (valve) insufficiency I10 Essential (primary) hypertension E78.5 Hyperlipidemia, unspecified Office Visit 10/20/2018 4:14p [facility] Wesly R06.02 Shortness of Assoc,pc [place] breath Hospitalists R79.89 Other specified abnormal findings of blood chemistry I50.22 Chronic systolic (congestive) heart failure E11.65 Type 2 diabetes mellitus with hyperglycemia I10 Essential (primary) hypertension D72.829 Elevated white blood cell count, unspecified N17.9 Acute kidney failure, unspecified E78.5 Hyperlipidemia, unspecified Office Visit 10/06/2018 10:20a [facility] Ramiro Sanderson I50.22 Chronic systolic Of Claire Wright DO (congestive) heart FACC failure I25.2 Old myocardial infarction I34.0 Nonrheumatic mitral (valve) insufficiency 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 I73.9 Peripheral vascular disease, unspecified E11.69 Type 2 diabetes mellitus with other specified complication 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 D64.9 Anemia, unspecified Office Visit 09/20/2018 9:48a [facility] I21.4 Non-St elevation Assoc,spencer Briones MD ([facility]) Hospitalists myocardial infarction I50.23 Acute on chronic systolic (congestive) heart failure E87.2 Acidosis E11.9 Type 2 diabetes mellitus without complications R31.9 Hematuria, unspecified N17.9 Acute kidney failure, unspecified I10 Essential (primary) hypertension E78.00 Pure hypercholesterolemia, unspecified I73.9 Peripheral vascular disease, unspecified Office Visit 09/19/2018 [facility] I50.23 Acute on chronic 9:48a Assocspencer MD systolic Hospitalists (congestive) heart failure E11.9 Type 2 diabetes mellitus without complications I21.4 Non-St elevation ([facility]) myocardial infarction J96.01 Acute respiratory failure with hypoxia Office Visit 09/18/2018 [facility] I21.4 Non-St elevation 9:48a Assspencer gutierrez MD ([facility]) Hospitalists myocardial infarction I50.23 Acute on chronic systolic (congestive) heart failure E11.9 Type 2 diabetes mellitus without complications Office Visit 09/17/2018 4:22p [facility] Franklin Hobson I25.10 Athscl heart Of [employer] Brand, M.D. disease of wiyot coronary artery w/o ang pctrs I21.4 Non-St elevation ([facility]) myocardial infarction I50.9 Heart failure, unspecified Office Visit 09/17/2018 [facility] I21.4 Non-St elevation 9:47a spencer Garcia MD ([facility]) Hospitalists myocardial infarction I50.23 Acute on chronic systolic (congestive) heart failure E11.9 Type 2 diabetes mellitus without complications Office Visit 09/16/2018 2:17p [facility] Ramiro SObdulia I50.9 Heart failure, Of [facility] Kyle, DO unspecified FACC I21.4 Non-St elevation ([facility]) myocardial infarction E11.9 Type 2 diabetes mellitus without complications I73.9 Peripheral vascular disease, unspecified Office Visit 09/16/2018 9:47a [facility] Effie Montiel I21.4 Non- St elevation spencer Garcia M.D. ([facility]) Hospitalists myocardial infarction I50.23 Acute on chronic systolic (congestive) heart failure E11.9 Type 2 diabetes mellitus without complications Office Visit 09/15/2018 2:08p [facility] Ramiro SObdulia I50.9 Heart failure, Of [facility] Kyle, DO unspecified FACC I21.4 Non-St elevation ([facility]) myocardial infarction E11.9 Type 2 diabetes mellitus without complications I73.9 Peripheral vascular disease, unspecified Office Visit 09/15/2018 9:46a [facility] I21.4 Non-St elevation spencer Garcia NP ([facility]) Hospitalists myocardial infarction E87.2 Acidosis E11.9 Type 2 diabetes mellitus without complications N17.9 Acute kidney failure, unspecified I10 Essential (primary) hypertension E78.00 Pure hypercholesterolemia, unspecified I73.9 Peripheral vascular disease, unspecified Assessments Date Code Description Provider 11/24/2018 I25.5 Ischemic cardiomyopathy Ramiro Wright DO FACC 11/10/2018 I21.4 Non-St elevation ([facility]) myocardial Effie Montiel M.D. infarction 11/10/2018 I50.22 Chronic systolic (congestive) heart Effie Montiel M.D. failure 11/10/2018 I34.0 Nonrheumatic mitral (valve) insufficiency Effie Montiel M.D. 11/10/2018 I35.0 Nonrheumatic aortic (valve) stenosis Effie Montiel M.D. 11/10/2018 E11.9 Type 2 diabetes mellitus without Effie Montiel M.D. 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 coronary artery with 11/10/2018 E78.5 Hyperlipidemia, unspecified Effie Montiel M.D. 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 11/09/2018 E11.9 Type 2 diabetes mellitus without Marissa Dickson MD complications 11/09/2018 I73.9 Peripheral vascular disease, julius Regalado M.D. 11/09/2018 G31.84 Mild cognitive impairment, so stated Marissa Dickson MD 11/09/2018 E11.9 Type 2 diabetes mellitus without Angeles Regalado M.D. complications 11/09/2018 I10 Essential (primary) hypertension Marissa Dickson MD 11/09/2018 I10 Essential (primary) hypertension Angeles Regalado M.D. 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 11/09/2018 I73.9 Peripheral vascular disease, unspecified Marissa Dickson MD 11/09/2018 D64.9 Anemia, unspecified Angeles Regalado M.D. 11/09/2018 M19.90 Unspecified osteoarthritis, unspecified Marissa Dickson MD site 11/09/2018 D64.9 Anemia, unspecified Marissa Dickson MD 11/09/2018 E78.5 Hyperlipidemia, unspecified Marissa Dickson MD 10/21/2018 I50.9 Heart failure, unspecified Jayson F. Mauser, M.D. 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 10/20/2018 R06.02 Shortness of breath JUANCHO Ny 10/20/2018 R79.89 Other specified abnormal findings of Jayson Lucas M.D. blood chemistry 10/20/2018 R79.89 Other specified abnormal findings of JUANCHO Ny blood chemistry 10/20/2018 R00.0 Tachycardia, unspecified Jayson Lucas M.D. 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 coronary artery with 10/20/2018 E11.65 Type 2 diabetes mellitus with JUANCHO Ny hyperglycemia 10/20/2018 I50.9 Heart failure, unspecified Jayson Lucas M.D. 10/20/2018 I10 Essential (primary) hypertension JUANCHO Ny 10/20/2018 I34.0 Nonrheumatic mitral (valve) insufficiency Jayson Lucas M.D. 10/20/2018 D72.829 Elevated white blood cell count, JUANCHO Ny unspecified 10/20/2018 I10 Essential (primary) hypertension Jayson Lucas M.D. 10/20/2018 N17.9 Acute kidney failure, unspecified JUANCHO Ny 10/20/2018 E78.5 Hyperlipidemia, unspecified Jayson Lucas M.D. 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 with 10/06/2018 I73.9 Peripheral vascular disease, unspecified Ramiro Wright, DO FACC 10/06/2018 E11.69 Type 2 diabetes mellitus with other Ramiro Wright, DO FACC specified complication 10/06/2018 F02.80 Dementia in other diseases classified Ramiro SObdulia Wright, DO FACC elsewhere without beha 10/06/2018 D64.9 Anemia, unspecified Ramiro Sanderson Kyle, DO FACC 09/20/2018 I21.4 Non-St elevation ([facility]) myocardial Seda Briones MD infarction 09/20/2018 I50.23 Acute on chronic systolic (congestive) Seda Briones MD heart failure 09/20/2018 E87.2 Acidosis Seda Briones MD 09/20/2018 E11.9 Type 2 diabetes mellitus without Seda Briones MD complications 09/20/2018 R31.9 Hematuria, unspecified Seda Briones MD 09/20/2018 N17.9 Acute kidney failure, unspecified Seda Briones MD 09/20/2018 I10 Essential (primary) hypertension Seda Briones MD 09/20/2018 E78.00 Pure hypercholesterolemia, gretaified Seda Briones MD 09/20/2018 I73.9 Peripheral vascular [...] complications 09/17/2018 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 coronary artery with 09/17/2018 [...] complications 09/15/2018 I50.9 Heart failure, unspecified Ramiro S. Wright, DO FACC 09/15/2018 I21.4 Non-St elevation ([facility]) myocardial Ramiro Wright, DO FACC infarction 09/15/2018 E11.9 Type 2 diabetes mellitus without Ramiro Wright, DO FACC complications 09/15/2018 I73.9 Peripheral vascular disease, unspecified Ramiro Wright, DO FACC 09/15/2018 I21.4 Non-St elevation ([facility]) myocardial Tawanna Guerra, [employer]OOK SPLICER infarction 09/15/2018 E87.2 Acidosis Tawanna Guerra, [employer]OOK SPLICER 09/15/2018 E11.9 Type 2 diabetes mellitus without Tawanna Guerra NP complications 09/15/2018 N17.9 Acute kidney failure, unspecified Tawanna Guerra, SHOOK SPLICER 09/15/2018 I10 Essential (primary) hypertension Tawanna Guerra, [employer]OOK SPLICER 09/15/2018 E78.00 Pure hypercholesterolemia, unspecified Tawanna Guerra, [employer]OOK SPLICER 09/15/2018 I73.9 Peripheral vascular disease, unspecified Tawanna Guerra NP Plan of Treatment 11/24/2018 - Ramiro Wright, DO FACCI25.5 Ischemic cardiomyopathyFollow up:f/u 6 months Functional Status Description No Information Available Mental Status Description No Information Available Referrals Description No Information Available
--- OUTSIDE RECORDS SUMMARY | 2018-12-01 12:03 | XMS REPORT | Continuity of Care Document ---
:1935 External Reference #:[id number] Author Name Ramiro Wright DO FAC (transmitted by agent of provider Delmis Valente) Address 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 Procedures Date Code Description Status 10/21/2018 25457 ECHO Transthorasic Realtime 2D W Doppler & Color Flow Hosp Completed 10/06/2018 79346 EKG Tracing & Interpretation Completed 09/16/2018 81108 ECHO Transthorasic Realtime 2D W Doppler & Color Flow Hosp Completed Medical Devices Description No Information Available Encounters Type Date Location Provider Dx Diagnosis Office Visit 11/09/2018 [facility] Angeles Regalado, I25.10 [facility] heart 4:44p Of Claire Jasso disease of [place] coronary artery w/o ang pctrs I42.9 Cardiomyopathy, unspecified I73.9 Peripheral vascular disease, unspecified E11.9 Type 2 diabetes mellitus without complications I10 Essential (primary) hypertension E78.5 Hyperlipidemia, unspecified D64.9 Anemia, unspecified Office Visit 10/21/2018 4:14p [facility] R79.89 Other specified Assoc,pc JUANCHO Rosales abnormal Hospitalists findings of blood chemistry E86.0 Dehydration I50.20 Unspecified systolic (congestive) heart failure I25.10 Athscl heart disease of [place] coronary artery w/o ang pctrs I73.9 Peripheral vascular disease, unspecified I34.0 Nonrheumatic mitral (valve) insufficiency E11.65 Type 2 diabetes mellitus with hyperglycemia G31.84 Mild cognitive impairment, so stated Office Visit 10/20/2018 4:49p [facility] Jayson Segal R06.02 Magaly M.D. breath R79.89 Other specified abnormal findings of blood chemistry R00.0 Tachycardia, unspecified I25.10 Athscl heart disease of [place] coronary artery w/o ang pctrs I50.9 Heart failure, unspecified I34.0 Nonrheumatic mitral (valve) insufficiency I10 Essential (primary) hypertension E78.5 Hyperlipidemia, unspecified Office Visit 10/20/2018 4:14p [facility] R06.02 Shortness of spencer Garcia PA breath Hospitalists R79.89 Other specified abnormal findings of blood chemistry I50.22 Chronic systolic (congestive) heart failure E11.65 Type 2 diabetes mellitus with hyperglycemia I10 Essential (primary) hypertension D72.829 Elevated white blood cell count, unspecified N17.9 Acute kidney failure, unspecified E78.5 Hyperlipidemia, unspecified Office Visit 10/06/2018 10:20a [facility] Ramiro Sanderson I50.22 Chronic systolic Of Economic Development Specialist Wright, DO (congestive) heart FACC failure I25.2 Old myocardial infarction I34.0 Nonrheumatic mitral (valve) insufficiency I25.10 Athscl heart disease of [place] coronary artery w/o ang pctrs I73.9 Peripheral vascular disease, unspecified E11.69 Type 2 diabetes mellitus with other specified complication 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 D64.9 Anemia, unspecified Office Visit 09/20/2018 9:48a [facility] I21.4 Non-St elevation spencer Garcia MD (Nstemi) Hospitalists myocardial infarction I50.23 Acute on chronic systolic (congestive) heart failure E87.2 Acidosis E11.9 Type 2 diabetes mellitus without complications R31.9 Hematuria, unspecified N17.9 Acute kidney failure, unspecified I10 Essential (primary) hypertension E78.00 Pure hypercholesterolemia, unspecified I73.9 Peripheral vascular disease, unspecified Office Visit 09/19/2018 [facility] I50.23 Acute on chronic 9:48a Assocspencer MD systolic Hospitalists (congestive) heart failure E11.9 Type 2 diabetes mellitus without complications I21.4 Non-St elevation (Nstemi) myocardial infarction J96.01 Acute respiratory failure with hypoxia Office Visit 09/18/2018 [facility] I21.4 Non-St elevation 9:48a Assspencer gutierrez MD (Nstemi) Hospitalists myocardial infarction I50.23 Acute on chronic systolic (congestive) heart failure E11.9 Type 2 diabetes mellitus without complications Office Visit 09/17/2018 4:22p [facility] Franklin Hobson I25.10 Athscl heart Of Claire Almanza M.D. disease of [place] coronary artery w/o ang pctrs I21.4 Non-St elevation (Nstemi) myocardial infarction I50.9 Heart failure, unspecified Office Visit 09/17/2018 [facility] I21.4 Non-St elevation 9:47a Assocspencer MD (Nstemi) Hospitalists myocardial infarction I50.23 Acute on chronic systolic (congestive) heart failure E11.9 Type 2 diabetes mellitus without complications Office Visit 09/16/2018 2:17p [facility] Ramiro SObdulia I50.9 Heart failure, Of [facility] Kyle, DO unspecified FACC I21.4 Non-St elevation (Nstemi) myocardial infarction E11.9 Type 2 diabetes mellitus without complications I73.9 Peripheral vascular disease, unspecified Office Visit 09/16/2018 9:47a [facility] Effie Montiel I21.4 Non- St elevation Assspencer gutierrez M.D. (Nstemi) Hospitalists myocardial infarction I50.23 Acute on chronic systolic (congestive) heart failure E11.9 Type 2 diabetes mellitus without complications Office Visit 09/15/2018 2:08p [facility] Ramiro Sanderson I50.9 Heart failure, Of [facility] Wright, DO unspecified FACC I21.4 Non-St elevation (Nstemi) myocardial infarction E11.9 Type 2 diabetes mellitus without complications I73.9 Peripheral vascular disease, unspecified Office Visit 09/15/2018 9:46a [facility] [place] I21.4 Non-St elevation Assocspencer NP (Nstemi) Hospitalists myocardial infarction E87.2 Acidosis E11.9 Type 2 diabetes mellitus without complications N17.9 Acute kidney failure, unspecified I10 Essential (primary) hypertension E78.00 Pure hypercholesterolemia, unspecified I73.9 Peripheral vascular disease, unspecified Assessments Date Code Description Provider 11/09/2018 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 11/09/2018 I73.9 Peripheral vascular disease, unspecified Angeles Regalado M.D. 11/09/2018 E11.9 Type 2 diabetes mellitus without Angeles Regalado M.D. complications 11/09/2018 I10 Essential (primary) hypertension Angeles Regalado M.D. 11/09/2018 E78.5 Hyperlipidemia, unspecantonio Regalado M.D. 11/09/2018 D64.9 Anemia, unspecified Angeles Regalado M.D. 10/21/2018 I50.9 Heart failure, unspecified Jayson Lucas M.D. 10/21/2018 R79.89 Other specified abnormal findings of JUANCHO Ny blood chemistry 10/21/2018 E86.0 Dehydration JUANCHO Ny 10/21/2018 I50.20 Unspecified systolic (congestive) heart JUANCHO Ny failure 10/21/2018 I25.10 Atherosclerotic heart disease of [place] JUANCHO Ny coronary artery with 10/21/2018 I73.9 [...] failure 10/20/2018 I25.10 Atherosclerotic heart disease of [place] Jayson uLcas M.D. coronary artery with 10/20/2018 E11.65 Type [...] 10/06/2018 I50.22 Chronic systolic (congestive) heart Ramiro Wright DO FACC failure 10/06/2018 I25.2 Old myocardial infarction Ramiro Wright, DO FACC 10/06/2018 I34.0 Nonrheumatic mitral (valve) insufficiency Ramiro SObdulia Wright, DO FACC 10/06/2018 I25.10 Atherosclerotic heart disease of [place] Ramirochacho Segoviano, DO FAC coronary artery with 10/06/2018 I73.9 Peripheral vascular disease, unspecified Ramiro Maria E Wright, DO FACC 10/06/2018 E11.69 Type 2 diabetes mellitus with other Ramiro SObdulia Wright, DO FAC specified complication 10/06/2018 F02.80 Dementia in other diseases classified Ramiro Wright DO FAC elsewhere without beha 10/06/2018 D64.9 Anemia, unspecified Ramiro Wright, DO FACC 09/20/2018 I21.4 Non-St elevation (Nstemi) [...] complications 09/17/2018 I25.10 Atherosclerotic heart disease of [place] Franklin Almanza M.D. coronary artery with 09/17/2018 [...] vascular disease, unspecified Ramiro Wright, DO FAC 09/16/2018 I21.4 Non-St elevation (Nstemi) myocardial Effie Montiel M.D. infarction 09/16/2018 I50.23 Acute on chronic systolic (congestive) Effie Montiel M.D. heart failure 09/16/2018 E11.9 Type 2 diabetes mellitus without Effie Montiel M.D. complications 09/15/2018 I50.9 Heart failure, unspecified Ramiro Wright, DO FACC 09/15/2018 I21.4 Non-St elevation (Nstemi) myocardial Ramiro Wright, DO FAC infarction 09/15/2018 E11.9 Type 2 diabetes mellitus without Ramiro Wright, DO [facility] complications 09/15/2018 I73.9 Peripheral vascular disease, unspecified Ramiro Wright, DO FACC 09/15/2018 I21.4 Non-St elevation (Nstemi) myocardial Tawanna Guerra, [employer]NER infarction 09/15/2018 E87.2 Acidosis Tawanna Guerra, [employer]NER 09/15/2018 E11.9 Type 2 diabetes mellitus without Tawanna Guerra NP complications 09/15/2018 N17.9 Acute kidney failure, unspecified Tawanna Guerra, [employer] 09/15/2018 I10 Essential (primary) hypertension Tawanna Guerra, [employer]NER 09/15/2018 E78.00 Pure hypercholesterolemia, unspecified Tawanna Guerra, [employer]NER 09/15/2018 I73.9 Peripheral vascular disease, unspecified Tawanna Guerra NP Plan of Treatment 10/06/2018 - Ramiro Wright, DO FACCI50.22 Chronic systolic (congestive) heart failureFollow up:6 riqcmkV48.2 Old myocardial hfnssndrxhX22.0 Nonrheumatic mitral (valve) wsjcjsfvqbgcnT13.10 Atherosclerotic heart disease of [place] coronary artery withI73.9 Peripheral vascular disease, bxtomyurtilN43.69 Type 2 diabetes mellitus with other specified mvcidkqghuurS57.80 Dementia in other diseases classified elsewhere without behaD64.9 Anemia, unspecified Functional Status Description No Information Available Mental Status Description No Information Available Referrals Description No Information Available
--- OUTSIDE RECORDS SUMMARY | 2018-12-01 12:03 | XMS REPORT | Continuity of Care Document ---
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 M.D. Metoprolol Succinate 1 by mouth 135tabs David Abraham, 11/30/2018 ER every day M.D. 25mg Tablets ER 24HR Amlodipine Besylate take 1 tablet David Abraham, 11/30/2018 2.5mg daily M.D. Tablets Spironolactone 1 by mouth 90tabs David Abraham, 09/29/2018 25mg every day M.D. Tablets Freestyle System test blood 1units David Abraham, 05/12/2018 Kit sugar twice a M.D. day Freestyle Test test blood 100units David ReynaldoObdulia Abraham, 05/12/2018 Strips glucose twice M.D. daily dx: e11.9 last office visit 11/03/17 Lancets Ultra Thin 30G test twice a 100units David Abraham, 05/12/2018 day dx: e11.9 M.D. Thin 30G Misc last Ov 11/03/17 Sertraline HCL Take One Tablet 30tabs F06.34 David Abraham, 06/14/2017 25mg By Mouth In The M.D. Tablets Morning Glipizide ER Take 2 Tablets 180tabs E11.9 David Abraham, 09/24/2016 5mg Tablets By Mouth Once M.D. ER 24HR A Day Janumet Take 1 Tablet 180tabs E11.9 David Abraham, 01/15/2012 50-500mg Tablets By Mouth Twice M.D. A Day Furosemide 1 by mouth 90tabs David Abraham, 20mg Tablets every day M.D. Nitroglycerin Patch 1 mg per hour Unknown 1MG patch daily Tylenol 8 Hour Q6H as needed Unknown 650mg Tablets ER Raloxifene HCL Take 1 Tablet 90tabs David Abraham, 60mg By Mouth Daily M.D. Tablets Folic Acid Take 1 Tablet 90tabs Ponce F. 1mg Tablets By Mouth Every Shallish, M.D. Day Lisinopril Take 1 Tablet 90tabs Ponce F. 2.5mg Tablets By Mouth Every Shallish, M.D. Day Atorvastatin Calcium Take 1 Tablet 90tabs David Abraham, 80mg By Mouth Every M.D. Tablets Day Aspir-Low 1 by mouth Unknown 81mg Tablets DR every day History Medications Clopidogrel Bisulfate 1 by mouth 90Tablet David Abraham, 10/06/2018 - every day M.D. 11/30/2018 75mg Tablets Clopidogrel Bisulfate 1 by mouth 30tabs David Abraham, 09/29/2018 - every day M.D. 11/01/2018 75mg Tablets Immunizations CPT Code Status Date Vaccine Lot # [id number] Given 08/16/2015 Tdap Tetanus, W Pertussis [id number] Given 10/03/2014 Pneumococcal Conjugate Vacc-13 [id number] Given 11/03/2002 Pneumococcal Immunization 22293 Given 11/03/2002 Td Immunization, For Use In Individuals 7 Years Or Older 18468 Given 11/03/2002 DT Immunization Vital Signs Date Vital Result Comment 11/30/2018 3:33pm BP Systolic 104 mmHg BP Diastolic 80 mmHg Heart Rate 60 /min Body Temperature 97.9 F Respiratory Rate 18 /min Weight 127.50 lb 11/01/2018 1:28pm BP Systolic 72 mmHg 76/44 left arm BP Diastolic 42 mmHg 76/44 left arm BP Systolic Recheck 86 mmHg BP Diastolic Recheck 66 mmHg Heart Rate 72 /min Body Temperature 97.7 F Respiratory Rate 12 /min Height 57.5 inches 4'9.50" Weight 120.00 lb BMI (Body Mass Index) 25.5 kg/m2 Results Test Date Facility Test Result H/L Range Note Laboratory test 12/01/19 [facility] Hemoglobin A1c 6.5 % High 4.1- 5.7 finding 19 (607)- - (Fma) [place] test [place] [facility] [place] 0.13 ng/mL Critical <0.04 1 finding 19 high Laboratory test 11/10/19 [facility] [place]roponin [place] 0.11 ng/mL Critical <0.04 2 finding 19 high CBC Auto Diff 11/09/19 [facility] White Blood 7.0 Normal 3.5-10.8 19 Count 10^3/uL Red Blood Count 3.40 10^6/uL Low 3.70-4.87 Hemoglobin 10.8 g/dL Low 12.0-16.0 Hematocrit 32 % Low 35-47 Mean Corpuscular Volume 93 fL Normal 80-97 Mean Corpuscular Hemoglobin 32 pg High 27-31 Mean Corpuscular HGB Conc 34 g/dL Normal 31-36 Red Cell Distribution Width 14 % Normal 10-15 Platelet Count 231 10^3/uL Normal 150-450 Mean Platelet Volume 8.2 fL Normal 7.4-10.4 Abs Neutrophils 5.1 10^3/uL Normal 1.5-7.7 Abs Lymphocytes 1.2 10^3/uL Normal 1.0-4.8 Abs Monocytes 0.5 10^3/uL Normal 0-0.8 Abs Eosinophils 0.1 10^3/uL Normal 0-0.6 Abs Basophils 0.1 10^3/uL Normal 0-0.2 Abs Nucleated RBC 0.0 10^3/uL Granulocyte % 72.8 % Lymphocyte % 17.8 % Monocyte % 6.7 % Eosinophil % 1.6 % Basophil % 1.1 % Nucleated Red Blood Cells % 0.0 Inr/Protime 11/08/2018 [facility] [place]r 0.90 Normal 0.82-1.09 3 Comp Metabolic Panel 11/08/2018 [facility] Sodium 134 mmol/L Low 135-145 Potassium 4.6 mmol/L Normal 3.5-5.0 Chloride 102 mmol/L Normal 101-111 Co2 Carbon Dioxide 26 mmol/L Normal 22-32 Anion Gap 6 mmol/L Normal 2-11 Glucose 240 mg/dL High 70-100 Blood Urea Nitrogen 24 mg/dL Normal 6-24 Creatinine 1.05 mg/dL High 0.51-0.95 BUN/Creatinine Ratio 22.9 High 8-20 Calcium 9.1 mg/dL Normal 8.6-10.3 Total Protein 6.2 g/dL Low 6.4-8.9 Albumin 3.9 g/dL Normal 3.2-5.2 Globulin 2.3 g/dL Normal 2-4 Albumin/Globulin Ratio 1.7 Normal 1-3 Total Bilirubin 0.50 mg/dL Normal 0.2-1.0 Alkaline Phosphatase 97 U/L Normal 34-104 Alt 36 U/L Normal 7-52 Ast 34 U/L Normal 13-39 Egfr Non- 49.8 >60 Egfr 60.3 >60 4 Laboratory test finding 11/08/2018 [facility] Troponin I 0.08 ng/mL Critical high <0.04 5 Partial Thrombo Time PTT 28.2 seconds Normal 26.0-38.0 CBC Electronic Fma 11/01/2018 [facility](fma) WBC 5.5 x10^3/UL 4.0- 10.0 RBC 3.63 x10^6/UL Low 3.93-6.00 HGB 11.5 g/dL Low 12.0-17.0 HCT 35 % 35-50 MCV 95.0 fL 80.0-95.0 MCH 31.7 pg 25.6-32.2 MCHC 33.3 g/dL 32.2-36.0 RDW-CV 13.5 % 11.6-14.4 PLT 294 x10^3/UL 163-400 MPV 9.7 fL 9.4-12.4 Eduardo# 3.32 x10^3/UL 1.56-6.13 Lymph# 1.38 x10^3/UL 1.18-3.74 [place]# 0.55 x10^3/UL 0.24-0.82 Eos # 0.1 x10^3/UL 0.0-0.5 Baso # 0.03 x10^3/UL 0.01-0.08 Eduardo% 60.9 % 34.0-70.0 Lymph % 25.3 % 20.0-52.0 [place]% 10.1 % 5.0-12.0 Eos% 2.4 % 0.7-7.0 [...] ml/min/1.73m^ Low >=60 GFR >60 ml/min/1.73m^ >=60 Laboratory test finding 10/20/2018 [facility] [place]roponin I 0.20 ng/mL Critical high <0.04 6 B-Type Natriuretic Peptide BNP 539 pg/mL High <=100 Lactic Acid 3.1 mmol/L Critical high 0.5-2.0 7 Comp Metabolic Panel 10/20/2018 [facility] Sodium 136 mmol/L Normal 135-145 Potassium 5.0 [...] Egfr Non- 39.6 >60 Egfr 48.0 >60 8 Inr/Protime 10/20/2018 [facility] Inr 0.96 Normal 0.82-1.09 9 CBC Auto Diff 10/20/2018 [facility] White Blood Count 14.6 10^3/uL High 3.5- [...] % Nucleated Red Blood Cells % 0.0 Laboratory test finding 10/20/2018 [facility] Blood Culture SEE RESULT BELOW 10 Urinalysis Profile 10/20/2018 [facility] Urine Color Straw Urine Appearance Clear Urine Specific [place] 1.008 Low 1.010-1.030 Urine pH 6.0 Normal 5-9 Urine Urobilinogen Negative Negative Urine Ketones Negative Negative Urine Protein Negative Negative Urine Leukocytes Negative Negative Urine Blood Negative Negative Urine Nitrite Negative Negative Urine Bilirubin Negative Negative Urine Glucose Negative Negative Laboratory test 10/20/2018 [facility] Troponin I 1.40 ng/mL Critical high <0.04 11 finding Laboratory test 10/20/2018 [facility] Troponin I 2.78 ng/mL Critical high <0.04 12 finding Creatinine 10/20/2018 [facility] Creatinine 1.04 mg/dL High 0.51-0.95 Egfr Non- 50.4 >60 Egfr 60.9 >60 13 CBC Auto Diff 10/20/2018 [facility] White Blood Count 7.4 10^3/uL Normal 3.5- [...] % Nucleated Red Blood Cells % 0.0 CBC Auto Diff 09/15/2018 [facility] White Blood Count 11.3 10^3/uL High 3.5- [...] Cells % 0.0 Comp Metabolic Panel 09/15/2018 [facility] Sodium 140 mmol/L Normal 135-145 Potassium 4.6 [...] Egfr Non- 49.3 >60 Egfr 59.6 >60 14 Laboratory test finding 09/15/2018 [facility] Creatine Kinase(CK) 83 U/L Normal 10-223 C Reactive Protein < 1.00 mg/L Normal <8.01 CKMB 09/15/2018 [facility] CKMB ng/mL 7.7 ng/mL High 0.6-6.3 Laboratory test 09/15/2018 [facility] Troponin I 0.18 ng/mL Critical high <0.04 15 finding Lactic Acid 2.7 mmol/L Critical high 0.5-2.0 16 Lipid Profile (Trig/Chol/HDL) 09/15/2018 [facility] Triglycerides 87 mg/dL 17 Cholesterol 149 mg/dL 18 HDL Cholesterol 61.0 mg/dL 19 LDL Cholesterol 71 mg/dL 20 Laboratory test finding 09/15/2018 [facility] Magnesium 1.8 mg/dL Low 1.9-2.7 Hemoglobin A1c (Glyco HGB) 7.7 % High 4.0-5.6 21 Blood Culture SEE RESULT BELOW 22 Laboratory test 09/15/2018 [facility] Partial Thrombo 27.3 seconds Normal 26.0- 38.0 finding Time PTT B-Type Natriuretic Peptide BNP 727 pg/mL High <=100 Arterial Blood Gas 09/15/2018 [facility] PH Arterial 7.37 Normal 7.35-7.45 Pco2 Arterial 35 mmHg Normal 35-45 Po2 Arterial 76 mmHg Low 80-100 O2 Saturation Arterial 96.8 % Normal 94.0-98.0 Base Excess Arterial -4.4 mmol/L Low -2.0-2.0 23 Hco3 Arterial 21.4 mmol/L Normal 19-31 Urinalysis Profile 09/15/2018 [facility] Urine Color Yellow Urine Appearance Clear Urine Specific [place] 1.020 Normal 1.010-1.030 Urine pH 5.0 Normal 5-9 Urine Urobilinogen Negative Negative Urine Ketones Trace Abnormal Negative Urine Protein Negative Negative Urine Leukocytes Negative Negative Urine Blood Negative Negative Urine Nitrite Negative Negative Urine Bilirubin Negative Negative Urine Glucose 1+(50 mg/dL) Abnormal Negative Laboratory test finding 09/15/2018 [facility] [place] of Care Glucose 279 mg/dL High 70-100 24 1 Result TnIDx:0.13 Called to [id number] at: 03:24:34 by:[id number] Read back by: [id number] Troponin-I testing on Plasma Separator Tubes (PST) has a known false positive rate of 0.20-0.40%. All positive troponins reflex immediately to secondary confirmatory testing. Using the [employer] DxI 800 Access Immunoassay systems, the 99th percentile upper reference limit was demonstrated to be < 0.03 ng/mL. 2 Result TnIDx:0.11 Called to [id number] at: 00:40:46 by:[id number] Read back by: [id number] Troponin-I testing on Plasma Separator Tubes (PST) has a known false positive rate of 0.20-0.40%. All positive troponins reflex immediately to secondary confirmatory testing. Using the [employer] DxI 800 Access Immunoassay systems, the 99th percentile upper reference limit was demonstrated to be < 0.03 ng/mL. 3 Standard intensity warfarin therapeutic range: 2.0-3.0 High intensity warfarin therapeutic range: 2.5-3.5 4 Because ethnic data is not always readily [...] 15-29 5 Kidney failure <15 (or dialysis) 5 Result TnIDx:0.08 Called to [id number] at: 21:50:43 by:[id number] Read back by: [id number] Troponin-I testing on Plasma Separator Tubes (PST) has a known false positive rate of 0.20-0.40%. All positive troponins reflex immediately to secondary confirmatory testing. Using the [employer] DxI 800 Access Immunoassay systems, the 99th percentile upper reference limit was demonstrated to be < 0.03 ng/mL. 6 Result TnIDx:0.20 Called to [id number] at: 12:44:04 by:[id number] Read back by: [id number] Troponin-I testing on Plasma Separator Tubes (PST) has a known false positive rate of 0.20-0.40%. All positive troponins reflex immediately to secondary confirmatory testing. Using the [employer] DxI 800 Access Immunoassay systems, the 99th percentile upper reference limit was demonstrated to be < 0.03 ng/mL. 7 Critical Result LACT:3.1 Called to [id number] at: 13:02:25 by:[id number] Read back by:[id number] [facility] Severe Sepsis and Septic Shock Management Bundle Measure requires all lactic acids initially measuring >2.0 mmol/L be repeated. 8 Because ethnic data is not always readily [...] 15-29 5 Kidney failure <15 (or dialysis) 9 Standard intensity warfarin therapeutic range: 2.0-3.0 High intensity warfarin therapeutic range: 2.5-3.5 10 SEE RESULT BELOW Name: MERCEDES CORNEJO : [address]: Tamy Scales DO Acct: [id number] Unit: [id number] AGE: 83 Location: [place] [address] Re10/20/18 Dis: 10/21/18 SEX: F Status: DIS IN SPEC: [id number] VERA: 10/20/[address] [facility] [address]: Guillermo Tran MD REQ: [id number] RECD: 10/20/18 STATUS: DON WHITT DR: David Abraham MD _ SOURCE: BLOOD,VENO SPDESC: ORDERED: Blood Cult Procedure Result Reported Site Aerobic Culture Bottle Final 10/25/18- 1301 ML No Growth Day 5 Anaerobic Culture Bottle Final 10/25/18- 1301 ML No Growth Day 5 * ML - Main Lab . END OF REPORT DEPARTMENT OF PATHOLOGY, [address] [place] [address] Bebeto Bhatia M.D. Director [facility] # [id number] 11 Result TnIDx:1.40 Called to [id number] at: 15:49:41 by:[id number] Read back by: [id number] Troponin-I testing on Plasma Separator Tubes (PST) has a known false positive rate of 0.20-0.40%. All positive troponins reflex immediately to secondary confirmatory testing. Using the [employer] DxI 800 Access Immunoassay systems, the 99th percentile upper reference limit was demonstrated to be < 0.03 ng/mL. 12 Result TnIDx:2.78 Called to [id number] at: 18:17:51 by:[id number] Read back by: [id number] Troponin-I testing on Plasma Separator Tubes (PST) has a known false positive rate of 0.20-0.40%. All positive troponins reflex immediately to secondary confirmatory testing. Using the [employer] DxI 800 Access Immunoassay systems, the 99th percentile upper reference limit was demonstrated to be < 0.03 ng/mL. 13 Because ethnic data is not always readily [...] 15-29 5 Kidney failure <15 (or dialysis) 14 Because ethnic data is not always readily [...] 15-29 5 Kidney failure <15 (or dialysis) 15 Result TnIDx:0.18 Called to [id number] at: 11:55:07 by:[id number] Read back by: [id number] Troponin-I testing on Plasma Separator Tubes (PST) has a known false positive rate of 0.20-0.40%. All positive troponins reflex immediately to secondary confirmatory testing. Using the [employer] DxI 800 Access Immunoassay systems, the 99th percentile upper reference limit was demonstrated to be < 0.03 ng/mL. 16 Critical Result LACT:2.7 Called to [id number] at: 11:56:25 by:[id number] Read back by:[id number] [facility] Severe Sepsis and Septic Shock Management Bundle Measure requires all lactic acids initially measuring >2.0 mmol/L be repeated. 17 Desirable: <150 Borderline High: 150-199 High: 200-499 Very High: >500 18 Desirable: <200 Borderline High: 200-239 High: >239 19 Low: <40 Desirable: 40-60 High: >60 20 Desirable: <100 Near Optimal: 100-129 Borderline High: 130-159 High: 160-189 Very High: >189 21 Therapeutic target for the treatment of diabetes mellitus patients is <7% HBA1C, and in selective patients <6.0%. Please refer to [place] [employer] diabetic care guidelines for further information. 22 SEE RESULT BELOW Name: MERCEDES CORNEJO : [address]: Geeta Sinha MD Acct: [id number] Unit: [id number] AGE: 83 Location: [place] [address] Re09/15/18 SEX: F Status: ADM IN SPEC: [id number] VERA: 09/15/[address] [facility] [address]: Gibson Asif MD REQ: [id number] RECD: 09/15/18 STATUS: DON WHITT DR: David Abraham MD _ SOURCE: BLOOD,VENO SPDESC: ORDERED: Blood Cult Procedure Result Reported Site Aerobic Culture Bottle Final 07/09/19- 1121 ML No Growth Day 5 Anaerobic Culture Bottle Final 09/20/18- 1121 ML No Growth Day 5 * ML - Main Lab . END OF REPORT DEPARTMENT OF PATHOLOGY, [address] [place] [address] Bebeto Bhatia M.D. Director [facility] # [id number] 23 Reference ranges based on room air. 24 [employer]: [id number] Procedures Date Code Description Status 12/23/2016 013791021 Diabetic Retinal Eye Exam Completed 09/12/2016 [id number] Diabetic Foot Exam Completed 03/16/2012 726124522 Bone Mineral Density Test Completed 01/23/2011 [id number] Colonoscopy Completed 01/01/2011 [id number] Mammogram Completed 11/24/2007 [id number] Mammogram Completed 03/12/2006 [id number] Mammogram Completed Medical Devices Description No Information Available Encounters Type Date Location Provider Dx Diagnosis Office Visit 11/01/2018 [facility] Roxana Mistry, I21.4 Non-St elevation 1:30p PA ([facility]stemi) myocardial infarction I50.23 Acute on chronic systolic (congestive) heart failure E86.0 Dehydration Office Visit 09/29/2018 6:40p [facility] Office David Abraham, I21.4 Non-St elevation M.D. ([facility]stemi) myocardial infarction I50.23 Acute on chronic systolic (congestive) heart failure E11.65 Type 2 diabetes mellitus with hyperglycemia N28.89 Other specified disorders of kidney and ureter Assessments Date Code Description Provider 11/30/2018 E11.65 Type 2 diabetes mellitus with hyperglycemia JUANCHO Olvera 11/30/2018 I21.4 Non-St elevation ([facility]stemi) myocardial JUANCHO Olvera infarction 11/01/2018 I21.4 Non-St elevation (Nstemi) myocardial JUANCHO [...] 4:30 pm - David [facility] M.D[facility] at [facility]/30/2018 - Roxana Mistry, PAE11.65 Type 2 diabetes mellitus with hyperglycemiaComments:A1C 6.5 today, down from 7.7 in September 2018Continue to monitor sugars in the morning before eating. Continue Glipizide 10 mg ER in the morning Janumet 50/500Follow up in 1 month as scheduled with Dr. AbrahamI21.4 Non -St elevation (Nstemi) myocardial infarctionComments:Continue all mediations as you have been per Dr. Wright. Continue to follow with Dr. Jacobs Medication:Plavix 75 mg - take 1 tablet daily.Metoprolol Succinate ER 25 mg - 1 by mouth every dayAmlodipine Besylate 2.5 mg - take 1 tablet dailyComments: PCMHMedication Management Patient Understands medications he's taking? Yes Are there Barriers to Adherence? No Has the patient been asked about herbal supplements and therapies, and OTC meds? Yes Care Plan1. Patient has been queried about patient's goals/preferences and functional/ lifestyle goals at relevant visits. Yes If relevant, describe: N/A2. Treatment goals as explained to the patient: above3. Are there barriers to meeting treatment goals? No If Yes, please describe:4. Self-Management goals [...]
[2018-12-01 12:04] LABS: Albumin 3.9 g/dL (3.2-5.2); Albumin/Globulin Ratio 1.6 (1-3); Calcium 9.4 mg/dL (8.6-10.3); EGFR African American 57.1 (>60); EGFR Non-African American 47.2 (>60); Globulin 2.4 g/dL (2-4); Potassium 5.1 mmol/L (3.5-5.0); Total Bilirubin 0.7 mg/dL (0.2-1.0); Total Protein 6.3 g/dL (6.4-8.9)
--- NOTE | 2018-12-01 12:20 | ED ---
Shortness of Breath - HPI Summary HPI Summary: This patient is a 83 year old F w hx CAD, CHF, NSTEMI [place] [facility] [place] with a chief complaint of SOB since 12/01/18 at 1000. Patient's daughter states that she was with her Aide showering in AM when she got dressed she felt fatigued. Patient's daughter states that when Aide sat her down she was complaining of diaphoresis, left arm pain and SOB. Currently denies CP. Recent admit for Symptoms aggravated by exertion. Symptoms alleviated by rest. Patient denies CP. Patient is DNR and DNI except for when BiPAP is needed. Allergies Allergy/AdvReac Type Severity Reaction Status Date / Time Sulfa (Sulfonamide Allergy Rash Verified 10/20/18 12:44 Antibiotics) Home Medications Medication Instructions Recorded Confirmed Type Aspirin EC TAB* [Ecotrin EC Low 81 mg PO DAILY 10/28/17 12/01/18 History Dose 81 MG*] Atorvastatin* [Lipitor 80 MG*] 80 mg PO DAILY 10/28/17 12/01/18 History Folic Acid TAB* [Folvite TAB*] 1 mg PO DAILY 10/28/17 12/01/18 History Lisinopril TAB* [Prinivil TAB 5 2.5 mg PO DAILY 10/28/17 12/01/18 History MG*] Raloxifene (NF) [Evista(NF)] 60 mg PO DAILY 10/28/17 12/01/18 History Sertraline* [Zoloft*] 25 mg PO QAM 10/28/17 12/01/18 History glipiZIDE [Glipizide ER] 10 mg PO DAILY 10/28/17 12/01/18 History Clopidogrel TAB* [Plavix TAB*] 75 mg PO DAILY #30 tab 09/20/18 12/01/18 Rx Spironolactone TAB* [Aldactone TAB 25 mg PO DAILY #30 tab 09/20/18 12/01/18 Rx 25 MG*] Furosemide TAB* [Lasix TAB*] 20 mg PO DAILY #30 tab 10/21/18 12/01/18 Rx Nitroglycerin 0.1 mg/Hr PATCH* 1 patch TRANSDERM DAILY #30 patch 10/21/18 Rx [Nitroglycerin 2.5 MG PATCH*] Metoprolol Succinate XL TAB* 25 mg PO DAILY 30 Days #30 tab.xl 11/10/18 Rx [Toprol XL TAB*] amLODIPine TAB* [Norvasc 5 mg TAB*] 2.5 mg PO 2000 30 Days #30 tab 11/10/18 Rx Sitagliptin/Metform 50/500(NF) 1 tab PO BID 12/01/18 12/01/18 History [Janumet 50/500 (NF)] - History of Current Complaint Chief Complaint: EDWeakness Time Seen by Provider: 12/01/18 11:14 Hx Obtained From: Patient, Family/Script Supervisor - daughter Onset/Duration: Gradual Onset, Still Present Timing: Constant Dyspnea At: Rest Aggravating Factors: Nothing Alleviating Factors: Nothing Associated Signs & Symptoms: Wheezing - Allergy/Home Medications Allergies/Adverse Reactions: Allergies Allergy/AdvReac Type Severity Reaction Status Date / Time Sulfa (Sulfonamide Allergy Rash Verified 10/20/18 12:44 Antibiotics) Home Medications: Home Medications Sitagliptin/Metform 50/500(NF) [Janumet 50/500 (NF)] 1 tab PO BID 12/01/18 [ History Confirmed 12/01/18] PMH/Surg Hx/FS Hx/Imm Hx Endocrine/Hematology History: Reports: Hx Diabetes, Hx Anemia Denies: Hx Anticoagulant Therapy, Hx Blood Disorders, Hx Blood Transfusions, Hx Bone Marrow Disease, Hx Systemic Lupus Erythematosus, Hx Sickle Cell Disease , Hx Thyroid Disease, Hx Unexplained Bleeding, Other Endocrine/Hematological Disorders Cardiovascular History: Reports: Hx Angina, Hx Angioplasty, Hx Congestive Heart Failure, Hx Coronary Artery Disease, Hx Hypercholesterolemia, Hx Hypertension, Hx Peripheral Vascular Disease, Hx Valvular Heart Disease Denies: Hx Aneurysm, Hx Auto Implanted Cardiovert Defib, Hx Cardiac Arrest, Hx Cardiomegaly, Hx Congenital Heart Disease, Hx Deep Vein Thrombosis, Hx Embolism, Hx Hypotension, Hx Pacemaker/ICD, Hx Rheumatic Fever, Hx Syncope, Other Cardiovascular Problems/Disorders Respiratory History: Denies: Hx Asthma, Hx Chronic Bronchitis, Hx Chronic Obstructive Pulmonary Disease (COPD), Hx Cystic Fibrosis, Hx Lung Cancer, Hx Pleural Effusion, Hx Pneumonia, Hx Pulmonary Edema, Hx Pulmonary Embolism, Hx Seasonal Allergies, Hx Sleep Apnea, Other Respiratory Problems/Disorders GI History: Denies: Hx Cirrhosis, Hx Crohn's Disease, Hx Diverticulosis, Hx Gall Bladder Disease, Hx Gastroesophageal Reflux Disease, Hx Gastrointestinal Bleed, Hx Hiatal Hernia, Hx Irritable Bowel, Hx Jaundice, Hx Obstructive Bowel, Hx Ileostomy, Hx Pyloric Stenosis, Hx Ulcer, Other GI Disorders History: Denies: Hx Acute Renal Failure, Hx Benign Prostatic Hyperplasia, Hx Chronic Renal Failure, Hx Dialysis, Hx Kidney Infection, Hx Kidney Stones, Hx Renal Disease, Other Problems/Disorders Musculoskeletal History: Reports: Hx Arthritis, Hx Osteoporosis Denies: Hx Back Problems, Hx Bursitis, Hx Congenital Bone Abnormalities, Hx Fibromyalgia, Hx Gout, Hx Orthopedic Injury, Hx Scoliosis, Hx Tendonitis, Other Musculoskeletal History Sensory History: Reports: Hx Contacts or Glasses Denies: Hx Cataracts, Hx Eye Injury, Hx Eye Prosthesis, Hx Glaucoma, Hx Legally Blind, Hx Macular Degeneration, Hx Vision Problem, Hx Deafness, Hx Hearing Aid, Hx Hearing Problem, Other Sensory Impairments Opthamlomology History: Reports: Hx Contacts or Glasses Denies: Hx Cataracts, Hx Eye Injury, Hx Eye Prosthesis, Hx Glaucoma, Hx Legally Blind, Hx Macular Degeneration, Hx Vision Problem, Other Sensory Impairments Neurological History: Reports: Hx Dementia Denies: Hx Developmental Delay, Hx Headaches, Hx Migraine, Hx Nerve Disease, Hx Seizures, Hx Spinal Cord Injury, Hx Transient Ischemic Attacks (TIA), Other Neuro Impairments/Disorders Psychiatric History: Reports: Hx Depression Denies: Hx Anxiety, Hx Attention Deficit Hyperactivity Disorder, Hx Eating Disorder, Hx Panic Disorder, Hx Post Traumatic Stress Disorder, Hx Inpatient Treatment, Hx Community Mental Health Tx, Hx Schizophrenia, Hx Bipolar Disorder , Hx Suicide Attempt, Hx of Violent Episodes Against Others, Hx Substance Abuse , Other Psychiatric Issues/Disorders - Cancer History Hx Chemotherapy: No Hx Radiation Therapy: No Hx Palliative Cancer Treatment: No - Surgical History Surgical History: Yes Surgery Procedure, Year, and Place: 2014 VASCULAR PROCEDURE - NO IMPLANTS - OP REPORT SCANNED IN;. 2018 MULTIPLE VASCULAR LEG SURGERIES AT [facility] 2018 LEG STENTS PLACED. INFORMATION SCANNED INTO [place]. 4X COOK ZILVER DRUG ELUTING STENTS LEFT LEG (CONDITIONAL 8 - OVERPLAPPING). SUPERA PERIPHERAL STENTING SYSTEM LEFT LEG. (CONDITIONAL - PER DR. FARRELL: OKAY TO SCAN UNDER CONDITIONS. MUST BE DONE AT HOSPITAL. NEEDS TWO TIME SLOTS. WILL BE AN ATTEMPT HEATING MAY JUMP QUICKLY. LEGS CAN NOT BE TOUCHING. MATHIEU CAN NOT GO ABOVE 0.5 W/KG NORMAL MODE ONLY.) Hx Anesthesia Reactions: No Infectious Disease History: No Infectious Disease History: Denies: Hx Clostridium Difficile, Hx Hepatitis, Hx of Known/Suspected MRSA, Hx Shingles, Hx Tuberculosis, History Other Infectious Disease, Traveled Outside the [place] in Last 30 Days - Family History Known Family History: Positive: Hypertension - Social History Alcohol Use: None Hx Substance Use: No Substance Use Type: Reports: None Hx Tobacco Use: No Smoking Status (MU): Never Smoked Tobacco Have You Smoked in the Last Year: No Review of Systems Positive: Skin Diaphoresis. Negative: Fever Positive: Shortness Of Breath Positive: Weakness All Other Systems Reviewed And Are Negative: Yes Physical Exam - Summary Physical Exam Summary: Constitutional: Moderate distress, tripoding Skin: Warm, Dry HENT: Normocephalic; Atraumatic Eyes: Conjunctiva normal Neck: Musculoskeletal ROM normal neck. (+) JVD, (-) Stridor Cardio: Rhythm regular, rate normal, Heart sounds normal; Intact distal pulses; Radial pulses are 2+ and symmetric. (+) Murmur Pulmonary/Chest wall: Inc work of breathing, tripoding, diffuse crackles. On nasal cannula satting 70% Abd: Soft, (-) tenderness, (-) Distension, (-) Guarding, (-) Rebound Musculoskeletal: Trace lower extremity edema Lymph: (-) Cervical adenopathy Neuro: Alert, Oriented x3 Psych: Mood and affect Normal Triage Information Reviewed: Yes Vital Signs On Initial Exam: Initial Vitals Temp Pulse Resp BP Pulse Ox 96.7 F 67 18 83/50 82 12/01/18 11:08 12/01/18 11:08 12/01/18 11:08 12/01/18 11:08 12/01/18 11:08 Vital Signs Reviewed: Yes Diagnostics - Vital Signs Vital Signs Temp Pulse Resp BP Pulse Ox 12/01/18 12:00 56 23 100 12/01/18 11:47 58 33 101/49 100 12/01/18 11:38 60 16 111/57 100 12/01/18 11:18 69 36 102/62 91 12/01/18 11:16 75 27 80 12/01/18 11:08 96.7 F 67 18 83/50 82 - Laboratory Lab Results: Lab Results 12/01/18 12/01/18 12/01/18 Range/Units 11:32 11:32 11:32 WBC 9.2 (3.5-10.8) 10^3/uL RBC 3.63 L (3.70-4.87) 10^6 /uL Hgb 11.5 L (12.0-16.0) g/dL Hct 35 (35-47) % MCV 96 (80-97) fL MCH 32 H (27-31) pg MCHC 33 (31-36) g/dL RDW 14 (10-15) % Plt Count 309 (150-450) 10^3/uL MPV 8.4 (7.4-10.4) fL Neut % (Auto) 82.6 % Lymph % (Auto) 11.3 % [place] % (Auto) 4.8 % Eos % (Auto) 0.6 % Baso % (Auto) 0.7 % Absolute Neuts (auto) 7.6 (1.5-7.7) 10^3/ul Absolute Lymphs (auto) 1.0 (1.0-4.8) 10^3/ul Absolute Monos (auto) 0.4 (0-0.8) 10^3/ul Absolute Eos (auto) 0.1 (0-0.6) 10^3/ul Absolute Basos (auto) 0.1 (0-0.2) 10^3/ul Absolute Nucleated RBC 0.0 10^3/ul Nucleated RBC % 0.0 INR (Anticoag Therapy) 0.92 (0.82-1.09) Sodium 137 (135-145) mmol/L Potassium 5.1 H (3.5-5.0) mmol/L Chloride 105 (101-111) mmol/L Carbon Dioxide 21 L (22-32) mmol/L Anion Gap 11 (2-11) mmol/L BUN 22 (6-24) mg/dL Creatinine 1.10 H (0.51-0.95) mg/dL Est GFR ( Amer) 57.1 (>60) Est GFR (Non-Af Amer) 47.2 (>60) BUN/Creatinine Ratio 20.0 (8-20) Glucose 353 H (70-100) mg/dL Calcium 9.4 (8.6-10.3) mg/dL Total Bilirubin 0.70 (0.2-1.0) mg/dL AST 48 H (13-39) U/L ALT 68 H (7-52) U/L Alkaline Phosphatase 84 (34-104) U/L Troponin I 0.03 (<0.04) ng/mL Total Protein 6.3 L (6.4-8.9) g/dL Albumin 3.9 (3.2-5.2) g/dL Globulin 2.4 (2-4) g/dL Albumin/Globulin Ratio 1.6 (1-3) Result Diagrams: 12/01/18 11:32 12/01/18 11:32 Lab Statement: Any lab studies that have been ordered have been reviewed, and results considered in the medical decision making process. - Radiology Chest Xray Radiology Interpretation Completed By: Radiologist Summary of Radiographic Findings: Chest Xray reveals, per radiologist, IMPRESSION: BILATERAL INFILTRATES MOST CONSISTENT WITH CONGESTIVE HEART FAILURE LESS LIKELY PNEUMONIA, NEW. ED Physician has reviewed this report. - EKG 1104 Cardiac Rate: NL EKG Rhythm: Sinus Rhythm EKG Comparison: No Significant Change Summary of EKG Findings: An EKG at 1104 reveals sinus rhythm at 67 bpm with a left bundle branch block. No significant changes compared to 11/08/18. Re-Evaluation - Re-Evaluation First Eval Re-Evaluation Time: 12:20 Change: Improved - WOB dec on exam, CXR w pulm edema, BNP pending. [place] [facility] [place]/Dx - Course Course Of Treatment: 83 y/o F w Hx NSTEMI, HF, aortic stenosis, CAD, HLD, DM p/ w SOB and fatigue. Had NSTEMI in 10/2018, declined cath at that time, seen by Dr. Regalado, EKG showed LBBB. Shortness of breath ddx: Most likely CHF given 4 pound weight gain, crackles, history of CHF. Will try 80 of Lasix IV, nitroglycerin patch removed, check a chest x-ray and BNP, suspect will be admitted for heart failure exacerbation. Also consider: COPD exacerbation/ asthma - no h/o COPD, no wheezing on exam. Low suspicion. PNA - no sputum production, no fevers or chills. No leukocytosis. CXR w/o infiltrate. Low suspicion. PTX - breath sounds equal, no risk factors for PTX, CXR w/o e/o PTX. ACS - no CP, no EKG changes, initial trop not elevated. Low suspicion. PE - no risk factors for PE, no unilateral leg swelling - Diagnoses Provider Diagnoses: Acute exacerbation of CHF (congestive heart failure), Respiratory distress, acute - Critical Care Time Critical Care Time: 30-74 min - respiratory failure/distress Discharge ED - Sign-Out/Discharge Documenting (check all that apply): Patient Departure - admitted Patient Received Moderate/Deep Sedation with Procedure: No - Discharge Plan Condition: Improved Disposition: ADMITTED TO [facility] - Billing Disposition and Condition Condition: IMPROVED Disposition: Admitted to [facility] - Attestation Statements Document Initiated by Scribe: Yes Documenting Scribe: Savannah Candelario Provider For Whom Binaibe is Documenting (Include Credential): Dr. Sedrick Maya MD Scribe Attestation: Savannah Pratt scribed for Dr. Sedrick Maya MD on 12/01/18 at 2254. Scribe Documentation Reviewed: Yes Provider Attestation: The documentation as recorded by the scribeSavannah accurately reflects the service I personally performed and the decisions made by , Dr. Sedrick Maya MD Status of Scribe Document: Viewed
[2018-12-01] MEDS ORDERED: Dextrose 50% VIAL 50 ml IV PUSH PRN (13:12)
--- NOTE | 2018-12-01 14:31 | HP ---
CC: Dr. Abraham; Dr. Ramiro Wright * HISTORY AND PHYSICAL: DATE OF ADMISSION: 12/01/18 PRIMARY CARE PROVIDER: Dr. Abraham. INK PRINTER: Dr. Wright. CHIEF COMPLAINT: Shortness of breath. HISTORY OF PRESENT ILLNESS: Ms. Cornejo is an 83-year-old female, who approximately 2 nights ago ate ham for dinner. She also ate several potato chips. The day prior to admission, the patient's daughter weighed her and it was noted that the patient's weight was up by approximately 4 pounds, though there were no breathing difficulties at that time. Today, the day of admission , the patient got up with help of her aide. She took her blood sugar, took her medications, ate breakfast, showered and then got dressed. At that point, the patient stated that she was feeling tired. The patient was placed in bed with her head flat. At that time, the patient had significant shortness of breath. The patient was then taken to the living room where she was sitting upright. She stated that she did not feel good. The patient was noted to be sweating, she was still complaining of shortness of breath as well as right leg pain. At that point, the patient's daughter was concerned and decided that the patient should be brought to the emergency room. The patient in the car ride to the ER was noted to have left arm discomfort. There was never any chest discomfort. The patient does not utilize oxygen at home. She was supposed to be referred to hospice; however, Hospice never evaluated the patient at home. PAST MEDICAL HISTORY: 1. Cognitive impairment/mild dementia. 2. Systolic congestive heart failure. 3. Naad-vt-[id number] aortic stenosis. 4. Hypertension. 5. Hyperlipidemia. 6. Coronary artery disease with NSTEMI at the end of October 2018. 7. Peripheral arterial disease. 8. Type 2 diabetes. PAST SURGICAL HISTORY: Bilateral peripheral arterial stenting. MEDICATIONS: 1. Amlodipine 2.5 mg p.o. daily at 8 p.m. 2. Lasix 20 mg p.o. daily. 3. Lipitor 80 mg p.o. daily. 4. Aspirin 81 mg p.o. daily. 5. Glipizide ER 10 mg p.o. daily. 6. Spironolactone 25 mg p.o. daily. 7. Sertraline 25 mg p.o. daily. 8. Raloxifene 60 mg p.o. daily. 9. Janumet 50/500 one tab p.o. b.i.d. 10. Metoprolol XL 25 mg p.o. daily. 11. Lisinopril 2.5 mg p.o. daily. 12. Folic acid 1 mg p.o. daily. 13. Nitroglycerin patch 0.1 mg per hour patch, 1 patch topically daily. 14. Plavix 75 mg p.o. daily. ALLERGIES: SULFA. FAMILY HISTORY: The patient reports strong family history of cardiac disease. Her grandmother had an VA as well as atrial fibrillation. The patient also has diabetes on both sides of her family. The patient's father had a brain tumor, but of a ruptured ulcer. SOCIAL HISTORY: The patient smoked for a very short period of time when she was 15 years old. She did have exposure to secondhand smoke. She drinks alcohol rarely. She lives in an apartment attached to her daughter's house. The patient's daughter, Jeannette, is her healthcare proxy. REVIEW OF SYSTEMS: A complete 11-system review of systems was obtained. Pertinent positives and negatives are as per HPI and otherwise negative. PHYSICAL EXAMINATION GENERAL: The patient is a well-developed, elderly female seen sitting up in the stretcher, in no acute distress. VITAL SIGNS: Blood pressure 110/55, pulse 56, respirations 33, temp 96.7, O2 sat 100% on 15 L. HEENT: Pupils are equal and round. Extraocular muscles are intact. Oropharynx is clear. Oral mucosa is moist. NECK: There is no submandibular, cervical, or supraclavicular adenopathy. PULMONARY: There are diffuse crackles anteriorly and at the bases posteriorly. CARDIAC: Normal S1, S2. Heart rate is bradycardic. There is no lower extremity edema. ABDOMEN: Bowel sounds are present. Abdomen is soft, nontender, nondistended. MUSCULOSKELETAL: There is no cyanosis or clubbing of the digits. There is full active range of motion of all 4 extremities. NEURO: Cranial nerves II through XII are grossly intact. Sensation is intact to light touch throughout. Strength is 5/5 and symmetric in both upper and lower extremities bilaterally. PSYCH: The patient is somewhat sleepy, but she is able to answer questions appropriately. SKIN: Skin is warm and dry. There are no rashes. The patient does have erythema of the distal feel and toes bilaterally. This is chronic per the patient's daughter. DIAGNOSTIC STUDIES/LAB DATA: WBC 9.2, hemoglobin 11.5, hematocrit 35, platelets 309. INR 0.92. Sodium 137, potassium 5.1, chloride 105, CO2 of 21, BUN 22, creatinine 1.10, glucose 353, calcium 9.4. Bilirubin 0.7, AST 48, ALT 68, alk phos 84. Troponin 0.03. BNP 1088. Albumin 3.9. EKG reveals a left bundle branch block with the patient being in sinus rhythm. Chest x-ray to my interpretation reveals bilateral pulmonary infiltrates consistent with pulmonary edema. ASSESSMENT AND PLAN: Ms. Cornejo is an 83-year-old female who has a history of systolic congestive heart failure, coronary artery disease, hypertension, type 2 diabetes and peripheral arterial disease, who was admitted at the end of October 2018 where she was treated for [id number] myocardial infarction, who now returns to the emergency room with complaints of sudden shortness of breath and is found to be markedly hypoxic. 1. Acute systolic congestive heart failure exacerbation. The patient has acute hypoxic respiratory failure secondary to an acute systolic congestive heart failure exacerbation. I suspect this may have something to do with either salty foods 2 days prior. The patient's weight was noted to be elevated yesterday. The patient has continued on her usual medication regimen at home; however, has decompensated. The patient received 80 mg of IV Lasix in the emergency room. She will receive 40 mg IV tomorrow. I will not repeat her transthoracic echocardiogram as it was last done on 10/21/18. At that time, her EF was estimated to be 30% to 35%, which was similar to her echo in September of 2018. Of note, the patient, however, did have a non- ST-elevation myocardial infarction at the end of October after this echocardiogram. The patient will be continued on her usual dose of lisinopril and metoprolol XL if her blood pressure and heart rate allow. The patient was to be referred to hospice at the end of her last hospitalization; however, this did not occur. The patient' s daughter is still interested in a referral to hospice. I will ask that repeat referral be made. The patient has now had 4 hospitalizations including this one in the last 2 months. 2. Type 2 diabetes. The patient's blood sugar in the ER was markedly elevated. We will check fingersticks a.c. h.s. and utilize a lispro sliding scale. Depending on her sugars, we may reintroduce her glipizide sooner rather than later. 3. Hypertension. At this point, the patient is hypotensive with systolic in the 80s. Her nitro patch has been removed. I suspect the hypotension is secondary to high-dose Lasix that was given in the setting of the patient already having her morning meds. We will monitor her blood pressure closely. I have placed hold parameters on her metoprolol. I have held her spironolactone as the patient's potassium is mildly elevated. 4. Elevated LFTs. The patient's AST and ALT are mildly elevated. I question if this may be secondary to passive congestion from her heart failure exacerbation. These can be followed up in the next couple days. 5. Peripheral arterial disease. The patient does complain of pain in the right leg. She has absent pedal pulses. The feet are generally warm, however. We will continue aspirin and Plavix as well as Lipitor. 6. DVT prophylaxis: According to the Adult Thrombosis Prophylaxis Risk Factor Assessment Guide, the patient has a total risk factor score of 4, making her high risk. She will be placed on heparin 5000 units subcutaneous q.8 hours. 7. Code status is DNR with a trial of noninvasive positive pressure ventilation. TIME SPENT: 65 minutes was spent admitting this patient. [id number]/[id number] #: [id number] JOSÉ ANTONIO
[2018-12-01 14:40] LABS: Troponin I 0.54 ng/mL (<0.04)
[2018-12-01] MEDS: Heparin VIAL(*) 5000 UNITS/ML VIAL (FIVE THOUSAND) SUBCUT SCH ×2 (15:16→21:11)
[2018-12-01] MEDS: Insulin LISPRO* 1 UNITS UNIT SUBCUT SCH ×3 (15:35→20:28)
[2018-12-01 15:56] LABS: Troponin I 1.07 ng/mL (<0.04)
[2018-12-01] MEDS ORDERED: Nitro Patch/OINT Remove PATCH OFF SCH (21:00)
[2018-12-01 21:07] LABS: Troponin I 2.37 ng/mL (<0.04)
[2018-12-01] MEDS ORDERED: Enoxaparin(*) 60 MG/0.6 ML SYR SUBCUT SCH (22:00)
[2018-12-02 00:10] LABS: Troponin I 2.27 ng/mL (<0.04)
[2018-12-02] MEDS: Insulin LISPRO* 1 UNITS UNIT SUBCUT SCH ×4 (08:54→21:37)
[2018-12-02] MEDS ORDERED: Clopidogrel TAB* 75 MG PO SCH (09:00)
[2018-12-02] MEDS ORDERED: Spironolactone TAB* 25 MG PO SCH (09:00)
[2018-12-02] MEDS ORDERED: Nitroglycerin 0.1 mg/Hr PATCH* (2.5 MG) TRANSDERM SCH (09:00)
[2018-12-02] MEDS ORDERED: Aspirin EC TAB* 325 MG PO ONE (09:03)
[2018-12-02] MEDS ORDERED: Morphine INJ* 2 MG/ML 1 ML SYRINGE (TWO MG - NEW SYRINGE VERSION) ONE (09:42)
[2018-12-02] MEDS: Enoxaparin(*) 60 MG/0.6 ML SYR SUBCUT SCH ×2 (09:49→21:38)
[2018-12-02] MEDS: Ticagrelor* 90 MG TAB PO SCH ×2 (09:49→21:38)
[2018-12-02] MEDS: Metoprolol Succinate XL TAB* 25 MG PO SCH (09:49)
[2018-12-02] MEDS: Aspirin EC TAB* 81 MG TAB.EC PO SCH (10:02)
--- NOTE | 2018-12-02 10:17 | CONSULT ---
Subjective Date of Service: 12/02/18 Interval History: PCP: Dr. Abraham Service: Hospitalist CC: left arm discomfort, dyspnea Reason for consult: Acute [place], CHF HPI: Mercedes Cornejo is an 83 year old woman well known to me with critical unrevascularized CAD including but not limited to left main. She also has ischemic CM, mitral regurgitation and CHF. She has had multiple recurrent [place]/ CH[place] admissions. She was turned down for CABG in the past in [place] due to risk. She has memory impairment and sleep disturbance which is of a cyclical nature and lives next/adjacent to her daughter. They have not wanted to pursue invasive management. I saw her 8 days ago in the office and she had stable BAL and no angina. Has had weight gain as an outpatient developed dyspnea and sweating. Later had L arm discomfort on way to ER. Found with recurrent NSTEMI /CHF and is being treated. There was supposed to be an arrangement where [facility] provided hospice like services at home but this has not happened. PMH: Hypertension Hypercholesterolemia Diabetes Type II Peripheral artery disease Congestive Heart Failure (CHF) Mild Moderate to severe MR Recurrent Non St elevation [place] PAD s/p stenting Allergies: Sulfa Antibiotics 10/06/18 allergy list reviewed on 11/24/2018 FH: Non-contributory SH: Marital: .Lives With: Daughter.Occupation: Retired.Retired [employer] Personal Habits: Smoking: Patient has never smoked.Alcohol: Denies alcohol use.Drug Use: Denies Drug Use.Daily Caffeine: occassional soda.Exercise Type: Exercises Home PT 2 x week. Medications Active Medications: Aspirin (Aspirin Ec Tab*) 81 mg PO DAILY [facility] Last Admin: 12/02/18 10:02 Dose: Not Given Atorvastatin Calcium (Lipitor*) 80 mg PO DAILY [facility] Dextrose (Dextrose 50% Vial 50 Ml*) 25 ml IV PUSH .FOR FS < 60 - SS PRN PRN Reason: FS < 60 Enoxaparin Sodium (Lovenox(*)) 60 mg SUBCUT Q12H [facility] Last Admin: 12/02/18 09:49 Dose: 60 mg Folic Acid (Folvite Tab*) 1 mg PO DAILY [facility] Furosemide (Lasix Iv*) 40 mg IV DAILY [facility] Insulin Human Lispro (Humalog*) 0 units SUBCUT ACHS [facility]; Protocol Last Admin: 12/02/18 08:54 Dose: Not Given Lisinopril (Prinivil Tab*) 2.5 mg PO DAILY [facility] Metoprolol Succinate (Toprol Xl Tab*) 25 mg PO DAILY [facility] Last Admin: 12/02/18 09:49 Dose: 25 mg Nitroglycerin (Nitroglycerin 2.5 Mg Patch*) 1 patch TRANSDERM DAILY [facility] Last Admin: 12/02/18 10:01 Dose: 1 patch Pharmacy Profile Note (Nitro Patch/Oint Remove*) 1 note PATCH OFF 2100 [facility] Last Admin: 12/01/18 22:34 Dose: Not Given Sertraline HCl (Zoloft*) 25 mg PO QAM [facility] Spironolactone (Aldactone Tab*) 25 mg PO DAILY [facility] Ticagrelor (Brilinta*) 90 mg PO BID [facility] Last Admin: 12/02/18 09:49 Dose: 90 mg Home Medications: Aspirin EC TAB* [Ecotrin EC Low Dose 81 MG*] 81 mg PO DAILY 10/28/17 [History Confirmed 12/01/18] Atorvastatin* [Lipitor 80 MG*] 80 mg PO DAILY 10/28/17 [History Confirmed ] Folic Acid TAB* [Folvite TAB*] 1 mg PO DAILY 10/28/17 [History Confirmed ] Lisinopril TAB* [Prinivil TAB 5 MG*] 2.5 mg PO DAILY 10/28/17 [History Confirmed 12/01/18] Raloxifene (NF) [Evista(NF)] 60 mg PO DAILY 10/28/17 [History Confirmed 12/01/18 ] Sertraline* [Zoloft*] 25 mg PO QAM 10/28/17 [History Confirmed 12/01/18] glipiZIDE [Glipizide ER] 10 mg PO DAILY 10/28/17 [History Confirmed 12/01/18] Clopidogrel TAB* [Plavix TAB*] 75 mg PO DAILY #30 tab 09/20/18 [Rx Confirmed ] Spironolactone TAB* [Aldactone TAB 25 MG*] 25 mg PO DAILY #30 tab 09/20/18 [Rx Confirmed 12/01/18] Furosemide TAB* [Lasix TAB*] 20 mg PO DAILY #30 tab 10/21/18 [Rx Confirmed 12/01] Nitroglycerin 0.1 mg/Hr PATCH* [Nitroglycerin 2.5 MG PATCH*] 1 patch TRANSDERM DAILY #30 patch 10/21/18 [Rx Confirmed 12/01/18] Metoprolol Succinate XL TAB* [Toprol XL TAB*] 25 mg PO DAILY 30 Days #30 tab.xl 11/10/18 [Rx Confirmed 12/01/18] amLODIPine TAB* [Norvasc 5 mg TAB*] 2.5 mg PO 2000 30 Days #30 tab 11/10/18 [Rx Confirmed 12/01/18] Sitagliptin/Metform 50/500(NF) [Janumet 50/500 (NF)] 1 tab PO BID 12/01/18 [ History Confirmed 12/01/18] Review of Systems - Measurements Intake and Output: Intake and Output Last 24 Hours 11/30/18 12/01/18 12/02/18 12/03/18 06:59 06:59 06:59 06:59 Intake Total 360 120 Output Total 900 Balance -540 120 Weight 126 lb 8 oz Intake: Oral 360 120 Output: Urine 900 Other: # Bowel Movements 0 - Review of Systems Constitutional Symptoms: Positive: Weight Gain, Fatigue Dermatology: Negative: Rash, Skin Lesions HEENT: Negative: Change in Hearing, Vertigo Eyes: Negative: Change in Vision, Double Vision Thyroid: Positive: Weight Gain Negative: Cold Intolerance, Heat Intolerance, Palpitations, Weight Loss Pulmonary: Positive: Respiratory Distress, Shortness of Breath, Exercise Intolerance Negative: Cough, Sputum, Hemoptysis, Home Oxygen Cardiology: Positive: Shortness of Breath, Orthopnea Negative: Palpitations, Swelling of Ankles, Peripheral Vascular Dis, Edema, Faintness, Syncope, Claudication Gastroenterology: Negative: Abdominal Pain, Nausea, Vomiting, Anorexia, Blood in Stools, Haematemesis, Melena Genital - Urinary: Negative: Dysuria, Hematuria Musculoskeletal: Negative: Joint Pain, Joint Stiffness Endocrinology: Negative: Polydipsia, Polyuria Hematologic/Lymphatic: Positive: Use of Antiplatelet Drugs Negative: Use of Anticoagulant Neurology: Negative: Change in Speech, Numbness\Paresthesiae, Hx Seizures Psychiatry: Negative: Unusual Anxiety, Suicidal Ideation Allergic/Immunologic: Negative: Hx HIV, Immunocompromise Review of Systems Statement: All other review of systems negative, unless stated above. Objective Vital Signs: Temp Pulse Resp BP Pulse Ox 97.7 F 64 24 91/48 98 12/02/18 02:57 12/02/18 02:57 12/02/18 10:02 12/02/18 02:57 12/02/18 02:57 Oxygen Devices in Use Now: Nasal Cannula Appearance: nad, pleasant Ears/Nose/Mouth/Throat: Clear Oropharnyx, Mucous Membranes Moist Neck: Trachea Midline, - - mild jvd Respiratory: - - mild tachypnea/increased work of breathing but overall comfortable, bibasilar rales Cardiovascular: RRR, No Edema, - - 2/6 systolic apical murmur Abdominal: NL Sounds; No Tenderness; No Distention Extremities: No Edema Skin: No Rash or Ulcers Neurological: - - awake, alert Laboratory Results: 12/01/18 11:32 12/01/18 11:32 INR (Anticoag Therapy) 0.92 (0.82-1.09) 12/01/18 11:32 Total Bilirubin 0.70 mg/dL (0.2-1.0) 12/01/18 11:32 AST 48 U/L (13-39) H 12/01/18 11:32 ALT 68 U/L (7-52) H 12/01/18 11:32 Alkaline Phosphatase 84 U/L (34-104) 12/01/18 11:32 B-Natriuretic Peptide 1088 pg/mL (<=100) H 12/01/18 11:32 Total Protein 6.3 g/dL (6.4-8.9) L 12/01/18 11:32 Albumin 3.9 g/dL (3.2-5.2) 12/01/18 11:32 Globulin 2.4 g/dL (2-4) 12/01/18 11:32 Albumin/Globulin Ratio 1.6 (1-3) 12/01/18 11:32 12/01/18 12/01/18 12/01/18 11:32 14:04 15:18 Troponin I 0.03 0.54 H* 1.07 H* 12/01/18 12/01/18 20:39 23:33 Troponin I 2.37 H* 2.27 H* Diagnostic Imaging: Cardiac Testing: Echocardiogram - (10/21/2018) -Left ventricle: Systolic function is moderately reduced. The estimated ejection fraction is 30-35%. -Left atrium: The atrium is moderately to severely dilated. -Mitral valve: There is moderate to severe regurgitation directed eccentrically Mild aortic stenosis -Tricuspid valve: There is moderate regurgitation. -Pulmonary arteries: Systolic pressure is moderately increased, estimated to be 55 mmHg. Echocardiogram - (09/16/2018) LVEF 30-35% (see report for WMA), moderate LA dilation, moderate to severe posterior directed MR, mild , mild-moderate pHTN (49 mmHg) CArdiac catheterization - (04/26/2017) Dr. Feliz [facility]: Abnormal stress test, NSVT. Distal complex LM stenosis and calcification with thrombus Ostial LAD complex high grade stenosis, 80% mLAD, 50-70% D1 ostial, 80-90% D2 Moderate to large Lcx with ostial critical complex stenosis and subtotal occlusion and thrombus, 70% mid 0M2 lesion, Artur II flow in Lcx system RCA dominant, mid RCA DRUM SANDER OFFBEARER fills from LAD collaterals Extensive aortic arch calcificationn, left subclavian artery origin not identified Assessment/Plan 1. Recurrent NSTEMI - Unsure if this was first or heart failure triggered this - Will be treated the same regardless - Known very severe unrevascularized CAD as above 2. DM 3. Acute on chronic congestive heart failure - LVEF 30% - Significant MR, ? worsened when acutely ischemic - Mild 4. PAD 5. Memory loss, intermittent - Continue aspirin 81 mg po daily - Change plavix to brilinta 90 mg po bid for more potent anti-platelet effect ( ordered) - Continue therapeutic anticoagulation for a minimum of 48 hours - Continue lipitor 80 mg po daily - [employer] norvasc 2.5 mg po daily is held - Continue toprol 25 mg po daily - Continue lisinopril 2.5 mg po daily - Continue IV diuresis/aldactone 25 mg po daily - Given episode this AM of angina relieved with SL NTG and placing topical nitro patch will change the patch to oral imdur 60 mg po daily. If she develops nitrate resistance we can increase this dose as an outpatient. - As long as no lightheadedness, can give all meds with sbp > 80 mmHg. If anything, these medications can improve cardiac performance and paradoxically increase BP - Ok to treat angina with PRN narcotics - DNR/DNI - Has not wanted invasive procedures - Prognosis poor - Discussed with Dr. Sinha - Will follow Thank you for allowing met to participate in the cardiovascular care of this patient. Please do not hesitate to contact me with questions or concerns.
[2018-12-02 11:04] LABS: ABS Eosinophils 0.1 10^3/ul (0-0.6); ABS Lymphocytes 0.9 10^3/ul (1.0-4.8); ABS Monocytes 0.5 10^3/ul (0-0.8); ABS Neutrophils 7.4 10^3/ul (1.5-7.7); Eosinophil % 0.9 %; Hematocrit 31 % (35-47); Hemoglobin 10.4 g/dL (12.0-16.0); Lymphocyte % 10.3 %; Mean Corpuscular HGB Conc 34 g/dL (31-36); Mean Corpuscular Hemoglobin 32 pg (27-31); Mean Corpuscular Volume 94 fL (80-97); Platelet Count 251 10^3/uL (150-450); Red Blood Count 3.28 10^6 /uL (3.70-4.87); Red Cell Distribution Width 15 % (10-15)
[2018-12-02 11:23] LABS: BUN/Creatinine Ratio 21.9 (8-20); Calcium 8.9 mg/dL (8.6-10.3); EGFR African American 60.3 (>60); EGFR Non-African American 49.8 (>60); Potassium 4.3 mmol/L (3.5-5.0)
[2018-12-02] MEDS: Isosorbide Mononitrate ER TAB* 60 MG PO SCH (12:29)
[2018-12-02] MEDS: Sertraline* 25 MG TAB PO SCH (12:30)
[2018-12-02] MEDS: Atorvastatin* 80 MG TAB PO SCH (12:30)
[2018-12-02] MEDS: Folic Acid TAB* 1 MG PO SCH (12:30)
[2018-12-02] MEDS: Lisinopril TAB* 5 MG PO SCH (12:30)
[2018-12-02] MEDS: Spironolactone TAB* 25 MG PO SCH (12:30)
[2018-12-02] MEDS: Furosemide IV* 10 MG/ML VIAL (40 MG) IV SCH (12:31)
--- NOTE | 2018-12-02 15:57 | CONSULT ---
Palliative / Hospice Consult Ordering Provider: Geeta Sinha - PCP-Jarad Referal Reason: Goals of care interested in hospice/no bowel meds/no narcotics - Subjective Code Status: DNR Advance Directives Location: In Chart MOLST Part A Completed: Yes - on chart MOLST Part E Completed:: Yes - on chart - History or Present Illness History or Present Illness: 83yo female with CHF presents to ER with SOB, weight gain of 4 pds, dietary indiscretion and L arm pain. PMH mild cognitive decline, CHF systolic EF 30-35% , mild-mod aortic stenosis, HTN, hyperlipidemia, CAD with NSTEMI 10/2018, PAD and DM type 2. PSHx-rare etoh, no drugs, exposure to second hand smoke, living in daughter's house in a separate apt, daughter Geeta is her HCP(on chart). [id number], CXR-bilateral infiltrate with CHF less likely pneumonia, H/H 10.4/31, BUN/Cr 23/1.05, egfr49.8, troponin 2.27, alb 3.9 , BNP 1088, alt 48 and ast 68. Pt admitted with acute on chronic respiratory failure secondary to CHF and NSTEMI. Pt has been hospitalized 09/15-12/01 with CHF , 10/20-10/21/18 NSTEMI and 11/09- with dyspnea. All history is from the pt, family and medical record. Lab Values: Abnormal Lab Results 12/01/18 12/01/18 12/01/18 15:18 17:10 20:06 WBC RBC Hgb Hct MCV MCH MCHC RDW Plt Count MPV Neut % (Auto) Lymph % (Auto) [place] % (Auto) Eos % (Auto) Baso % (Auto) Absolute Neuts (auto) Absolute Lymphs (auto) Absolute Monos (auto) Absolute Eos (auto) Absolute Basos (auto) Absolute Nucleated RBC Nucleated RBC % Sodium Potassium Chloride Carbon Dioxide Anion Gap BUN Creatinine Est GFR ( Amer) Est GFR (Non-Af Amer) BUN/Creatinine Ratio Glucose POC Glucose (mg/dL) 354 H 356 H Calcium Troponin I 1.07 H* 12/01/18 12/01/18 12/02/18 20:39 23:33 07:36 WBC RBC Hgb Hct MCV MCH MCHC RDW Plt Count MPV Neut % (Auto) Lymph % (Auto) [place] % (Auto) Eos % (Auto) Baso % (Auto) Absolute Neuts (auto) Absolute Lymphs (auto) Absolute Monos (auto) Absolute Eos (auto) Absolute Basos (auto) Absolute Nucleated RBC Nucleated RBC % Sodium Potassium Chloride Carbon Dioxide Anion Gap BUN Creatinine Est GFR ( Amer) Est GFR (Non-Af Amer) BUN/Creatinine Ratio Glucose POC Glucose (mg/dL) 132 H Calcium Troponin I 2.37 H* 2.27 H* 12/02/18 12/02/18 12/02/18 10:39 10:40 12:35 WBC 9.0 RBC 3.28 L Hgb 10.4 L Hct 31 L MCV 94 MCH 32 H MCHC 34 RDW 15 Plt Count 251 MPV 9.0 Neut % (Auto) 82.7 Lymph % (Auto) 10.3 [place] % (Auto) 5.6 Eos % (Auto) 0.9 Baso % (Auto) 0.5 Absolute Neuts (auto) 7.4 Absolute Lymphs (auto) 0.9 L Absolute Monos (auto) 0.5 Absolute Eos (auto) 0.1 Absolute Basos (auto) 0.0 Absolute Nucleated RBC 0.0 Nucleated RBC % 0.0 Sodium 136 Potassium 4.3 Chloride 104 Carbon Dioxide 24 Anion Gap 8 BUN 23 Creatinine 1.05 H Est GFR ( Amer) 60.3 Est GFR (Non-Af Amer) 49.8 BUN/Creatinine Ratio 21.9 H Glucose 338 H POC Glucose (mg/dL) 374 H Calcium 8.9 Troponin I Laboratory Last Values WBC 9.0 10^3/uL (3.5-10.8) 12/02/18 10:40 RBC 3.28 10^6 /uL (3.70-4.87) L 12/02/18 10:40 Hgb 10.4 g/dL (12.0-16.0) L 12/02/18 10:40 Hct 31 % (35-47) L 12/02/18 10:40 MCV 94 fL (80-97) 12/02/18 10:40 MCH 32 pg (27-31) H 12/02/18 10:40 MCHC 34 g/dL (31-36) 12/02/18 10:40 RDW 15 % (10-15) 12/02/18 10:40 Plt Count 251 10^3/uL (150-450) 12/02/18 10:40 MPV 9.0 fL (7.4-10.4) 12/02/18 10:40 Neut % (Auto) 82.7 % 12/02/18 10:40 Lymph % (Auto) 10.3 % 12/02/18 10:40 [place] % (Auto) 5.6 % 12/02/18 10:40 Eos % (Auto) 0.9 % 12/02/18 10:40 Baso % (Auto) 0.5 % 12/02/18 10:40 Absolute Neuts (auto) 7.4 10^3/ul (1.5-7.7) 12/02/18 10:40 Absolute Lymphs (auto) 0.9 10^3/ul (1.0-4.8) L 12/02/18 10:40 Absolute Monos (auto) 0.5 10^3/ul (0-0.8) 12/02/18 10:40 Absolute Eos (auto) 0.1 10^3/ul (0-0.6) 12/02/18 10:40 Absolute Basos (auto) 0.0 10^3/ul (0-0.2) 12/02/18 10:40 Absolute Nucleated RBC 0.0 10^3/ul 12/02/18 10:40 Nucleated RBC % 0.0 12/02/18 10:40 INR (Anticoag Therapy) 0.92 (0.82-1.09) 12/01/18 11:32 Sodium 136 mmol/L (135-145) 12/02/18 10:39 Potassium 4.3 mmol/L (3.5-5.0) 12/02/18 10:39 Chloride 104 mmol/L (101-111) 12/02/18 10:39 Carbon Dioxide 24 mmol/L (22-32) 12/02/18 10:39 Anion Gap 8 mmol/L (2-11) 12/02/18 10:39 BUN 23 mg/dL (6-24) 12/02/18 10:39 Creatinine 1.05 mg/dL (0.51-0.95) H 12/02/18 10:39 Est GFR ( Amer) 60.3 (>60) 12/02/18 10:39 Est GFR (Non-Af Amer) 49.8 (>60) 12/02/18 10:39 BUN/Creatinine Ratio 21.9 (8-20) H 12/02/18 10:39 Glucose 338 mg/dL (70-100) H 12/02/18 10:39 POC Glucose (mg/dL) 374 mg/dL (70-100) H 12/02/18 12:35 Calcium 8.9 mg/dL (8.6-10.3) 12/02/18 10:39 Total Bilirubin 0.70 mg/dL (0.2-1.0) 12/01/18 11:32 AST 48 U/L (13-39) H 12/01/18 11:32 ALT 68 U/L (7-52) H 12/01/18 11:32 Alkaline Phosphatase 84 U/L (34-104) 12/01/18 11:32 Troponin I 2.27 ng/mL (<0.04) H* 12/01/18 23:33 B-Natriuretic Peptide 1088 pg/mL (<=100) H 12/01/18 11:32 Total Protein 6.3 g/dL (6.4-8.9) L 12/01/18 11:32 Albumin 3.9 g/dL (3.2-5.2) 12/01/18 11:32 Globulin 2.4 g/dL (2-4) 12/01/18 11:32 Albumin/Globulin Ratio 1.6 (1-3) 12/01/18 11:32 - Objective Active Medications: Aspirin (Aspirin Ec Tab*) 81 mg PO DAILY [facility] Last Admin: 12/02/18 10:02 Dose: Not Given Atorvastatin Calcium (Lipitor*) 80 mg PO DAILY [facility] Last Admin: 12/02/18 12:30 Dose: 80 mg Dextrose (Dextrose 50% Vial 50 Ml*) 25 ml IV PUSH .FOR FS < 60 - SS PRN PRN Reason: FS < 60 Enoxaparin Sodium (Lovenox(*)) 60 mg SUBCUT Q12H [facility] Last Admin: 12/02/18 09:49 Dose: 60 mg Folic Acid (Folvite Tab*) 1 mg PO DAILY [facility] Last Admin: 12/02/18 12:30 Dose: 1 mg Furosemide (Lasix Iv*) 40 mg IV DAILY [facility] Last Admin: 12/02/18 12:31 Dose: 40 mg Insulin Human Lispro (Humalog*) 0 units SUBCUT ACHS [facility]; Protocol Last Admin: 12/02/18 12:45 Dose: 5 units Isosorbide Mononitrate (Imdur Er Tab*) 60 mg PO DAILY [facility] Last Admin: 12/02/18 12:29 Dose: 60 mg Lisinopril (Prinivil Tab*) 2.5 mg PO DAILY [facility] Last Admin: 12/02/18 12:30 Dose: 2.5 mg Metoprolol Succinate (Toprol Xl Tab*) 25 mg PO DAILY [facility] Last Admin: 12/02/18 09:49 Dose: 25 mg Sertraline HCl (Zoloft*) 25 mg PO QAM [facility] Last Admin: 12/02/18 12:30 Dose: 25 mg Spironolactone (Aldactone Tab*) 25 mg PO DAILY [facility] Last Admin: 12/02/18 12:30 Dose: 25 mg Ticagrelor (Brilinta*) 90 mg PO BID [facility] Last Admin: 12/02/18 09:49 Dose: 90 mg Vital Signs: Vital Signs: Temp Pulse Resp BP Pulse Ox 98.1 F 57 20 108/53 100 12/02/18 07:49 12/02/18 07:49 12/02/18 11:02 12/02/18 07:49 12/02/18 07:49 Patient Weight: Weight 57.379 kg Intake and Output: Intake & Output 11/30/18 12/01/18 12/02/18 12/03/18 06:59 06:59 06:59 06:59 Intake Total 360 480 Output Total 900 400 Balance -540 80 Weight 57.379 kg Intake: Oral 360 480 Output: Urine 900 400 Other: # Bowel Movements 0 ADLs: Meal Record Start: 12/01/18 13: 33 Freq: DAILY@0900,1400,1800 Status: Active Protocol: Created 12/01/18 13:33 System (Rec: 12/01/18 13:33 System [email or web address]) Document 12/01/18 14:00 [id number] (Rec: 12/01/18 14:37 [id number]) Document 12/01/18 18:00 [id number] (Rec: 12/01/18 18:46 [id number] TELE-C01) Document 12/02/18 09:00 [id number] (Rec: 12/02/18 10:00 [id number]) Document 12/02/18 14:00 [id number] (Rec: 12/02/18 14:26 [id number] TELE-C08) Intake and Output Start: 12/01/18 11: 12 Freq: Status: Active Protocol: Created 12/01/18 11:12 System (Rec: 12/01/18 11:12 System [id number]) Intake and Output Start: 12/01/18 13: 33 Freq: DAILY@0600,1400,2200 Status: Active Protocol: Created 12/01/18 13:33 System (Rec: 12/01/18 13:33 System [email or web address]) Document 12/01/18 14:00 [id number] (Rec: 12/01/18 14:42 [id number] TELE-C01) Document 12/01/18 22:00 [id number] (Rec: 12/01/18 22:01 [id number] TELE-C01) Document 12/02/18 05:30 [id number] (Rec: 12/02/18 05:32 [id number] TELE-C08) Document 12/02/18 14:00 [id number] (Rec: 12/02/18 14:26 [id number] [id number]) Head: Normal Ears/Nose/Mouth/Throat: NL Teeth, Lips, Gums, Clear Oropharnyx Neck: NL Appearance and Movements; NL JVP Cardiovascular: NL Sounds; No Murmurs; No JVD Respiratory: Symmetrical Chest Expansion and Respiratory Effort Abdominal: NL Sounds; No Tenderness; No Distention Extremities: No Edema Neurological: Alert and Oriented x 3 - Assessment Assessment: 83 yo female with CHF admitted with acute on chronic respiratory failure and NSTEMI - Plan Consult Plan (MU): Hospice Plan: Spoke with daughter over the phone and with pt and her son in pt's room. Pt has had 3 hospitalizations in less than 2 months due to cardiac issues and not wanting any aggressive interventions. They are also tired of coming back to the hospital. Family is interested in hospice referral. Referral has been sent and hospice evaluation is on Wednesday at pt's home. I discussed hospice services with them-they get an aide M-F for an hour, RN visit once a week and use of all other services provided by hospice plus bereavement counseling for 13 months. Pt can sign off at anytime. Hospice eligibility due to CHF and CAD not wanting therapy. KPS 50%, PPS 60%. - Time On Unit Date of Evaluation: 12/02/18 Hospice Consult Time in: 15:00 Hospice Consult Time Out: 16:00 Hospice Consult Time Total: 60 > 50% of Time Spend In Counseling or Coordinating Care: Yes
--- NOTE | 2018-12-02 16:47 | PN ---
Subjective Date of Service: 12/02/18 Interval History: CP this am relieved by morphine and nitro patch no sob Objective Active Medications: Aspirin (Aspirin Ec Tab*) 81 mg PO DAILY [facility] Last Admin: 12/02/18 10:02 Dose: Not Given Atorvastatin Calcium (Lipitor*) 80 mg PO DAILY [facility] Last Admin: 12/02/18 12:30 Dose: 80 mg Dextrose (Dextrose 50% Vial 50 Ml*) 25 ml IV PUSH .FOR FS < 60 - SS PRN PRN Reason: FS < 60 Enoxaparin Sodium (Lovenox(*)) 60 mg SUBCUT Q12H [facility] Last Admin: 12/02/18 09:49 Dose: 60 mg Folic Acid (Folvite Tab*) 1 mg PO DAILY [facility] Last Admin: 12/02/18 12:30 Dose: 1 mg Furosemide (Lasix Iv*) 40 mg IV DAILY [facility] Last Admin: 12/02/18 12:31 Dose: 40 mg Insulin Human Lispro (Humalog*) 0 units SUBCUT ACHS [facility]; Protocol Last Admin: 12/02/18 12:45 Dose: 5 units Isosorbide Mononitrate (Imdur Er Tab*) 60 mg PO DAILY [facility] Last Admin: 12/02/18 12:29 Dose: 60 mg Lisinopril (Prinivil Tab*) 2.5 mg PO DAILY [facility] Last Admin: 12/02/18 12:30 Dose: 2.5 mg Metoprolol Succinate (Toprol Xl Tab*) 25 mg PO DAILY [facility] Last Admin: 12/02/18 09:49 Dose: 25 mg Sertraline HCl (Zoloft*) 25 mg PO QAM [facility] Last Admin: 12/02/18 12:30 Dose: 25 mg Spironolactone (Aldactone Tab*) 25 mg PO DAILY [facility] Last Admin: 12/02/18 12:30 Dose: 25 mg Ticagrelor (Brilinta*) 90 mg PO BID [facility] Last Admin: 12/02/18 09:49 Dose: 90 mg Vital Signs - 8 hr 12/02/18 12/02/18 10:02 11:02 Respiratory 24 20 Rate Oxygen Devices in Use Now: Nasal Cannula Eyes: No Scleral Icterus Ears/Nose/Mouth/Throat: NL Teeth, Lips, Gums Neck: NL Appearance and Movements; NL JVP Respiratory: Symmetrical Chest Expansion and Respiratory Effort Cardiovascular: NL Sounds; No Murmurs; No JVD Abdominal: NL Sounds; No Tenderness; No Distention Extremities: No Edema Neurological: Alert and Oriented x 3 Result Diagrams: 12/02/18 10:40 12/02/18 10:39 Additional Lab and Data: Lab Results 12/01/18 12/01/18 12/01/18 Range/Units 11:32 11:32 11:32 WBC 9.2 (3.5-10.8) 10^3/uL RBC 3.63 L (3.70-4.87) 10^6 /uL Hgb 11.5 L (12.0-16.0) g/dL Hct 35 (35-47) % MCV 96 (80-97) fL MCH 32 H (27-31) pg MCHC 33 (31-36) g/dL RDW 14 (10-15) % Plt Count 309 (150-450) 10^3/uL MPV 8.4 (7.4-10.4) fL Neut % (Auto) 82.6 % Lymph % (Auto) 11.3 % [place] % (Auto) 4.8 % Eos % (Auto) 0.6 % Baso % (Auto) 0.7 % Absolute Neuts (auto) 7.6 (1.5-7.7) 10^3/ul Absolute Lymphs (auto) 1.0 (1.0-4.8) 10^3/ul Absolute Monos (auto) 0.4 (0-0.8) 10^3/ul Absolute Eos (auto) 0.1 (0-0.6) 10^3/ul Absolute Basos (auto) 0.1 (0-0.2) 10^3/ul Absolute Nucleated RBC 0.0 10^3/ul Nucleated RBC % 0.0 INR (Anticoag Therapy) 0.92 (0.82-1.09) Sodium 137 (135-145) mmol/L Potassium 5.1 H (3.5-5.0) mmol/L Chloride 105 (101-111) mmol/L Carbon Dioxide 21 L (22-32) mmol/L Anion Gap 11 (2-11) mmol/L BUN 22 (6-24) mg/dL Creatinine 1.10 H (0.51-0.95) mg/dL Est GFR ( Amer) 57.1 (>60) Est GFR (Non-Af Amer) 47.2 (>60) BUN/Creatinine Ratio 20.0 (8-20) Glucose 353 H (70-100) mg/dL Calcium 9.4 (8.6-10.3) mg/dL Total Bilirubin 0.70 (0.2-1.0) mg/dL AST 48 H (13-39) U/L ALT 68 H (7-52) U/L Alkaline Phosphatase 84 (34-104) U/L Troponin I 0.03 (<0.04) ng/mL Total Protein 6.3 L (6.4-8.9) g/dL Albumin 3.9 (3.2-5.2) g/dL Globulin 2.4 (2-4) g/dL Albumin/Globulin Ratio 1.6 (1-3) Assess/Plan/Problems-Billing Assessment: - Patient Problems (1) NSTEMI (non-ST elevated myocardial infarction) Current Visit: Yes Status: Acute Code(s): I21.4 - NON-ST ELEVATION (NSTEMI) MYOCARDIAL INFARCTION SNOMED Code(s): 01556324 Comment: on aspirin, plavix switched to brillinta by cardiology, continue therapeutic lovenox 48-72h,b alicia, low dose hiwot lisinopril 2.5 and atorvastatin 80 mg pt and daughter opting for hospice and want to continue conservative medical management with no invasive procedures severe cad appreciate dr robbins input (2) CHF exacerbation Current Visit: Yes Status: Acute Code(s): I50.9 - HEART FAILURE, UNSPECIFIED SNOMED Code(s): 011827741 Comment: ef 30-35% continue lasix iv 40 mg and spironolactone (3) Diabetes Current Visit: Yes Status: Acute Code(s): E11.9 - TYPE 2 DIABETES MELLITUS WITHOUT COMPLICATIONS SNOMED Code(s): 38700085 Comment: ISS (4) Hypertension Current Visit: Yes Status: Acute Code(s): I10 - ESSENTIAL (PRIMARY) HYPERTENSION SNOMED Code(s): 22314868 Comment: continue b alicia, imdur,lisinopril,diuretics
[2018-12-02] MEDS ORDERED: Morphine INJ* 2 MG/ML 1 ML SYRINGE (TWO MG - NEW SYRINGE VERSION) IV ONE (19:00)
[2018-12-03 04:34] LABS: Urine Appearance Clear; Urine Bilirubin Negative (Negative); Urine Blood Negative (Negative); Urine Color Yellow; Urine Glucose 1+(50 mg/dL) (Negative); Urine Ketones Negative (Negative); Urine Nitrite Negative (Negative); Urine Protein Negative (Negative); Urine Specific Gravity 1.013 (1.010-1.030); Urine Urobilinogen Negative (Negative)
[2018-12-03 07:06] LABS: ABS Basophils 0.1 10^3/ul (0-0.2); ABS Eosinophils 0.2 10^3/ul (0-0.6); ABS Lymphocytes 1.4 10^3/ul (1.0-4.8); ABS Monocytes 0.6 10^3/ul (0-0.8); ABS Neutrophils 4.3 10^3/ul (1.5-7.7); Eosinophil % 2.6 %; Hematocrit 25 % (35-47); Hemoglobin 8.8 g/dL (12.0-16.0); Lymphocyte % 21.5 %; Mean Corpuscular HGB Conc 35 g/dL (31-36); Mean Corpuscular Hemoglobin 32 pg (27-31); Mean Corpuscular Volume 93 fL (80-97); Mean Platelet Volume 8.6 fL (7.4-10.4); Platelet Count 216 10^3/uL (150-450); Red Blood Count 2.72 10^6 /uL (3.70-4.87); Red Cell Distribution Width 14 % (10-15); White Blood Count 6.5 10^3/uL (3.5-10.8)
[2018-12-03 07:22] LABS: BUN/Creatinine Ratio 21.3 (8-20); Calcium 8.4 mg/dL (8.6-10.3); EGFR African American 72.9 (>60); EGFR Non-African American 60.3 (>60)
[2018-12-03] MEDS: Insulin LISPRO* 1 UNITS UNIT SUBCUT SCH ×4 (08:42→21:23)
[2018-12-03] MEDS: Isosorbide Mononitrate ER TAB* 60 MG PO SCH (08:54)
[2018-12-03] MEDS: Lisinopril TAB* 5 MG PO SCH (08:55)
[2018-12-03] MEDS: Atorvastatin* 80 MG TAB PO SCH (08:55)
[2018-12-03] MEDS: Spironolactone TAB* 25 MG PO SCH (08:55)
[2018-12-03] MEDS: Aspirin EC TAB* 81 MG TAB.EC PO SCH (08:55)
[2018-12-03] MEDS: Metoprolol Succinate XL TAB* 25 MG PO SCH (08:55)
[2018-12-03] MEDS: Ticagrelor* 90 MG TAB PO SCH ×2 (08:55→20:51)
[2018-12-03] MEDS: Folic Acid TAB* 1 MG PO SCH (08:55)
[2018-12-03] MEDS: Sertraline* 25 MG TAB PO SCH (08:55)
[2018-12-03] MEDS: Furosemide IV* 10 MG/ML VIAL (40 MG) IV SCH (08:56)
--- NOTE | 2018-12-03 10:53 | PN ---
Subjective Date of Service: 12/03/18 Interval History: f/u [place], CHF Patient has no chest or arm discomfort C/o dyspnea, appears comfortable hemoglobin trending down, no obvious bleeding noted plan for home hospice tele no arrhythmias Medications Active Medications: Aspirin (Aspirin Ec Tab*) 81 mg PO DAILY [facility] Last Admin: 12/03/18 08:55 Dose: 81 mg Atorvastatin Calcium (Lipitor*) 80 mg PO DAILY [facility] Last Admin: 12/03/18 08:55 Dose: 80 mg Dextrose (Dextrose 50% Vial 50 Ml*) 25 ml IV PUSH .FOR FS < 60 - SS PRN PRN Reason: FS < 60 Enoxaparin Sodium (Lovenox(*)) 60 mg bid Folic Acid (Folvite Tab*) 1 mg PO DAILY [facility] Last Admin: 12/03/18 08:55 Dose: 1 mg Furosemide (Lasix Iv*) 40 mg IV DAILY [facility] Last Admin: 12/03/18 08:56 Dose: 40 mg Insulin Human Lispro (Humalog*) 0 units SUBCUT [facility]; Protocol Last Admin: 12/03/18 08:42 Dose: Not Given Isosorbide Mononitrate (Imdur Er Tab*) 60 mg PO DAILY [facility] Last Admin: 12/03/18 08:54 Dose: 60 mg Lisinopril (Prinivil Tab*) 2.5 mg PO DAILY [facility] Last Admin: 12/03/18 08:55 Dose: 2.5 mg Metoprolol Succinate (Toprol Xl Tab*) 25 mg PO DAILY [facility] Last Admin: 12/03/18 08:55 Dose: 25 mg Sertraline HCl (Zoloft*) 25 mg PO QAM [facility] Last Admin: 12/03/18 08:55 Dose: 25 mg Spironolactone (Aldactone Tab*) 25 mg PO DAILY [facility] Last Admin: 12/03/18 08:55 Dose: 25 mg Ticagrelor (Brilinta*) 90 mg PO BID [facility] Last Admin: 12/03/18 08:55 Dose: 90 mg Objective Vital Signs: Temp Pulse Resp BP Pulse Ox 97.0 F 71 16 99/56 100 12/03/18 07:47 12/03/18 07:47 12/03/18 07:47 12/03/18 07:47 12/03/18 07:47 Oxygen Devices in Use Now: Nasal Cannula Appearance: nad, pleasant Ears/Nose/Mouth/Throat: Clear Oropharnyx, Mucous Membranes Moist Neck: Trachea Midline, - - mild jvd Respiratory: - - mild tachypnea/increased work of breathing but overall comfortable, bibasilar rales Cardiovascular: RRR, No Edema, - - 3/6 systolic apical murmur Abdominal: NL Sounds; No Tenderness; No Distention Extremities: No Edema Skin: No Rash or Ulcers Neurological: - - awake, alert Laboratory Results: 12/03/18 06:30 12/03/18 06:30 INR (Anticoag Therapy) 0.92 (0.82-1.09) 12/01/18 11:32 Total Bilirubin 0.70 mg/dL (0.2-1.0) 12/01/18 11:32 AST 48 U/L (13-39) H 12/01/18 11:32 ALT 68 U/L (7-52) H 12/01/18 11:32 Alkaline Phosphatase 84 U/L (34-104) 12/01/18 11:32 B-Natriuretic Peptide 1088 pg/mL (<=100) H 12/01/18 11:32 Total Protein 6.3 g/dL (6.4-8.9) L 12/01/18 11:32 Albumin 3.9 g/dL (3.2-5.2) 12/01/18 11:32 Globulin 2.4 g/dL (2-4) 12/01/18 11:32 Albumin/Globulin Ratio 1.6 (1-3) 12/01/18 11:32 12/01/18 12/01/18 12/01/18 11:32 14:04 15:18 Troponin I 0.03 0.54 H* 1.07 H* 12/01/18 12/01/18 20:39 23:33 Troponin I 2.37 H* 2.27 H* Diagnostic Imaging: Cardiac Testing: Echocardiogram - (10/21/2018) -Left ventricle: Systolic function is moderately reduced. The estimated ejection fraction is 30-35%. -Left atrium: The atrium is moderately to severely dilated. -Mitral valve: There is moderate to severe regurgitation directed eccentrically Mild aortic stenosis -Tricuspid valve: There is moderate regurgitation. -Pulmonary arteries: Systolic pressure is moderately increased, estimated to be 55 mmHg. Echocardiogram - (09/16/2018) LVEF 30-35% (see report for WMA), moderate LA dilation, moderate to severe posterior directed MR, mild , mild-moderate pHTN (49 mmHg) CArdiac catheterization - (04/26/2017) Dr. Feliz [facility]: Abnormal stress test, NSVT. 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 Recurrent NSTEMI - Unsure if this was first or heart failure triggered this - Will be treated the same regardless - Known very severe unrevascularized CAD as above 2. DM 3. Acute on chronic congestive heart failure - LVEF 30% - Significant MR, ? worsened when acutely ischemic - Mild 4. PAD 5. Memory loss, intermittent - continue current medications except change therapeutic lovenox to DVT prophylaxis dose (ordered) and monitor for GIB - As long as no lightheadedness, can give all meds with sbp > 80 mmHg. - Ok to treat angina with PRN narcotics - Change IV to po lasix when stable - DNR/DNI - Has not wanted invasive procedures - Prognosis poor - Plans for home hospice in place Thank you for allowing [facility] to participate in the cardiovascular care of this patient. Please do not hesitate to contact me with questions or concerns.
[2018-12-03] MEDS: Enoxaparin(*) 60 MG/0.6 ML SYR SUBCUT SCH (12:12)
--- NOTE | 2018-12-03 12:50 | PN ---
Subjective Date of Service: 12/03/18 Interval History: denies any complaints.no cp no sob Objective Active Medications: Aspirin (Aspirin Ec Tab*) 81 mg PO DAILY [facility] Last Admin: 12/03/18 08:55 Dose: 81 mg Atorvastatin Calcium (Lipitor*) 80 mg PO DAILY [facility] Last Admin: 12/03/18 08:55 Dose: 80 mg Dextrose (Dextrose 50% Vial 50 Ml*) 25 ml IV PUSH .FOR FS < 60 - SS PRN PRN Reason: FS < 60 Enoxaparin Sodium (Lovenox(*)) 30 mg SUBCUT Q24H [facility] Folic Acid (Folvite Tab*) 1 mg PO DAILY [facility] Last Admin: 12/03/18 08:55 Dose: 1 mg Furosemide (Lasix Iv*) 40 mg IV DAILY [facility] Last Admin: 12/03/18 08:56 Dose: 40 mg Insulin Human Lispro (Humalog*) 0 units SUBCUT ACHS [facility]; Protocol Last Admin: 12/03/18 08:42 Dose: Not Given Isosorbide Mononitrate (Imdur Er Tab*) 60 mg PO DAILY [facility] Last Admin: 12/03/18 08:54 Dose: 60 mg Lisinopril (Prinivil Tab*) 2.5 mg PO DAILY [facility] Last Admin: 12/03/18 08:55 Dose: 2.5 mg Metoprolol Succinate (Toprol Xl Tab*) 25 mg PO DAILY [facility] Last Admin: 12/03/18 08:55 Dose: 25 mg Sertraline HCl (Zoloft*) 25 mg PO QAM [facility] Last Admin: 12/03/18 08:55 Dose: 25 mg Spironolactone (Aldactone Tab*) 25 mg PO DAILY [facility] Last Admin: 12/03/18 08:55 Dose: 25 mg Ticagrelor (Brilinta*) 90 mg PO BID [facility] Last Admin: 12/03/18 08:55 Dose: 90 mg Vital Signs - 8 hr 12/03/18 07:47 Temperature 97.0 F Pulse Rate 71 Respiratory 16 Rate Blood Pressure 99/56 (mmHg) O2 Sat by Pulse 100 Oximetry Oxygen Devices in Use Now: Nasal Cannula Eyes: No Scleral Icterus Ears/Nose/Mouth/Throat: NL Teeth, Lips, Gums Neck: NL Appearance and Movements; NL JVP Respiratory: Symmetrical Chest Expansion and Respiratory Effort, Clear to Auscultation Cardiovascular: NL Sounds; No Murmurs; No JVD, RRR Abdominal: NL Sounds; No Tenderness; No Distention Extremities: No Edema Neurological: Alert and Oriented x 3, NL Sensation Result Diagrams: 12/03/18 06:30 12/03/18 06:30 Additional Lab and Data: Lab Results 12/01/18 12/01/18 12/01/18 Range/Units 11:32 11:32 11:32 WBC 9.2 (3.5-10.8) 10^3/uL RBC 3.63 L (3.70-4.87) 10^6 /uL Hgb 11.5 L (12.0-16.0) g/dL Hct 35 (35-47) % MCV 96 (80-97) fL MCH 32 H (27-31) pg MCHC 33 (31-36) g/dL RDW 14 (10-15) % Plt Count 309 (150-450) 10^3/uL MPV 8.4 (7.4-10.4) fL Neut % (Auto) 82.6 % Lymph % (Auto) 11.3 % [place] % (Auto) 4.8 % Eos % (Auto) 0.6 % Baso % (Auto) 0.7 % Absolute Neuts (auto) 7.6 (1.5-7.7) 10^3/ul Absolute Lymphs (auto) 1.0 (1.0-4.8) 10^3/ul Absolute Monos (auto) 0.4 (0-0.8) 10^3/ul Absolute Eos (auto) 0.1 (0-0.6) 10^3/ul Absolute Basos (auto) 0.1 (0-0.2) 10^3/ul Absolute Nucleated RBC 0.0 10^3/ul Nucleated RBC % 0.0 INR (Anticoag Therapy) 0.92 (0.82-1.09) Sodium 137 (135-145) mmol/L Potassium 5.1 H (3.5-5.0) mmol/L Chloride 105 (101-111) mmol/L Carbon Dioxide 21 L (22-32) mmol/L Anion Gap 11 (2-11) mmol/L BUN 22 (6-24) mg/dL Creatinine 1.10 H (0.51-0.95) mg/dL Est GFR ( Amer) 57.1 (>60) Est GFR (Non-Af Amer) 47.2 (>60) BUN/Creatinine Ratio 20.0 (8-20) Glucose 353 H (70-100) mg/dL Calcium 9.4 (8.6-10.3) mg/dL Total Bilirubin 0.70 (0.2-1.0) mg/dL AST 48 H (13-39) U/L ALT 68 H (7-52) U/L Alkaline Phosphatase 84 (34-104) U/L Troponin I 0.03 (<0.04) ng/mL Total Protein 6.3 L (6.4-8.9) g/dL Albumin 3.9 (3.2-5.2) g/dL Globulin 2.4 (2-4) g/dL Albumin/Globulin Ratio 1.6 (1-3) Assess/Plan/Problems-Billing Assessment: - Patient Problems (1) NSTEMI (non-ST elevated myocardial infarction) Current Visit: Yes Status: Acute Code(s): I21.4 - NON-ST ELEVATION (NSTEMI) MYOCARDIAL INFARCTION SNOMED Code(s): 79021492 Comment: on aspirin, plavix switched to brillinta by cardiology, therapeutic lovenox ,b alicia, low dose hiwot lisinopril 2.5 and atorvastatin 80 mg pt and daughter opting for hospice and want to continue conservative medical management with no invasive procedures severe cad appreciate dr robbins input lovenox switched to dvt dose by dr robbins in light of drop in hb with no signs of active bleeding (2) CHF exacerbation Current Visit: Yes Status: Acute Code(s): I50.9 - HEART FAILURE, UNSPECIFIED SNOMED Code(s): 616260819 Comment: ef 30-35% continue lasix iv 40 mg and spironolactone (3) Diabetes Current Visit: Yes Status: Acute Code(s): E11.9 - TYPE 2 DIABETES MELLITUS WITHOUT COMPLICATIONS SNOMED Code(s): 34243542 Comment: ISS (4) Hypertension Current Visit: Yes Status: Acute Code(s): I10 - ESSENTIAL (PRIMARY) HYPERTENSION SNOMED Code(s): 85715827 Comment: continue b alicia, imdur,lisinopril,diuretics (5) Anemia Current Visit: Yes Status: Acute Code(s): D64.9 - ANEMIA, UNSPECIFIED SNOMED Code(s): 076696012 Comment: on aspirin,brillinta and lovenox lovenox switched to dvt dose no dark stools or suggestion of active bleeding recheck hb later today Status and Disposition: family agreed to supportive hospice.hospice can see her wednesday at home.possible d/c on Wednesday with hospice services
[2018-12-03 17:20] LABS: ABS Eosinophils 0.1 10^3/ul (0-0.6); ABS Lymphocytes 0.8 10^3/ul (1.0-4.8); ABS Monocytes 0.6 10^3/ul (0-0.8); Eosinophil % 1.2 %; Hematocrit 25 % (35-47); Hemoglobin 8.7 g/dL (12.0-16.0); Mean Corpuscular HGB Conc 34 g/dL (31-36); Mean Corpuscular Hemoglobin 32 pg (27-31); Mean Corpuscular Volume 94 fL (80-97); Mean Platelet Volume 8.5 fL (7.4-10.4); Platelet Count 227 10^3/uL (150-450); Red Blood Count 2.72 10^6 /uL (3.70-4.87); Red Cell Distribution Width 14 % (10-15); White Blood Count 6.4 10^3/uL (3.5-10.8)
[2018-12-03] MEDS ORDERED: Morphine INJ* 2 MG/ML 1 ML SYRINGE (TWO MG - NEW SYRINGE VERSION) IV PRN (17:53)
[2018-12-03] MEDS ORDERED: Nitroglycerin TAB 0.4 MG* 0.4 MG TAB ONE (17:54)
[2018-12-03] MEDS: Nitroglycerin TAB 0.4 MG* 0.4 MG TAB SL PRN (17:56)
[2018-12-03] MEDS ORDERED: Morphine INJ* 2 MG/ML 1 ML SYRINGE (TWO MG - NEW SYRINGE VERSION) ONE (18:03)
[2018-12-03] MEDS ORDERED: Dextrose 50% VIAL 50 ml IV PUSH PRN (18:07)
[2018-12-03] MEDS ORDERED: Insulin LISPRO* 1 UNITS UNIT SUBCUT ONE (18:07)
[2018-12-04] MEDS: Nitroglycerin TAB 0.4 MG* 0.4 MG TAB SL PRN ×2 (05:52→07:48)
[2018-12-04 07:20] LABS: ABS Eosinophils 0.1 10^3/ul (0-0.6); ABS Monocytes 0.6 10^3/ul (0-0.8); ABS Neutrophils 6.2 10^3/ul (1.5-7.7); Eosinophil % 1.8 %; Hematocrit 28 % (35-47); Hemoglobin 9.7 g/dL (12.0-16.0); Lymphocyte % 12.3 %; Mean Corpuscular HGB Conc 34 g/dL (31-36); Mean Corpuscular Hemoglobin 32 pg (27-31); Mean Corpuscular Volume 94 fL (80-97); Mean Platelet Volume 8.6 fL (7.4-10.4); Platelet Count 239 10^3/uL (150-450); Red Blood Count 3.02 10^6 /uL (3.70-4.87); Red Cell Distribution Width 14 % (10-15)
[2018-12-04 07:39] LABS: BUN/Creatinine Ratio 17.9 (8-20); Calcium 8.9 mg/dL (8.6-10.3); EGFR African American 67.6 (>60); EGFR Non-African American 55.9 (>60); Potassium 3.9 mmol/L (3.5-5.0)
[2018-12-04] MEDS: Furosemide IV* 10 MG/ML VIAL (40 MG) IV SCH (07:49)
[2018-12-04] MEDS: Lisinopril TAB* 5 MG PO SCH (07:50)
[2018-12-04] MEDS ORDERED: Furosemide IV* 10 MG/ML VIAL (40 MG) IV ONE (07:54)
[2018-12-04] MEDS: Aspirin EC TAB* 81 MG TAB.EC PO SCH (07:58)
[2018-12-04] MEDS: Atorvastatin* 80 MG TAB PO SCH (07:58)
[2018-12-04] MEDS: Folic Acid TAB* 1 MG PO SCH (07:59)
[2018-12-04] MEDS: Metoprolol Succinate XL TAB* 25 MG PO SCH (07:59)
[2018-12-04] MEDS: Isosorbide Mononitrate ER TAB* 60 MG PO SCH (07:59)
[2018-12-04] MEDS: Ticagrelor* 90 MG TAB PO SCH ×2 (07:59→21:38)
[2018-12-04] MEDS: Sertraline* 25 MG TAB PO SCH (07:59)
[2018-12-04] MEDS: Spironolactone TAB* 25 MG PO SCH (07:59)
--- NOTE | 2018-12-04 08:07 | PN ---
Subjective Date of Service: 12/04/18 Interval History: No acute events overnight. On 2L NC. Recurrence of prior chest pain this morning and given nitro but so far not morphine. Pt reports chest pain entirely resolved with nitro. Pt and family understand plan is for home with hospice tomorrow morning. Pt denies SOB. Had excellent UOP to furosemide. Objective Active Medications: Aspirin (Aspirin Ec Tab*) 81 mg PO DAILY [facility] Last Admin: 12/04/18 07:58 Dose: 81 mg Atorvastatin Calcium (Lipitor*) 80 mg PO DAILY [facility] Last Admin: 12/04/18 07:58 Dose: 80 mg Dextrose (Dextrose 50% Vial 50 Ml*) 25 ml IV PUSH .FOR FS < 60 - SS PRN PRN Reason: FS < 60 Enoxaparin Sodium (Lovenox(*)) 30 mg SUBCUT Q24H [facility] Last Admin: 12/04/18 10:47 Dose: 30 mg Folic Acid (Folvite Tab*) 1 mg PO DAILY [facility] Last Admin: 12/04/18 07:59 Dose: 1 mg Furosemide (Lasix Tab*) 80 mg PO DAILY [facility] Insulin Human Lispro (Humalog*) 0 units SUBCUT ACHS [facility]; Protocol Last Admin: 12/04/18 13:08 Dose: Not Given Isosorbide Mononitrate (Imdur Er Tab*) 120 mg PO DAILY [facility] Lisinopril (Prinivil Tab*) 2.5 mg PO DAILY [facility] Last Admin: 12/04/18 07:50 Dose: 2.5 mg Metoprolol Succinate (Toprol Xl Tab*) 25 mg PO DAILY [facility] Last Admin: 12/04/18 07:59 Dose: 25 mg Morphine Sulfate (Morphine Oral Concentrate*) 5 mg SL Q2H PRN PRN Reason: severe pain or dyspnea Nitroglycerin (Nitroglycerin Tab 0.4 Mg*) 0.4 mg SL Q5M PRN PRN Reason: ANGINA Last Admin: 12/04/18 07:48 Dose: 0.4 mg Sertraline HCl (Zoloft*) 25 mg PO QAM [facility] Last Admin: 12/04/18 07:59 Dose: 25 mg Spironolactone (Aldactone Tab*) 25 mg PO DAILY [facility] Last Admin: 12/04/18 07:59 Dose: 25 mg Ticagrelor (Brilinta*) 90 mg PO BID [facility] Last Admin: 12/04/18 07:59 Dose: 90 mg Vital Signs - 8 hr 12/04/18 12/04/18 12/04/18 04:05 05:47 06:05 Temperature 97.8 F 96.7 F Pulse Rate 81 93 75 Respiratory 18 20 20 Rate Blood Pressure 111/61 106/69 96/47 (mmHg) O2 Sat by Pulse 100 99 92 Oximetry 12/04/18 12/04/18 07:30 07:58 Temperature 97.8 F Pulse Rate 98 82 Respiratory 28 18 Rate Blood Pressure 97/67 95/50 (mmHg) O2 Sat by Pulse 99 Oximetry Oxygen Devices in Use Now: Nasal Cannula Appearance: pleasant, in NAD, no increased WOB, interactive wiht family at bedside Eyes: No Scleral Icterus Ears/Nose/Mouth/Throat: Clear Oropharnyx, Mucous Membranes Moist Neck: NL Appearance and Movements; NL JVP, Trachea Midline Respiratory: Symmetrical Chest Expansion and Respiratory Effort, Clear to Auscultation, - Cardiovascular: - - rrr, soft systolic murmur Abdominal: NL Sounds; No Tenderness; No Distention, No Hepatosplenomegaly Extremities: No Edema Skin: No Rash or Ulcers Neurological: - - answers questions appropriately, no slurred speech Result Diagrams: 12/04/18 07:01 12/04/18 07:01 Additional Lab and Data: Lab Results 12/01/18 12/01/18 12/01/18 Range/Units 11:32 11:32 11:32 WBC 9.2 (3.5-10.8) 10^3/uL RBC 3.63 L (3.70-4.87) 10^6 /uL Hgb 11.5 L (12.0-16.0) g/dL Hct 35 (35-47) % MCV 96 (80-97) fL MCH 32 H (27-31) pg MCHC 33 (31-36) g/dL RDW 14 (10-15) % Plt Count 309 (150-450) 10^3/uL MPV 8.4 (7.4-10.4) fL Neut % (Auto) 82.6 % Lymph % (Auto) 11.3 % [place] % (Auto) 4.8 % Eos % (Auto) 0.6 % Baso % (Auto) 0.7 % Absolute Neuts (auto) 7.6 (1.5-7.7) 10^3/ul Absolute Lymphs (auto) 1.0 (1.0-4.8) 10^3/ul Absolute Monos (auto) 0.4 (0-0.8) 10^3/ul Absolute Eos (auto) 0.1 (0-0.6) 10^3/ul Absolute Basos (auto) 0.1 (0-0.2) 10^3/ul Absolute Nucleated RBC 0.0 10^3/ul Nucleated RBC % 0.0 INR (Anticoag Therapy) 0.92 (0.82-1.09) Sodium 137 (135-145) mmol/L Potassium 5.1 H (3.5-5.0) mmol/L Chloride 105 (101-111) mmol/L Carbon Dioxide 21 L (22-32) mmol/L Anion Gap 11 (2-11) mmol/L BUN 22 (6-24) mg/dL Creatinine 1.10 H (0.51-0.95) mg/dL Est GFR ( Amer) 57.1 (>60) Est GFR (Non-Af Amer) 47.2 (>60) BUN/Creatinine Ratio 20.0 (8-20) Glucose 353 H (70-100) mg/dL Calcium 9.4 (8.6-10.3) mg/dL Total Bilirubin 0.70 (0.2-1.0) mg/dL AST 48 H (13-39) U/L ALT 68 H (7-52) U/L Alkaline Phosphatase 84 (34-104) U/L Troponin I 0.03 (<0.04) ng/mL Total Protein 6.3 L (6.4-8.9) g/dL Albumin 3.9 (3.2-5.2) g/dL Globulin 2.4 (2-4) g/dL Albumin/Globulin Ratio 1.6 (1-3) Assess/Plan/Problems-Billing Assessment: 83W with HFrEF, , HTN, DM2, PAD, CAD/[place], who presents with dyspnea, found to have NSTEMI and HF exacerbation. Pt and family elected to [facility] home hospice, as no aggressive intervention wanted, and this is patient's 4th hospitalization for advanced cardiac disease. - Patient Problems (1) NSTEMI (non-ST elevated myocardial infarction) Comment: Pt and daughter opting for hospice and want to continue conservative medical management without invasive procedures. - on aspirin, ticagrelor, b alicia, atorvastatin 80 mg, FAM-I, and Imdur 120mg - appreciate dr robbins input - s/p AC with Lovenox (2) CHF exacerbation Comment: ef 30-35% - cont spironolactone, switch Lasix to 80mg PO (3) Anemia Comment: on aspirin,brillinta and lovenox lovenox switched to dvt dose no dark stools or suggestion of active bleeding recheck hb later today (4) Diabetes Comment: ISS (5) Hypertension Comment: continue b alicia, imdur,lisinopril,diuretics Status and Disposition: family agreed to supportive hospice.hospice can see her wednesday at home.possible d/c on Wednesday with hospice services
[2018-12-04] MEDS: Insulin LISPRO* 1 UNITS UNIT SUBCUT SCH ×4 (08:10→21:38)
[2018-12-04 08:24] LABS: Magnesium 1.6 mg/dL (1.9-2.7)
[2018-12-04] MEDS ORDERED: Isosorbide Mononitrate ER TAB* 60 MG PO ONE (10:18)
--- NOTE | 2018-12-04 10:25 | PN ---
Subjective Date of Service: 12/04/18 Interval History: f/u [place], CHF patient had angina (chest, left arm) discomfort relieved promptly with SL NTG MR murmur less today suggestive of dynamic component no c/o dyspnea currently, at breakfast visiting with family Medications Active Medications: Aspirin (Aspirin Ec Tab*) 81 mg PO DAILY [facility] Last Admin: 12/04/18 07:58 Dose: 81 mg Atorvastatin Calcium (Lipitor*) 80 mg PO DAILY [facility] Last Admin: 12/04/18 07:58 Dose: 80 mg Dextrose (Dextrose 50% Vial 50 Ml*) 25 ml IV PUSH .FOR FS < 60 - SS PRN PRN Reason: FS < 60 Enoxaparin Sodium (Lovenox(*)) 30 mg SUBCUT Q24H [facility] Folic Acid (Folvite Tab*) 1 mg PO DAILY [facility] Last Admin: 12/04/18 07:59 Dose: 1 mg Furosemide (Lasix Iv*) 80 mg IV DAILY [facility] Insulin Human Lispro (Humalog*) 0 units SUBCUT ACHS [facility]; Protocol Last Admin: 12/04/18 08:10 Dose: 2 units Isosorbide Mononitrate (Imdur Er Tab*) 60 mg PO ONCE ONE Stop: 12/04/18 10:19 Isosorbide Mononitrate (Imdur Er Tab*) 120 mg PO DAILY [facility] Lisinopril (Prinivil Tab*) 2.5 mg PO DAILY [facility] Last Admin: 12/04/18 07:50 Dose: 2.5 mg Metoprolol Succinate (Toprol Xl Tab*) 25 mg PO DAILY [facility] Last Admin: 12/04/18 07:59 Dose: 25 mg Morphine Sulfate (Morphine Inj (Syringe))*) 2 mg IV Q4H PRN PRN Reason: PAIN - SEVERE Nitroglycerin (Nitroglycerin Tab 0.4 Mg*) 0.4 mg SL Q5M PRN PRN Reason: ANGINA Last Admin: 12/04/18 07:48 Dose: 0.4 mg Sertraline HCl (Zoloft*) 25 mg PO QAM [facility] Last Admin: 12/04/18 07:59 Dose: 25 mg Spironolactone (Aldactone Tab*) 25 mg PO DAILY [facility] Last Admin: 12/04/18 07:59 Dose: 25 mg Ticagrelor (Brilinta*) 90 mg PO BID [facility] Last Admin: 12/04/18 07:59 Dose: 90 mg Objective Vital Signs: Temp Pulse Resp BP Pulse Ox 97.8 F 82 18 95/50 99 12/04/18 07:30 12/04/18 07:58 12/04/18 08:00 12/04/18 07:58 12/04/18 07:30 Oxygen Devices in Use Now: Nasal Cannula Appearance: nad, pleasant Ears/Nose/Mouth/Throat: Clear Oropharnyx, Mucous Membranes Moist Neck: Trachea Midline, - - mild jvd Respiratory: Symmetrical Chest Expansion and Respiratory Effort, Clear to Auscultation Cardiovascular: RRR, No Edema, - - 1/6 systolic apical murmur Abdominal: NL Sounds; No Tenderness; No Distention Extremities: No Edema Skin: No Rash or Ulcers Neurological: - - awake, alert Laboratory Results: 12/04/18 07:01 12/04/18 07:01 INR (Anticoag Therapy) 0.92 (0.82-1.09) 12/01/18 11:32 Total Bilirubin 0.70 mg/dL (0.2-1.0) 12/01/18 11:32 AST 48 U/L (13-39) H 12/01/18 11:32 ALT 68 U/L (7-52) H 12/01/18 11:32 Alkaline Phosphatase 84 U/L (34-104) 12/01/18 11:32 B-Natriuretic Peptide 1088 pg/mL (<=100) H 12/01/18 11:32 Total Protein 6.3 g/dL (6.4-8.9) L 12/01/18 11:32 Albumin 3.9 g/dL (3.2-5.2) 12/01/18 11:32 Globulin 2.4 g/dL (2-4) 12/01/18 11:32 Albumin/Globulin Ratio 1.6 (1-3) 12/01/18 11:32 12/01/18 12/01/18 12/01/18 11:32 14:04 15:18 Troponin I 0.03 0.54 H* 1.07 H* 12/01/18 12/01/18 20:39 23:33 Troponin I 2.37 H* 2.27 H* Diagnostic Imaging: Cardiac Testing: Echocardiogram - (10/21/2018) -Left ventricle: Systolic function is moderately reduced. The estimated ejection fraction is 30-35%. -Left atrium: The atrium is moderately to severely dilated. -Mitral valve: There is moderate to severe regurgitation directed eccentrically Mild aortic stenosis -Tricuspid valve: There is moderate regurgitation. -Pulmonary arteries: Systolic pressure is moderately increased, estimated to be 55 mmHg. Echocardiogram - (09/16/2018) LVEF 30-35% (see report for WMA), moderate LA dilation, moderate to severe posterior directed MR, mild , mild-moderate pHTN (49 mmHg) Cardiac catheterization - (04/26/2017) Dr. Feliz [facility]: Abnormal stress test, NSVT. 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 Recurrent NSTEMI - Unsure if this was first or heart failure triggered this - Will be treated the same regardless - Known very severe unrevascularized CAD as above 2. DM 3. Acute on chronic congestive heart failure - LVEF 30% - Significant MR, suspect worsened when acutely ischemic driving heart failure in part - Mild 4. PAD 5. Memory loss, intermittent - As long as no lightheadedness, can give all meds with sbp > 80 mmHg. - Increase imdur to 120 mg po daily (ordered) - Ok to treat angina with PRN narcotics, would try to use liquid oral for discharge - Change IV to po lasix when stable - DNR/DNI - Has not wanted invasive procedures - Prognosis poor - Plans for home hospice in place Thank you for allowing [facility] to participate in the cardiovascular care of this patient. Please do not hesitate to contact me with questions or concerns.
[2018-12-04] MEDS: Enoxaparin(*) 30 MG/0.3 ML SYR SUBCUT SCH (10:47)
[2018-12-04] MEDS ORDERED: Morphine ORAL CONCENTRATE* 5 MG/0.25 ML ORAL.SYRIN SL PRN (11:31)
[2018-12-04] MEDS ORDERED: Insulin LISPRO* 1 UNITS UNIT SUBCUT ONE (13:06)
[2018-12-04] MEDS ORDERED: Dextrose 50% VIAL 50 ml IV PUSH PRN (13:06)
[2018-12-04] MEDS ORDERED: Magnesium Sulfate 2 GM IV* 2 GM/50 ML BAG IVPB ONE (15:52)
--- NOTE | 2018-12-04 18:05 | DS ---
CC: Dr. Ramiro Wright of Cardiology, Dr. Melissa Washington, of Palliative Care.* DISCHARGE SUMMARY: DATE OF ADMISSION: 12/01/18 ANTICIPATED DISCHARGE DATE: 12/05/18 PRIMARY CARE PROVIDER: David Abraham MD PRIMARY DIAGNOSES: 1. Oax-LZ-aeytargqz myocardial infarction. 2. Acute on chronic heart failure, reduced ejection fraction. 3. Uncontrolled diabetes. SECONDARY DIAGNOSES: 1. Peripheral arterial disease. 2. Mild cognitive impairment. 3. Hypertension. 4. Scsp-dk-srufaecg aortic stenosis. CONSULTS: Dr. Ramiro Wright of Cardiology, Dr. Melissa Washington of Palliative Care. DISCHARGE MEDICATIONS: 1. Aspirin 81 mg daily 2. Ticagrelor 90 mg twice a day. 3. Atorvastatin 80 mg daily. 4. Metoprolol succinate 25 mg daily. 5. Lisinopril 2.5 mg daily. 6. Furosemide 80 mg daily. 7. Spironolactone 25 mg daily. 8. Nitroglycerin patch 1 patch transdermally daily. 9. Isosorbide mononitrate ER tab 120 mg daily. 10. Nitroglycerin tab 0.4 mg sublingual every 5 minutes as needed for chest pain. 11. Morphine oral concentrate 5 mg sublingually every 2 hours as needed for pain or dyspnea. 12. Janumet 50/500 one tablet twice a day. 13. Glipizide 10 mg daily. 14. Sertraline 25 mg daily. 15. Folic acid 1 mg tablet daily. HISTORY OF PRESENT ILLNESS: Ms. Cornejo is an 83-year-old woman with heart failure, coronary artery disease with recent NSTEMI with 3 hospitalizations this summer for both of these diagnoses, also with diabetes and mild cognitive impairment and hypertension who is presenting with shortness of breath. Approximately 2 nights prior to presentation, she ate some saltier foods. One day prior to presentation, the patient's daughter weighed her and it was noted that her weight was up by approximately 4 pounds though at that time the patient had denied breathing difficulties. On day of presentation, the patient had got up with the help of her aide. The patient checked her blood sugar, took all her medications and ate breakfast, showered and got dressed; however, then she began feeling tired. She was placed in bed with her head flat and had significant shortness of breath. She was positioned to upright position and still did not feel well. She was sweating, complaining of shortness of breath, right leg pain, left arm discomfort, but throughout this time had denied chest pain. The patient did not utilize oxygen at home. Given significant number of hospitalizations this summer for advanced cardiac disease, she had previously been referred to hospice; however, this hospice evaluation was still pending at time of these exacerbated symptoms and daughter brought the patient to the emergency room for further treatment. HOSPITAL COURSE: The patient was admitted to the medical service for an acute heart failure, reduced ejection fraction exacerbation with concern for NSTEMI. She was given IV diuretics and seen by our cardiology consultation services who had a discussion with the patient. She preferred no interventions for her advanced cardiac disease but did want to have optimal medical therapy, and she was still interested in pursuing outpatient hospice services. It is noted that the patient had been turned down for CABG in the past due to her high risk. Cardiology recommended to continue the patient's home aspirin, but discontinue her clopidogrel, and add on ticagrelor for more potent antiplatelet effect. She was optimized on anti-anginals, with initiation of Imdur with increasing dose as needed. She was also educated to use sublingual nitro as well as morphine for her recurrent chest pain, which she experienced ongoing throughout admission a couple times a day, which responded well to medications. Her IV diuretics were eventually changed to oral furosemide and she was continued on her home spironolactone. Her home amlodipine was stopped due to low blood pressure, but she was continued on an FAM inhibitor and beta-alicia for cardiac benefit and she did not have symptomatic hypotension on these medications. Plan was for the patient to have home hospice services initiated on the Wednesday after the weekend, so she stayed while optimizing cardiac medications, titrating up as tolerated, and monitoring response to nitro and sublingual morphine. Her son and [id number] were on board with this plan. Her therapeutic anti-coagulation was stopped before discharge given slight decrease in her hemoglobin and preference not to continue this long-term, but instead short course of therapy for NSTEMI. The patient had no signs of active bleeding throughout hospitalization and her hemoglobin improved by time of discharge. PERTINENT STUDIES AND LABS: Hemoglobin 9.7 with MCV 94. Troponin peaked at 2.37 Chest x-ray with bilateral infiltrates most consistent with congestive heart failure and less likely pneumonia. These are new findings compared to prior. DISCHARGE PLAN: The patient will be discharged home on Wednesday12/05/18 when she can have same day evaluation by home hospice services. She prefers to be continued on maximum medical management for coronary disease and anti-anginals and this includes dual antiplatelets, statin, nitrates, and as needed morphine. She should continue to monitor her weight at home daily as her furosemide can be increased for symptom control. She will continue followup with her PCP as well as home hospice services. She was educated that she may return to the hospital for symptoms that are unable to be controlled with home medications. She should eat a diet for comfort, although it would be best to avoid high salt and carbohydrate foods to prevent severe symptoms from heart failure and diabetes. She should resume activity as tolerated. DISPOSITION: Home. CONDITION: Guarded. TIME SPENT: Approximately 60 minutes was spent on discharge of this patient, more than half of which was spent with care, coordination at bedside for interview and exam. [id number]/CPS #: [id number] JOSÉ ANTONIO
[2018-12-05] MEDS ORDERED: Furosemide TAB* 40 MG PO SCH (06:00)
[2018-12-05 06:23] LABS: ABS Basophils 0.1 10^3/ul (0-0.2); ABS Eosinophils 0.1 10^3/ul (0-0.6); ABS Lymphocytes 1.8 10^3/ul (1.0-4.8); ABS Monocytes 0.8 10^3/ul (0-0.8); ABS Neutrophils 10.4 10^3/ul (1.5-7.7); Eosinophil % 0.6 %; Hematocrit 34 % (35-47); Hemoglobin 11.4 g/dL (12.0-16.0); Lymphocyte % 13.5 %; Mean Corpuscular HGB Conc 33 g/dL (31-36); Mean Corpuscular Hemoglobin 31 pg (27-31); Mean Corpuscular Volume 94 fL (80-97); Mean Platelet Volume 8.7 fL (7.4-10.4); Platelet Count 308 10^3/uL (150-450); Red Blood Count 3.64 10^6 /uL (3.70-4.87); Red Cell Distribution Width 14 % (10-15); White Blood Count 13.1 10^3/uL (3.5-10.8)
[2018-12-05 06:28] LABS: Activated Partial Thrombo Time 28.7 seconds (26.0-38.0); INR 0.86 (0.82-1.09)
[2018-12-05 06:36] LABS: Anion Gap 12 mmol/L (2-11); BUN/Creatinine Ratio 20.2 (8-20); Blood Urea Nitrogen 24 mg/dL (6-24); CO2 Carbon Dioxide 21 mmol/L (22-32); Calcium 9.1 mg/dL (8.6-10.3); Chloride 99 mmol/L (101-111); EGFR African American 52.2 (>60); EGFR Non-African American 43.1 (>60); Glucose 318 mg/dL (70-100); Magnesium 2.3 mg/dL (1.9-2.7); Potassium 3.9 mmol/L (3.5-5.0); Sodium 132 mmol/L (135-145)
[2018-12-05 06:40] LABS: Troponin I 0.27 ng/mL (<0.04)
--- NOTE | 2018-12-05 07:46 | PN ---
Subjective Date of Service: 12/05/18 Interval History: Ms. Cornejo had an episode of chest pain when she was walking to the bathroom this morning around 3am. An ekg was unchanged, a CXR showed reduction of the effusion, and a troponin was 0.2. SL nitro relieved the pain completely. She continues to be very short of breath even at rest. Her daughter and granddaughter are at the bedside. Objective Active Medications: Aspirin (Aspirin Ec Tab*) 81 mg PO DAILY [facility] Last Admin: 12/04/18 07:58 Dose: 81 mg Atorvastatin Calcium (Lipitor*) 80 mg PO DAILY [facility] Last Admin: 12/04/18 07:58 Dose: 80 mg Dextrose (Dextrose 50% Vial 50 Ml*) 25 ml IV PUSH .FOR FS < 60 - SS PRN PRN Reason: FS < 60 Dextrose (Dextrose 50% Vial 50 Ml*) 25 ml IV PUSH .FOR FS < 60 - SS PRN PRN Reason: FS < 60 Enoxaparin Sodium (Lovenox(*)) 30 mg SUBCUT Q24H [facility] Last Admin: 12/04/18 10:47 Dose: 30 mg Folic Acid (Folvite Tab*) 1 mg PO DAILY [facility] Last Admin: 12/04/18 07:59 Dose: 1 mg Furosemide (Lasix Tab*) 80 mg PO DAILY [facility] Last Admin: 12/05/18 06:14 Dose: 80 mg Insulin Human Lispro (Humalog*) 0 units SUBCUT [facility]; Protocol Last Admin: 12/04/18 21:38 Dose: 2 units Isosorbide Mononitrate (Imdur Er Tab*) 120 mg PO DAILY [facility] Lisinopril (Prinivil Tab*) 2.5 mg PO DAILY [facility] Last Admin: 12/04/18 07:50 Dose: 2.5 mg Metoprolol Succinate (Toprol Xl Tab*) 25 mg PO DAILY [facility] Last Admin: 12/04/18 07:59 Dose: 25 mg Morphine Sulfate (Morphine Oral Concentrate*) 5 mg SL Q2H PRN PRN Reason: severe pain or dyspnea Nitroglycerin (Nitroglycerin Tab 0.4 Mg*) 0.4 mg SL Q5M PRN PRN Reason: ANGINA Last Admin: 12/04/18 07:48 Dose: 0.4 mg Sertraline HCl (Zoloft*) 25 mg PO QAM [facility] Last Admin: 12/04/18 07:59 Dose: 25 mg Spironolactone (Aldactone Tab*) 25 mg PO DAILY [facility] Last Admin: 12/04/18 07:59 Dose: 25 mg Ticagrelor (Brilinta*) 90 mg PO BID [facility] Last Admin: 12/04/18 21:38 Dose: 90 mg Vital Signs - 8 hr 12/05/18 12/05/18 12/05/18 03:22 04:15 05:50 Temperature 97.8 F 97.1 F Pulse Rate 71 100 Respiratory 18 26 Rate Blood Pressure 100/55 98/67 (mmHg) O2 Sat by Pulse 98 95 92 Oximetry Oxygen Devices in Use Now: Nasal Cannula Appearance: alert, dyspneic, unwell appearing Eyes: No Scleral Icterus Ears/Nose/Mouth/Throat: NL Teeth, Lips, Gums Neck: - - JVP 12 cm Respiratory: - - crackles parasternally Cardiovascular: - - limited cardiac exam due to tachypnea Abdominal: NL Sounds; No Tenderness; No Distention Lymphatic: No Cervical Adenopathy Extremities: No Edema Skin: No Rash or Ulcers Neurological: Alert and Oriented x 3 Result Diagrams: 12/05/18 06:07 12/05/18 06:07 Additional Lab and Data: Lab Results 12/01/18 12/01/18 12/01/18 Range/Units 11:32 11:32 11:32 WBC 9.2 (3.5-10.8) 10^3/uL RBC 3.63 L (3.70-4.87) 10^6 /uL Hgb 11.5 L (12.0-16.0) g/dL Hct 35 (35-47) % MCV 96 (80-97) fL MCH 32 H (27-31) pg MCHC 33 (31-36) g/dL RDW 14 (10-15) % Plt Count 309 (150-450) 10^3/uL MPV 8.4 (7.4-10.4) fL Neut % (Auto) 82.6 % Lymph % (Auto) 11.3 % [place] % (Auto) 4.8 % Eos % (Auto) 0.6 % Baso % (Auto) 0.7 % Absolute Neuts (auto) 7.6 (1.5-7.7) 10^3/ul Absolute Lymphs (auto) 1.0 (1.0-4.8) 10^3/ul Absolute Monos (auto) 0.4 (0-0.8) 10^3/ul Absolute Eos (auto) 0.1 (0-0.6) 10^3/ul Absolute Basos (auto) 0.1 (0-0.2) 10^3/ul Absolute Nucleated RBC 0.0 10^3/ul Nucleated RBC % 0.0 INR (Anticoag Therapy) 0.92 (0.82-1.09) Sodium 137 (135-145) mmol/L Potassium 5.1 H (3.5-5.0) mmol/L Chloride 105 (101-111) mmol/L Carbon Dioxide 21 L (22-32) mmol/L Anion Gap 11 (2-11) mmol/L BUN 22 (6-24) mg/dL Creatinine 1.10 H (0.51-0.95) mg/dL Est GFR ( Amer) 57.1 (>60) Est GFR (Non-Af Amer) 47.2 (>60) BUN/Creatinine Ratio 20.0 (8-20) Glucose 353 H (70-100) mg/dL Calcium 9.4 (8.6-10.3) mg/dL Total Bilirubin 0.70 (0.2-1.0) mg/dL AST 48 H (13-39) U/L ALT 68 H (7-52) U/L Alkaline Phosphatase 84 (34-104) U/L Troponin I 0.03 (<0.04) ng/mL Total Protein 6.3 L (6.4-8.9) g/dL Albumin 3.9 (3.2-5.2) g/dL Globulin 2.4 (2-4) g/dL Albumin/Globulin Ratio 1.6 (1-3) Assess/Plan/Problems-Billing Assessment: 83W with HFrEF, , HTN, DM2, PAD, CAD/NV, who presents with dyspnea, found to have NSTEMI and HF exacerbation. Pt and family elected to pursue home hospice, as no aggressive intervention wanted, and this is patient's 4th hospitalization for advanced cardiac disease. - Patient Problems (1) Acute respiratory failure with hypoxia Current Visit: No Status: Acute Code(s): J96.01 - ACUTE RESPIRATORY FAILURE WITH HYPOXIA SNOMED Code(s): 81918305 Comment: ongoing; likely recurs with ongoing episodes of angina and ischemia maximized on medical management, discussed likelihood that this will continue without intervention, and she and her family do not want surgical intervention will continue nitro and trial morphine today--she and her family are in agreement with this will try to arrange home with hospice still for today (2) CHF exacerbation Current Visit: Yes Status: Acute Code(s): I50.9 - HEART FAILURE, UNSPECIFIED SNOMED Code(s): 609884971 Comment: acute on chronic systolic ef 30-35% cont spironolactone, lasix, bb, fam (3) Hypertension Current Visit: Yes Status: Acute Code(s): I10 - ESSENTIAL (PRIMARY) HYPERTENSION SNOMED Code(s): 52283087 Comment: acceptable on current chf regimen (4) NSTEMI (non-ST elevated myocardial infarction) Current Visit: Yes Status: Acute Code(s): I21.4 - NON-ST ELEVATION (NSTEMI) MYOCARDIAL INFARCTION SNOMED Code(s): 01379033 Comment: Pt and daughter opting for hospice and want to continue conservative medical management without invasive procedures. on aspirin, ticagrelor, b alicia, atorvastatin 80 mg, FAM-I, and Imdur 120mg appreciate dr robbins input s/p therapeutic AC with Lovenox (5) DM2 (diabetes mellitus, type 2) Current Visit: No Status: Acute Comment: - holding Janumet - Continue sliding scale insulin Status and Disposition: discussed poor prognosis with her and her daughter and granddaughter. they wish to continue medical management with comfort measures including morphine. will try to arrange for home with hospice eval today
[2018-12-05] MEDS ORDERED: Morphine ORAL.SOLN 10 mg* 2 MG/ML UDC 5 ml PO PRN (08:32)
--- NOTE | 2018-12-05 08:40 | PN ---
Subjective Date of Service: 12/05/18 Interval History: f/u [place], CHF, medically refractory angina still with intermittent angina episodes and severe dyspnea daughter and granddaughter at bedside Medications Active Medications: Aspirin (Aspirin Ec Tab*) 81 mg PO DAILY [facility] Last Admin: 12/04/18 07:58 Dose: 81 mg Atorvastatin Calcium (Lipitor*) 80 mg PO DAILY [facility] Last Admin: 12/04/18 07:58 Dose: 80 mg Dextrose (Dextrose 50% Vial 50 Ml*) 25 ml IV PUSH .FOR FS < 60 - SS PRN PRN Reason: FS < 60 Dextrose (Dextrose 50% Vial 50 Ml*) 25 ml IV PUSH .FOR FS < 60 - SS PRN PRN Reason: FS < 60 Enoxaparin Sodium (Lovenox(*)) 30 mg SUBCUT Q24H [facility] Last Admin: 12/04/18 10:47 Dose: 30 mg Folic Acid (Folvite Tab*) 1 mg PO DAILY [facility] Last Admin: 12/04/18 07:59 Dose: 1 mg Furosemide (Lasix Tab*) 80 mg PO DAILY [facility] Last Admin: 12/05/18 06:14 Dose: 80 mg Insulin Human Lispro (Humalog*) 0 units SUBCUT [facility]; Protocol Last Admin: 12/04/18 21:38 Dose: 2 units Isosorbide Mononitrate (Imdur Er Tab*) 120 mg PO DAILY [facility] Lisinopril (Prinivil Tab*) 2.5 mg PO DAILY [facility] Last Admin: 12/04/18 07:50 Dose: 2.5 mg Metoprolol Succinate (Toprol Xl Tab*) 25 mg PO DAILY [facility] Last Admin: 12/04/18 07:59 Dose: 25 mg Morphine Sulfate (Morphine Oral Concentrate*) 5 mg SL Q2H PRN PRN Reason: severe pain or dyspnea Nitroglycerin (Nitroglycerin Tab 0.4 Mg*) 0.4 mg SL Q5M PRN PRN Reason: ANGINA Last Admin: 12/04/18 07:48 Dose: 0.4 mg Sertraline HCl (Zoloft*) 25 mg PO QAM [facility] Last Admin: 12/04/18 07:59 Dose: 25 mg Spironolactone (Aldactone Tab*) 25 mg PO DAILY [facility] Last Admin: 12/04/18 07:59 Dose: 25 mg Ticagrelor (Brilinta*) 90 mg PO BID [facility] Last Admin: 12/04/18 21:38 Dose: 90 mg Objective Vital Signs: Temp Pulse Resp BP Pulse Ox 97 F 96 28 102/67 94 12/05/18 07:17 12/05/18 07:17 12/05/18 07:17 12/05/18 07:17 12/05/18 07:17 Oxygen Devices in Use Now: None Appearance: ill, distressed Ears/Nose/Mouth/Throat: Clear Oropharnyx, Mucous Membranes Moist Neck: Trachea Midline, - - mild jvd Respiratory: Symmetrical Chest Expansion and Respiratory Effort, Clear to Auscultation Cardiovascular: RRR, No Edema, - - systolic apical murmur Abdominal: NL Sounds; No Tenderness; No Distention Extremities: No Edema Skin: No Rash or Ulcers Neurological: - - awake, alert Laboratory Results: 12/05/18 06:07 12/05/18 06:07 INR (Anticoag Therapy) 0.86 (0.82-1.09) 12/05/18 06:07 APTT 28.7 seconds (26.0-38.0) 12/05/18 06:07 Total Bilirubin 0.70 mg/dL (0.2-1.0) 12/01/18 11:32 AST 48 U/L (13-39) H 12/01/18 11:32 ALT 68 U/L (7-52) H 12/01/18 11:32 Alkaline Phosphatase 84 U/L (34-104) 12/01/18 11:32 B-Natriuretic Peptide 394 pg/mL (<=100) H 12/05/18 06:07 Total Protein 6.3 g/dL (6.4-8.9) L 12/01/18 11:32 Albumin 3.9 g/dL (3.2-5.2) 12/01/18 11:32 Globulin 2.4 g/dL (2-4) 12/01/18 11:32 Albumin/Globulin Ratio 1.6 (1-3) 12/01/18 11:32 12/01/18 12/01/18 12/01/18 11:32 14:04 15:18 Troponin I 0.03 0.54 H* 1.07 H* 09/19/19 09/19/19 09/23/19 20:39 23:33 06:07 Troponin I 2.37 H* 2.27 H* 0.27 H* Diagnostic Imaging: Cardiac Testing: Echocardiogram - (10/21/2018) -Left ventricle: Systolic function is moderately reduced. The estimated ejection fraction is 30-35%. -Left atrium: The atrium is moderately to severely dilated. -Mitral valve: There is moderate to severe regurgitation directed eccentrically Mild aortic stenosis -Tricuspid valve: There is moderate regurgitation. -Pulmonary arteries: Systolic pressure is moderately increased, estimated to be 55 mmHg. Echocardiogram - (09/16/2018) LVEF 30-35% (see report for WMA), moderate LA dilation, moderate to severe posterior directed MR, mild , mild-moderate pHTN (49 mmHg) Cardiac catheterization - (04/26/2017) Dr. Feliz [facility]: Abnormal stress test, NSVT. Distal complex LM stenosis and calcification with thrombus Ostial LAD complex high grade stenosis, 80% mLAD, 50-70% D1 ostial, 80-90% D2 Moderate to large Lcx with ostial critical complex stenosis and subtotal occlusion and thrombus, 70% mid 0M2 lesion, Artur II flow in Lcx system RCA dominant, mid RCA [employer] fills from LAD collaterals Extensive aortic arch calcificationn, left subclavian artery origin not identified EKG Data: ekg 11/08/2018 NSR 66 bpm IVCD Old IWWMI ekg 12/01/2018 NSR 67 LBBB pattern with [address] depression across the precordium which technically meets sgarbossa criteria ekg 12/03/18 during anginal arm pain: NSr 96 bpm, LBBB pattern, ST changes not noticeable at higher HR Assessment/Plan 1. Recurrent NSTEMI - Unsure if this was first or heart failure triggered this - Will be treated the same regardless - Known very severe unrevascularized CAD as above - Has not wanted invasive procedures 2. DM 3. Acute on chronic congestive heart failure - LVEF 30% - Significant MR, suspect worsened when acutely ischemic driving heart failure in part - Mild 4. PAD 5. Memory loss, intermittent - As long as no lightheadedness, can give all meds with sbp > 80 mmHg. - Start oral liquid morphine solution PRN today - Hospice plans in progress - Discussed with Dr. Scales Thank you for allowing met to participate in the cardiovascular care of this patient. Please do not hesitate to contact me with questions or concerns.
[2018-12-05] MEDS: Insulin LISPRO* 1 UNITS UNIT SUBCUT SCH ×4 (08:48→21:23)
[2018-12-05] MEDS: Metoprolol Succinate XL TAB* 25 MG PO SCH (08:50)
[2018-12-05] MEDS: Lisinopril TAB* 5 MG PO SCH (08:50)
[2018-12-05] MEDS: Aspirin EC TAB* 81 MG TAB.EC PO SCH (08:50)
[2018-12-05] MEDS: Atorvastatin* 80 MG TAB PO SCH (08:50)
[2018-12-05] MEDS: Folic Acid TAB* 1 MG PO SCH (08:50)
[2018-12-05] MEDS: Ticagrelor* 90 MG TAB PO SCH ×2 (08:51→21:26)
[2018-12-05] MEDS: Sertraline* 25 MG TAB PO SCH (08:51)
[2018-12-05] MEDS: Spironolactone TAB* 25 MG PO SCH (08:51)
[2018-12-05] MEDS ORDERED: Isosorbide Mononitrate ER TAB* 60 MG PO SCH (09:00)
[2018-12-05] MEDS ORDERED: Furosemide IV* 10 MG/ML VIAL (40 MG) IV SCH (09:00)
[2018-12-05 10:58] LABS: Troponin I 20.57 ng/mL (<0.04)
[2018-12-05] MEDS: Enoxaparin(*) 30 MG/0.3 ML SYR SUBCUT SCH (11:49)
--- NOTE | 2018-12-05 13:00 | PN ---
Hospitalist Progress Note Date of Service: 12/05/18 I came back to re-evaluate Ms. Cornejo. She is sitting up in the recliner and much more comfortable after morphine. She says she feels much better. I explained the results of her troponin to her and her family and conveyed a very guarded prognosis and they understand that she is nearing the end of her life. Unfortunately she was unstable for transfer to home this morning due to respiratory distress, so she will not be able to be enrolled in hospice until Wednesday. We will continue comfort measures until hospice is able to go to her home to evaluate her.
[2018-12-05 16:45] LABS: Troponin I > 83.00 ng/mL (<0.04)
[2018-12-05] MEDS ORDERED: Insulin LISPRO* 1 UNITS UNIT SUBCUT ONE (21:03)
--- NOTE | 2018-12-06 06:54 | PN ---
Hospitalist Progress Note Date of Service: 12/05/18 I went back to discuss comfort measures with Mercedes and her family. They agree with continuing medical management for comfort including morphine but Mercedes does not want us to remove the telemetry or reduce frequency of vitals.
[2018-12-06] MEDS ORDERED: LORazepam INJ* 2 MG/ML 1 ML VIAL IV PUSH PRN (08:34)
[2018-12-06] MEDS ORDERED: Lorazepam PYXIS KEY PRN (08:34)
--- NOTE | 2018-12-06 08:44 | PN ---
Hospitalist Progress Note Date of Service: 12/06/18 I discussed Mercedes's care with her nurse Mark. Mercedes is less responsive today , has no complaints, is in no distress. She remains hypotensive, afebrile. On exam, she is resting peacefully, no grimacing, no moaning. Her family is not currently in the room; when they return I will discuss official comfort care with them--in the meantime we will continue comfort measures. She is likely entering the final stages of life related to end stage ischemic heart disease and we will continue to ensure no pain.
[2018-12-06] MEDS: Insulin LISPRO* 1 UNITS UNIT SUBCUT SCH (09:39)
[2018-12-06 22:55] VITALS: BP 91/49
[2018-12-07] MEDS: LORazepam TAB(*) 0.5 MG PO PRN (02:12)
[2018-12-07] MEDS: Morphine ORAL CONCENTRATE* 5 MG/0.25 ML ORAL.SYRIN SL PRN ×3 (03:12→16:33)
--- NOTE | 2018-12-07 09:26 | PN ---
Subjective Date of Service: 12/07/18 Interval History: Mercedes required ativan overnight for some restlessness and confusion. This morning she is sitting up in bed eating breakfast and has no complaints. She denies chest pain, shortness of breath, or pain. Objective Active Medications: Dextrose (Dextrose 50% Vial 50 Ml*) 25 ml IV PUSH .FOR FS < 60 - SS PRN PRN Reason: FS < 60 Lorazepam (Ativan Inj*) 0.5 mg IV PUSH Q4H PRN PRN Reason: ANXIETY Lorazepam (Ativan Tab(*)) 0.5 mg PO Q1H PRN PRN Reason: ANXIETY Last Admin: 12/07/18 02:12 Dose: 0.5 mg Miscellaneous (Ativan Pyxis Davis) 1 ea N/A .ATIVAN IV DAVIS PRN PRN Reason: PYXIS DAVIS Morphine Sulfate (Morphine Oral Concentrate*) 5 mg SL Q1H PRN PRN Reason: severe pain or dyspnea Last Admin: 12/07/18 03:12 Dose: 5 mg Nitroglycerin (Nitroglycerin Tab 0.4 Mg*) 0.4 mg SL Q5M PRN PRN Reason: ANGINA Last Admin: 12/04/18 07:48 Dose: 0.4 mg Vital Signs - 8 hr 12/07/18 12/07/18 12/07/18 02:12 03:12 04:21 Respiratory 24 24 20 Rate 12/07/18 12/07/18 05:00 06:00 Respiratory 20 22 Rate Oxygen Devices in Use Now: Nasal Cannula Appearance: alert, comfortable, well appearing Eyes: No Scleral Icterus Ears/Nose/Mouth/Throat: NL Teeth, Lips, Gums Respiratory: - - few crackles at the bases Cardiovascular: RRR, No Edema Abdominal: NL Sounds; No Tenderness; No Distention Lymphatic: No Cervical Adenopathy Extremities: No Edema Skin: No Rash or Ulcers Result Diagrams: 12/05/18 06:07 12/05/18 06:07 Additional Lab and Data: Lab Results 12/01/18 12/01/18 12/01/18 Range/Units 11:32 11:32 11:32 WBC 9.2 (3.5-10.8) 10^3/uL RBC 3.63 L (3.70-4.87) 10^6 /uL Hgb 11.5 L (12.0-16.0) g/dL Hct 35 (35-47) % MCV 96 (80-97) fL MCH 32 H (27-31) pg MCHC 33 (31-36) g/dL RDW 14 (10-15) % Plt Count 309 (150-450) 10^3/uL MPV 8.4 (7.4-10.4) fL Neut % (Auto) 82.6 % Lymph % (Auto) 11.3 % [place] % (Auto) 4.8 % Eos % (Auto) 0.6 % Baso % (Auto) 0.7 % Absolute Neuts (auto) 7.6 (1.5-7.7) 10^3/ul Absolute Lymphs (auto) 1.0 (1.0-4.8) 10^3/ul Absolute Monos (auto) 0.4 (0-0.8) 10^3/ul Absolute Eos (auto) 0.1 (0-0.6) 10^3/ul Absolute Basos (auto) 0.1 (0-0.2) 10^3/ul Absolute Nucleated RBC 0.0 10^3/ul Nucleated RBC % 0.0 INR (Anticoag Therapy) 0.92 (0.82-1.09) Sodium 137 (135-145) mmol/L Potassium 5.1 H (3.5-5.0) mmol/L Chloride 105 (101-111) mmol/L Carbon Dioxide 21 L (22-32) mmol/L Anion Gap 11 (2-11) mmol/L BUN 22 (6-24) mg/dL Creatinine 1.10 H (0.51-0.95) mg/dL Est GFR ( Amer) 57.1 (>60) Est GFR (Non-Af Amer) 47.2 (>60) BUN/Creatinine Ratio 20.0 (8-20) Glucose 353 H (70-100) mg/dL Calcium 9.4 (8.6-10.3) mg/dL Total Bilirubin 0.70 (0.2-1.0) mg/dL AST 48 H (13-39) U/L ALT 68 H (7-52) U/L Alkaline Phosphatase 84 (34-104) U/L Troponin I 0.03 (<0.04) ng/mL Total Protein 6.3 L (6.4-8.9) g/dL Albumin 3.9 (3.2-5.2) g/dL Globulin 2.4 (2-4) g/dL Albumin/Globulin Ratio 1.6 (1-3) Assess/Plan/Problems-Billing Assessment: 83W with HFrEF, , HTN, DM2, PAD, CAD/ID, who presents with dyspnea, found to have NSTEMI and HF exacerbation. Pt and family elected to pursue comfort measures, as no aggressive intervention wanted, and this is patient's 4th hospitalization for advanced cardiac disease. - Patient Problems (1) Acute respiratory failure with hypoxia Current Visit: No Status: Acute Code(s): J96.01 - ACUTE RESPIRATORY FAILURE WITH HYPOXIA SNOMED Code(s): 27116825 Comment: ongoing; likely recurs with ongoing episodes of angina and ischemia comfort measure, will discuss possibility of home with hospice with her daughter today when her daugther returns (2) CHF exacerbation Current Visit: Yes Status: Acute Code(s): I50.9 - HEART FAILURE, UNSPECIFIED SNOMED Code(s): 937653104 Comment: medical management discontinued yesterday due to comfort measures and inability to swallow pills yesterday; would be reasonable to resume diuretics as needed for comfort acute on chronic systolic ef 30-35% (3) Hypertension Current Visit: Yes Status: Acute Code(s): I10 - ESSENTIAL (PRIMARY) HYPERTENSION SNOMED Code(s): 36711813 Comment: normotensive off meds (4) NSTEMI (non-ST elevated myocardial infarction) Current Visit: Yes Status: Acute Code(s): I21.4 - NON-ST ELEVATION (NSTEMI) MYOCARDIAL INFARCTION SNOMED Code(s): 06644937 Comment: meds discontinued due to comfort measures (5) DM2 (diabetes mellitus, type 2) Current Visit: No Status: Acute Comment: fingersticks discontinued due to comfort measures Status and Disposition: may be a candidate for home hospice today but will await discussion with family
[2018-12-07] MEDS: Nitroglycerin TAB 0.4 MG* 0.4 MG TAB SL PRN (13:42)
[2018-12-07] MEDS ORDERED: Senna TAB 8.6 mg* TAB PO PRN (21:53)
--- NOTE | 2018-12-08 08:35 | PN ---
Subjective Date of Service: 12/08/18 Interval History: No overnight events. She feels good this morning, has no complaints, and is looking forward to breakfast. Her daughter is here with her. Objective Active Medications: Dextrose (Dextrose 50% Vial 50 Ml*) 25 ml IV PUSH .FOR FS < 60 - SS PRN PRN Reason: FS < 60 Docusate Sodium (Colace Cap*) 100 mg PO BID TERENCE Lorazepam (Ativan Inj*) 0.5 mg IV PUSH Q4H PRN PRN Reason: ANXIETY Lorazepam (Ativan Tab(*)) 0.5 mg PO Q1H PRN PRN Reason: ANXIETY Last Admin: 12/07/18 02:12 Dose: 0.5 mg Miscellaneous (Ativan Pyxis Davis) 1 ea N/A .ATIVAN IV DAVIS PRN PRN Reason: PYXIS DAVIS Morphine Sulfate (Morphine Oral Concentrate*) 5 mg SL Q1H PRN PRN Reason: severe pain or dyspnea Last Admin: 12/07/18 16:33 Dose: 5 mg Nitroglycerin (Nitroglycerin Tab 0.4 Mg*) 0.4 mg SL Q5M PRN PRN Reason: ANGINA Last Admin: 12/07/18 13:42 Dose: 0.4 mg Senna (Senokot 8.6 Mg Tab*) 1 tab PO BEDTIME PRN PRN Reason: CONSTIPATION Vital Signs - 8 hr 12/08/18 12/08/18 12/08/18 01:19 02:31 03:30 Respiratory 16 20 24 Rate 12/08/18 12/08/18 12/08/18 04:20 05:00 06:04 Respiratory 18 20 20 Rate Oxygen Devices in Use Now: Nasal Cannula Appearance: alert, breathing comfortably, well appearing Eyes: No Scleral Icterus Ears/Nose/Mouth/Throat: NL Teeth, Lips, Gums Respiratory: Symmetrical Chest Expansion and Respiratory Effort Abdominal: NL Sounds; No Tenderness; No Distention Result Diagrams: 12/05/18 06:07 12/05/18 06:07 Additional Lab and Data: Lab Results 12/01/18 12/01/18 12/01/18 Range/Units 11:32 11:32 11:32 WBC 9.2 (3.5-10.8) 10^3/uL RBC 3.63 L (3.70-4.87) 10^6 /uL Hgb 11.5 L (12.0-16.0) g/dL Hct 35 (35-47) % MCV 96 (80-97) fL MCH 32 H (27-31) pg MCHC 33 (31-36) g/dL RDW 14 (10-15) % Plt Count 309 (150-450) 10^3/uL MPV 8.4 (7.4-10.4) fL Neut % (Auto) 82.6 % Lymph % (Auto) 11.3 % [place] % (Auto) 4.8 % Eos % (Auto) 0.6 % Baso % (Auto) 0.7 % Absolute Neuts (auto) 7.6 (1.5-7.7) 10^3/ul Absolute Lymphs (auto) 1.0 (1.0-4.8) 10^3/ul Absolute Monos (auto) 0.4 (0-0.8) 10^3/ul Absolute Eos (auto) 0.1 (0-0.6) 10^3/ul Absolute Basos (auto) 0.1 (0-0.2) 10^3/ul Absolute Nucleated RBC 0.0 10^3/ul Nucleated RBC % 0.0 INR (Anticoag Therapy) 0.92 (0.82-1.09) Sodium 137 (135-145) mmol/L Potassium 5.1 H (3.5-5.0) mmol/L Chloride 105 (101-111) mmol/L Carbon Dioxide 21 L (22-32) mmol/L Anion Gap 11 (2-11) mmol/L BUN 22 (6-24) mg/dL Creatinine 1.10 H (0.51-0.95) mg/dL Est GFR ( Amer) 57.1 (>60) Est GFR (Non-Af Amer) 47.2 (>60) BUN/Creatinine Ratio 20.0 (8-20) Glucose 353 H (70-100) mg/dL Calcium 9.4 (8.6-10.3) mg/dL Total Bilirubin 0.70 (0.2-1.0) mg/dL AST 48 H (13-39) U/L ALT 68 H (7-52) U/L Alkaline Phosphatase 84 (34-104) U/L Troponin I 0.03 (<0.04) ng/mL Total Protein 6.3 L (6.4-8.9) g/dL Albumin 3.9 (3.2-5.2) g/dL Globulin 2.4 (2-4) g/dL Albumin/Globulin Ratio 1.6 (1-3) Assess/Plan/Problems-Billing Assessment: 83W with HFrEF, , HTN, DM2, PAD, CAD/PA, who presents with dyspnea, found to have NSTEMI and HF exacerbation. Pt and family elected to pursue comfort measures, as no aggressive intervention wanted, and this is patient's 4th hospitalization for advanced cardiac disease. - Patient Problems (1) Constipation Current Visit: Yes Status: Acute Code(s): K59.00 - CONSTIPATION, UNSPECIFIED SNOMED Code(s): 77407776 Comment: add bowel regimen today (2) Acute respiratory failure with hypoxia Current Visit: No Status: Acute Code(s): J96.01 - ACUTE RESPIRATORY FAILURE WITH HYPOXIA SNOMED Code(s): 90992959 Comment: ongoing; likely recurs with ongoing episodes of angina and ischemia comfort measures currently symptom-free (3) CHF exacerbation Current Visit: Yes Status: Acute Code(s): I50.9 - HEART FAILURE, UNSPECIFIED SNOMED Code(s): 151944176 Comment: medical management discontinued due to comfort measures and inability to swallow pills; would be reasonable to resume diuretics as needed for comfort acute on chronic systolic ef 30-35% (4) Hypertension Current Visit: Yes Status: Acute Code(s): I10 - ESSENTIAL (PRIMARY) HYPERTENSION SNOMED Code(s): 77204485 Comment: normotensive off meds (5) NSTEMI (non-ST elevated myocardial infarction) Current Visit: Yes Status: Acute Code(s): I21.4 - NON-ST ELEVATION (NSTEMI) MYOCARDIAL INFARCTION SNOMED Code(s): 74148822 Comment: meds discontinued due to comfort measures (6) DM2 (diabetes mellitus, type 2) Current Visit: No Status: Acute Comment: fingersticks discontinued due to comfort measures Status and Disposition: plan for home with hospice after hospital bed is delivered and home oxygen and hospice can enroll at home
[2018-12-08] MEDS: Docusate CAP* 100 MG PO SCH ×2 (10:09→21:35)
[2018-12-08] MEDS: Morphine ORAL CONCENTRATE* 5 MG/0.25 ML ORAL.SYRIN SL PRN ×2 (14:05→21:35)
[2018-12-08] MEDS: LORazepam TAB(*) 0.5 MG PO PRN (16:54)
[2018-12-08] MEDS: Polyethylene Glycol 3350* 17 GM PACKET PO SCH (21:36)
[2018-12-09] MEDS ORDERED: Ondansetron ODT TAB* 4 MG SL PRN (01:29)
[2018-12-09] MEDS: LORazepam TAB(*) 0.5 MG PO PRN (01:54)
[2018-12-09] MEDS ORDERED: Magnesium Hydroxide LIQ* 30 ML UDC PO PRN (08:46)
[2018-12-09] MEDS: Docusate CAP* 100 MG PO SCH (08:48)
[2018-12-09] MEDS: Polyethylene Glycol 3350* 17 GM PACKET PO SCH (08:48)
[2018-12-09] MEDS ORDERED: Lactulose* 15 ML UDC PO SCH (09:00)
--- NOTE | 2018-12-09 22:21 | DS ---
CC: Dr. Abraham; Dr. Wright * DISCHARGE SUMMARY: DATE OF ADMISSION: 12/01/18 DATE OF DISCHARGE: 12/09/18 PRINCIPAL DISCHARGE DIAGNOSES: 1. Non ST-segment elevation myocardial infarction. 2. Acute on chronic systolic heart failure. 3. End of life care. SECONDARY DISCHARGE DIAGNOSES: 1. Dhjq-oh-nevhzhch aortic stenosis. 2. Coronary artery disease. 3. Peripheral arterial disease. 4. Type 2 diabetes. MEDICATIONS AT THE TIME OF DISCHARGE: 1. Lisinopril 2.5 mg daily. 2. Folic acid 1 mg daily. 3. Atorvastatin 80 mg daily. 4. Aspirin 81 mg daily. 5. Glipizide 10 mg daily. 6. Zoloft 25 mg daily. 7. Spironolactone 20 mg daily. 8. Nitroglycerin 1 patch transdermally daily. 9. Toprol-XL 25 mg daily. 10. Janumet 1 tablet b.i.d. 11. Lasix 80 mg daily. 12. Imdur 120 mg daily. 13. Morphine oral concentrate 5 mg sublingual q.2 p.r.n. shortness of breath. 14. Nitroglycerin 0.4 mg sublingual q.5 p.r.n. chest pain. 15. Brilinta 90 mg b.i.d. 16. Magnesium hydroxide 30 mL p.r.n. constipation. 17. MiraLAX 17 g p.o. b.i.d. p.r.n. constipation. PHYSICAL EXAM AT THE TIME OF DISCHARGE: Routine vitals were not been obtained at the time of discharge. General: Alert, well-appearing elderly female in no distress, breathing comfortably. HEENT: Pupils equal, round and reactive to light. Oral mucosa is moist. Neck: No JVP. No adenopathy. Chest: She is in a regular rate and rhythm with a murmur at apex. No wheezes, rhonchi or rales. Abdomen: Soft, nontender, nondistended. Bowel sounds are hypoactive. Extremities: No edema, rashes or ulcers. HOSPITAL COURSE BY PROBLEM: Non-ST segment elevation myocardial infarction. Ms. Cornejo presented with shortness of breath and was found to be in acute on chronic heart failure and she was started on IV diuresis. Cardiology was consulted and again confirmed that she would not want any further testing and recommended palliative care evaluation. Dr. Washington had evaluated her and agreed that she would likely be a hospice candidate. She was planned to be discharged home with hospice on 12/05/18, but however, on the watch mechanic of 12/05/18, she had chest pain when she walked to the bathroom and her troponin elevated to 83. She was thought to have a significant N-STEMI at this time, and again she does not want any further cardiac intervention. She was deemed to be unstable for discharge at that time due to acute respiratory distress, and morphine was started on that day. She began to feel better and morphine helped her with her symptoms and again she was deemed to be a good candidate for home with hospice. She and her family agreed on this. She did wish to continue her cardiac medications as they felt that these would help with comfort , so she was discharged on these with the instructions to deescalate them as appropriate. [id number]/CPS #: [id number] MTDD
== END 2018-12-09 11:55 | disposition hospice, home (50) | DRG 280 ==
LOC: ED 11:02 → MEDTELE 12:58 → MED 12-06 23:21
PROVIDERS: ADMIT Hospitalist; ATTEND Internal Medicine
DX: I11.0 Hypertensive heart disease with heart failure (principal); I21.4 Non-ST elevation (NSTEMI) myocardial infarction; J96.01 Acute respiratory failure with hypoxia; I50.23 Acute on chronic systolic (congestive) heart failure; I25.5 Ischemic cardiomyopathy; E78.00 Pure hypercholesterolemia, unspecified; E11.51 Type 2 diabetes mellitus with diabetic peripheral angiopathy without gangrene; I08.3 Combined rheumatic disorders of mitral, aortic and tricuspid valves; I27.20 Pulmonary hypertension, unspecified; Z66 Do not resuscitate; Z51.5 Encounter for palliative care; D64.9 Anemia, unspecified; I25.119 Atherosclerotic heart disease of native coronary artery with unspecified angina pectoris; K59.00 Constipation, unspecified; M19.90 Unspecified osteoarthritis, unspecified site; M81.0 Age-related osteoporosis without current pathological fracture; F03.90 Unspecified dementia, unspecified severity, without behavioral disturbance, psychotic disturbance, mood disturbance, and anxiety; F32.9 Major depressive disorder, single episode, unspecified; E78.5 Hyperlipidemia, unspecified; R79.89 Other specified abnormal findings of blood chemistry; E11.65 Type 2 diabetes mellitus with hyperglycemia; G31.84 Mild cognitive impairment of uncertain or unknown etiology; Z95.5 Presence of coronary angioplasty implant and graft; I25.2 Old myocardial infarction; Z95.820 Peripheral vascular angioplasty status with implants and grafts; Z88.2 Allergy status to sulfonamides; Z82.49 Family history of ischemic heart disease and other diseases of the circulatory system; Z83.3 Family history of diabetes mellitus; Z84.89 Family history of other specified conditions; Z79.82 Long term (current) use of aspirin; Z79.84 Long term (current) use of oral hypoglycemic drugs; Z79.02 Long term (current) use of antithrombotics/antiplatelets
CPT/HCPCS: 36415; 71045; 71046; 80048; 80053; 81003; 82947; 83735; 83880; 84484; 85025; 85610; 85730; 87086; 93005; 99284; A9270-GY; J1644; J1650; J1940; J2270; J3475